=== PATIENT | male | born 1955 | race Caucasian/White ===

== ENCOUNTER 2019-11-18 18:38 | Emergency (ER) | payer MEDICARE, MEDICAID, SELFPAY ==
[2019-11-18 18:39] VITALS: BP 186/100; PULSE 74; RESP 18; TEMP 36.9; O2SAT 98; BMI 26.6
--- NOTE | 2019-11-18 18:42 | ED_ITS ---
Entered by Nancy Rushing, acting as scribe for Paul Martinez MD HPI - General Adult General: Chief complaint: General Medical Stated complaint: BLOOD SUGAR ISSUES Time Seen by Provider: 11/18/19 18:42 Source: patient and EMS Mode of arrival: EMS Limitations: no limitations History of Present Illness: HPI narrative: 64 yo male presents with high blood sugar per shelter. pt is on a sliding scale of insulin. per shelter this started this morning. complaint: high blood sugar Onset (ago): day(s) (today) Radiation: non-radiation Severity: mild Pain Consistency: constant Relieving factors: none Exacerbating factors: none Associated symptoms: Reports chest pain (few mins resloved after); Deny dyspnea, headache(s), nausea, rash or vomiting Treatments prior to arrival: other (insulin at shelter) Review of Systems Const: Denies: fever, chills, body aches or change in appetite Eyes: Denies: blurry vision or eye discomfort ENMT: Denies: throat pain or dental pain Card: Reports: chest pain (few mins resloved after) Resp: Denies: shortness of breath GI: Denies: abdominal pain, nausea, vomiting or diarrhea : Denies: painful urination Musc: Denies: neck pain or back pain Skin/Breast: Denies: rash Neuro: Denies: headache Psych: Denies: depression [place]/Lymph: Denies: easy bruising All/Imm: Denies: hives PFSH ED PFSH: Statuses (acute, chronic, etc) shown below reflect problem list status as previously entered and may not be historically accurate Social History Smoking and tobacco status: never smoked Current gender identity: Male Physical Exam Const: COMMON NORMALS: no apparent distress, oriented x3 and healthy appearing HENMT: COMMON NORMALS: normocephalic and head/scalp atraumatic HEAD & SCALP: normocephalic and atraumatic Eye: COMMON NORMALS: PERRL and EOMs intact bilaterally PUPIL: Yes PERRL Neck/C-Spine: COMMON NORMALS: full ROM and supple Chest: COMMONS NORMALS: inspection of chest normal and palpation of chest normal Resp: COMMON NORMALS: normal respiratory effort, no retractions, no use of accessory muscles and clear to auscultation bilaterally AUSCULTATION: clear to auscultation bilaterally Cardio: COMMON NORMALS: regular rate, regular rhythm and no murmurs RATE: regular rate RHYTHM: regular rhythm GI: COMMON NORMALS: normal to inspection, nondistended, normoactive bowel sounds, soft to palpation, non-tender and no masses PALPATION: Yes soft Extremity: COMMON NORMALS: normal to inspection and full ROM Neuro: COMMON NORMALS: oriented x3, moves all extremities and no focal motor deficits Psych: COMMON NORMALS: mental status grossly normal, thought process normal and cooperative THOUGHT PROCESS: normal thought process Skin: COMMON NORMALS: no rashes or lesions noted and no wounds GENERAL SKIN EXAM: no rashes or lesions noted Course Vital Signs: Vital signs: Vital Signs Temperature 98.4 F 11/18/19 18:39 Pulse Rate 86 11/18/19 19:27 Respiratory Rate 63 H 11/18/19 20:30 Blood Pressure 190/100 11/18/19 19:27 Pulse Oximetry 99 11/18/19 20:30 MDM - General Adult MDM Narrative: Medical decision making narrative: Patient presents here with hyperglycemia with no signs of DKA. Patient's blood glucose here is improving. Patient is well-appearing here and stable. Patient stable for discharge back to the shelter. Lab Data: Labs: Lab Results 11/18/19 11/18/19 11/18/19 Range/Units 18:57 18:58 18:58 WBC 8.6 (4.0-10.0) 10^3/ uL RBC 5.03 (4.1-5.3) 10^6/u L Hgb 13.8 (11.7-16.6) g/dL Hct 42.8 (42.0-52.0) % MCV 85.1 (80-94) fL MCH 27.4 L (28.0-34.0) pg MCHC 32.2 (30.0-36.0) g/dL RDW 13.1 (12.1-15.1) % Plt Count 196 (130-400) 10^3/c mm MPV 11.5 H (7.4-10.4) fL Neut % (Auto) 79.8 % Lymph % (Auto) 11.6 % [place] % (Auto) 7.8 % Eos % (Auto) 0.3 % Baso % (Auto) 0.2 % Neut # (Auto) 6.9 (1.8-7.7) 10^3/u L Lymph # (Auto) 1.0 (0.8-4.8) 10^3/u L [place] # (Auto) 0.7 (0.2-0.9) 10^3/u L Eos # (Auto) 0.0 (0.0-0.8) 10^3/u L Baso # (Auto) 0.0 (0.0-0.1) 10^3/u L Nucleated RBC % (a uto) 0 % Nucleated RBCs # 0.0 /100WBC Sodium 134 L (136-145) mmol/L Potassium 3.8 (3.5-5.1) mmol/L Chloride 94 L (98-107) mmol/L Carbon Dioxide 32 H (22-29) mmol/L Anion Gap 11.8 (5-19) BUN 21 (8-23) mg/dL Creatinine 1.1 (0.7-1.2) mg/dL GFR Calculation 67.2 L (90-130) mL/min Glucose 382 H (65-115) mg/dL POC Glucose 398 (70-110) mg/dL Calcium 9.7 (8.5-10.5) mg/dL Total Bilirubin 0.2 (0.15-1.2) mg/dL AST 23 (0-40) U/L ALT 17 (0-41) U/L Alkaline Phosphata se 110 (40-130) IU/L Total Protein 7.2 (6.6-8.7) g/dL Albumin 4.0 (3.5-5.2) g/dL Globulin 3.2 (1.3-4.6) g/dL 11/18/19 11/18/19 Range/Units 19:59 20:18 WBC (4.0-10.0) 10^3/ uL RBC (4.1-5.3) 10^6/u L Hgb (11.7-16.6) g/dL Hct (42.0-52.0) % MCV (80-94) fL MCH (28.0-34.0) pg MCHC (30.0-36.0) g/dL RDW (12.1-15.1) % Plt Count (130-400) 10^3/c mm MPV (7.4-10.4) fL Neut % (Auto) % Lymph % (Auto) % [place] % (Auto) % Eos % (Auto) % Baso % (Auto) % Neut # (Auto) (1.8-7.7) 10^3/u L Lymph # (Auto) (0.8-4.8) 10^3/u L [place] # (Auto) (0.2-0.9) 10^3/u L Eos # (Auto) (0.0-0.8) 10^3/u L Baso # (Auto) (0.0-0.1) 10^3/u L Nucleated RBC % (a uto) % Nucleated RBCs # /100WBC Sodium (136-145) mmol/L Potassium (3.5-5.1) mmol/L Chloride (98-107) mmol/L Carbon Dioxide (22-29) mmol/L Anion Gap (5-19) BUN (8-23) mg/dL Creatinine (0.7-1.2) mg/dL GFR Calculation (90-130) mL/min Glucose (65-115) mg/dL POC Glucose 429 333 (70-110) mg/dL Calcium (8.5-10.5) mg/dL Total Bilirubin (0.15-1.2) mg/dL AST (0-40) U/L ALT (0-41) U/L Alkaline Phosphata se (40-130) IU/L Total Protein (6.6-8.7) g/dL Albumin (3.5-5.2) g/dL Globulin (1.3-4.6) g/dL Imaging Data^: CXR: Attestation: I personally reviewed and interpreted this imaging study as follows: My impression: no acute abnormality Discharge Plan Discharge Patient Disposition: Home, Self-Care Clinical Impression: Hyperglycemia Condition: Stable Discharge Orders: Discharge Order (Routine); Ordered 11/18/19 Ordered By: Paul Martinez Referrals: Lizette Moon FNP [Family Provider] - URGENT CARE CLINIC, [Primary Care Provider] - Discharge Diet: Advance as tolerated Discharge Activity: Resume usual activity Patient Instructions: Diabetic Hyperglycemia (ED) Discharge Date/Time: 11/18/19 20:43 Coding Level of Care Code ED Custom Framing Specialist for Chg Fwd Exam Problem Focused The documentation recorded by the Сергей neff Bridget Annette, accurately reflects the service I personally performed and the decisions made by me, Paul Martinez MD Nov 18, 2019 18:38
--- NOTE | 2019-11-18 18:47 | XR_ITS ---
WS: [id number] CHEST XRAY TECHNIQUE: Portable chest. CLINICAL INFORMATION: cp COMPARISON: None. FINDINGS: Shallow inspiration. Heart: Normal cardiac silhouette. Tortuous thoracic aorta. Lungs: Chronic emphysematous changes. Subsegmental atelectasis right lung base. Bones: Marked thoracolumbar scoliosis. XR/XR chest 1V portable [id number] IMPRESSION: 1. Shallow inspiration with subsegmental atelectasis right lung base. 2. Marked thoracolumbar scoliosis.
[2019-11-18 18:58] VITALS: O2SAT 98
[2019-11-18] MEDS: sodium chloride 0.9% 1,000 ML 999 ML IV (19:01)
[2019-11-18 19:02] LABS: Glucose Point of Care 398 mg/dL (70-110)
[2019-11-18 19:27] VITALS: BP 190/100; PULSE 86; RESP 16; O2SAT 96
--- NOTE | 2019-11-18 19:28 | PC.NURSE ---
Introduced self to patient and initiated vital signs. Pt is A&O x 4 and agreeable. Pt states that the reason for the ER visit today is due to elevated blood sugar levels. Pt also not complaining of any pain at present. Reassured patient of needs and will continue to monitor.
[2019-11-18 19:29] LABS: Basophils % 0.2 %; Eosinophils % 0.3 %; Hematocrit 42.8 % (42.0-52.0); Hemoglobin 13.8 g/dL (11.7-16.6); Lymphocytes % 11.6 %; Mean Corpuscular HGB Conc 32.2 g/dL (30.0-36.0); Mean Corpuscular Hemoglobin 27.4 pg (28.0-34.0); Mean Corpuscular Volume 85.1 fL (80-94); Mean Platelet Volume 11.5 fL (7.4-10.4); Monocytes # 0.7 10^3/uL (0.2-0.9); Monocytes % 7.8 %; Neutrophils # 6.9 10^3/uL (1.8-7.7); Neutrophils % 79.8 %; Nucleated Red Blood Cells % 0 %; Platelet Count 196 10^3/cmm (130-400); Red Blood Count 5.03 10^6/uL (4.1-5.3); Red Cell Distribution Width 13.1 % (12.1-15.1); White Blood Count 8.6 10^3/uL (4.0-10.0)
[2019-11-18 19:34] LABS: Alanine Aminotransferase 17 U/L (0-41); Alkaline Phosphatase 110 IU/L (40-130); Anion Gap 11.8 (5-19); Aspartate Amino Transferase 23 U/L (0-40); Blood Urea Nitrogen 21 mg/dL (8-23); Calcium 9.7 mg/dL (8.5-10.5); Carbon Dioxide 32 mmol/L (22-29); Chloride 94 mmol/L (98-107); Globulin 3.2 g/dL (1.3-4.6); Glomerular Filtration Rate 67.2 mL/min (90-130); Potassium 3.8 mmol/L (3.5-5.1); Sodium 134 mmol/L (136-145); Total Bilirubin 0.2 mg/dL (0.15-1.2); Total Protein 7.2 g/dL (6.6-8.7)
[2019-11-18] MEDS: hyDRALAzine 20 mg/mL INJ 1 mL 5 MG IVP (19:49)
[2019-11-18] MEDS: insulin regular-human 100 units/1 mL 5 UNIT IVP (19:53)
--- NOTE | 2019-11-18 20:01 | PC.NURSE ---
POCT at insulin admin was 429
[2019-11-18 20:03] LABS: Glucose Point of Care 429 mg/dL (70-110)
[2019-11-18 20:20] LABS: Glucose Point of Care 333 mg/dL (70-110)
[2019-11-18 20:30] VITALS: RESP 63; O2SAT 99
[2019-11-19 09:06] LABS: Glucose 382 mg/dL (65-115)
== END 2019-11-18 20:43 | disposition home or self-care (01) ==
PROVIDERS: Emergency Provider Emergency Medicine; Family Provider Nurse Practitioner Family
DX: R73.9 Hyperglycemia, unspecified (principal)
CPT/HCPCS: 36415; 36416; 71045; 80053; 82962; 85025; 96360; 96361; 96374; 96375; 99282; 99283; J0360; J1815; J7030

== ENCOUNTER → 2019-12-02 08:57 | Outpatient (BNVA) | payer MEDICARE, MEDICAID, SELFPAY | PROVIDERS: Family Provider Nurse Practitioner Family; Visit Provider Counselor Mental Health | DX: F33.1 Major depressive disorder, recurrent, moderate (principal) | CPT/HCPCS: 90832 ==

== ENCOUNTER 2020-02-14 06:52 | Emergency (ER) | payer MEDICARE, MEDICAID, SELFPAY ==
[2020-02-14 07:07] VITALS: BP 178/89; PULSE 61; RESP 18; TEMP 36.5; O2SAT 98; BMI 25.8
[2020-02-14 07:15] VITALS: O2SAT 98
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
[2020-02-14 08:07] LABS: Add Urine Culture? No; Add Urine Microscopic? YES; Bacteria Urine TRACE; Bilirubin Urine Neg (NEGATIVE); Blood Urine Neg (Negative); Glucose Urine UA Norm (Normal); Ketones Urine Negative (Negative); Leukocyte Esterase Urine Negative (Negative); Nitrate Urine Negative (Negative); Protein Urine Neg (Negative); Sulfosalicylic Acid Urine Negative (Negative); Urine Appearance Clear (CLEAR); Urine Color Yellow (Yellow); Urobilinogen Urine 1 mg/dL (Negative); pH Urine 8 (5-7)
[2020-02-14 08:11] LABS: Basophils % 0.7 %; Eosinophils # 0.3 10^3/uL (0.0-0.8); Eosinophils % 5.2 %; Hematocrit 43.7 % (42.0-52.0); Lymphocytes # 0.8 10^3/uL (0.8-4.8); Lymphocytes % 12.8 %; Mean Corpuscular Hemoglobin 27.9 pg (28.0-34.0); Mean Corpuscular Volume 87.2 fL (80-94); Mean Platelet Volume 11.7 fL (7.4-10.4); Monocytes # 0.4 10^3/uL (0.2-0.9); Monocytes % 6.8 %; Neutrophils # 4.6 10^3/uL (1.8-7.7); Neutrophils % 74.3 %; Nucleated Red Blood Cells % 0 %; Platelet Count 184 10^3/cmm (130-400); Red Blood Count 5.01 10^6/uL (4.1-5.3); White Blood Count 6.2 10^3/uL (4.0-10.0)
[2020-02-14 08:13] LABS: Alanine Aminotransferase 11 U/L (0-41); Alkaline Phosphatase 98 IU/L (40-130); Anion Gap 11.6 (5-19); Aspartate Amino Transferase 18 U/L (0-40); Blood Urea Nitrogen 13 mg/dL (8-23); Calcium 9.5 mg/dL (8.5-10.5); Carbon Dioxide 32 mmol/L (22-29); Chloride 100 mmol/L (98-107); Glucose 169 mg/dL (65-115); Osmolality Calculated 290 mOsm/kg (285-295); Potassium 3.6 mmol/L (3.5-5.1); Sodium 140 mmol/L (136-145); Total Bilirubin 0.7 mg/dL (0.15-1.2)
[2020-02-14 08:31] VITALS: BP 199/94; PULSE 70; O2SAT 96
== END 2020-02-14 11:09 ==
PROVIDERS: Emergency Provider Nurse Practitioner Family; Family Provider Nurse Practitioner Family
DX: E11.649 Type 2 diabetes mellitus with hypoglycemia without coma (principal); Z79.4 Long term (current) use of insulin
CPT/HCPCS: 12345; 36415; 80053; 81001; 85025; 99282; A9270

== ENCOUNTER → 2020-02-27 07:46 | Outpatient (BNVA) | payer MEDICARE, MEDICAID, SELFPAY | PROVIDERS: Family Provider Nurse Practitioner Family; Visit Provider Psychiatry & Neurology Psychiatry | DX: F33.2 Major depressive disorder, recurrent severe without psychotic features (principal); Z63.4 Disappearance and death of family member; F90.2 Attention-deficit hyperactivity disorder, combined type | CPT/HCPCS: 99204 ==

== ENCOUNTER 2020-03-04 15:48 | Emergency (ER) | payer MEDICARE, MEDICAID, SELFPAY ==
[2020-03-04 15:51] VITALS: BP 230/97; PULSE 58; RESP 16; TEMP 37.1; O2SAT 94
[2020-03-04 15:59] VITALS: BP 191/95; PULSE 66; RESP 18; O2SAT 95
--- NOTE | 2020-03-04 16:15 | W.ED.GENADLT ---
HPI - General Adult General: Chief complaint: General Medical Stated complaint: HYPERTENSIVE Time Seen by Provider: 03/04/20 15:53 History of Present Illness: HPI narrative: 64-year-old male brought in by EMS from [facility]. 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 He cannot really voice a specific chief complaint. He denies dyspnea or shortness of breath denies recent illness denies fever denies GI or symptoms. He is mildly hypertensive. He was here last week in the ER for an elevated blood sugar at time he arrived here was 150. EMS reports they were [facility] to the [facility] for a patient with altered mental status. Onset (ago): unknown Associated symptoms: Reports no associated symptoms; Deny chest pain, dyspnea, malaise, nausea, rash or vomiting Treatments prior to arrival: none Review of Systems Const: Denies: fever(s), chills, body aches, change in appetite, fatigue or malaise ENMT: Denies: throat pain, ear or mastoid pain, nasal discharge or nasal congestion Card: Denies: chest pain, edema, dyspnea on exertion or orthopnea Resp: Denies: dyspnea, productive cough or non-productive cough GI: Denies: abdominal pain, nausea, vomiting, hematemesis, coffee ground emesis, diarrhea, constipation, bloating, hematochezia or melena : Denies: flank pain, dysuria, urinary frequency or urinary urgency Skin/Breast: Denies: rash or pruritus PFS ED PFSH: Medical History (Updated 03/04/20 @ 16:59 by Charlie Christian DO) Anxiety Diabetes Lower urinary tract symptoms (LUTS) Scoliosis Social History Smoking and tobacco status: never smoked Alcohol intake: never Adopted: No Caregiver/support person: No Lives independently: No Marital status: Current occupational status: retired History of recent travel: No Current gender identity: Male Physical Exam Const: COMMON NORMALS: no acute distress GENERAL APPEARANCE: cooperative and comfortable ORIENTATION/CONSCIOUSNESS: Yes awake HENMT: COMMON NORMALS: normocephalic, atraumatic, external ears normal, EAC's normal, TM's normal bilaterally and Normal nasal mucous membranes and turbinates present HEAD & SCALP: normocephalic and atraumatic NOSE: Normal nasal mucous membranes and turbinates present EXTERNAL EAR: Yes external ears normal EXTERNAL AUDITORY CANAL: EAC's normal TYMPANIC MEMBRANE: TM's normal bilaterally Eye: COMMON NORMALS: Equal, round and reactive pupils present, EOMs intact bilaterally, conjunctivae normal and no scleral icterus CONJUNCTIVA: Yes conjunctivae normal PUPIL: Yes Equal, round and reactive pupils present Neck/C-Spine: COMMON NORMALS: full ROM, no lymphadenopathy, supple and no JVD Lymph: LYMPHATIC: no lymphadenopathy noted and no lymphedema noted Resp: COMMON NORMALS: normal respiratory effort, No retractions, No use of accessory muscles and clear to auscultation bilaterally AUSCULTATION: clear to auscultation bilaterally Cardio: COMMON NORMALS: no JVD, regular rate, regular rhythm and No murmurs present (Cardio) RATE: regular rate RHYTHM: regular rhythm GI: COMMON NORMALS: Soft to palpation and No hepatosplenomegaly present AUSCULTATION: Yes normoactive bowel sounds PALPATION: Yes Soft to palpation, No Tenderness to palpation present (GI), No Guarding due to palpation present (GI) and Yes No hepatosplenomegaly present Extremity: COMMON NORMALS: normal to inspection, capillary refill normal, no clubbing, cyanosis or edema, no calf tenderness and no pedal edema Skin: COMMON NORMALS: no rashes or lesions noted GENERAL SKIN EXAM: no rashes or lesions noted Course Vital Signs: Vital signs: Vital Signs Temperature 98.8 F 03/04/20 15:51 Pulse Rate 79 03/04/20 17:16 Respiratory Rate 18 03/04/20 17:16 Blood Pressure 168/86 03/04/20 17:16 Pulse Oximetry 94 03/04/20 17:16 MDM - General Adult MDM Narrative: Medical decision making narrative: Labs are essentially normal. Pt does not wish to be here. THere is little I can offer by admission. I feel his dementia will be worsened by keeping him in the hospital setting. Her is not likely to benerfit from [facility] and we have noted the redirecting pt here in the ER has been adequate for managing his care when he is confused. Will return the to the [facility]. Lab Data: Labs: Lab Results 03/04/20 03/04/20 03/04/20 Range/Units 16:00 16:00 16:42 WBC 6.4 (4.0-10.0) 10^3/ uL RBC 4.82 (4.1-5.3) 10^6/u L Hgb 13.4 (11.7-16.6) g/dL Hct 41.4 L (42.0-52.0) % MCV 85.9 (80-94) fL MCH 27.8 L (28.0-34.0) pg MCHC 32.4 (30.0-36.0) g/dL RDW 12.8 (12.1-15.1) % Plt Count 197 (130-400) 10^3/c mm MPV 12.2 H (7.4-10.4) fL Neut % (Auto) 72.8 % Lymph % (Auto) 14.7 % [place] % (Auto) 8.9 % Eos % (Auto) 2.8 % Baso % (Auto) 0.5 % Neut # (Auto) 4.6 (1.8-7.7) 10^3/u L Lymph # (Auto) 0.9 (0.8-4.8) 10^3/u L [place] # (Auto) 0.6 (0.2-0.9) 10^3/u L Eos # (Auto) 0.2 (0.0-0.8) 10^3/u L Baso # (Auto) 0.0 (0.0-0.1) 10^3/u L Nucleated RBC % (a uto) 0 % Nucleated RBCs # 0.0 /100WBC Sodium 141 (136-145) mmol/L Potassium 3.3 L (3.5-5.1) mmol/L Chloride 102 (98-107) mmol/L Carbon Dioxide 29 (22-29) mmol/L Anion Gap 13.3 (5-19) BUN 14 (8-23) mg/dL Creatinine 0.8 (0.7-1.2) mg/dL GFR Calculation 97.0 (90-130) mL/min Glucose 143 H (65-115) mg/dL Calculated Osmolal ity 291 (285-295) mOsm/k g Calcium 8.4 L (8.5-10.5) mg/dL Total Bilirubin 0.3 (0.15-1.2) mg/dL AST 16 (0-40) U/L ALT 11 (0-41) U/L Alkaline Phosphata se 99 (40-130) IU/L Total Protein 6.3 L (6.6-8.7) g/dL Albumin 4.2 (3.5-5.2) g/dL Globulin 2.1 (1.3-4.6) g/dL Urine Color Yellow (Yellow) Urine Appearance Clear (CLEAR) Urine pH 8 H (5-7) Ur Specific Gravit y 1.015 (1.005-1.030) Urine Protein Neg (Negative) Urine Glucose (UA) Norm (Normal) Urine Ketones Negative (Negative) Urine Blood Neg (Negative) Urine Nitrate Negative (Negative) Urine Bilirubin Neg (NEGATIVE) Urine Urobilinogen Neg (Negative) mg/dL Ur Leukocyte Estrella ase Negative (Negative) Discharge Plan Discharge Patient Disposition: er [facility] Clinical Impression: Dementia Condition: Stable Referrals: Lizette Moon FNP [Family Provider] - URGENT CARE CLINIC, [Primary Care Provider] - Discharge Diet: Usual diet Discharge Activity: Resume usual activity Activity Restrictions/Additional Instructions: No change in medications Discharge Date/Time: 03/04/20 19:40 Coding Level of Care Code ED Commission Sales Associate for Boris Fwd Exam Comprehensive
--- NOTE | 2020-03-04 16:18 | XR_ITS ---
WS: [id number] CHEST XRAY TECHNIQUE: Portable chest. CLINICAL INFORMATION: dyspnea/cough COMPARISON: November 18, 2019 FINDINGS: Heart: Normal cardiac silhouette. Lungs: Moderate chronic emphysematous changes. Elevation hemidiaphragm with subsegmental atelectasis right lower lobe. Left lung is well aerated. Bones: Thoracic scoliosis. XR/XR chest 1V portable [id number] IMPRESSION: 1. Elevation right hemidiaphragm with subsegmental atelectasis right lower lob e. This is unchanged from previous. 2. Advanced thoracolumbar scoliosis
--- NOTE | 2020-03-04 16:18 | ECG_ITS ---
Measurements Intervals [place] Rate: 54 P: 37 OK: 162 QRS: 10 QRSD: 92 T: 65 QT: 466 QTc: 444 SINUS BRADYCARDIA WITH SINUS ARRHYTHMIA INCOMPLETE RIGHT BUNDLE BRANCH BLOCK Compared to ECG 10/04/2019 15:31:44 Sinus rhythm no longer present ST (T wave) deviation no longer present Early repolarization no longer present Electronically Signed On 03-05-2020 18:10:03 CDT by Casie Scott M.D. [email or web address]
[2020-03-04 16:30] LABS: Basophils % 0.5 %; Eosinophils # 0.2 10^3/uL (0.0-0.8); Eosinophils % 2.8 %; Hematocrit 41.4 % (42.0-52.0); Hemoglobin 13.4 g/dL (11.7-16.6); Lymphocytes # 0.9 10^3/uL (0.8-4.8); Lymphocytes % 14.7 %; Mean Corpuscular HGB Conc 32.4 g/dL (30.0-36.0); Mean Corpuscular Hemoglobin 27.8 pg (28.0-34.0); Mean Corpuscular Volume 85.9 fL (80-94); Mean Platelet Volume 12.2 fL (7.4-10.4); Monocytes # 0.6 10^3/uL (0.2-0.9); Monocytes % 8.9 %; Neutrophils # 4.6 10^3/uL (1.8-7.7); Neutrophils % 72.8 %; Nucleated Red Blood Cells % 0 %; Platelet Count 197 10^3/cmm (130-400); Red Blood Count 4.82 10^6/uL (4.1-5.3); Red Cell Distribution Width 12.8 % (12.1-15.1); White Blood Count 6.4 10^3/uL (4.0-10.0)
[2020-03-04 16:50] LABS: Add Urine Microscopic? NO
[2020-03-04 16:55] LABS: Alanine Aminotransferase 11 U/L (0-41); Albumin Level 4.2 g/dL (3.5-5.2); Alkaline Phosphatase 99 IU/L (40-130); Anion Gap 13.3 (5-19); Aspartate Amino Transferase 16 U/L (0-40); Blood Urea Nitrogen 14 mg/dL (8-23); Calcium 8.4 mg/dL (8.5-10.5); Carbon Dioxide 29 mmol/L (22-29); Chloride 102 mmol/L (98-107); Globulin 2.1 g/dL (1.3-4.6); Glucose 143 mg/dL (65-115); Osmolality Calculated 291 mOsm/kg (285-295); Potassium 3.3 mmol/L (3.5-5.1); Sodium 141 mmol/L (136-145); Total Bilirubin 0.3 mg/dL (0.15-1.2); Total Protein 6.3 g/dL (6.6-8.7)
[2020-03-04 16:56] LABS: Urine Appearance Clear (CLEAR); Urine Color Yellow (Yellow)
[2020-03-04 16:57] LABS: Bilirubin Urine Neg (NEGATIVE); Blood Urine Neg (Negative); Glucose Urine UA Norm (Normal); Ketones Urine Negative (Negative); Leukocyte Esterase Urine Negative (Negative); Nitrate Urine Negative (Negative); Protein Urine Neg (Negative); Specific Gravity, Urine 1.015 (1.005-1.030); Urobilinogen Urine Neg (Negative); pH Urine 8 (5-7)
[2020-03-04 17:10] VITALS: BP 168/86
[2020-03-04 17:16] VITALS: BP 168/86; PULSE 79; RESP 18; O2SAT 94
--- NOTE | 2020-03-04 17:24 | PC.NURSE ---
SON CALLED CONCERNED THAT FATHER NOT ACTING HIMSELF STATES SEEMS TO BE DEPRESSED WORRIED THAT PT MAY TRY TO RUN AWAY FROM [facility] DR SUAZO NOTIFIED OF FAMILIES CONCERN
== END 2020-03-04 19:40 ==
LOC: ER 17:25
PROVIDERS: Emergency Provider Family Medicine; Family Provider Nurse Practitioner Family
DX: F03.90 Unspecified dementia, unspecified severity, without behavioral disturbance, psychotic disturbance, mood disturbance, and anxiety (principal); E11.9 Type 2 diabetes mellitus without complications
CPT/HCPCS: 12345; 71045; 80053; 81003; 85025; 93005; 99283

== ENCOUNTER → 2020-08-03 10:37 | Outpatient (BNVA) | payer MEDICARE, MEDICAID, SELFPAY | PROVIDERS: Family Provider Nurse Practitioner Family; Visit Provider Nurse Practitioner Family | DX: N40.1 Benign prostatic hyperplasia with lower urinary tract symptoms (principal); R39.9 Unspecified symptoms and signs involving the genitourinary system | CPT/HCPCS: 81003 ==

== ENCOUNTER → 2021-05-03 08:57 | Outpatient (BNVA) | payer MEDICARE, MEDICAID, SELFPAY | PROVIDERS: Family Provider Nurse Practitioner Family; Visit Provider Urology | DX: N40.1 Benign prostatic hyperplasia with lower urinary tract symptoms (principal); R35.8 Other polyuria | CPT/HCPCS: 81003 ==

== ENCOUNTER 2022-07-25 13:21 | Inpatient (IN) | payer MEDICARE, MEDICAID, SELFPAY ==
[2022-07-25] VITALS (25 sets, daily range): BP systolic 159–177; BP diastolic 85–110; PULSE 93–111; RESP 16–21; TEMP 36.7–36.8; O2SAT 92–96; BMI 27.4
--- NOTE | 2022-07-25 13:41 | XRR_ITS ---
PROCEDURE INFORMATION: Exam: XR Chest Exam date and time: 07/25/2022 1:48 PM Age: 66 years old Clinical indication: Cough and dyspnea; Additional info: Dyspnea/cough TECHNIQUE: Imaging protocol: Radiologic exam of the chest. Views: 1 view. COMPARISON: CR XR chest 1V portable [id number] 03/04/2020 4:19 PM FINDINGS: Lungs: Low lung volumes seen. The lungs are otherwise clear . Pleural spaces: Unremarkable. No pleural effusion. No pneumothorax. Heart/Mediastinum: Unremarkable. No cardiomegaly. Bones/joints: There is dorsolumbar levoscoliosis. Other findings: There has been no interval change comparing to prior examination XR/XR chest 1V portable [id number] IMPRESSION: 1. No acute findings. 2. Low lung volumes 3. Dorsolumbar levoscoliosis
--- NOTE | 2022-07-25 13:41 | XRR_ITS ---
PROCEDURE INFORMATION: Exam: XR Left Hip Exam date and time: 07/25/2022 1:50 PM Age: 66 years old Clinical indication: Pain and injury or trauma; Blunt trauma (contusions or hematomas); Hip pain; Left hip; Patient HX: Fall lt hip deformity TECHNIQUE: Imaging protocol: Radiologic exam of the Left hip. Views: 2 or 3 views hip with pelvis when performed. COMPARISON: CR XR lumbar spine f/e only [id number] 05/31/2016 3:51 PM FINDINGS: Bones/joints: There is a comminuted displaced angulated intertrochanteric fracture of the left hip. This fracture is contracted. No additional bony abnormalities seen. Soft tissues: Soft tissue effusion is seen in the left hip XR/XR hip LT 2-3V wo/w pel* [id number] IMPRESSION: 1. Comminuted displaced angulated intertrochanteric fracture left hip 2. Soft tissue effusion left hip soft tissues
--- NOTE | 2022-07-25 13:42 | W.ED.FALL ---
HPI - Fall General: Chief Complaint: Fall Stated Complaint: L HIP FRACTURE S/P FALL Source: EMS Mode of arrival: EMS History of Present Illness: 66-year-old male who is a resident at [facility] he had an unwitnessed fall last night and was found down this morning. X-ray of his left hip shows reported intertrochanteric hip fracture we do not have a copy of the x-ray report with him. He has a history of Alzheimer's and diabetes. History is from EMS relayed from the [facility]. Patient is not able to contribute to history. Length of downtime is unknown MD complaint: fall Onset (ago): hour(s) Fall from: out of bed Fall witnessed: no Place fall occurred: [facility] Loss of consciousness: Unsure Prolonged down time: unclear Symptoms prior to fall: none Location of injury: other (L hip) Associated symptoms-after fall: Denies abdominal pain, chest pain, confusion, difficulty walking, headache(s), hematuria, lightheadedness, neck pain, numbness, short of breath, vertigo or weakness Review of Systems Const: Denies: fever(s), chills, body aches, change in appetite, fatigue or malaise Card: Denies: chest pain or lightheadedness Resp: Denies: dyspnea, productive cough or non-productive cough GI: Denies: abdominal pain, nausea or vomiting : Denies: flank pain, difficulty urinating, dysuria, urinary frequency, urinary urgency or hematuria Musc: Denies: neck pain Skin/Breast: Denies: rash or pruritus Neuro: Denies: headache(s), difficulty walking, vertigo or confusion PFSH ED PFSH: Medical History Anxiety BPH loc w urin obs/LUTS Diabetes Lower urinary tract symptoms (LUTS) Mixed hyperlipidemia Proteinuria Scoliosis Surgical History History of appendectomy Family History Father No problems noted. Mother No problems noted. Social History Smoking and tobacco status: never smoked Alcohol intake: never Adopted: No Caregiver/support person: No Lives independently: No Marital status: Current occupational status: retired History of recent travel: No Current gender identity: Male Physical Exam Const: COMMON NORMALS: no acute distress GENERAL APPEARANCE: cooperative and comfortable ORIENTATION/CONSCIOUSNESS: Yes awake HENMT: COMMON NORMALS: normocephalic, atraumatic and hearing grossly normal bilaterally HEAD & SCALP: normocephalic and atraumatic Resp: COMMON NORMALS: normal respiratory effort, No retractions, No use of accessory muscles and clear to auscultation bilaterally AUSCULTATION: clear to auscultation bilaterally Cardio: COMMON NORMALS: regular rate, regular rhythm and No murmurs present (Cardio) RATE: regular rate RHYTHM: regular rhythm GI: COMMON NORMALS: Soft to palpation and No hepatosplenomegaly present AUSCULTATION: Yes normoactive bowel sounds PALPATION: Yes Soft to palpation, No Tenderness to palpation present (GI), No Guarding due to palpation present (GI) and Yes No hepatosplenomegaly present Extremity: COMMON NORMALS: normal to inspection, capillary refill normal, no clubbing, cyanosis or edema, no calf tenderness and no pedal edema Skin: COMMON NORMALS: no rashes or lesions noted GENERAL SKIN EXAM: no rashes or lesions noted Course Vital Signs: Vital signs: Vital Signs Temperature 98.3 F 07/25/22 13:22 Pulse Rate 111 H 07/25/22 13:22 Respiratory Rate 21 H 07/25/22 13:22 Blood Pressure 159/85 07/25/22 13:22 Pulse Oximetry 95 07/25/22 13:22 Oxygen Delivery Me thod 07/25/22 13:22 MDM - Fall Medical Decision Making Left intertrochanteric hip fracture. Patient has not any anticoagulants discussed with hospitalist and consult Ortho orders written Medical Records I reviewed the patient's medical records. Lab Data : 07/25/22 14:40 07/25/22 14:40 Radiology Impressions Chest X-Ray 07/25/22 13:41 IMPRESSION: 1. No acute findings. 2. Low lung volumes 3. Dorsolumbar levoscoliosis Hip/Pelvis X-Ray 07/25/22 13:41 IMPRESSION: 1. Comminuted displaced angulated intertrochanteric fracture left hip 2. Soft tissue effusion left hip soft tissues Head CT 07/25/22 13:45 IMPRESSION: 1. No acute intracranial hemorrhage or edema. 2. Severe atrophy and small vessel ischemic disease. Prior LEFT jannet lacunar infarct. Discharge Plan Discharge Patient Disposition: Admitted As Inpatient Clinical Impression: Closed intertrochanteric fracture of left femur, Alzheimer's dementia Condition: Stable Prescriptions: No Action tamsulosin [Flomax] 0.4 mg capsule 0.4 mg PO BEDTIME@20 ramipril [Altace] 10 mg capsule 20 mg PO DAILY@08 famotidine 20 mg tablet 20 mg PO DAILY@08 GlucaGen Diagnostic Kit 1 mg/mL recon soln 1 mg SUBCUT Q20M PRN (Reason: low blood sugar) magnesium hydroxide [Milk of Magnesia] 400 mg/5 mL suspension 30 ml PO DAILY PRN (Reason: Constipation) simvastatin [Zocor] 20 mg tablet 20 mg PO BEDTIME@20 cetirizine [Zyrtec] 10 mg tablet 10 mg PO DAILY@08 Lantus Solostar U-100 Insulin 100 unit/mL (3 mL) insulin pen 30 unit SUBCUT DAILY@07 Tylenol 325 mg Tablet 650 mg PO Q6H PRN (Reason: Pain) Imodium A-D 2 mg Capsule See Rx Instructions .ROUTE .COMPLEX Rx Instructions: 2 tabs after first loose stool then one tab after each loose stool not to exceed 6 tabs in 24 hours hydrocodone-acetaminophen 5-325 mg tablet 1 tab PO Q6H PRN (Reason: Pain) risperidone 0.25 mg tablet 0.25 mg PO BID@08,20 Calcium 500 500 mg calcium (1,250 mg) Tablet 500 mg PO DAILY@08 Preparation H Hydrocortisone 1 % Cream 1 applic topical Q12H PRN (Reason: pain/itching) Mylanta 200-200-20 mg/5 mL Suspension 30 ml PO Q6H PRN (Reason: Heartburn) Flonase 50 mcg/actuation Capay,Suspension 2 spray INTRANASAL DAILY@08 Rx Instructions: administer into each nostril dextromethorphan HBr 5 mg/5 mL Syrup 10 mg PO Q4H PRN (Reason: Cough) Novolog Flexpen U-100 Insulin 100 unit/mL (3 mL) insulin pen See Rx Instructions .ROUTE .COMPLEX Rx Instructions: 10 units subcutaneously with meals and sliding scale with meals 70-199=0 units 200-249=2 units 250-299=3 units 300-349=4 units 350-399=5 units 400-999-[address] information systems consultant memantine 5 mg tablet 5 mg PO BID@08,20 Cymbalta 30 mg Capsule,Delayed Release(Dr/Ec) 30 mg PO DAILY@08 Multivitamins 28 mg iron- 800 mcg Tablet 1 tab PO DAILY@08 amlodipine 5 mg tablet 5 mg PO DAILY@08 Referrals: Lizette Moon FNP [Nurse Practitioner] - [facility], [Primary Care Provider] - Coding Level of Care Code ED Clinical Project Assistant for Chg Fwd Exam Detailed
--- NOTE | 2022-07-25 13:45 | CT_ITS ---
WS: [id number] CT HEAD NONCONTRAST HISTORY: fall TECHNIQUE: Contiguous axial imaging performed through the brain in 2.5 mm imaging. Bone and soft tiss ue windows. Sagittal and coronal reformats reviewed. All CT scans at [facility] use at least one of these dose optimization techniques: automated exposure control; mA and/or kV adjustment per pa tient size (includes targeted exams where dose is matched to clinical indication); or iterative recon struction. DLP: 1251.13 mGy.cm COMPARISON: None available. No acute intracranial hemorrhage, midline shift or mass effect. Severe atrophy and small vessel ischemic disease. Prior lacunar infarct LEFT jannet. Ventricles: Normal size with no hydrocephalus. No inferior displacement of cerebellar tonsils. Paranasal sinuses: As visualized are clear. Mastoid air cells: Well pneumatized. Calvarium and scalp: Skull is intact with no soft tissue edema or swelling. Heavy calcification in the distal vertebral and intracranial carotid arteries. CT/CT head wo con* [id number] IMPRESSION: 1. No acute intracranial hemorrhage or edema. 2. Severe atrophy and small vessel ischemic disease. Prior LEFT jannet lacunar i nfarct.
--- NOTE | 2022-07-25 14:23 | PC.PHAR ---
pt is from [facility] [phone]-per keya nurse at [place] states the pt had all am meds
[2022-07-25 14:53] LABS: Basophils % 0.1 %; Hematocrit 44.7 % (42.0-52.0); Hemoglobin 15.3 g/dL (11.7-16.6); Lymphocytes # 0.5 10^3/uL (0.8-4.8); Lymphocytes % 3.4 %; Mean Corpuscular HGB Conc 34.2 g/dL (30.0-36.0); Mean Corpuscular Hemoglobin 30.8 pg (28.0-34.0); Mean Corpuscular Volume 89.9 fl (80-94); Mean Platelet Volume 11.7 fL (7.4-10.4); Monocytes # 1.1 10^3/uL (0.2-0.9); Monocytes % 7.9 %; Neutrophils # 11.83 10^3/uL (1.8-7.7); Neutrophils % 87.9 %; Nucleated Red Blood Cells % 0 %; Platelet Count 227 10^3/cmm (130-400); Red Blood Count 4.97 10^6/uL (4.1-5.3); Red Cell Distribution Width 12.5 % (12.1-15.1); White Blood Count 13.5 10^3/uL (4.0-10.0)
--- NOTE | 2022-07-25 15:00 | ECG_ITS ---
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 Measurements Intervals [place] Rate: 109 P: 56 DC: 150 QRS: 40 QRSD: 102 T: 61 QT: 347 QTc: 467 Interpretive Statements SINUS TACHYCARDIA NONSPECIFIC T-WAVE ABNORMALITY ABNORMAL RHYTHM ECG Compared to ECG 03/04/2020 16:42:15 T-wave abnormality now present Sinus bradycardia no longer present Sinus arrhythmia no longer present Incomplete right bundle-branch block no longer present Electronically Signed On 07-26-2022 8:25:32 CDT by Brayden Jones M.D. [email or web address]a]list [email or web address]/store/OM/[id number]/[id number]
[2022-07-25 15:01] LABS: INR 0.92 (0.8-1.2)
[2022-07-25 15:02] LABS: Partial Thromboplastin Time 24.1 SECONDS (23.9-36.7)
[2022-07-25 15:11] LABS: Alanine Aminotransferase 19 U/L (0-41); Albumin Level 4.1 g/dL (3.5-5.2); Alkaline Phosphatase 114 U/L (40-130); Blood Urea Nitrogen 14 mg/dL (8-23); Calcium 9.6 mg/dL (8.5-10.5); Carbon Dioxide 28 mmol/L (22-29); Chloride 101 mmol/L (98-107); Creatine Phosphokinase 315 U/L (39-308); Globulin 3.1 g/dL (1.3-4.6); Glomerular Filtration Rate 112.5 mL/min (90-130); Glucose 135 mg/dL (65-115); Osmolality Calculated 297 mOsm/kg (285-295); Sodium 142 mmol/L (136-145); Total Bilirubin 1.1 mg/dL (0.15-1.2); Total Protein 7.2 g/dL (6.6-8.7)
[2022-07-25 15:13] LABS: Anion Gap 16.7 (5-19); Aspartate Amino Transferase 21 U/L (0-40); Potassium 3.7 mmol/L (3.5-5.1)
[2022-07-25 15:16] LABS: Urine Appearance SL Hazy (CLEAR); Urine Color Dark Yellow (Yellow); pH Urine 5 (5-7)
[2022-07-25] MEDS: fentaNYL 50 mcg/mL INJ 2mL IVP (15:16)
[2022-07-25 15:17] LABS: Add Urine Culture? No; Add Urine Microscopic? YES; Bacteria Urine TRACE /hpf; Bilirubin Urine 1+ (Negative); Blood Urine 2+ (Negative); Glucose Urine UA 4+ (Normal); Ketones Urine 2+ (Negative); Leukocyte Esterase Urine Negative (Negative); Mucus Urine 3+ /hpf; Nitrate Urine Negative (Negative); Protein Urine Neg (Negative); Squamous Epithelial Cell Urine 0-4 /hpf (0-5); Urobilinogen Urine 4 mg/dL (Negative); WBC Urine 0-4 /hpf (0-5)
--- NOTE | 2022-07-25 15:33 | PM.HP ---
Providers/Chief Complaint Admitting Physician: Chandrakant Robles Primary Care Provider: URGENT [facility]ARE CLINIC Chief Complaint: L HIP FRACTURE S/P FALL History of Present Illness 66-year-old gentleman with early onset dementia, [facility] resident, was brought in after a fall last night, with finding of left hip fracture on x-ray. He is awake, alert, responds to questions but unable to provide history with dementia. Provides a limited ROS. Denies any pain currently. Denies any needs. Discussing with [facility] staff, patient may wander sometimes, and yesterday jerked away from aide trying to guide him back to his room and fell down. He has been more irritable recently ever since his was taken to the hospital. He mostly ambulates unassisted. He does get disoriented easily. He eats unassisted in regular diet. He does not otherwise have any specific complaints recently, and apart from above no additional changes were noticed from his baseline state of health. At correction noted to be full code. His also lives in the correction, but per nursing currently he is in a hospital herself. [facility] does have emergency contact listed for patient's brother, Brennan Gray, . Per report both of their sons have sadly . Review of Systems General: Reports: ROS unobtainable due to medical condition Const: Reports: other (Denies pain.) Resp: Denies: dyspnea Medications/Allergies Home Medications Medication Instructions Recorded Confirmed Last Taken Type cetirizine 10 mg tablet (Zyrtec) 10 mg PO DAILY@01/22/20 07/25/22 07/25/22 History famotidine 20 mg tablet 20 mg PO DAILY@01/22/20 07/25/22 07/25/22 History glucagon 1 mg/mL solution for 1 mg SUBCUT Q20M PRN low blood 01/22/20 07/25/22 Unknown History injection (GlucaGen Diagnostic Kit) sugar magnesium hydroxide 400 mg/5 mL 30 ml PO DAILY PRN Constipation 01/22/20 07/25/22 Unknown History oral suspension (Milk of Magnesia) ramipril 10 mg capsule (Altace) 20 mg PO DAILY@01/22/20 07/25/22 07/25/22 History simvastatin 20 mg tablet (Zocor) 20 mg PO BEDTIME@01/22/20 07/25/22 07/24/22 History tamsulosin 0.4 mg capsule (Flomax) 0.4 mg PO BEDTIME@02/27/20 07/25/22 07/24/22 History insulin glargine 100 unit/mL (3 30 unit SUBCUT DAILY@05/03/21 07/25/22 07/25/22 History mL) subcutaneous pen (Lantus Solostar U-100 Insulin) acetaminophen 325 mg tablet 650 mg PO Q6H PRN Pain 07/25/22 07/25/22 Unknown History (Tylenol) aluminum-mag hydroxide-simethicone 30 ml PO Q6H PRN Heartburn 07/25/22 07/25/22 Unknown History 200 mg-200 mg-20 mg/5 mL oral susp amlodipine 5 mg tablet 5 mg PO DAILY@07/25/22 07/25/22 07/25/22 History calcium carbonate 500 mg calcium 500 mg PO DAILY@07/25/22 07/25/22 07/25/22 History (1,250 mg) tablet dextromethorphan HBr 5 mg/5 mL 10 mg PO Q4H PRN Cough 07/25/22 07/25/22 Unknown History oral syrup duloxetine 30 mg capsule,delayed 30 mg PO DAILY@07/25/22 07/25/22 07/25/22 History release (Cymbalta) fluticasone propionate 50 2 spray intranasal DAILY@07/25/22 07/25/22 07/25/22 History mcg/actuation nasal spray,suspension hydrocodone 5 mg-acetaminophen 325 1 tab PO Q6H PRN Pain 07/25/22 07/25/22 07/25/22 07:04 History mg tablet hydrocortisone 1 % topical cream 1 applic topical Q12H PRN 07/25/22 07/25/22 Unknown History (Preparation H Hydrocortisone) pain/itching insulin aspart U-100 100 unit/mL See Rx Instructions .Route .COMPLEX 07/25/22 07/25/22 07/25/22 11:34 History (3 mL) subcutaneous pen (Novolog 12 units Flexpen U-100 Insulin aspart) @11:34 loperamide 2 mg capsule (Imodium See Rx Instructions .Route .COMPLEX 07/25/22 07/25/22 Unknown History A-D) memantine 5 mg tablet 5 mg PO BID@,07/25/22 07/25/22 07/25/22 History vit no.95-ferrous 1 tab PO DAILY@08 07/25/22 07/25/22 07/25/22 History fumarate 28 mg-folic acid 800 mcg tablet ( Multivitamins) risperidone 0.25 mg tablet 0.25 mg PO BID@,07/25/22 07/25/22 07/25/22 History Allergies Allergy/AdvReac Type Severity Reaction Status Date / Time No Known Allergies Allergy Verified 07/25/22 14:02 PFSH Acute PFSH: Medical History Anxiety BPH loc w urin obs/LUTS Dementia Diabetes Lower urinary tract symptoms (LUTS) Mixed hyperlipidemia Proteinuria Scoliosis Surgical History History of appendectomy Family History Father No problems noted. Mother No problems noted. Social History Smoking and tobacco status: never smoked Alcohol intake: never Adopted: No Caregiver/support person: No Lives independently: No Marital status: Current occupational status: retired History of recent travel: No Current gender identity: Male Vitals/I&O/Wt Last Vital Signs Temp 98.3 F 07/25/22 13:22 Pulse 102 H 07/25/22 15:15 Resp 16 07/25/22 15:16 BP 175/107 07/25/22 15:15 Pulse Ox 95 07/25/22 15:16 O2 Del Method 07/25/22 14:27 Weight last 48 hrs Weight 77.111 kg Physical Exam Const: COMMON NORMALS: alert; negative for patient oriented x3 GENERAL APPEARANCE: cooperative ORIENTATION/CONSCIOUSNESS: Yes awake HENMT: COMMON NORMALS: oropharynx normal Neck/C-Spine: COMMON NORMALS: no JVD Resp: COMMON NORMALS: normal respiratory effort and clear to auscultation bilaterally AUSCULTATION: clear to auscultation bilaterally Cardio: COMMON NORMALS: no JVD, regular rhythm, S1 normal heart sound present, S2 normal heart sound present and No murmurs present (Cardio) RHYTHM: regular rhythm HEART SOUNDS: S1 normal heart sound present and S2 normal heart sound present GI: COMMON NORMALS: Normal to inspection, nondistended, normoactive bowel sounds present, Soft to palpation and non-tender PALPATION: Yes Soft to palpation Extremity: COMMON NORMALS: no joint enlargement and no pedal edema Neuro: COMMON NORMALS: patient oriented x3 and moves all extremities SENSORIUM/ORIENTATION: Yes alert Skin: OTHER: small scrapes and abrasions on BL LE Data : 07/25/22 14:40 07/25/22 14:40 A&P Assessment and plan (1) Closed intertrochanteric fracture of left femur: Seems after a mechanical fall, but he does wonder, and may be at risk of falling again. Once he is able to get up may end up requiring one-to-one sitter. Fall precautions. Does not otherwise appear to have any additional trigger. History of BPH, but UA not suggestive of UTI. Chest x-ray without acute findings. Does have diabetes, noted some ketones in urine. However, otherwise does not appear to have metabolic acidosis. Will check VBG. Suspect more with hypovolemia/poor oral intake, noted some hemoconcentration. Will give gentle IV rehydration. Continue insulin. Pending orthopedic assessment. He has slightly elevated risk of surgical site infection, slight elevation risk of renal failure, readmission or return to the OR. Mildly elevated risk of sepsis. Predicted length of stay 4 days. (2) Dementia: Fall precautions, he may wander. Once able to get up may require sitter. (3) Fall: (4) Cerebrovascular accident, old: Incidentally noted prior left jannet lacunar infarct. Would benefit from further risk factors once out of acute illness. Continue statin. Consider addition of aspirin, although he is at elevated fall risk and elevated bleeding risk due to this. May benefit from optimization of hypertension control long-term. Should not affect treatment of his fracture. Plan Dehydration: Noted to have some dehydration, somewhat dry on exam, also some hemoconcentration, bicarb 28. Some urine ketones noted with diabetes, but otherwise does not appear to be in metabolic acidosis, suspect perhaps more with poor oral intake/starvation ketosis. Will check VBG. We will give gentle IV hydration with LR, 500 mL bag. Reassess. Diabetes: Continue Lantus, sliding scale insulin. CC diet. BPH HLD Anxiety Attestations Medical Necessity Statement*: Admission of 2 midnights dissipated for assessment comminuted, displaced left hip fracture and gentleman with underlying dementia, diabetes, hypertension, additional comorbidities as above. Coding Level of Care Code Acute Corporate Learning Consultant for g Fwd Exam Comprehensive Diagnoses Closed intertrochanteric fracture of left femur S72.142A Dementia F03.90 Fall W19.XXXA Cerebrovascular accident, old Z86.73
[2022-07-25] MEDS: lactated ringers 500 ML 30 ML IV (16:26)
[2022-07-25 16:33] LABS: Base Excess VBG 4.8 mmol/L (-3.0-3.0); Blood Gas Operator Identificat CAK; Blood Gas Sample Type Venous; HCO3 VBG 28.4 mmol/L (24-28); PCO2 VBG 38.1 mmHg (41-51); PO2 VBG 59.4 mmHg (25-40); Venous Blood Gas Hematocrit 47.1 % (42-52); pH VBG 7.48 (7.32-7.42)
[2022-07-25] MEDS: ceFAZolin 2,000 MG in sodium chloride 0.9% (plus) 50 ML 100 MG IV (17:24)
[2022-07-25] MEDS: acetaminophen 1,000 MG/100 ML PIGGYBACK 400 MG IV (17:24)
[2022-07-25] MEDS: CELEcoxib 200 mg Capsule 400 MG PO (17:25)
[2022-07-25] MEDS: heparin 5,000 unit/mL INJ 1 mL 5000 UNIT SUBCUT (17:25)
[2022-07-25 17:26] LABS: Glucose Point of Care 174 mg/dL (70-110)
--- NOTE | 2022-07-25 18:21 | P.CONIM_ITS ---
Providers/Reason For Consult Consulting Physician/Specialty*: Erin Cunningham MD Reason for Consult*: Left Intertrochanteric Hip Fracture Requesting Physician: Charlie Christian MD Attending Physician: Chandrakant Robles MD Primary Care Provider: [facility] History of Present Illness History of Present Illness Gerard Gray is a 66 year old male who resides in a nursing facility secondary to early onset dementia. The patient fell last evening and was brought to the emergency department today where he was found to have a significantly displaced left intertrochanteric hip fracture. The patient is alert, but he is only oriented to self. He has limited range of motion and is unable to ambulate. The patient's resident facility is [facility]. They have been contacted regarding possible family and power of contracts attorney. A number was given for his brother, Brennan Gray, however, this number is not valid. Unfortunately, the patient had 2 sons both of whom have . One of the sons is actually listed on paperwork as his contact. Additional contact is his who lives at the alf with him, but per staff at the alf, she is in a coma and hospital in [place]. Patient is admitted for definitive care of the hip fracture. I have discussed the case with Dr. Christian who is the admitting emergency room physician as well as Dr. Acosta. At this point. All efforts have been made to contact next of kin. Briefly this evening, there was a [id number] here. Per nursing staff, the epntua-jl-flz is aware that the patient is to have surgery and had no objections, we do not have contact information available for this person. Review of Systems Narrative: Patient is only oriented review of system information. He denies pain at the present time. Information otherwise is obtained from resident facility. Medications/Allergies Home Medications Medication Instructions Recorded Confirmed Last Taken Type cetirizine 10 mg tablet (Zyrtec) 10 mg PO DAILY@01/22/20 07/25/22 07/25/22 History famotidine 20 mg tablet 20 mg PO DAILY@01/22/20 07/25/22 07/25/22 History glucagon 1 mg/mL solution for 1 mg SUBCUT Q20M PRN low blood 01/22/20 07/25/22 Unknown History injection (GlucaGen Diagnostic Kit) sugar magnesium hydroxide 400 mg/5 mL 30 ml PO DAILY PRN Constipation 01/22/20 07/25/22 Unknown History oral suspension (Milk of Magnesia) ramipril 10 mg capsule (Altace) 20 mg PO DAILY@01/22/20 07/25/22 07/25/22 History simvastatin 20 mg tablet (Zocor) 20 mg PO BEDTIME@01/22/20 07/25/22 07/24/22 History tamsulosin 0.4 mg capsule (Flomax) 0.4 mg PO BEDTIME@02/27/20 07/25/22 07/24/22 History insulin glargine 100 unit/mL (3 30 unit SUBCUT DAILY@05/03/21 07/25/22 07/25/22 History mL) subcutaneous pen (Lantus Solostar U-100 Insulin) acetaminophen 325 mg tablet 650 mg PO Q6H PRN Pain 07/25/22 07/25/22 Unknown History (Tylenol) aluminum-mag hydroxide-simethicone 30 ml PO Q6H PRN Heartburn 07/25/22 07/25/22 Unknown History 200 mg-200 mg-20 mg/5 mL oral susp amlodipine 5 mg tablet 5 mg PO DAILY@07/25/22 07/25/22 07/25/22 History calcium carbonate 500 mg calcium 500 mg PO DAILY@07/25/22 07/25/22 07/25/22 History (1,250 mg) tablet dextromethorphan HBr 5 mg/5 mL 10 mg PO Q4H PRN Cough 07/25/22 07/25/22 Unknown History oral syrup duloxetine 30 mg capsule,delayed 30 mg PO DAILY@07/25/22 07/25/22 07/25/22 History release (Cymbalta) fluticasone propionate 50 2 spray intranasal DAILY@07/25/22 07/25/22 07/25/22 History mcg/actuation nasal spray,suspension hydrocodone 5 mg-acetaminophen 325 1 tab PO Q6H PRN Pain 07/25/22 07/25/22 07/25/22 07:04 History mg tablet hydrocortisone 1 % topical cream 1 applic topical Q12H PRN 07/25/22 07/25/22 Unknown History (Preparation H Hydrocortisone) pain/itching insulin aspart U-100 100 unit/mL See Rx Instructions .Route .COMPLEX 07/25/22 07/25/22 07/25/22 11:34 History (3 mL) subcutaneous pen (Novolog 12 units Flexpen U-100 Insulin aspart) @11:34 loperamide 2 mg capsule (Imodium See Rx Instructions .Route .COMPLEX 07/25/22 07/25/22 Unknown History A-D) memantine 5 mg tablet 5 mg PO BID@07/25/22 07/25/22 07/25/22 History vit no.95-ferrous 1 tab PO DAILY@07/25/22 07/25/22 07/25/22 History fumarate 28 mg-folic acid 800 mcg tablet ( Multivitamins) risperidone 0.25 mg tablet 0.25 mg PO BID@07/25/22 07/25/22 07/25/22 History Allergies Allergy/AdvReac Type Severity Reaction Status Date / Time No Known Allergies Allergy Verified 07/25/22 14:02 Current Medications Generic Name Dose Route Start Last Admin Trade Name Marv PRN Reason Stop Dose Admin Lactated Ringer's 500 mls @ 30 mls/hr 07/25/22 16:00 07/25/22 16:26 Lactated Ringers IV 07/26/22 08:39 30 mls/hr .[id number] MABEL Administration Cefazolin Sodium 2,000 mg/ 50 mls @ 100 mls/hr 07/25/22 18:00 07/25/22 17:24 Sodium Chloride IV 07/25/22 18:29 100 mls/hr RADIOLOGIST DIAGNOSTIC ONE Administration Protocol Insulin Human Lispro 0 unit 07/25/22 18:00 07/25/22 17:21 Insulin Lispro 100 Unit/1 Ml SUBCUT Not Given WM&BEDTIME MABEL Protocol PFSH Acute PFSH: Medical History Anxiety BPH loc w urin obs/LUTS Dementia Diabetes Lower urinary tract symptoms (LUTS) Mixed hyperlipidemia Proteinuria Scoliosis Surgical History History of appendectomy Family History (Updated 07/25/22 @ 18:27 by Erin Cunningham MD) Father No problems noted. Mother No problems noted. Son , Both patient's sons are Family history of premature coronary artery disease Social History Smoking and tobacco status: never smoked Alcohol intake: never Adopted: No Caregiver/support person: No Lives independently: No Marital status: Current occupational status: retired History of recent travel: No Current gender identity: Male Vitals/I&O/Wt Last Vital Signs Temp 98.3 F 07/25/22 13:22 Pulse 108 H 07/25/22 16:25 Resp 16 07/25/22 15:16 BP 175/106 07/25/22 16:25 Pulse Ox 95 07/25/22 16:25 O2 Del Method 07/25/22 16:50 Weight last 48 hrs Weight 170 lb Weight 170 lb Physical Exam Const: COMMON NORMALS: no acute distress, average body habitus and alert GENERAL APPEARANCE: cooperative and comfortable ORIENTATION/CONSCIOUSNESS: Yes awake HENMT: COMMON NORMALS: normocephalic and atraumatic HEAD & SCALP: normocephalic and atraumatic Eye: GENERAL EYE: appearance normal, both eyes and all related structures Chest: COMMONS NORMALS: normal inspection of the chest Resp: COMMON NORMALS: normal respiratory effort EFFORT & INSPECTION: Yes able to speak in complete sentences and Yes symmetric chest movement Extremity: NARRATIVE EXTREMITY EXAM: Patient is resting comfortably. LEFT LOWER EXTREMITY: Yes hip joint (Patient is neurologically intact distally) Left hip: Yes ROM (Not obtained secondary to fracture) and Yes neurovascular exam (Intact sensation and motor function) Neuro: SENSORIUM/ORIENTATION: Yes alert Psych: APPEARANCE: Yes grossly normal ATTITUDE: Yes calm ATTENTION/CONCENTRATION: Yes attention grossly intact Skin: COMMON NORMALS: no rashes or lesions noted GENERAL SKIN EXAM: no rashes or lesions noted Urinary Catheter Management: Tracy: Cath Placed During This Visit: yes Urinary Catheter Date of Insertion: 07/25/22 Data : 07/25/22 14:40 07/25/22 14:40 Xray Ortho: My impression: Patient has a significantly displaced left intertrochanteric hip fracture with varus deformity and shortening. This was in agreement with the radiologist impression. A&P Assessment and plan (1) Closed intertrochanteric fracture of left femur: This 66-year-old gentleman presented through the emergency department after a mechanical fall in the facility where he resides. The patient presented to the emergency department complaining of inability to ambulate. He was not accompanied by family at the time of his arrival. He was seen and evaluated by the medical service. Imaging studies demonstrated an intertrochanteric hip fracture with significant displacement and shortening. Additionally, he is oriented only to himself. I have spoken with Dr. Christian from the emergency department and together, we have provided consent under urgent clause. Attempt was made to contact the patient's svsrub-ir-jxv who reportedly was in the facility earlier and understands he is going to surgery. She is not designated as family contact. The resident facility had a [employer] telephone number, however, this number goes to a critical access hospital according to the machine which answers the phone. His contacts include a son who unfortunately passed approximately a year or year and a half ago. Additionally, his is listed as his emergency contact, but according to the alf, she is currently hospitalized in [place] and is in a coma . I attempted to contact not only the brother as noted above, but also the tdypaz-[id number]-jls whose name is Akua. We will speak with her in the morning should she return to the hospital, but currently, we have no contact information for her. I spoke with Dr. Wyatt we agreed that this is an urgent surgical procedure and the patient is at increased risk of morbidity and even mortality should surgical intervention be delayed. Qualifiers: Encounter type: initial encounter Fracture alignment: displaced Qualified Code(s): S72.142A - Displaced intertrochanteric fracture of left femur, initial encounter for closed fracture Consult Attestations Medical Necessity Statement: Patient admitted for definitive treatment of left intertrochanteric hip fracture. Coding Level of Care Code New Pt Acute Video Machines Mechanic for g Fwd Patient Type New History Comprehensive Exam Comprehensive Medical Decision Making High Complexity Diagnoses Closed intertrochanteric fracture of left femur S72.142A Encounter type: initial encounter Fracture alignment: displaced
--- NOTE | 2022-07-25 18:57 | PC.NURSE ---
This board writer present with Marisa Carreno while attempting to contact patient contact information from assisted. Voicemail was reached, call back message left. Attempted Brennan at [phone] and Celestina (patient wifes sister) [phone]. Numbers verified with [facility] at [phone].
[2022-07-25] MEDS: tamsulosin 0.4 mg Capsule PO (20:12)
[2022-07-25] MEDS: HYDROcodone-acetaminophen 5-325 mg Tablet 1 TAB PO (20:12)
[2022-07-25] MEDS: atorvastatin 40 mg Tablet 20 MG PO (20:12)
[2022-07-25] MEDS: memantine 5 mg tablet PO (20:12)
[2022-07-25] MEDS: risperiDONE 0.25 mg Tablet PO (20:12)
[2022-07-25 21:04] LABS: Glucose Point of Care 155 mg/dL (70-110)
--- NOTE | 2022-07-25 22:51 | PC.NURSE ---
Patient oriented to person only. Bed alarm is set.
--- NOTE | 2022-07-25 23:44 | PC.NURSE ---
Addendum entered by Jeni Garza RN 07/25/22 23:45: Her phone number is [phone]. Original Note: Mariana called via telephone and stated that she gives consent for patient to have hip surgery. She states she will be here to see patient tomorrow.
[2022-07-26] VITALS (13 sets, daily range): BP systolic 146–184; BP diastolic 82–97; PULSE 70–107; RESP 13–23; TEMP 36.2–37.3; O2SAT 93–100
--- NOTE | 2022-07-26 | SCC_ITS ---
Procedure done: Open reduction internal fixation left intertrochanteric hip fracture. 143 seconds of fluoroscopic guidance, for a cumulative dose of 15.9 mGy, was provided to Dr. Cunningham by the radiology department. C-arm images of the LEFT hip were saved for the patient's permanent record. [facility]
[2022-07-26] MEDS: HYDROcodone-acetaminophen 5-325 mg Tablet 1 TAB PO ×2 (01:13→06:10)
[2022-07-26 02:18] LABS: Basophils % 0.3 %; Hematocrit 38.5 % (42.0-52.0); Hemoglobin 13.3 g/dL (11.7-16.6); Lymphocytes # 0.9 10^3/uL (0.8-4.8); Lymphocytes % 7.8 %; Mean Corpuscular HGB Conc 34.5 g/dL (30.0-36.0); Mean Corpuscular Hemoglobin 30.9 pg (28.0-34.0); Mean Corpuscular Volume 89.5 fl (80-94); Mean Platelet Volume 10.8 fL (7.4-10.4); Monocytes # 1.1 10^3/uL (0.2-0.9); Monocytes % 10.1 %; Neutrophils # 9.02 10^3/uL (1.8-7.7); Neutrophils % 81.3 %; Nucleated Red Blood Cells % 0 %; Platelet Count 186 10^3/cmm (130-400); Red Cell Distribution Width 12.8 % (12.1-15.1); White Blood Count 11.1 10^3/uL (4.0-10.0)
[2022-07-26 02:39] LABS: Anion Gap 13.6 (5-19); Blood Urea Nitrogen 17 mg/dL (8-23); Calcium 8.7 mg/dL (8.5-10.5); Carbon Dioxide 28 mmol/L (22-29); Chloride 102 mmol/L (98-107); Glomerular Filtration Rate 134.4 mL/min (90-130); Glucose 176 mg/dL (65-115); Osmolality Calculated 296 mOsm/kg (285-295); Potassium 3.6 mmol/L (3.5-5.1); Sodium 140 mmol/L (136-145)
[2022-07-26 06:17] LABS: Glucose Point of Care 186 mg/dL (70-110)
[2022-07-26] MEDS: duloxetine 30 mg Capsule PO (08:26)
[2022-07-26] MEDS: memantine 5 mg tablet PO ×2 (08:27→20:19)
[2022-07-26] MEDS: risperiDONE 0.25 mg Tablet PO ×2 (08:27→20:19)
--- NOTE | 2022-07-26 09:09 | PC.CHAP ---
Pastoral Care Encounter/Spiritual Assessment Type of Contact [] Declined b2b sales consultant visit [] Patient/Family/Request visit [] Outpatient visit [] Follow-up visit [] Physician referral [] Code/Alert [x] Routine visit [] Staff referral [] Actively dying [x] Patient sleeping [] Family support [] [] Out of room [] Palliative care [] [] Receiving care in room [] Pre-surgical visit [] Trauma [] Long length of stay [] ICU visit [] Other: Relational/Emotional Strength [] Patient feels connected with others/family/visitors/staff [] Distress [] Loneliness/isolation [] Abandonment Spirituality of Patient [] Person of Misti [] Attends Orthodox of their Misti [] Believes in Prayer [] Reads Bible or Zoroastrian materials [] There are Spiritual issues to be addressed 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 Pouncer Machine 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 Interventions [] Prayer [] Active listening [] Non-anxious presence [] Spiritual/emotional support [] Crisis/trauma care [] Spiritual counseling [] Bereavement support [] Provided bereavement packet [] Provided Bible/devotional materials [] Provided toy/stuffed animal, coloring book to patient or family member [] Provided Communion [] Anointing/[place] [] Salvation [] Completed spiritual assessment [] Other: Impact on Illness or Injury [] Angry [] Fearful [] Anxious [] Often cries [] Exhaustion [] Unable to work [] Unable to attend restoration [] Unable to walk/stand [] Unable to read [] Unable to drive [] Unable to eat/drink [] Unable to sleep [] Unable to be with family [] Patient intubated [] Other: Summary Time spent with patient
--- NOTE | 2022-07-26 10:37 | PC.NURSE ---
pt off floor for surgery
[2022-07-26] MEDS: CELEcoxib 200 mg Capsule 400 MG PO (11:00)
[2022-07-26] MEDS: acetaminophen 1,000 MG/100 ML PIGGYBACK 400 MG IV (11:05)
[2022-07-26] MEDS: sodium chloride 0.9% 1,000 ML 30 ML IV (11:05)
--- NOTE | 2022-07-26 11:48 | ANES.PREANE2 ---
Pre-Anesthetic Assessment Height/Weight: Height 1.68 m Weight 70.171 kg Temp Pulse Resp BP Pulse Ox O2 Del Method 98.2 F 76 16 167/89 96 07/26/22 07:58 07/26/22 07:58 07/26/22 07:58 07/26/22 07:58 07/26/22 07:58 07/25/22 16:50 Preop Diagnosis: Left intertrochanteric hip fracture Operation Date: 07/26/22 11:30 Proposed Procedures p Trochanteric Femoral Nail(Left) - Erin Cunningham MD Familial anesthetic complications: Unknown Last intake: > 8 hrs Exam alert, clear to auscultation bilaterally and regular rate & rhythm CV/HEM Hypertension GI Gastroesophageal Reflux Disease Metabolic Diabetes Mellitus and Hyperlipidemia Neuropsych Dementia Anesthetic Plan ASA status: 3 Anesthesia: General Risk of > 500 ml blood loss (7ml/kg in children): No Other Pertinent Information unable to contact , patient's residential states she is at [facility]. Attempted to contact [id number] twice at two different numbers, immediately prior to surgery. Unable to reach anyone for anesthesia consent. Medications/Allergies Home Medications Medication Instructions Recorded Confirmed Last Taken Type cetirizine 10 mg tablet (Zyrtec) 10 mg PO DAILY@01/22/20 07/25/22 07/25/22 History famotidine 20 mg tablet 20 mg PO DAILY@01/22/20 07/25/22 07/25/22 History glucagon 1 mg/mL solution for 1 mg SUBCUT Q20M PRN low blood 01/22/20 07/25/22 Unknown History injection (GlucaGen Diagnostic Kit) sugar magnesium hydroxide 400 mg/5 mL 30 ml PO DAILY PRN Constipation 01/22/20 07/25/22 Unknown History oral suspension (Milk of Magnesia) ramipril 10 mg capsule (Altace) 20 mg PO DAILY@01/22/20 07/25/22 07/25/22 History simvastatin 20 mg tablet (Zocor) 20 mg PO BEDTIME@01/22/20 07/25/22 07/24/22 History tamsulosin 0.4 mg capsule (Flomax) 0.4 mg PO BEDTIME@02/27/20 07/25/22 07/24/22 History insulin glargine 100 unit/mL (3 30 unit SUBCUT DAILY@07 05/03/21 07/25/22 07/25/22 History mL) subcutaneous pen (Lantus Solostar U-100 Insulin) acetaminophen 325 mg tablet 650 mg PO Q6H PRN Pain 07/25/22 07/25/22 Unknown History (Tylenol) aluminum-mag hydroxide-simethicone 30 ml PO Q6H PRN Heartburn 07/25/22 07/25/22 Unknown History 200 mg-200 mg-20 mg/5 mL oral susp amlodipine 5 mg tablet 5 mg PO DAILY@07/25/22 07/25/22 07/25/22 History calcium carbonate 500 mg calcium 500 mg PO DAILY@07/25/22 07/25/22 07/25/22 History (1,250 mg) tablet dextromethorphan HBr 5 mg/5 mL 10 mg PO Q4H PRN Cough 07/25/22 07/25/22 Unknown History oral syrup duloxetine 30 mg capsule,delayed 30 mg PO DAILY@07/25/22 07/25/22 07/25/22 History release (Cymbalta) fluticasone propionate 50 2 spray intranasal DAILY@07/25/22 07/25/22 07/25/22 History mcg/actuation nasal spray,suspension hydrocodone 5 mg-acetaminophen 325 1 tab PO Q6H PRN Pain 07/25/22 07/25/22 07/25/22 07:04 History mg tablet hydrocortisone 1 % topical cream 1 applic topical Q12H PRN 07/25/22 07/25/22 Unknown History (Preparation H Hydrocortisone) pain/itching insulin aspart U-100 100 unit/mL See Rx Instructions .Route .COMPLEX 07/25/22 07/25/22 07/25/22 11:34 History (3 mL) subcutaneous pen (Novolog 12 units Flexpen U-100 Insulin aspart) @11:34 loperamide 2 mg capsule (Imodium See Rx Instructions .Route .COMPLEX 07/25/22 07/25/22 Unknown History A-D) memantine 5 mg tablet 5 mg PO BID@,07/25/22 07/25/22 07/25/22 History vit no.95-ferrous 1 tab PO DAILY@07/25/22 07/25/22 07/25/22 History fumarate 28 mg-folic acid 800 mcg tablet ( Multivitamins) risperidone 0.25 mg tablet 0.25 mg PO BID@08,20 07/25/22 07/25/22 07/25/22 History Allergies Allergy/AdvReac Type Severity Reaction Status Date / Time No Known Allergies Allergy Verified 07/25/22 14:02 Current Medications Generic Name Dose Route Start Last Admin Trade Name Fremarina PRN Reason Stop Dose Admin Hydrocodone Bitart/Acetaminophen 1 tab 07/25/22 16:50 07/26/22 06:10 Hydrocodone-Acetaminophen 5-325 Mg Tablet PO 1 tab Q6H PRN Administration Pain Atorvastatin Calcium 20 mg 07/25/22 20:00 07/25/22 20:12 Atorvastatin 40 Mg Tablet PO 20 mg BEDTIME@20 [facility] Administration Duloxetine HCl 30 mg 07/26/22 08:00 07/26/22 08:26 Duloxetine 30 Mg Capsule PO 30 mg DAILY@08 [facility] Administration Famotidine 20 mg 07/26/22 08:00 07/26/22 08:27 Famotidine 20 Mg Tablet PO Not Given DAILY@08 [facility] Fluticasone Propionate 2 spray 07/26/22 08:00 07/26/22 08:27 Fluticasone Nasal Isabella 16gm Btl INTRANASAL Not Given DAILY@08 [facility] Sodium Chloride 1,000 mls @ 30 mls/hr 07/26/22 11:00 07/26/22 11:05 Sodium Chloride 0.9% IV 07/27/22 10:59 30 mls/hr .Q24H [facility] Administration Insulin Glargine 15 unit 07/26/22 07:00 07/25/22 23:05 Insulin Glargine 100 Units/1 Ml SUBCUT Not Given DAILY@07 [facility] Insulin Human Lispro 0 unit 07/25/22 18:00 07/26/22 07:55 Insulin Lispro 100 Unit/1 Ml SUBCUT Not Given WM&BEDTIME [facility] Protocol Memantine 5 mg 07/25/22 20:00 07/26/22 08:27 Memantine 5 Mg Tablet PO 5 mg BID@08,20 [facility] Administration Risperidone 0.25 mg 07/25/22 20:00 07/26/22 08:27 Risperidone 0.25 Mg Tablet PO 0.25 mg BID@08,20 [facility] Administration Tamsulosin HCl 0.4 mg 07/25/22 20:00 07/25/22 20:12 Tamsulosin 0.4 Mg Capsule PO 0.4 mg BEDTIME@20 MABEL Administration PFSH Anesthesia Medical History Anxiety BPH loc w urin obs/LUTS Dementia Diabetes Lower urinary tract symptoms (LUTS) Mixed hyperlipidemia Proteinuria Scoliosis Surgical History History of appendectomy Family History (Updated 07/25/22 @ 18:27 by Erin Cunningham MD) Father No problems noted. Mother No problems noted. Son , Both patient's sons are Family history of premature coronary artery disease Social History Smoking and tobacco status: never smoked Alcohol intake: never Adopted: No Caregiver/support person: No Lives independently: No Marital status: Current occupational status: retired History of recent travel: No Current gender identity: Male Data Anesthesia : 07/26/22 02:10 07/26/22 02:10 Short CBC 07/25/22 07/26/22 Range/Units 14:40 02:10 WBC 13.5 H 11.1 H (4.0-10.0) 10^3/uL Hgb 15.3 13.3 (11.7-16.6) g/dL Hct 44.7 38.5 L (42.0-52.0) % MCV 89.9 89.5 (80-94) fl Plt Count 227 186 (130-400) 10^3/cmm Neut % (Auto) 87.9 81.3 % Neut # (Auto) 11.83 H 9.02 H (1.8-7.7) 10^3/uL BMP 07/25/22 07/26/22 14:40 02:10 Sodium 142 140 Potassium 3.7 3.6 Chloride 101 102 Carbon Dioxide 28 28 BUN 14 17 Creatinine 0.7 0.6 L Glucose 135 H 176 H Calcium 9.6 8.7 Cardiac Enzymes 07/25/22 Range/Units 14:40 Creatine Kinase 315 H (39-308) U/L Liver Function 07/25/22 Range/Units 14:40 Total Bilirubin 1.1 (0.15-1.2) mg/dL AST 21 (0-40) U/L ALT 19 (0-41) U/L Alkaline Phosphatase 114 (40-130) U/L Albumin 4.1 (3.5-5.2) g/dL Urine 07/25/22 Range/Units 14:40 Urine Color Dark yellow (Yellow) Urine Appearance Sl hazy A (CLEAR) Urine pH 5 (5-7) Ur Specific [place] 1.020 (1.005-1.030) Urine Protein Neg (Negative) Urine Glucose (UA) 4+ H (Normal) Urine Ketones 2+ H (Negative) Urine Nitrate Negative (Negative) Urine Bilirubin 1+ H (Negative) Ur Leukocyte Esterase Negative (Negative) Urine RBC 10-15 H (0-2) /hpf Urine WBC 0-4 H (0-5) /hpf Coags 07/25/22 14:40 PT 12.70 INR 0.92 APTT 24.1 ABG 07/25/22 16:25 Specimen Type Venous Cardiac Studies: No Data to Display
[2022-07-26] MEDS: ceFAZolin 2,000 MG in sodium chloride 0.9% (plus) 50 ML 100 MG IV ×2 (12:00→20:20)
--- NOTE | 2022-07-26 12:15 | PM.MISC ---
Miscellaneous Note Purpose of Documentation: Preoperative Note: The patient's [id number], his 's sister, has given anesthesia consent and is aware of the plan for surgical intervention. She discussed the plan for surgery with the night nurse, and she understands the reason for proceeding.
[2022-07-26] MEDS: ceFAZolin 1,000 mg SDV 1000 MG IRRIGATION (12:44)
--- NOTE | 2022-07-26 13:24 | PM.OP ---
Operative Report Date of procedure: July 26, 2022 Pre-op diagnosis: Left intertrochanteric hip fracture Post-op diagnosis: Left intertrochanteric hip fracture Post-op findings: Comminuted intra-articular left intertrochanteric hip fracture with displacement, angulation, and shortening. Procedure done: Open reduction internal fixation left intertrochanteric hip fracture. Implants: The Angela gamma 3 nail system with a size 11 mm x 180 mm x 125 degree gamma 3 trochanteric nail, a size 10.5 mm x 100 mm lag screw, and a distal locking screw size 5 mm x 32.5 mm Specimens removed/disposition: None Surgeon: Erin Cunningham Manager Sustainability: None Anesthesia: General (Intubated, ASA 3) Estimated blood loss (mL): 50 IV fluids (mL): 600 Urine output (mL): 200 Complications: None Findings: Comminuted shortened angulated left intertrochanteric hip fracture with osteopenic bone Condition: stable Disposition: PACU (Then to floor for postoperative rehabilitation and pain management) Brief History: Gerard Gray is a 66 year old male who resides in a nursing facility secondary to early onset dementia.? The patient fell last evening and was brought to the emergency department today where he was found to have a significantly displaced left intertrochanteric hip fracture.? The patient is alert, but he is only oriented to self.? He has limited range of motion and is unable to ambulate.? The patient's resident facility is [facility].? They have been contacted regarding possible family and power of compliance attorney.? A number was given for his brother, Brennan Gray, however, this number is not valid.? Unfortunately, the patient had 2 sons both of whom have .? One of the sons is actually listed on paperwork as his contact.? Additional contact is his who lives [facility] with him, but per staff at the [facility], she is in a coma and hospital in [place].? Patient is admitted for definitive care of the hip fracture.? I have discussed the case with Dr. Christian who is the admitting emergency room physician as well as Dr. Acosta.? At this point.? All efforts have been made to contact next of kin.? Briefly this evening, there was a [id number] here.? Per nursing staff, the [id number] is aware that the patient is to have surgery and had no objections, we do not have contact information available for this person. Procedure: Patient is brought to the operating theater. After undergoing adequate general intubated anesthesia, ASA 3, the patient was transferred to the fracture table, positioned on the table and fluoroscopic guidance obtained throughout the surgical procedure. Prior to the commencement of the surgical procedure, a surgical pause was performed. At the time of the surgical pause, we confirmed the site and side of surgery as well as preoperative surgical markings and appropriate and timely administration of IV antibiotics, Ancef 2g. Availability of equipment was also confirmed. Fluoroscopy was used to confirm the fracture was in appropriate position in both AP and lateral planes. An incision was then made slightly above the greater trochanter to allow access to the greater trochanter. An awl was used to enter the greater trochanter, and a guidewire was subsequently placed. The guidewire was confirmed to be in appropriate position in AP and lateral planes.? Guidewire was then removed. Initially, I was given a 10 mm x 170 mm trochanteric nail, and this was inserted. It was subsequently removed as the appropriate size which was to be given was an 11 mm nail. An 11 mm x 180 mm x 125 degree trochanteric nail was subsequently placed into appropriate position with positioning being confirmed in AP and lateral planes on the x-ray. It passed without difficulty. Guidewire was then passed through the jigging system into the femoral head. We wanted to be center or slightly inferior and posterior to center. Guidewire was placed into appropriate position. Once the guidewire was in appropriate position, this position was confirmed by x-ray.? This was then measured and we chose a 10.5 mm x 100 mm lag screw.? We reamed to allow for the lag screw to be placed.? The 100 mm lag screw was then passed into the femoral head through the trochanteric nail. This was passed uneventfully and again position was confirmed in AP and lateral planes. Compression was obtained under fluoroscopic guidance.? The set screw was then placed in position, tightened completely, and subsequently backed off one-eighth turn. The construct was left in position and attention was directed distally. Cannulas were again used to determine appropriate placement for the distal screw. This was placed in position without difficulty. It was measured off of the drill. The appropriate length screw was then obtained and placed in position without difficulty. Once the screw was in position, we confirmed appropriate placement of the components, and we removed the jigging system. Attention was then directed to closure. The hip was copiously irrigated with normal saline with antibiotics. Subcutaneous tissues were injected with Marcaine for local anesthesia. Following this it was dried and closed. Tensor fascia ainsley was closed proximally with 0 Vicryl in an interrupted fashion. Subcutaneous tissues were closed with 2-0 Monocryl, and the skin was closed with a continuous 3-0 Monocryl subcuticular stitch. This was then covered with Dermabond, steri-strips, and OpSite. The patient was removed from the fracture table and returned to recovery in satisfactory condition. The patient will be discharged to the floor for postoperative rehabilitation and pain management. There were no specimens obtained. Related Problem List Diagnoses (1) Closed intertrochanteric fracture of left femur:
--- NOTE | 2022-07-26 13:27 | XR_ITS ---
WS: [id number] Left hip, C-arm fluoroscopy views, 07/26/2022 Clinical Data: OR PICS Comparison: Left hip, 07/25/2022 Findings: Dr. Cunningham inserted an oblique screw into the left femoral neck fixed with a proximal intramedullary r od in the left femur. XR/XR hip LT 2-3V wo/w pel* [id number] Impression: Internal fixation of left intertrochanteric hip fracture.
--- NOTE | 2022-07-26 14:14 | SUR.PHASEI ---
1348 PT TO PACU 5 PT SLEEPY WITH GOOD RESP NOTED LT THIGH WITH 3 SITES D/I FIRST ICE TO SITE, DISTAL LT FOOT PINK COOL, WITH PULSE MARKED +1 FOOT PUMP TO FOOT SCD TO RT LEG, LLAMAS PATENT OF CLEAR YELLOW URINE TO TUBING AND BAG , STATLOCK PLACED TO RT INNER THIGH, APPROX 30 ML IN BAG. MONITOR SR WITH NO ECTOPY, ID BRACELET TO LT WRIST PT ID'D WITH 2 IDENTIFIERS, IV TO LT AC #20 PATENT OF 200ML NS AT KVO RATE PER GRAVITY. PT DOES NOT AWAKE TO TOUCH 1410 PT AWAKES TO TOUCH, PT OPENS EYES AND MOVES BILAT FEET TO COMMAND, LT HIP SITES UNCHANGED DISTAL PULSE UNCHANGED, VSS PT SHOWS NO S/S OF PAIN PT ORIENTED TO SELF ONLY, PT ON RA TRIAL.
--- NOTE | 2022-07-26 14:19 | SUR.PHASEI ---
ORDERS RECIEVED EARLIER FROM RENAL DIALYSIS RN FOR LABETOLOL PER PHASE 1 PROTOCOL, BP NOW BETTER AT 170/80/S
--- NOTE | 2022-07-26 14:25 | ANE.PACU2 ---
Inpatient post-anesthesia follow up: Airway intact: Yes Vital signs: Temperature 97.5 F Pulse Rate 77 Respiratory Rate 19 Blood Pressure 168/87 Pulse Oximetry 96 Oxygen Delivery Me thod Room Air Oxygen Flow Rate 8 Fraction of Inspir ed Oxygen Hydration adequate: Yes Nausea and vomiting: No Pain level: 1 Mental status: Baseline
[2022-07-26 14:35] LABS: Glucose Point of Care 228 mg/dL (70-110)
--- NOTE | 2022-07-26 15:27 | P.PN_ITS ---
Subjective Subjective: This morning he was reported lethargic, during my visit he is awake, alert, denies pain. Unable to provide history but does seem to remember falling. Vitals/I&O/Wt Last Vital Signs Temp 98.6 F 07/26/22 14:20 Pulse 80 07/26/22 14:20 Resp 17 07/26/22 14:20 BP 168/82 07/26/22 14:20 Pulse Ox 96 07/26/22 14:20 O2 Del Method 07/26/22 14:20 O2 Flow Rate 8 07/26/22 14:00 07/26/22 07/26/22 07/26/22 06:59 14:59 22:59 Intake Total 150 / 250 2200 / 2200 Output Total 250 / 250 950 / 950 Balance -100 / 0 1250 / 1250 Weight last 48 hrs Weight 70.171 kg Weight 77.111 kg Weight 77.111 kg Physical Exam Const: COMMON NORMALS: alert; negative for patient oriented x3 GENERAL APPEARANCE: cooperative ORIENTATION/CONSCIOUSNESS: Yes awake HENMT: COMMON NORMALS: oropharynx normal Neck/C-Spine: COMMON NORMALS: no JVD Resp: COMMON NORMALS: normal respiratory effort and clear to auscultation bilaterally AUSCULTATION: clear to auscultation bilaterally Cardio: COMMON NORMALS: no JVD, regular rhythm, S1 normal heart sound present, S2 normal heart sound present and No murmurs present (Cardio) RHYTHM: regular rhythm HEART SOUNDS: S1 normal heart sound present and S2 normal heart sound present GI: COMMON NORMALS: Normal to inspection, nondistended, normoactive bowel sounds present, Soft to palpation and non-tender PALPATION: Yes Soft to palpation Extremity: COMMON NORMALS: no joint enlargement and no pedal edema Neuro: COMMON NORMALS: moves all extremities; negative for patient oriented x3 SENSORIUM/ORIENTATION: Yes alert Skin: OTHER: small scrapes and abrasions on BL LE Urinary Catheter Management: Tracy: Cath Placed During This Visit: yes Reason for Continuing Indwelling Catheter: Required Immobilization for Trauma or Surgery or Anesthesia Urinary Catheter Date of Insertion: 07/25/22 Data : 07/26/22 02:10 07/26/22 02:10 A&P Assessment and plan (1) Closed intertrochanteric fracture of left femur: Tachycardia has improved with gentle IV hydration due to dehydration. Not in DKA. ORIF today. VTE prophylaxis once okay per surgery. Reassess blood count. Pain control. Therapy assessment, discharge planning. At senior living reported to wander, and may be at risk of falling again. 1:1 sitter. Fall precautions. Qualifiers: Encounter type: initial encounter Fracture alignment: displaced Qualified Code(s): S72.142A - Displaced intertrochanteric fracture of left femur, initial encounter for closed fracture (2) Dementia: Fall precautions, he may wander. Sitter. (3) Fall: (4) Cerebrovascular accident, old: Incidentally noted prior left jannet lacunar infarct. Would benefit from further risk factors once out of acute illness. Continue statin. Consider addition of aspirin, although he is at elevated fall risk and elevated bleeding risk due to this. May benefit from optimization of hypertension control long-term. Should not affect treatment of his fracture. Plan Dehydration: Improving with gentle IV rehydration. Once able, resume oral intake as tolerating. Diabetes: Continue Lantus, sliding scale insulin. CC diet. Not in DKA. Was dehydrated. BPH HLD Anxiety Attestations Medical Necessity Statement*: Continue assessment and management following fall, left hip fracture and repair. Coding Level of Care Code Acute Director Educational Radio for [facility] Diagnoses Closed intertrochanteric fracture of left femur S72.142A Encounter type: initial encounter Fracture alignment: displaced Dementia F03.90 Fall W19.XXXA Cerebrovascular accident, old Z86.73
--- NOTE | 2022-07-26 17:42 | PM.MISC ---
Miscellaneous Note Purpose of Documentation: Discussion with family, niece Note: Following surgical intervention, the patient's niece was in the room with with the patient. Discussion was undertaken regarding the surgical plan and reasons for the urgent surgery. The niece was comfortable with the plan and was pleased that surgery had been undertaken. She will work with case management to get appropriate family and contact information into the chart. Patient was doing well without complaints.
[2022-07-26 18:00] LABS: Glucose Point of Care 236 mg/dL (70-110)
[2022-07-26] MEDS: insulin lispro 100 unit/1 mL SUBCUT ×2 (18:36→21:30)
[2022-07-26] MEDS: atorvastatin 40 mg Tablet 20 MG PO (20:19)
[2022-07-26] MEDS: tamsulosin 0.4 mg Capsule PO (20:21)
[2022-07-26 21:20] LABS: Glucose Point of Care 167 mg/dL (70-110)
[2022-07-27] VITALS (9 sets, daily range): BP systolic 155–173; BP diastolic 81–93; PULSE 88–109; RESP 16–19; TEMP 36.8–37.3; O2SAT 93–96
[2022-07-27 02:49] LABS: Basophils % 0.2 %; Eosinophils % 0.1 %; Hematocrit 38.4 % (42.0-52.0); Hemoglobin 12.8 g/dL (11.7-16.6); Lymphocytes # 0.6 10^3/uL (0.8-4.8); Lymphocytes % 6.4 %; Mean Corpuscular HGB Conc 33.3 g/dL (30.0-36.0); Mean Corpuscular Hemoglobin 30.8 pg (28.0-34.0); Mean Corpuscular Volume 92.3 fl (80-94); Neutrophils # 7.98 10^3/uL (1.8-7.7); Neutrophils % 82.7 %; Nucleated Red Blood Cells % 0 %; Platelet Count 174 10^3/cmm (130-400); Red Blood Count 4.16 10^6/uL (4.1-5.3); Red Cell Distribution Width 12.6 % (12.1-15.1); White Blood Count 9.7 10^3/uL (4.0-10.0)
[2022-07-27] MEDS: ceFAZolin 2,000 MG in sodium chloride 0.9% (plus) 50 ML 100 MG IV ×2 (03:09→12:09)
[2022-07-27 03:11] LABS: Anion Gap 11.8 (5-19); Blood Urea Nitrogen 14 mg/dL (8-23); Calcium 8.6 mg/dL (8.5-10.5); Carbon Dioxide 29 mmol/L (22-29); Chloride 102 mmol/L (98-107); Glomerular Filtration Rate 134.4 mL/min (90-130); Glucose 129 mg/dL (65-115); Osmolality Calculated 290 mOsm/kg (285-295); Potassium 3.8 mmol/L (3.5-5.1); Sodium 139 mmol/L (136-145)
[2022-07-27 06:14] LABS: Glucose Point of Care 196 mg/dL (70-110)
[2022-07-27] MEDS: insulin lispro 100 unit/1 mL SUBCUT ×4 (08:31→21:21)
[2022-07-27] MEDS: insulin glargine 100 units/1 mL 15 UNIT SUBCUT (08:31)
[2022-07-27] MEDS: duloxetine 30 mg Capsule PO (08:32)
[2022-07-27] MEDS: aspirin 325 mg EC Tablet PO (08:32)
[2022-07-27] MEDS: famotidine 20 mg Tablet PO (08:32)
[2022-07-27] MEDS: risperiDONE 0.25 mg Tablet PO ×2 (08:38→21:21)
[2022-07-27] MEDS: memantine 5 mg tablet PO ×2 (08:38→21:21)
[2022-07-27 11:28] LABS: Glucose Point of Care 257 mg/dL (70-110)
--- NOTE | 2022-07-27 12:45 | P.PN_ITS ---
Subjective Subjective: The patient is doing well, and he is working with physical therapy. He is seen today once again with his niece in the room. Medications: Reviewed: Yes Vitals/I&O/Wt Last Vital Signs Temp 98.3 F 07/27/22 16:00 Pulse 108 H 07/27/22 16:00 Resp 16 07/27/22 16:00 BP 173/93 07/27/22 16:00 Pulse Ox 94 07/27/22 16:00 O2 Del Method 07/27/22 16:00 O2 Flow Rate 8 07/26/22 14:00 07/27/22 07/27/22 07/27/22 06:59 14:59 22:59 Intake Total 470 / 2720 170 / 170 Output Total 450 / 1400 Balance 20 / 1320 170 / 170 Weight last 48 hrs Weight 152 lb 6.4 oz Weight 154 lb 11.2 oz Weight 170 lb Physical Exam Const: COMMON NORMALS: no acute distress, average body habitus and alert GENERAL APPEARANCE: cooperative and comfortable ORIENTATION/CONSCIOUSNESS: Yes awake HENMT: COMMON NORMALS: normocephalic and atraumatic HEAD & SCALP: normocephalic and atraumatic Eye: GENERAL EYE: appearance normal, both eyes and all related structures Chest: COMMONS NORMALS: normal inspection of the chest Resp: COMMON NORMALS: normal respiratory effort EFFORT & INSPECTION: Yes able to speak in complete sentences and Yes symmetric chest movement Extremity: NARRATIVE EXTREMITY EXAM: Patient is resting comfortably. Dressings are dry and intact. There is no significant swelling. There is no drainage. He remains neurologically intact. LEFT LOWER EXTREMITY: Yes hip joint (Range of motion not evaluated.) Neuro: SENSORIUM/ORIENTATION: Yes alert Psych: APPEARANCE: Yes grossly normal ATTITUDE: Yes calm ATTENTION/CONCENTRATION: Yes attention grossly intact Skin: COMMON NORMALS: no rashes or lesions noted GENERAL SKIN EXAM: no rashes or lesions noted Urinary Catheter Management: Tracy: Cath Placed During This Visit: yes, but has since been removed by the nurse Reason for Continuing Indwelling Catheter: Decision to DC Catheter Urinary Catheter Date of Insertion: 07/25/22 Date Urinary Catheter Removed: 07/27/22 Time Urinary Catheter Discontinued: 06:50 Data : 07/27/22 02:17 07/27/22 02:17 A&P Assessment and plan (1) Closed intertrochanteric fracture of left femur: This 66-year-old gentleman presented through the emergency department after a mechanical fall in the facility where he resides. The patient presented to the emergency department complaining of inability to ambulate. He was not accompanied by family at the time of his arrival. He was seen and evaluated by the medical service. Imaging studies demonstrated an intertrochanteric hip fracture with significant displacement and shortening. Additionally, he is oriented only to himself. He underwent open reduction internal fixation in the operating room uneventfully. I was able to speak with his niece yesterday who understands that he will need to return to long term. She was in agreement with the surgery at the time we spoke. Today, plans will be made for his discharge likely to his initial facility under a skilled status. Qualifiers: Encounter type: initial encounter Fracture alignment: displaced Qualified Code(s): S72.142A - Displaced intertrochanteric fracture of left femur, initial encounter for closed fracture Attestations Medical Necessity Statement*: Patient continues in-house hospitalization for nursing care following open reduction internal fixation of intertrochanteric hip fracture. Coding Level of Care Code Acute Foreign Legal Consultant for [facility] Diagnoses Closed intertrochanteric fracture of left femur S72.142A Encounter type: initial encounter Fracture alignment: displaced
--- NOTE | 2022-07-27 14:33 | PM.PN ---
Subjective Subjective: He is doing well, not in any significant pain. No trouble breathing. Being visited by family. Vitals/I&O/Wt Last Vital Signs Temp 98.4 F 07/27/22 12:00 Pulse 95 07/27/22 12:00 Resp 17 07/27/22 12:00 BP 165/88 07/27/22 12:00 Pulse Ox 95 07/27/22 12:00 O2 Del Method 07/27/22 12:00 O2 Flow Rate 8 07/26/22 14:00 07/26/22 07/27/22 07/27/22 22:59 06:59 14:59 Intake Total 50 / 2250 470 / 2720 170 / 170 Output Total 0 / 950 450 / 1400 Balance 50 / 1300 20 / 1320 170 / 170 Weight last 48 hrs Weight 69.127 kg Weight 70.171 kg Weight 77.111 kg Physical Exam Const: COMMON NORMALS: alert GENERAL APPEARANCE: cooperative ORIENTATION/CONSCIOUSNESS: Yes awake HENMT: COMMON NORMALS: oropharynx normal Neck/C-Spine: COMMON NORMALS: no JVD Resp: COMMON NORMALS: normal respiratory effort and clear to auscultation bilaterally AUSCULTATION: clear to auscultation bilaterally Cardio: COMMON NORMALS: no JVD, regular rhythm, S1 normal heart sound present, S2 normal heart sound present and No murmurs present (Cardio) RHYTHM: regular rhythm HEART SOUNDS: S1 normal heart sound present and S2 normal heart sound present GI: COMMON NORMALS: Normal to inspection, nondistended, normoactive bowel sounds present, Soft to palpation and non-tender PALPATION: Yes Soft to palpation Extremity: COMMON NORMALS: no joint enlargement and no pedal edema OTHER: Left thigh intact dressing, cold pack. Neuro: COMMON NORMALS: moves all extremities SENSORIUM/ORIENTATION: Yes alert Urinary Catheter Management: Tracy: Cath Placed During This Visit: yes, but has since been removed by the nurse Reason for Continuing Indwelling Catheter: Decision to DC Catheter Urinary Catheter Date of Insertion: 07/25/22 Date Urinary Catheter Removed: 07/27/22 Time Urinary Catheter Discontinued: 06:50 Data : 07/27/22 02:17 07/27/22 02:17 A&P Assessment and plan (1) Closed intertrochanteric fracture of left femur: He is doing well postoperatively. Maintaining blood count. Recheck hemoglobin. On aspirin. Tracy removed. Mobilize with therapy. Case management working on disposition planning, family are asking about changing facilities. At [facility] reported to wander, and may be at risk of falling again. 1:1 sitter. Fall precautions. Qualifiers: Encounter type: initial encounter Fracture alignment: displaced Qualified Code(s): S72.142A - Displaced intertrochanteric fracture of left femur, initial encounter for closed fracture (2) Dementia: Fall precautions, he may wander. Sitter was requested. (3) Fall: (4) Cerebrovascular accident, old: Incidentally noted prior left jannet lacunar infarct. Would benefit from further risk factors once out of acute illness. Continue statin. Consider addition of aspirin, although he is at elevated fall risk and elevated bleeding risk due to this. May benefit from optimization of hypertension control long-term. Should not affect treatment of his fracture. Aspirin was added. Continue statin. Would benefit from hypertension optimization long-term. Plan Dehydration: Off IVF. P.o. intake as tolerating. Diabetes: Continue Lantus, sliding scale insulin. CC diet. Not in DKA. Was dehydrated. BPH HLD Anxiety Attestations Medical Necessity Statement*: Continue treatment for assessment management after left hip fracture and repair. Coding Level of Care Code Acute Special Education Coordinator for [facility] Diagnoses Closed intertrochanteric fracture of left femur S72.142A Encounter type: initial encounter Fracture alignment: displaced Dementia F03.90 Fall W19.XXXA Cerebrovascular accident, old Z86.73
[2022-07-27] MEDS: HYDROcodone-acetaminophen 5-325 mg Tablet 1 TAB PO (15:26)
[2022-07-27] MEDS: amlodipine 5 mg Tablet PO (15:48)
[2022-07-27 16:54] LABS: Glucose Point of Care 286 mg/dL (70-110)
[2022-07-27 20:54] LABS: Glucose Point of Care 281 mg/dL (70-110)
[2022-07-27] MEDS: tamsulosin 0.4 mg Capsule PO (21:21)
[2022-07-27] MEDS: atorvastatin 40 mg Tablet 20 MG PO (21:21)
[2022-07-28] VITALS: BP 161/77; PULSE 93; RESP 17; TEMP 37.1; O2SAT 95
[2022-07-28 04:00] VITALS: BP 165/77; PULSE 91; RESP 18; TEMP 36.8; O2SAT 93
[2022-07-28 04:53] LABS: Basophils % 0.2 %; Eosinophils % 0.4 %; Hematocrit 36.4 % (42.0-52.0); Hemoglobin 12.2 g/dL (11.7-16.6); Lymphocytes # 0.7 10^3/uL (0.8-4.8); Lymphocytes % 7.4 %; Mean Corpuscular HGB Conc 33.5 g/dL (30.0-36.0); Mean Corpuscular Hemoglobin 31.1 pg (28.0-34.0); Mean Corpuscular Volume 92.9 fl (80-94); Monocytes # 0.8 10^3/uL (0.2-0.9); Monocytes % 8.6 %; Neutrophils # 8.04 10^3/uL (1.8-7.7); Neutrophils % 82.8 %; Nucleated Red Blood Cells % 0 %; Platelet Count 170 10^3/cmm (130-400); Red Blood Count 3.92 10^6/uL (4.1-5.3); Red Cell Distribution Width 12.7 % (12.1-15.1); White Blood Count 9.7 10^3/uL (4.0-10.0)
[2022-07-28 05:13] LABS: Anion Gap 16.8 (5-19); Blood Urea Nitrogen 20 mg/dL (8-23); Calcium 8.4 mg/dL (8.5-10.5); Carbon Dioxide 26 mmol/L (22-29); Chloride 99 mmol/L (98-107); Glomerular Filtration Rate 165.9 mL/min (90-130); Glucose 257 mg/dL (65-115); Osmolality Calculated 297 mOsm/kg (285-295); Potassium 3.8 mmol/L (3.5-5.1); Sodium 138 mmol/L (136-145)
[2022-07-28 05:14] LABS: Creatinine Clr Calc Pharmacy 84.7079
[2022-07-28 06:28] LABS: Glucose Point of Care 313 mg/dL (70-110)
[2022-07-28 07:54] VITALS: BP 169/85; PULSE 104; RESP 17; TEMP 37.3; O2SAT 95
[2022-07-28 08:12] VITALS: PULSE 95; RESP 16; O2SAT 97
[2022-07-28] MEDS: fluticasone nasal spray 16gm Btl 2 SPRAY INTRANASAL (08:36)
[2022-07-28] MEDS: insulin glargine 100 units/1 mL 15 UNIT SUBCUT (08:36)
[2022-07-28] MEDS: famotidine 20 mg Tablet PO (08:37)
[2022-07-28] MEDS: insulin lispro 100 unit/1 mL SUBCUT ×2 (08:37→11:40)
[2022-07-28] MEDS: aspirin 325 mg EC Tablet PO (08:37)
[2022-07-28] MEDS: memantine 5 mg tablet PO (08:37)
[2022-07-28] MEDS: amlodipine 5 mg Tablet PO (08:37)
[2022-07-28] MEDS: risperiDONE 0.25 mg Tablet PO (08:38)
[2022-07-28] MEDS: duloxetine 30 mg Capsule PO (08:48)
[2022-07-28 10:58] LABS: Glucose Point of Care 362 mg/dL (70-110)
[2022-07-28] MEDS: HYDROcodone-acetaminophen 5-325 mg Tablet 1 TAB PO (11:41)
--- NOTE | 2022-07-28 11:42 | PC.SOCIAL ---
IMM Update pg 2 of IMM updated and reviewed w/ patient. Copy provided and copy dated, initialed and placed in chart.
[2022-07-28 12:00] VITALS: BP 169/91; PULSE 109; RESP 17; TEMP 37.1; O2SAT 95
[2022-07-28 12:07] LABS: SARS Covid-2 Antigen negative (Negative)
[2022-07-28 14:00] VITALS: BP 169/91; PULSE 109; RESP 17; TEMP 37.1; O2SAT 95
--- NOTE | 2022-07-28 14:01 | PC.NURSE ---
Report called to [facility], no further questions.
--- NOTE | 2022-07-28 15:19 | P.DS_ITS ---
Discharge Providers Date of Admission: 07/25/22 16:50 Date of Discharge: July 28, 2022 Attending Provider at Admission: Chandrakant Robles Attending Provider at Discharge: Chandrakant Robles Diagnoses at Discharge Discharge Diagnosis (1) Closed intertrochanteric fracture of left femur: Status: Acute Qualifiers: Encounter type: initial encounter Fracture alignment: displaced Qualified Code(s): S72.142A - Displaced intertrochanteric fracture of left femur, initial encounter for closed fracture Reason for Visit Reason for Visit: L HIP FRACTURE S/P FALL Hospital Course Hospital Course Pleasant 66-year-old gentleman [facility] resident with dementia was admitted for assessment of management of comminuted, displaced angulated intertrochanteric left hip fracture after sustaining a fall reported wandering away from caregiver, presentation with mild dehydration with hemoconcentration, otherwise without suggestion of acute infection. Noted old lacunar stroke in left jannet incidentally seen on CT of the head. Underwent uneventful ORIF left hip on 07/26. Doing well postoperatively. Minimal pain. Hemoglobin staying steady. Continues on aspirin 325 mg for VTE prophylaxis. Once completes course of prophylaxis, please switch to 81 mg aspirin, continue statin, continue to optimize cardiovascular risk factors including hypertension to prevent further CVA. Consider follow-up with neurology. Continue fall prevention precautions. Physical Exam Const: COMMON NORMALS: alert; negative for patient oriented x3 GENERAL APPEARANCE: cooperative ORIENTATION/CONSCIOUSNESS: Yes awake HENMT: COMMON NORMALS: oropharynx normal Neck/C-Spine: COMMON NORMALS: no JVD Resp: COMMON NORMALS: normal respiratory effort and clear to auscultation bilaterally AUSCULTATION: clear to auscultation bilaterally Cardio: COMMON NORMALS: no JVD, regular rhythm, S1 normal heart sound present, S2 normal heart sound present and No murmurs present (Cardio) RHYTHM: regular rhythm HEART SOUNDS: S1 normal heart sound present and S2 normal heart sound present GI: COMMON NORMALS: Normal to inspection, nondistended, normoactive bowel sounds present, Soft to palpation and non-tender PALPATION: Yes Soft to palpation Extremity: COMMON NORMALS: no joint enlargement and no pedal edema OTHER: Left thigh clean intact dressing, cold pack. Neuro: COMMON NORMALS: moves all extremities; negative for patient oriented x3 SENSORIUM/ORIENTATION: Yes alert Skin: OTHER: small scrapes and abrasions on BL LE healing Urinary Catheter Management: Tracy: Cath Placed During This Visit: yes, but has since been removed by the nurse Reason for Continuing Indwelling Catheter: Decision to DC Catheter Urinary Catheter Date of Insertion: 07/25/22 Date Urinary Catheter Removed: 07/27/22 Time Urinary Catheter Discontinued: 06:50 Discharge Data Studies Completed and Pending Completed Studies During Hospitalization Category Date Time Status CT head wo con* [id number] Stat Cat Scan 07/25/22 13:45 Completed XR chest 1V portable [id number] Stat Exams 07/25/22 13:41 Completed XR hip LT 2-3V wo/w pel* [id number] Routine Exams 07/26/22 13:27 Completed XR hip LT 2-3V wo/w pel* [id number] Stat Exams 07/25/22 13:41 Completed Pending at discharge Category Date Time Status VBG [Venous Blood Gas] Routine Lab 07/25/22 16:25 Results Radiology Impressions Chest X-Ray 07/25/22 13:41 IMPRESSION: 1. No acute findings. 2. Low lung volumes 3. Dorsolumbar levoscoliosis Head CT 07/25/22 13:45 IMPRESSION: 1. No acute intracranial hemorrhage or edema. 2. Severe atrophy and small vessel ischemic disease. Prior LEFT jannet lacunar infarct. Hip/Pelvis X-Ray 07/26/22 13:27 Impression: Internal fixation of left intertrochanteric hip fracture. Laboratory Results WBC 9.7 10^3/uL (4.0-10.0) 07/28/22 04:24 RBC 3.92 10^6/uL (4.1-5.3) L 07/28/22 04:24 Hgb 12.2 g/dL (11.7-16.6) 07/28/22 04:24 Hct 36.4 % (42.0-52.0) L 07/28/22 04:24 MCV 92.9 fl (80-94) 07/28/22 04:24 MCH 31.1 pg (28.0-34.0) 07/28/22 04:24 MCHC 33.5 g/dL (30.0-36.0) 07/28/22 04:24 RDW 12.7 % (12.1-15.1) 07/28/22 04:24 Plt Count 170 10^3/cmm (130-400) 07/28/22 04:24 MPV 12.0 fL (7.4-10.4) H 07/28/22 04:24 Neut % (Auto) 82.8 % 07/28/22 04:24 Lymph % (Auto) 7.4 % 07/28/22 04:24 Ware % (Auto) 8.6 % 07/28/22 04:24 Eos % (Auto) 0.4 % 07/28/22 04:24 Baso % (Auto) 0.2 % 07/28/22 04:24 Neut # (Auto) 8.04 10^3/uL (1.8-7.7) H 07/28/22 04:24 Lymph # (Auto) 0.7 10^3/uL (0.8-4.8) L 07/28/22 04:24 Ware # (Auto) 0.8 10^3/uL (0.2-0.9) 07/28/22 04:24 Eos # (Auto) 0.0 10^3/uL (0.0-0.8) 07/28/22 04:24 Baso # (Auto) 0.0 10^3/uL (0.0-0.1) 07/28/22 04:24 Nucleated RBC % (auto) 0 % 07/28/22 04:24 Nucleated RBCs # 0.0 /100WBC 07/28/22 04:24 PT 12.70 SECONDS (12.1-14.9) 07/25/22 14:40 INR 0.92 (0.8-1.2) 07/25/22 14:40 APTT 24.1 SECONDS (23.9-36.7) 07/25/22 14:40 Specimen Type Venous 07/25/22 16:25 Myke Test N/a 07/25/22 16:25 VBG pH 7.48 (7.32-7.42) H 07/25/22 16:25 VBG pCO2 38.1 mmHg (41-51) L 07/25/22 16:25 VBG pO2 59.4 mmHg (25-40) H 07/25/22 16:25 VBG HCO3 28.4 mmol/L (24-28) H 07/25/22 16:25 VBG Base Excess 4.8 mmol/L (-3.0-3.0) H 07/25/22 16:25 VBG Hematocrit 47.1 % (42-52) 07/25/22 16:25 Director New Product ID Cak 07/25/22 16:25 Sodium 138 mmol/L (136-145) 07/28/22 04:24 Potassium 3.8 mmol/L (3.5-5.1) 07/28/22 04:24 Chloride 99 mmol/L (98-107) 07/28/22 04:24 Carbon Dioxide 26 mmol/L (22-29) 07/28/22 04:24 Anion Gap 16.8 (5-19) 07/28/22 04:24 BUN 20 mg/dL (8-23) 07/28/22 04:24 Creatinine 0.5 mg/dL (0.7-1.2) L 07/28/22 04:24 GFR Calculation 165.9 mL/min (90-130) H 07/28/22 04:24 Glucose 257 mg/dL (65-115) H 07/28/22 04:24 POC Glucose 362 mg/dL (70-110) H 07/28/22 10:55 Calculated Osmolality 297 mOsm/kg (285-295) H 07/28/22 04:24 Calcium 8.4 mg/dL (8.5-10.5) L 07/28/22 04:24 Total Bilirubin 1.1 mg/dL (0.15-1.2) 07/25/22 14:40 AST 21 U/L (0-40) 07/25/22 14:40 ALT 19 U/L (0-41) 07/25/22 14:40 Alkaline Phosphatase 114 U/L (40-130) 07/25/22 14:40 Creatine Kinase 315 U/L (39-308) H 07/25/22 14:40 Total Protein 7.2 g/dL (6.6-8.7) 07/25/22 14:40 Albumin 4.1 g/dL (3.5-5.2) 07/25/22 14:40 Globulin 3.1 g/dL (1.3-4.6) 07/25/22 14:40 Urine Color Dark yellow (Yellow) 07/25/22 14:40 Urine Appearance Sl hazy (CLEAR) A 07/25/22 14:40 Urine pH 5 (5-7) 07/25/22 14:40 Ur Specific [place] 1.020 (1.005-1.030) 07/25/22 14:40 Urine Protein Neg (Negative) 07/25/22 14:40 Urine Glucose (UA) 4+ (Normal) H 07/25/22 14:40 Urine Ketones 2+ (Negative) H 07/25/22 14:40 Urine Blood 2+ (Negative) H 07/25/22 14:40 Urine Nitrate Negative (Negative) 07/25/22 14:40 Urine Bilirubin 1+ (Negative) H 07/25/22 14:40 Urine Urobilinogen 4 mg/dL (Negative) H 07/25/22 14:40 Ur Leukocyte Esterase Negative (Negative) 07/25/22 14:40 Urine RBC 10-15 /hpf (0-2) H 07/25/22 14:40 Urine WBC 0-4 /hpf (0-5) H 07/25/22 14:40 Ur Squamous Epith Cells 0-4 /hpf (0-5) H 07/25/22 14:40 Amorphous Sediment Not Reportable 07/25/22 14:40 Urine Bacteria Trace /hpf (NONE) 07/25/22 14:40 Urine Mucus 3+ /hpf 07/25/22 14:40 SARS-CoV-2 Ag (Rapid) negative (Negative) 07/28/22 11:35 Vitals Last Vital Signs Temp 98.8 F 07/28/22 14:00 Pulse 109 H 07/28/22 14:00 Resp 17 07/28/22 14:00 BP 169/91 07/28/22 14:00 Pulse Ox 95 07/28/22 14:00 O2 Del Method 07/28/22 12:00 O2 Flow Rate 8 07/26/22 14:00 Discharge Plan Discharge Patient Disposition: Xfer SNF Condition: Stable Prescriptions: New aspirin 325 mg Tablet,Delayed Release (Dr/Ec) 325 mg PO DAILY Qty: 21 0RF Continued tamsulosin [Flomax] 0.4 mg capsule 0.4 mg PO BEDTIME@20 ramipril [Altace] 10 mg capsule 20 mg PO DAILY@08 famotidine 20 mg tablet 20 mg PO DAILY@08 GlucaGen Diagnostic Kit 1 mg/mL recon soln 1 mg SUBCUT Q20M PRN (Reason: low blood sugar) magnesium hydroxide [Milk of Magnesia] 400 mg/5 mL suspension 30 ml PO DAILY PRN (Reason: Constipation) simvastatin [Zocor] 20 mg tablet 20 mg PO BEDTIME@20 cetirizine [Zyrtec] 10 mg tablet 10 mg PO DAILY@08 Lantus Solostar U-100 Insulin 100 unit/mL (3 mL) insulin pen 30 unit SUBCUT DAILY@07 Tylenol 325 mg Tablet 650 mg PO Q6H PRN (Reason: Pain) Imodium A-D 2 mg Capsule See Rx Instructions .ROUTE .COMPLEX Rx Instructions: 2 tabs after first loose stool then one tab after each loose stool not to exceed 6 tabs in 24 hours hydrocodone-acetaminophen 5-325 mg tablet 1 tab PO Q6H PRN (Reason: Pain) risperidone 0.25 mg tablet 0.25 mg PO BID@08,20 calcium carbonate 500 mg calcium (1,250 mg) Tablet 500 mg PO DAILY@08 Preparation H Hydrocortisone 1 % Cream 1 applic topical Q12H PRN (Reason: pain/itching) alum-mag hydroxide-simeth 200-200-20 mg/5 mL Suspension 30 ml PO Q6H PRN (Reason: Heartburn) fluticasone propionate 50 mcg/actuation [place],Suspension 2 spray INTRANASAL DAILY@08 Rx Instructions: administer into each nostril dextromethorphan HBr 5 mg/5 mL Syrup 10 mg PO Q4H PRN (Reason: Cough) Novolog Flexpen U-100 Insulin 100 unit/mL (3 mL) insulin pen See Rx Instructions .ROUTE .COMPLEX Rx Instructions: 10 units subcutaneously with meals and sliding scale with meals 70-199=0 units 200-249=2 units 250-299=3 units 300-349=4 units 350-399=5 units 400-999-[address] production posting clerk memantine 5 mg tablet 5 mg PO BID@08,20 Cymbalta 30 mg Capsule,Delayed Release(Dr/Ec) 30 mg PO DAILY@08 Multivitamins 28 mg iron- 800 mcg Tablet 1 tab PO DAILY@08 amlodipine 5 mg tablet 5 mg PO DAILY@08 Discharge Orders: Discharge Order (Routine); Ordered 07/28/22 Ordered By: Chandrakant Robles Referrals: [facility] [Outside] Red,Lizette, APPRENTICE PLUMBER [Nurse Practitioner] - 4-7 days Erin Cunningham MD [Physician] - 2 weeks (With Jono Hall NP) [facility], [Staff Physician] - Discharge Diet: Usual diet Discharge Activity: Increase activity as tolerated and As per PT/OT instructions Patient Instructions: Fall Prevention (GEN) Activity Restrictions/Additional Instructions: Maintain dressing for approximately 2 weeks. Sutures are under the skin. February w eight-bear as tolerated with physical therapy. Gait training, strengthening, and range of motion. Continue aspirin 325 mg for 21 days, subsequently switch to 81 mg daily. Follow-up with primary provider regarding continued optimization of cardiovascular risk factors with small lacunar stroke seen incidentally on CT on presentation. Continue to optimize hypertension and other contributing condi tions. Target blood pressure 120/80. Encourage oral hydration. Avoid dehydration. Discharge Attestations Time Spent in Discharge Care*: greater than 30 min Quality Metrics Clinical Quality Measures [ No reported AMI, CVA or VTE this stay] Coding Level of Care Code Acute [facility] FW NE note Diagnoses Closed intertrochanteric fracture of left femur S72.142A Encounter type: initial encounter Fracture alignment: displaced
== END 2022-07-28 14:30 | disposition skilled nursing facility (03) | DRG 482 ==
LOC: ER 14:47 → MEDSURG 16:05
PROVIDERS: Specialist; Admitting Provider Internal Medicine; Emergency Provider Family Medicine; Visit Provider Internal Medicine
PROC: 0QS706Z Reposition Left Upper Femur with Intramedullary Internal Fixation Device, Open Approach (ICD-10-PCS; CPT 27245; principal; 2022-07-26 11:30)
DX: S72.142A Displaced intertrochanteric fracture of left femur, initial encounter for closed fracture (principal); W19.XXXA Unspecified fall, initial encounter; G30.0 Alzheimer's disease with early onset; F02.80 Dementia in other diseases classified elsewhere, unspecified severity, without behavioral disturbance, psychotic disturbance, mood disturbance, and anxiety; E11.9 Type 2 diabetes mellitus without complications; E86.0 Dehydration; Z86.73 Personal history of transient ischemic attack (TIA), and cerebral infarction without residual deficits; Z79.4 Long term (current) use of insulin; I10 Essential (primary) hypertension; E78.2 Mixed hyperlipidemia; N40.0 Benign prostatic hyperplasia without lower urinary tract symptoms; F41.9 Anxiety disorder, unspecified
CPT/HCPCS: 36415; 36416; 51702; 70450; 71045; 73502; 76000; 80048; 80053; 81001; 82550; 82803; 82962; 85025; 85610; 85730; 87426; 93005; 96365; 96372; 96375; 97110; 97161; 97167; 97530; 97535; 99285; C1713; C1776; J0690; J1644; J1815; J2370; J2405; J2704; J2710; J3010; J3490; J7030

== ENCOUNTER → 2022-08-16 14:00 | Outpatient (BNVA) | payer MEDICARE, MEDICAID, SELFPAY | PROVIDERS: Visit Provider Nurse Practitioner Family | DX: Z98.890 Other specified postprocedural states (principal); X58.XXXA Exposure to other specified factors, initial encounter; S72.142A Displaced intertrochanteric fracture of left femur, initial encounter for closed fracture | CPT/HCPCS: 73502; 99024 ==

== ENCOUNTER → 2022-10-04 08:45 | Outpatient (BNVA) | payer MEDICARE, MEDICAID, SELFPAY | PROVIDERS: PCP Internal Medicine; Visit Provider Nurse Practitioner Family | DX: Z98.890 Other specified postprocedural states (principal) | CPT/HCPCS: 99024; 99213 ==

== ENCOUNTER → 2023-01-03 08:04 | Outpatient (BNVA) | payer MEDICARE, MEDICAID, SELFPAY | PROVIDERS: PCP Internal Medicine; Visit Provider Nurse Practitioner Family | DX: Z98.890 Other specified postprocedural states (principal) | CPT/HCPCS: 73502; 99213 ==

== ENCOUNTER 2023-01-06 15:23 | Inpatient (IN) | payer MEDICARE, BC, MEDICAID, SELFPAY ==
[2023-01-06] VITALS (41 sets, daily range): BP systolic 132–167; BP diastolic 75–126; PULSE 82–136; RESP 14–32; TEMP 37.6–38.7; O2SAT 94–100
--- NOTE | 2023-01-06 15:26 | XRR_ITS ---
PROCEDURE INFORMATION: Exam: XR Chest Exam date and time: 01/06/2023 3:29 PM Age: 67 years old Clinical indication: Cough and dyspnea; Additional info: Dyspnea/cough TECHNIQUE: Imaging protocol: Radiologic exam of the chest. Views: 1 view. COMPARISON: CR XR chest 1V portable [id number] 07/25/2022 1:48 PM FINDINGS: Lungs: No focal infiltrate or consolidation. Pleural spaces: Unremarkable. No pleural effusion. No pneumothorax. Heart/Mediastinum: Unremarkable. No cardiomegaly. Bones/joints: Thoracolumbar scoliosis is seen, as noted with prior exam. Other findings: No significant change with prior exam. XR/XR chest 1V portable [id number] IMPRESSION: Stable appearance of the chest with prior exam, without acute findings. Prominent thoracolumbar scoliosis again noted.
--- NOTE | 2023-01-06 15:26 | CTR_ITS ---
PROCEDURE INFORMATION: Exam: CT Head Without Contrast Exam date and time: 01/06/2023 3:50 PM Age: 67 years old Clinical indication: Altered mental status/memory loss; Additional info: AMS TECHNIQUE: Imaging protocol: Computed tomography of the head without contrast. Radiation optimization: All CT scans at this facility use at least one of these dose optimization techniques: automated exposure control; mA and/or kV adjustment per patient size (includes targeted exams where dose is matched to clinical indication); or iterative reconstruction. REPORTING DATA: Count of CT and Cardiac NM exams in prior 12 months: This patient has received [address] and 0 known cardiac nuclear medicine studies in the 12 months prior to the current study. COMPARISON: CT head wo con* [id number] 07/25/2022 1:58 PM RADIATION DOSE METRICS: Total DLP (mGy-cm): 1199.78 FINDINGS: Brain: Prominent atrophy or volume loss, as noted with prior exam, along with diffuse periventricular leukomalacia or chronic small-vessel disease change including tiny old lacunar infarct right basal ganglia and left jannet. Findings are unchanged with previous exam. No findings to indicate large vessel ischemic change or infarct. No intracranial hemorrhage or hematoma is seen. No mass effect or shift of midline structures. Vascular calcification at the base of the brain, as noted with prior exam. Cerebral ventricles: [id number] ventricular prominence with atrophy. Paranasal sinuses: Mild polypoid mucosal thickening left maxillary sinus. Mastoid air cells: Visualized mastoid air cells are well aerated. Bones/joints: Bone windows show no acute skull abnormality. Soft tissues: Unremarkable. CT/CT head wo con* [id number] IMPRESSION: 1. Atrophy or volume loss and chronic small-vessel disease change in the periventricular region, along with tiny old lacunar infarct left jannet and right basal ganglia that is also indicative of chronic small-vessel disease change. 2. No acute findings or significant change with prior exam.
--- NOTE | 2023-01-06 15:48 | W.ED.AMS ---
HPI - Altered Mental Status General: Chief Complaint: Altered Mental Status Stated Complaint: AMS Time Seen by Provider: 01/06/23 15:25 [facility] ED PFSH: Medical History Anxiety BPH loc w urin obs/LUTS Dementia Diabetes Lower urinary tract symptoms (LUTS) Mixed hyperlipidemia Proteinuria Scoliosis Surgical History History of appendectomy Family History Father No problems noted. Mother No problems noted. Son , Both patient's sons are Family history of premature coronary artery disease Social History Smoking and tobacco status: never smoked Alcohol intake: never Adopted: No Caregiver/support person: No Lives independently: No Marital status: Current occupational status: retired Current gender identity: Male Course Vital Signs: Vital signs: Vital Signs Temperature 101.6 F H 01/06/23 15:43 Pulse Rate 104 H 01/06/23 15:43 Respiratory Rate 18 01/06/23 15:43 Blood Pressure 161/79 01/06/23 15:43 Pulse Oximetry 98 01/06/23 15:43 Oxygen Delivery Me thod 01/06/23 15:43 MDM - Altered Mental Status Lab Data 01/06/23 15:31 01/06/23 15:31 Discharge Plan Discharge Condition: Stable Prescriptions: No Action tamsulosin [Flomax] 0.4 mg capsule 0.4 mg PO BEDTIME@20 ramipril [Altace] 10 mg capsule 20 mg PO DAILY@08 famotidine 20 mg tablet 20 mg PO DAILY@08 GlucaGen Diagnostic Kit 1 mg/mL recon soln 1 mg SUBCUT Q20M PRN (Reason: low blood sugar) magnesium hydroxide [Milk of Magnesia] 400 mg/5 mL suspension 30 ml PO DAILY PRN (Reason: Constipation) simvastatin [Zocor] 20 mg tablet 20 mg PO BEDTIME@20 cetirizine [Zyrtec] 10 mg tablet 10 mg PO DAILY@08 Lantus Solostar U-100 Insulin 100 unit/mL (3 mL) insulin pen 30 unit SUBCUT DAILY@07 Tylenol 325 mg Tablet 650 mg PO Q6H PRN (Reason: Pain) Imodium A-D 2 mg Capsule See Rx Instructions .ROUTE .COMPLEX Rx Instructions: 2 tabs after first loose stool then one tab after each loose stool not to exceed 6 tabs in 24 hours hydrocodone-acetaminophen 5-325 mg tablet 1 tab PO Q6H PRN (Reason: Pain) risperidone 0.25 mg tablet 0.25 mg PO BID@08,20 calcium carbonate 500 mg calcium (1,250 mg) Tablet 500 mg PO DAILY@08 Preparation H Hydrocortisone 1 % Cream 1 applic topical Q12H PRN (Reason: pain/itching) alum-mag hydroxide-simeth 200-200-20 mg/5 mL Suspension 30 ml PO Q6H PRN (Reason: Heartburn) fluticasone propionate 50 mcg/actuation [place],Suspension 2 spray INTRANASAL DAILY@08 Rx Instructions: administer into each nostril dextromethorphan HBr 5 mg/5 mL Syrup 10 mg PO Q4H PRN (Reason: Cough) Novolog FlexPen U-100 Insulin 100 unit/mL (3 mL) insulin pen See Rx Instructions .ROUTE .COMPLEX Rx Instructions: 10 units subcutaneously with meals and sliding scale with meals 70-199=0 units 200-249=2 units 250-299=3 units 300-349=4 units 350-399=5 units 400-999-[address] television technician memantine 5 mg tablet 5 mg PO BID@08,20 Cymbalta 30 mg Capsule,Delayed Release(Dr/Ec) 30 mg PO DAILY@08 Multivitamins 28 mg iron- 800 mcg Tablet 1 tab PO DAILY@08 amlodipine 5 mg tablet 5 mg PO DAILY@08 aspirin 325 mg Tablet,Delayed Release (Dr/Ec) 325 mg PO DAILY Qty: 21 0RF Referrals: Lukas Low MD [Primary Care Provider] - Coding Level of Care Code ED Director Of Education for Boris Glynn
[2023-01-06 15:50] LABS: Basophils % 0.3 %; Hematocrit 46.6 % (42.0-52.0); Hemoglobin 15.3 g/dL (11.7-16.6); Lymphocytes # 0.3 10^3/uL (0.8-4.8); Lymphocytes % 2.2 %; Mean Corpuscular HGB Conc 32.8 g/dL (30.0-36.0); Mean Corpuscular Hemoglobin 30.1 pg (28.0-34.0); Mean Corpuscular Volume 91.6 fl (80-94); Monocytes # 0.9 10^3/uL (0.2-0.9); Monocytes % 5.8 %; Neutrophils # 13.47 10^3/uL (1.8-7.7); Neutrophils % 91.4 %; Nucleated Red Blood Cells % 0 %; Platelet Count 243 10^3/cmm (130-400); Red Blood Count 5.09 10^6/uL (4.1-5.3); Red Cell Distribution Width 13.4 % (12.1-15.1); White Blood Count 14.8 10^3/uL (4.0-10.0)
--- NOTE | 2023-01-06 15:54 | ED_ITS ---
HPI - Fever General: Chief Complaint: Altered Mental Status Stated Complaint: AMS Time Seen by Provider: 01/06/23 15:25 Source: patient Mode of arrival: ambulatory History of Present Illness: 67-year-old male presents from the shelter. He has significant altered mental status. Staff reported he had an episode of vomiting during lunch and then was altered after that on arrival here he is febrile. The only thing I could get out of him at the bedside was he would tell me he does not hurting any well he denies chest or abdominal pain not sure of the veracity of his responses. He is in the left lateral recumbent position and makes no effort to change his positions. MD elicited complaint: fever Pertinent past history: diabetes Onset (ago): hour(s) Exacerbating factors: nothing Relieving factors: nothing Associated symptoms: Reports nasal congestion and short of breath; Deny chest pain, cough, myalgias, rash, rhinorrhea, stiffness, sore throat, vaginal discharge, vomiting or weight loss Treatments prior to arrival fever: none Review of Systems General: Reports: ROS unobtainable due to mental status (Minimal review of symptoms) ENMT: Reports: nasal congestion Card: Denies: chest pain GI: Denies: vomiting PFSH ED PFSH: Medical History Anxiety BPH loc w urin obs/LUTS Dementia Diabetes Lower urinary tract symptoms (LUTS) Mixed hyperlipidemia Proteinuria Scoliosis Surgical History History of appendectomy Family History Father No problems noted. Mother No problems noted. Son , Both patient's sons are Family history of premature coronary artery disease Social History Smoking and tobacco status: never smoked Alcohol intake: never Adopted: No Caregiver/support person: No Lives independently: No Marital status: Current occupational status: retired Current gender identity: Male Physical Exam HENMT: COMMON NORMALS: normocephalic, atraumatic and hearing grossly normal bilaterally HEAD & SCALP: normocephalic and atraumatic Resp: COMMON NORMALS: normal respiratory effort, No retractions and No use of accessory muscles AUSCULTATION: rales and wheezes Cardio: COMMON NORMALS: regular rhythm and No murmurs present (Cardio) RATE: tachycardic RHYTHM: regular rhythm GI: COMMON NORMALS: Soft to palpation and No hepatosplenomegaly present AUSCULTATION: Yes normoactive bowel sounds PALPATION: Yes Soft to palpation, No Tenderness to palpation present (GI), No Guarding due to palpation present (GI) and Yes No hepatosplenomegaly present Extremity: COMMON NORMALS: normal to inspection, capillary refill normal, no clubbing, cyanosis or edema, no calf tenderness and no pedal edema Skin: COMMON NORMALS: no rashes or lesions noted GENERAL SKIN EXAM: no rashes or lesions noted OTHER: No decubitus ulcers noted Course Vital Signs: Vital signs: Vital Signs Temperature 101.6 F H 01/06/23 15:43 Pulse Rate 129 H 01/06/23 17:30 Respiratory Rate 25 H 01/06/23 17:30 Blood Pressure 135/81 01/06/23 17:30 Pulse Oximetry 98 01/06/23 17:30 Oxygen Delivery Me thod 01/06/23 15:43 MDM - Fever Medical Decision Making Labs and imaging reviewed. Discussed with his patient is septic he has received 2 L of fluid rate exceeds his 30 mill per kilo bolus we gave him another 30 mill per kilo bolus he still has not had much for urine output and remains tachycardic. Do not found a source of infection at this point there is a question of a left distal ureteral calculi Dr. Galvan's been consulted has been cultured started on antibiotics and placed on CSU his confirms she did want to keep him as a full code for now. Medical Records I reviewed the patient's medical records. Lab Data I reviewed the patient's lab results. 01/06/23 15:31 01/06/23 15:31 Radiology Impressions Chest X-Ray 01/06/23 15:26 IMPRESSION: Stable appearance of the chest with prior exam, without acute findings. Prominent thoracolumbar scoliosis again noted. Head CT 01/06/23 15:26 IMPRESSION: 1. Atrophy or volume loss and chronic small-vessel disease change in the periventricular region, along with tiny old lacunar infarct left jannet and right basal ganglia that is also indicative of chronic small-vessel disease change. 2. No acute findings or significant change with prior exam. Abdomen/Pelvis CT 01/06/23 16:53 IMPRESSION: 1. Prior cholecystectomy. 2. Prominent or severe thoracolumbar scoliosis. 3. Moderate hydronephrosis and visualized proximal ureterectasis of the left kidney, with limited ability to follow the left ureter with severe scoliotic curvature and distortion of structures, though with suspected small distal left ureteral calculus. Correlate with urinalysis, as well. 4. Tracy catheter within the urinary bladder. 5. Diffuse increased stool throughout the colon suggestive of constipation with possible impaction within the rectum and correlate clinically. 6. Colonic diverticulosis, particularly sigmoid colon, with equivocal findings of mild diverticulitis of the sigmoid colon. Laboratory Results WBC 14.8 10^3/uL (4.0-10.0) H 01/06/23 15:31 RBC 5.09 10^6/uL (4.1-5.3) 01/06/23 15:31 Hgb 15.3 g/dL (11.7-16.6) 01/06/23 15:31 Hct 46.6 % (42.0-52.0) 01/06/23 15:31 MCV 91.6 fl (80-94) 01/06/23 15: MCH 30.1 pg (28.0-34.0) 01/06/23 15: MCHC 32.8 g/dL (30.0-36.0) 01/06/23 15:31 RDW 13.4 % (12.1-15.1) 01/06/23 15:31 Plt Count 243 10^3/cmm (130-400) 01/06/23 15:31 MPV 12.0 fL (7.4-10.4) H 01/06/23 15:31 Neut % (Auto) 91.4 % 01/06/23 15: Lymph % (Auto) 2.2 % 01/06/23 15:31 [place] % (Auto) 5.8 % 01/06/23 15:31 Eos % (Auto) 0.0 % 01/06/23 15:31 Baso % (Auto) 0.3 % 01/06/23 15: Neut # (Auto) 13.47 10^3/uL (1.8-7.7) H 01/06/23 15:31 Lymph # (Auto) 0.3 10^3/uL (0.8-4.8) L 01/06/23 15:31 [place] # (Auto) 0.9 10^3/uL (0.2-0.9) 01/06/23 15:31 Eos # (Auto) 0.0 10^3/uL (0.0-0.8) 01/06/23 15:31 Baso # (Auto) 0.0 10^3/uL (0.0-0.1) 01/06/23 15:31 Nucleated RBC % (auto) 0 % 01/06/23 15: Nucleated RBCs # 0.0 /100WBC 01/06/23 15:31 Sodium 136 mmol/L (136-145) 01/06/23 16:12 Potassium 3.5 mmol/L (3.5-5.1) 01/06/23 16:12 Chloride 99 mmol/L (98-107) 01/06/23 16:12 Carbon Dioxide 24 mmol/L (22-29) 01/06/23 16:12 Anion Gap 16.5 (5-19) 01/06/23 16:12 BUN 17 mg/dL (8-23) 01/06/23 16:12 Creatinine 0.6 mg/dL (0.7-1.2) L 01/06/23 16:12 GFR Calculation 134.0 mL/min (90-130) H 01/06/23 16:12 Glucose 135 mg/dL (65-115) H 01/06/23 16:12 Calculated Osmolality 286 mOsm/kg (285-295) 01/06/23 16:12 Calcium 8.6 mg/dL (8.5-10.5) 01/06/23 16:12 Magnesium 1.7 mg/dL (1.7-2.3) 01/06/23 16:12 Total Bilirubin 0.4 mg/dL (0.15-1.2) 01/06/23 16:12 AST 20 U/L (0-40) 01/06/23 16:12 ALT 24 U/L (0-41) 01/06/23 16:12 Alkaline Phosphatase 143 U/L (40-130) H 01/06/23 16:12 Creatine Kinase 46 U/L (39-308) 01/06/23 16:12 Total Protein 7.0 g/dL (6.6-8.7) 01/06/23 16:12 Albumin 3.6 g/dL (3.5-5.2) 01/06/23 16:12 Globulin 3.4 g/dL (1.3-4.6) 01/06/23 16:12 Lipase 16 U/L (13-60) 01/06/23 16:12 Urine Color Yellow (Yellow) 01/06/23 16:33 Urine Appearance Clear (CLEAR) 01/06/23 16:33 Urine pH 5 (5-7) 01/06/23 16:33 Ur Specific [place] 1.015 (1.005-1.030) 01/06/23 16:33 Urine Protein Neg (Negative) 01/06/23 16:33 Urine Glucose (UA) Norm (Normal) 01/06/23 16:33 Urine Ketones 2+ (Negative) H 01/06/23 16:33 Urine Blood 3+ (Negative) H 01/06/23 16:33 Urine Nitrate Negative (Negative) 01/06/23 16:33 Urine Bilirubin Neg (Negative) 01/06/23 16:33 Urine Urobilinogen 1 mg/dL (Negative) H 01/06/23 16:33 Ur Leukocyte Esterase Negative (Negative) 01/06/23 16:33 Urine RBC 80-100 /hpf (0-2) H 01/06/23 16:33 Urine WBC 10-15 /hpf (0-5) H 01/06/23 16:33 Ur Squamous Epith Cells None /hpf (0-5) 01/06/23 16:33 Amorphous Sediment Not Reportable 01/06/23 16:33 Urine Bacteria Trace /hpf (NONE) 01/06/23 16:33 Urine Mucus Trace /hpf 01/06/23 16:33 Discharge Plan Discharge Patient Disposition: Admitted As Inpatient Admit Provider: Surendra Spencer Clinical Impression: Sepsis, Dementia, Nephrolithiasis Condition: Stable Coding Level of Care Code ED [employer] Operator for Boris Glynn
--- NOTE | 2023-01-06 15:54 | PC.PHAR ---
called [facility] FOR [facility] AT 3:40 PM.
[2023-01-06] MEDS: sodium chloride 0.9% 1,000 ML 999 ML IV ×2 (15:59→17:46)
[2023-01-06] MEDS: levofloxacin-dextrose 5 % 750 MG/150 ML PREMIX 100 MG IV (16:00)
[2023-01-06 16:39] LABS: Alanine Aminotransferase 24 U/L (0-41); Albumin Level 3.6 g/dL (3.5-5.2); Alkaline Phosphatase 143 U/L (40-130); Anion Gap 16.5 (5-19); Aspartate Amino Transferase 20 U/L (0-40); Blood Urea Nitrogen 17 mg/dL (8-23); Calcium 8.6 mg/dL (8.5-10.5); Carbon Dioxide 24 mmol/L (22-29); Chloride 99 mmol/L (98-107); Globulin 3.4 g/dL (1.3-4.6); Glucose 135 mg/dL (65-115); Osmolality Calculated 286 mOsm/kg (285-295); Potassium 3.5 mmol/L (3.5-5.1); Sodium 136 mmol/L (136-145); Total Bilirubin 0.4 mg/dL (0.15-1.2)
[2023-01-06 16:43] LABS: Creatine Phosphokinase 46 U/L (39-308); Lipase 16 U/L (13-60); Magnesium 1.7 mg/dL (1.7-2.3)
--- NOTE | 2023-01-06 16:53 | CTR_ITS ---
PROCEDURE INFORMATION: Exam: CT Abdomen And Pelvis Without Contrast Exam date and time: 01/06/2023 5:07 PM Age: 67 years old Clinical indication: Abdominal pain; Generalized TECHNIQUE: Imaging protocol: Computed tomography of the abdomen and pelvis without contrast. Radiation optimization: All CT scans at this facility use at least one of these dose optimization techniques: automated exposure control; mA and/or kV adjustment per patient size (includes targeted exams where dose is matched to clinical indication); or iterative reconstruction. REPORTING DATA: Count of CT and Cardiac NM exams in prior 12 months: This patient has received 2 known CTs and 0 known cardiac nuclear medicine studies in the 12 months prior to the current study. COMPARISON: CR XR hip LT 2-3V wo/w pel* [id number] 01/03/2023 8:18 AM RADIATION DOSE METRICS: Total DLP (mGy-cm): 589.31 FINDINGS: Lungs: No significant infiltrate or effusion is seen within the lung bases. Coronary artery calcification noted. Liver: Normal. No mass. Gallbladder and bile ducts: Surgical clips within the gallbladder fossa prior cholecystectomy. No significant biliary ductal dilatation. Pancreas: Normal. No ductal dilation. Spleen: Normal. No splenomegaly. Adrenal glands: Normal. No mass. Kidneys and ureters: Moderate hydronephrosis of the collecting structures of the left kidney noted in relation to the right, with difficulty following the left ureter due to severe scoliotic curvature of the spine. A calcification is seen in close proximity to the expected level of the distal left ureter and suspect distal left ureteral calculus. Correlate with urinalysis, as well. Stomach and bowel: Diffuse increased stool throughout the colon suggestive of constipation, with possible impaction within the rectum, correlate clinically. Colonic diverticulosis also suggested, particularly sigmoid colon. Equivocal mild diverticulitis with limited evaluation due to severe underlying scoliosis and lack of contrast. No small bowel obstruction. Appendix: The appendix is not definitely seen, without secondary signs of appendicitis. Intraperitoneal space: Unremarkable. No free air. No significant fluid collection. Vasculature: Vascular calcification without significant aneurysmal dilatation of the abdominal aorta. Lymph nodes: Unremarkable. No enlarged lymph nodes. Urinary bladder: A Tracy catheter noted within the urinary bladder which is suboptimally distended. Reproductive: Unremarkable as visualized. Bones/joints: Prominent thoracolumbar scoliosis is seen, with degenerative changes as well as prior internal fixation of the left hip. Soft tissues: Unremarkable. CT/CT abdomen pelvis wo con [id number] IMPRESSION: 1. Prior cholecystectomy. 2. Prominent or severe thoracolumbar scoliosis. 3. Moderate hydronephrosis and visualized proximal ureterectasis of the left kidney, with limited ability to follow the left ureter with severe scoliotic curvature and distortion of structures, though with suspected small distal left ureteral calculus. Correlate with urinalysis, as well. 4. Tracy catheter within the urinary bladder. 5. Diffuse increased stool throughout the colon suggestive of constipation with possible impaction within the rectum and correlate clinically. 6. Colonic diverticulosis, particularly sigmoid colon, with equivocal findings of mild diverticulitis of the sigmoid colon.
[2023-01-06 17:30] LABS: Blood Urine 3+ (Negative); Glucose Urine UA Norm (Normal); Protein Urine Neg (Negative); Specific Gravity, Urine 1.015 (1.005-1.030); Urine Appearance Clear (CLEAR); Urine Color Yellow (Yellow); pH Urine 5 (5-7)
[2023-01-06 17:31] LABS: Add Urine Culture? Yes; Add Urine Microscopic? YES; Bacteria Urine TRACE /hpf; Bilirubin Urine Neg (Negative); Ketones Urine 2+ (Negative); Leukocyte Esterase Urine Negative (Negative); Mucus Urine TRACE /hpf; Nitrate Urine Negative (Negative); RBC Urine 80-100 /hpf (0-2); Urobilinogen Urine 1 mg/dL (Negative)
--- NOTE | 2023-01-06 17:45 | P.HP_ITS ---
Providers/Chief Complaint Admitting Physician: Surendra Spencer MD Primary Care Provider: Emely Low MD Chief Complaint: AMS History of Present Illness History through chart review and conversation with ER physician. Gerard Gray is a 67 year old male who is a [facility] resident with past medical history of advanced dementia, hypertension as well as follow-up July to start dose which started today morning and got worse after patient had vomiting while sitting during the afternoon [facility] nurse is not aware of any concerns for complaints. Has been occasionally acting as aphasia with abdominal pain. In the ER patient was found to have a white count of 10.8, hemoglobin 15.3, BUN of 1.8, sodium of 136, potassium of 3.5, creatinine 0.6, lactate of 1.1 with UA concerning for mild UTI with 10-15 WBC, chest x-ray and CT abdomen as below. Have requested for a CT abdomen pelvis which is pending. Review of Systems General: Reports: ROS unobtainable due to mental status Medications/Allergies Home Medications Medication Instructions Recorded Confirmed Last Taken Type cetirizine 10 mg tablet (Zyrtec) 10 mg PO DAILY@01/22/20 01/07/23 01/06/23 History famotidine 20 mg tablet 20 mg PO DAILY@01/22/20 01/07/23 01/06/23 History glucagon 1 mg/mL solution for 1 mg SUBCUT Q20M PRN low blood 01/22/20 01/07/23 Unknown History injection (GlucaGen Diagnostic Kit) sugar magnesium hydroxide 400 mg/5 mL 30 ml PO DAILY PRN Constipation 01/22/20 01/07/23 Unknown History oral suspension (Milk of Magnesia) ramipril 10 mg capsule (Altace) 20 mg PO DAILY@01/22/20 01/07/23 01/06/23 History tamsulosin 0.4 mg capsule (Flomax) 0.4 mg PO BEDTIME@02/27/20 01/07/23 01/06/23 History insulin glargine 100 unit/mL (3 35 unit SUBCUT BEDTIME 05/03/21 01/07/23 01/06/23 History mL) subcutaneous pen (Lantus Solostar U-100 Insulin) acetaminophen 325 mg tablet 650 mg PO Q8H PRN Pain 07/25/22 01/07/23 Unknown History (Tylenol) aluminum-mag hydroxide-simethicone 30 ml PO Q6H PRN Heartburn 07/25/22 01/07/23 Unknown History 200 mg-200 mg-20 mg/5 mL oral susp amlodipine 5 mg tablet 5 mg PO DAILY@08 07/25/22 01/07/23 01/07/23 History calcium carbonate 500 mg calcium 500 mg PO DAILY@08 07/25/22 01/07/23 01/06/23 History (1,250 mg) tablet duloxetine 30 mg capsule,delayed 30 mg PO DAILY@08 07/25/22 01/07/23 01/06/23 History release (Cymbalta) fluticasone propionate 50 2 spray intranasal DAILY@07/25/22 01/07/23 07/25/22 History mcg/actuation nasal spray,suspension hydrocodone 5 mg-acetaminophen 325 1 tab PO Q8H PRN Pain 07/25/22 01/07/23 07/25/22 07:04 History mg tablet hydrocortisone 1 % topical cream 1 applic topical Q12H PRN 07/25/22 01/07/23 Unknown History (Preparation H Hydrocortisone) pain/itching insulin aspart U-100 100 unit/mL See Rx Instructions .Route .COMPLEX 07/25/22 01/07/23 07/25/22 11:34 History (3 mL) subcutaneous pen (Novolog 12 units FlexPen U-100 Insulin aspart) @11:34 loperamide 2 mg capsule (Imodium See Rx Instructions .Route .COMPLEX 07/25/22 01/07/23 Unknown History A-D) memantine 5 mg tablet 5 mg PO BID@08,20 07/25/22 01/07/23 01/06/23 History vit no.95-ferrous 1 tab PO DAILY@08 07/25/22 01/07/23 01/06/23 History fumarate 28 mg-folic acid 800 mcg tablet ( Multivitamins) aspirin 325 mg tablet,delayed 325 mg PO DAILY #21 tabs 07/28/22 01/07/23 01/07/23 Rx release atorvastatin 40 mg tablet 40 mg PO DAILY 01/07/23 01/07/23 01/06/23 History duloxetine 30 mg capsule,delayed 60 mg PO BEDTIME 01/07/23 01/07/23 01/06/23 History release (Cymbalta) guaifenesin 100 mg/5 mL oral 200 mg PO Q4H PRN Cough 01/07/23 01/07/23 Unknown History liquid (Tussin) naloxone 2 mg/2 mL syringe kit 2 mg IM Q2M PRN overdose 01/07/23 01/07/23 Unknown History nut.tx.gluc.intol,lac-free,soy 237 ea PO TID 01/07/23 01/07/23 Unknown History (Glucerna oral liquid) Allergies Allergy/AdvReac Type Severity Reaction Status Date / Time No Known Allergies Allergy Verified 01/03/23 08:33 PFSH Acute PFSH: Medical History (Updated 01/07/23 @ 15:04 by Surendra Spencer MD) Anxiety BPH loc w urin obs/LUTS Dementia Diabetes Lower urinary tract symptoms (LUTS) Mixed hyperlipidemia [facility] resident Proteinuria Scoliosis 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 Mother No problems noted. Son , Both patient's sons are Family history of premature coronary artery disease Social History Smoking and tobacco status: never smoked Alcohol intake: never Adopted: No Caregiver/support person: No Lives independently: No Marital status: Current occupational status: retired Current gender identity: Male Vitals/I&O/Wt Last Vital Signs Temp 101.6 F H 01/06/23 15:43 Pulse 129 H 01/06/23 17:30 Resp 25 H 01/06/23 17:30 BP 135/81 01/06/23 17:30 Pulse Ox 98 01/06/23 17:30 O2 Del Method 01/06/23 15:43 Weight last 48 hrs Weight 56.245 kg Physical Exam Narrative: General: No acute distress, confused, somnolent, lying comfortably in bed HEENT: PERRLA, pupils bilaterally equal and reactive Chest: Normal vesicular breath sounds, no added sounds, equal good air entry bilaterally CVS: S1-S2 regular, no murmurs, no tachycardia, no gallops, no rubs Abdomen: Soft, nontender, no organomegaly, bowel sounds present Neuro: No focal deficits, no facial deformity, AO x3, power 5/5 in all limbs Urinary Catheter Management: Tracy: Cath Placed During This Visit: yes Urinary Catheter Date of Insertion: 01/06/23 Urinary Catheter Time of Insertion: 16:43 Data 01/06/23 15:31 01/06/23 16:12 Micro: Microbiology 01/06/23 17:26 Blood Culture - Preliminary Blood SPECIMEN COLLECTED 01/06/23 16:37 Blood Culture - Preliminary Blood SPECIMEN COLLECTED A&P Assessment and plan (1) Sepsis: Ruled out on admission with presence of tachycardia, leukocytosis possible source of infection of UTI with endorgan damage with altered mental status. Keep mean artery pressure 65, saturation of 92. Blood culture sent, follow-up urine culture. Check MRSA swab, procalcitonin, urine Legionella, bacterial antigen, respiratory viral panel. Empirically for now start patient on IV ceftriaxone. If MRSA positive will add vancomycin. (2) Altered mental status: Most likely in setting of UTI, sepsis. Not sure of baseline given history of dementia. Frequent reorientation, aspiration and fall precaution. Check vitamin B12, folate, TSH levels. CMP within normal limits. No electrode abnormalities. (3) UTI (urinary tract infection): Appreciate CT abdomen pelvis results. Concerns for left hydronephrosis with possible small distal left ureteral calculus. Appreciate urology recommendations. Antibiotics as above. Follow-up urine culture. (4) Nephrolithiasis: (5) Obstruction of left ureteropelvic junction (UPJ): (6) Hydronephrosis, left: (7) Major depressive disorder, recurrent severe without psychotic features: Continue multiple medications including risperidone, memantine, duloxetine at home dose. (8) [facility] resident: (9) Tachycardia: Most likely in setting of sepsis along with dehydration. Cannot rule out abdominal pain in setting of renal calculi. IV hydration with D5 half NS at 100 cc/h. Patient already received sepsis fluid bolus in the ER. Hemodynamic stable. Started on oral metoprolol 25 mg twice daily. Plan CODE STATUS: Discussed by ER physician with patient's over the phone. Full code. N.p.o. for now. Heparin 5000 every 8 hourly for DVT prophylaxis. Protonix for PUD prophylaxis. Attestations Medical Necessity Statement*: Admission for more than 2 midnights for management of sepsis and altered mental status in a patient with baseline dementia secondary to UTI with possibility of left hydronephrosis and UPJ stone Diagnoses Sepsis A41.9 Altered mental status R41.82 UTI (urinary tract infection) N39.0 Nephrolithiasis N20.0 Obstruction of left ureteropelvic junction (UPJ) N13.5 Hydronephrosis, left N13.30 Major depressive disorder, recurrent severe without psychotic features F33.2 [facility] resident Z59.3 Tachycardia R00.0
[2023-01-06 18:00] LABS: Lactic Sepsis W/Reflex 1.1 mmol/L (0.5-2.2)
[2023-01-06 18:04] LABS: Adenovirus Not Detected (NOT DETECT); Chlamydia Pneumoniae Not Detected (NOT DETECT); Coronavirus 229E,HKU1,NL63,OC4 Not Detected (NOT DETECT); Human Metapneumovirus Detected (NOT DETECT); Human Rhinovirus/Enterovirus Not Detected (NOT DETECT); Influenza A Not Detected (NOT DETECT); Influenza A H1 Not Detected (NOT DETECT); Influenza A H1-2009 Not Detected (NOT DETECT); Influenza A H3 Not Detected (NOT DETECT); Influenza B Not Detected (NOT DETECT); Mycoplasma Pneumoniae Not Detected (NOT DETECT); Parainfluenza Virus Type 1 Not Detected (NOT DETECT); Parainfluenza Virus Type 2 Not Detected (NOT DETECT); Parainfluenza Virus Type 3 Not Detected (NOT DETECT); Parainfluenza Virus Type 4 Not Detected (NOT DETECT); Respiratory Syncytial Virus A Not Detected (NOT DETECT); Respiratory Syncytial Virus B Not Detected (NOT DETECT); SARS-COV-2 Not Detected (NOT DETECT)
[2023-01-06 18:14] LABS: Human Metapneumovirus Detected (NOT DETECT); Human Rhinovirus/Enterovirus Not Detected (NOT DETECT); Results from Genmark
[2023-01-06 18:15] LABS: Influenza A Not Detected (NOT DETECT); Influenza A H1 Not Detected (NOT DETECT); Influenza A H1-2009 Not Detected (NOT DETECT); Influenza A H3 Not Detected (NOT DETECT); Influenza B Not Detected (NOT DETECT); Results from Genmark
[2023-01-06 19:13] LABS: C Reactive Protein 3.4 mg/L (0.0-4.9)
[2023-01-06 19:19] LABS: Procalcitonin 0.06 ng/mL (0-0.5); Thyroid Stimulating Hormone 0.69 uIU/mL (0.27-4.20)
[2023-01-06 19:30] LABS: Procalcitonin 0.05 ng/mL (0-0.5); Vitamin B12 162 pg/mL (232-1245)
[2023-01-06] MEDS: cefTRIAXone 1,000 MG in sodium chloride 0.9% (plus) 50 ML 100 MG IV (19:30)
[2023-01-06] MEDS: heparin 5,000 unit/mL INJ 1 mL 5000 UNIT SUBCUT (19:30)
[2023-01-06] MEDS: pantoprazole 40 mg SDV IVP (19:30)
[2023-01-06] MEDS: D5-NS 0.45% + KCL 20 mEq 20 MEQ/1,000 ML BAG 100 MEQ IV (19:31)
[2023-01-06 20:07] LABS: Iron 27 ug/dL (59-158)
[2023-01-06 20:11] LABS: Percent Saturation 10.2 % (20-50); Total Iron Binding Capacity 263 mcg/dl; Unsaturated Iron Binding 236 ug/dL (112-347)
[2023-01-06] MEDS: metoprolol tartrate 25 mg Tablet PO (20:21)
[2023-01-06] MEDS: tamsulosin 0.4 mg Capsule PO (20:22)
[2023-01-06] MEDS: memantine 5 mg tablet PO (20:22)
[2023-01-06] MEDS: risperiDONE 0.25 mg Tablet PO (20:22)
[2023-01-06] MEDS: atorvastatin 40 mg Tablet 20 MG PO (20:23)
[2023-01-06 20:33] LABS: D Dimer 1.82 ug/mIFEU (0-0.59)
[2023-01-06 20:47] LABS: Folate Level > 20.0 ng/mL (4.5-32.2)
[2023-01-06 21:33] LABS: ABG PCO2 35.9 mmHg (35-45); ABG PH Result 7.45 (7.35-7.45); Alveolar-Arterial Oxygen Gradi 4.4 mmHg (5-10); Arterial Blood Gas Hematocrit 41.1 % (42-52); Base Excess ABG 1.3 mmol/L (-2.0-2.0); Blood Gas Allen Test Pos; Blood Gas Sample Site Radial, left; Blood Gas Sample Type Arterial; Carboxyhemoglobin 1.2 %THgb (0.4-20.1); HCO3 ABG 25.1 mmol/L (22-26); HGB O2 Sat 94.3 % (95-100); Ionized Calcium Level - ABG 1.2 mmol/L (1.1-1.4); Methemoglobin 0.4 % (0.4-1.5); Oxygen Saturation ABG 95.8; Potassium Level - ABG 3.4 mmol/L (3.5-5.0); Total Hemoglobin 13.4 g/dL (14-18)
[2023-01-06 22:17] LABS: Glucose Point of Care 238 mg/dL (70-110)
[2023-01-06] MEDS: insulin lispro 100 unit/1 mL SUBCUT (22:18)
[2023-01-06] MEDS: cyanocobalamin 1,000 mcg/mL SDV 1000 MCG IM (22:59)
[2023-01-07] VITALS (10 sets, daily range): BP systolic 121–169; BP diastolic 63–104; PULSE 68–95; RESP 18–23; TEMP 36.3–37.5; O2SAT 92–97
[2023-01-07 03:27] LABS: Basophils % 0.2 %; Hematocrit 37.7 % (42.0-52.0); Hemoglobin 12.6 g/dL (11.7-16.6); Lymphocytes # 0.8 10^3/uL (0.8-4.8); Lymphocytes % 6.1 %; Mean Corpuscular HGB Conc 33.4 g/dL (30.0-36.0); Mean Corpuscular Hemoglobin 30.8 pg (28.0-34.0); Mean Corpuscular Volume 92.2 fl (80-94); Mean Platelet Volume 11.5 fL (7.4-10.4); Monocytes # 1.5 10^3/uL (0.2-0.9); Monocytes % 11.9 %; Neutrophils % 81.2 %; Nucleated Red Blood Cells % 0 %; Platelet Count 189 10^3/cmm (130-400); Red Blood Count 4.09 10^6/uL (4.1-5.3); Red Cell Distribution Width 13.6 % (12.1-15.1); White Blood Count 12.7 10^3/uL (4.0-10.0)
[2023-01-07] MEDS: heparin 5,000 unit/mL INJ 1 mL 5000 UNIT SUBCUT ×3 (03:34→18:06)
[2023-01-07 03:37] LABS: Estmated Average Glucose 177; Hemoglobin A1C 7.8 % (4.0-6.0)
[2023-01-07 03:39] LABS: Cholesterol 85 mg/dL (0-200); HDL Cholesterol 34 mg/dL (60-100); LDL Cholesterol Calculated 39 mg/dL (50-129); LDL HDL Ratio 1.15 RATIO (0.00-3.22); Triglycerides 60 mg/dL (0-150)
[2023-01-07 03:43] LABS: Glucose Point of Care 242 mg/dL (70-110)
[2023-01-07] MEDS: D5-NS 0.45% + KCL 20 mEq 20 MEQ/1,000 ML BAG 100 MEQ IV ×2 (03:49→15:57)
[2023-01-07] MEDS: insulin lispro 100 unit/1 mL SUBCUT ×4 (03:50→21:15)
[2023-01-07 03:52] LABS: Alanine Aminotransferase 19 U/L (0-41); Alkaline Phosphatase 113 U/L (40-130); Anion Gap 13.7 (5-19); Aspartate Amino Transferase 15 U/L (0-40); Blood Urea Nitrogen 14 mg/dL (8-23); Calcium 8.1 mg/dL (8.5-10.5); Carbon Dioxide 22 mmol/L (22-29); Chloride 105 mmol/L (98-107); Globulin 2.3 g/dL (1.3-4.6); Glomerular Filtration Rate 112.1 mL/min (90-130); Glucose 229 mg/dL (65-115); Magnesium 1.6 mg/dL (1.7-2.3); Osmolality Calculated 292 mOsm/kg (285-295); Phosphorus 2.6 mg/dL (2.5-4.5); Potassium 3.7 mmol/L (3.5-5.1); Sodium 137 mmol/L (136-145); Total Bilirubin 0.6 mg/dL (0.15-1.2); Total Protein 5.3 g/dL (6.6-8.7)
[2023-01-07] MEDS: magnesium sulfate premix 2 GM/50 ML PIGGYBACK IV (05:02)
[2023-01-07] MEDS: memantine 5 mg tablet PO ×2 (08:28→20:45)
[2023-01-07] MEDS: magnesium oxide 400 mg tablet PO ×2 (08:28→18:07)
[2023-01-07] MEDS: cyanocobalamin 1,000 mcg/mL SDV 1000 MCG IM (08:28)
[2023-01-07] MEDS: metoprolol tartrate 25 mg Tablet PO ×2 (08:28→20:45)
[2023-01-07] MEDS: aspirin 325 mg EC Tablet PO (08:28)
[2023-01-07] MEDS: risperiDONE 0.25 mg Tablet PO ×2 (08:28→20:45)
[2023-01-07] MEDS: duloxetine 30 mg Capsule PO (08:28)
[2023-01-07] MEDS: lactulose oral liq 20 gm/30 mL UDC 10 GM PO (08:28)
[2023-01-07 09:39] LABS: Glucose Point of Care 268 mg/dL (70-110)
--- NOTE | 2023-01-07 13:13 | P.CONIM_ITS ---
Providers/Reason For Consult Consulting Physician/Specialty*: Urology/[place] Reason for Consult*: Urology/follow-up Requesting Physician: Dr. Spencer Attending Physician: Surendra Spencer MD Primary Care Provider: Emely Low MD History of Present Illness History of Present Illness Rah is a very unfortunate 67-year-old white male with a history of severe dementia, severe scoliosis who was admitted through the emergency department on 01/06/2023 for altered mental status, vomiting both a significant change from his baseline. ED work-up: * White count was 14.8, hemoglobin 15.3. * Electrolytes are normal with a creatinine of 0.6 * Urinalysis showed 80-100 RBCs, 10-15 white cells, nitrite negative, trace bacteria. * CT scan: Left hydronephrosis that appeared to be more limited to the renal pelvis although the CT scan report stated the left proximal ureter was as well dilated. I could not track the dilation of the ureter below the UPJ. He did have a calcification in his left pelvis which appeared to be more consistent with a phlebolith. There is no dilation down to the point of that calcification. Was some chronic atrophy of the left kidney. No old films to compare with. I did review his films personally. Was admitted and placed on IV antibiotics. I had seen him in the office previously in April 2021 in follow-up of BPH/obstruction. No evidence of prostate cancer. Did have significant frequency but it seemed to be more volume related and that he drank a very large amount of fluid at that time. Was to continue the previously instituted TAMSULOSIN. Placed on return to clinic as needed basis. Voiding studies were acceptable. Emptied his bladder well. Review of Systems General: Reports: ROS unobtainable due to mental status Medications/Allergies Home Medications Medication Instructions Recorded Confirmed Last Taken Type cetirizine 10 mg tablet (Zyrtec) 10 mg PO DAILY@01/22/20 01/07/23 01/06/23 History famotidine 20 mg tablet 20 mg PO DAILY@01/22/20 01/07/23 01/06/23 History glucagon 1 mg/mL solution for 1 mg SUBCUT Q20M PRN low blood 01/22/20 01/07/23 Unknown History injection (GlucaGen Diagnostic Kit) sugar magnesium hydroxide 400 mg/5 mL 30 ml PO DAILY PRN Constipation 01/22/20 01/07/23 Unknown History oral suspension (Milk of Magnesia) ramipril 10 mg capsule (Altace) 20 mg PO DAILY@08 01/22/20 01/07/23 01/06/23 History tamsulosin 0.4 mg capsule (Flomax) 0.4 mg PO BEDTIME@02/27/20 01/07/23 01/06/23 History insulin glargine 100 unit/mL (3 35 unit SUBCUT BEDTIME 05/03/21 01/07/23 01/06/23 History mL) subcutaneous pen (Lantus Solostar U-100 Insulin) acetaminophen 325 mg tablet 650 mg PO Q8H PRN Pain 07/25/22 01/07/23 Unknown History (Tylenol) aluminum-mag hydroxide-simethicone 30 ml PO Q6H PRN Heartburn 07/25/22 01/07/23 Unknown History 200 mg-200 mg-20 mg/5 mL oral susp amlodipine 5 mg tablet 5 mg PO DAILY@07/25/22 01/07/23 01/07/23 History calcium carbonate 500 mg calcium 500 mg PO DAILY@07/25/22 01/07/23 01/06/23 History (1,250 mg) tablet duloxetine 30 mg capsule,delayed 30 mg PO DAILY@07/25/22 01/07/23 01/06/23 History release (Cymbalta) fluticasone propionate 50 2 spray intranasal DAILY@07/25/22 01/07/23 07/25/22 History mcg/actuation nasal spray,suspension hydrocodone 5 mg-acetaminophen 325 1 tab PO Q8H PRN Pain 07/25/22 01/07/23 07/25/22 07:04 History mg tablet hydrocortisone 1 % topical cream 1 applic topical Q12H PRN 07/25/22 01/07/23 Unknown History (Preparation H Hydrocortisone) pain/itching insulin aspart U-100 100 unit/mL See Rx Instructions .Route .COMPLEX 07/25/22 01/07/23 07/25/22 11:34 History (3 mL) subcutaneous pen (Novolog 12 units FlexPen U-100 Insulin aspart) @11:34 loperamide 2 mg capsule (Imodium See Rx Instructions .Route .COMPLEX 07/25/22 01/07/23 Unknown History A-D) memantine 5 mg tablet 5 mg PO BID@08,20 07/25/22 01/07/23 01/06/23 History vit no.95-ferrous 1 tab PO DAILY@08 07/25/22 01/07/23 01/06/23 History fumarate 28 mg-folic acid 800 mcg tablet ( Multivitamins) aspirin 325 mg tablet,delayed 325 mg PO DAILY #21 tabs 07/28/22 01/07/23 01/07/23 Rx release atorvastatin 40 mg tablet 40 mg PO DAILY 01/07/23 01/07/23 01/06/23 History duloxetine 30 mg capsule,delayed 60 mg PO BEDTIME 01/07/23 01/07/23 01/06/23 History release (Cymbalta) guaifenesin 100 mg/5 mL oral 200 mg PO Q4H PRN Cough 01/07/23 01/07/23 Unknown History liquid (Tussin) naloxone 2 mg/2 mL syringe kit 2 mg IM Q2M PRN overdose 01/07/23 01/07/23 Unknown History nut.tx.gluc.intol,lac-free,soy 237 ea PO TID 01/07/23 01/07/23 Unknown History (Glucerna oral liquid) Allergies Allergy/AdvReac Type Severity Reaction Status Date / Time No Known Allergies Allergy Verified 01/03/23 08:33 Current Medications Generic Name Dose Route Start Last Admin Trade Name Freq PRN Reason Stop Dose Admin Aspirin 325 mg 01/07/23 09:00 01/07/23 08:28 Aspirin 325 Mg Ec Tablet PO 325 mg DAILY MABEL Administration Atorvastatin Calcium 20 mg 01/06/23 20:00 01/06/23 20:23 Atorvastatin 40 Mg Tablet PO 20 mg BEDTIME@20 MABEL Administration Cyanocobalamin 1,000 mcg 01/06/23 22:35 01/07/23 08:28 Cyanocobalamin 1,000 Mcg/Ml Sdv IM 1,000 mcg DAILY MABEL Administration Duloxetine HCl 30 mg 01/07/23 08:00 01/07/23 08:28 Duloxetine 30 Mg Capsule PO 30 mg DAILY@08 MABEL Administration Heparin Sodium (Porcine) 5,000 unit 01/06/23 19:00 01/07/23 10:45 Heparin 5,000 Unit/Ml Inj 1 Ml SUBCUT 5,000 unit Q8H MABEL Administration Potassium Chloride/Dextrose/Sod Cl 20 meq in 1,000 mls @ 100 mls/hr 01/06/23 18:47 01/07/23 03:49 D5-Ns 0.45% + Kcl 20 Meq IV 100 mls/hr .Q10H MABEL Administration Ceftriaxone Sodium 1,000 mg/ 50 mls @ 100 mls/hr 01/06/23 19:00 01/06/23 20:24 Sodium Chloride IV Infused Q24H MABEL Infusion Protocol Insulin Human Lispro 0 unit 01/06/23 22:00 01/07/23 09:46 Insulin Lispro 100 Unit/1 Ml SUBCUT 10 unit Q6H MABEL Administration Protocol Lactulose 10 gm 01/06/23 18:47 01/07/23 08:28 Lactulose Oral Liq 20 Gm/30 Ml Udc PO 10 gm DAILY PRN Administration Constipation (see protocol) Protocol Magnesium Oxide 400 mg 01/07/23 09:00 01/07/23 08:28 Magnesium Oxide 400 Mg Tablet PO 400 mg BID MABEL Administration Memantine 5 mg 01/06/23 20:00 01/07/23 08:28 Memantine 5 Mg Tablet PO 5 mg BID@08,20 MABEL Administration Metoprolol Tartrate 25 mg 01/06/23 21:00 01/07/23 08:28 Metoprolol Tartrate 25 Mg Tablet PO 25 mg BID@0900,2100 MABEL Administration Pantoprazole Sodium 40 mg 01/06/23 18:47 01/06/23 19:30 Pantoprazole 40 Mg Sdv IVP 40 mg Q24H MABEL Administration Risperidone 0.25 mg 01/06/23 20:00 01/07/23 08:28 Risperidone 0.25 Mg Tablet PO 0.25 mg BID@08,20 MABEL Administration Tamsulosin HCl 0.4 mg 01/06/23 20:00 01/06/23 20:22 Tamsulosin 0.4 Mg Capsule PO 0.4 mg BEDTIME@20 MABEL Administration PFSH Acute PFSH: Medical History (Updated 01/07/23 @ 13:44 by Liam Galvan MD) Anxiety BPH loc w urin obs/LUTS Dementia Diabetes Lower urinary tract symptoms (LUTS) Mixed hyperlipidemia Proteinuria Scoliosis Severe with secondary severe altered visceral anatomy Surgical History History of appendectomy Family History Father No problems noted. Mother No problems noted. Son , Both patient's sons are Family history of premature coronary artery disease Social History Smoking and tobacco status: never smoked Alcohol intake: never Adopted: No Caregiver/support person: No Lives independently: No Marital status: Current occupational status: retired Current gender identity: Male Vitals/I&O/Wt Last Vital Signs Temp 97.8 F 01/07/23 12:07 Pulse 78 01/07/23 12:07 Resp 23 H 01/07/23 12:07 BP 140/91 01/07/23 12:07 Pulse Ox 96 01/07/23 12:07 O2 Del Method 01/07/23 03:45 01/06/23 01/07/23 01/07/23 22:59 06:59 14:59 Intake Total 2680 / 2680 880 / 3560 Output Total 300 / 300 500 / 800 1300 / 1300 Balance 2380 / 2380 380 / 2760 -1300 / -1300 Weight last 48 hrs Weight 135 lb Weight 124 lb Physical Exam Narrative: Awake and alert. No acute distress HEENT atraumatic normocephalic Abdomen is soft. Cannot palpate any tenderness. No CVA tenderness Significantly impaired cognition. Urinary Catheter Management: Tracy: Cath Placed During This Visit: yes Reason for Continuing Indwelling Catheter: Accurate Measurement of Urinary Output in Critically Ill Patients Urinary Catheter Date of Insertion: 01/06/23 Urinary Catheter Time of Insertion: 16:00 Data 01/07/23 03:05 01/07/23 03:05 Micro: Microbiology 01/06/23 17:26 Blood Culture - Preliminary Blood SPECIMEN COLLECTED 01/06/23 16:37 Blood Culture - Preliminary Blood SPECIMEN COLLECTED A&P Assessment and plan (1) Hydronephrosis, left: (2) Obstruction of left ureteropelvic junction (UPJ): (3) Alzheimer's dementia: (4) BPH loc w urin obs/LUTS: On chronic TAMSULOSIN 0.4 mg daily Plan 1. Does not appear to be an acute process related to the left kidney. 2. Would recommend antibiotics alone initially with consideration for stenting if evidence of continued infectious deterioration. Consult Attestations Medical Necessity Statement: See attending Coding Level of Care Code Acute Code for Chg Fwd Diagnoses Hydronephrosis, left N13.30 Obstruction of left ureteropelvic junction (UPJ) N13.5 Alzheimer's dementia G30.9; F02.80 BPH loc w urin obs/LUTS N40.1
--- NOTE | 2023-01-07 15:11 | PM.PN ---
Subjective Subjective: Overnight. On examination patient is slightly more awake and alert today. Laying comfortably in bed. Seems extremely weak. But wakes up to tell his name and that he is in the hospital. Thinks in the hospital because he broke his hip. Has remained hemodynamically stable. On room air. Tmax since admission 101.6 Fahrenheit. Vitals/I&O/Wt Last Vital Signs Temp 97.8 F 01/07/23 12:07 Pulse 78 01/07/23 12:07 Resp 23 H 01/07/23 12:07 BP 140/91 01/07/23 12:07 Pulse Ox 96 01/07/23 12:07 O2 Del Method 01/07/23 03:45 01/07/23 01/07/23 01/07/23 06:59 14:59 22:59 Intake Total 880 / 3560 1000 / 1000 Output Total 500 / 800 1300 / 1300 Balance 380 / 2760 -1300 / -1300 1000 / -300 Weight last 48 hrs Weight 61.235 kg Weight 56.245 kg Physical Exam Narrative: General: No acute distress, confused, somnolent, lying comfortably in bed HEENT: PERRLA, pupils bilaterally equal and reactive Chest: Normal vesicular breath sounds, no added sounds, equal good air entry bilaterally CVS: S1-S2 regular, no murmurs, no tachycardia, no gallops, no rubs Abdomen: Soft, nontender, no organomegaly, bowel sounds present Neuro: No focal deficits, no facial deformity, AO x3, power 5/5 in all limbs Urinary Catheter Management: Tracy: Cath Placed During This Visit: yes Reason for Continuing Indwelling Catheter: Accurate Measurement of Urinary Output in Critically Ill Patients Urinary Catheter Date of Insertion: 01/06/23 Urinary Catheter Time of Insertion: 16:00 Data 01/07/23 03:05 01/07/23 03:05 Micro: Microbiology 01/06/23 19:50 MRSA Culture - Final Nose 01/06/23 17:26 Blood Culture - Preliminary Blood SPECIMEN COLLECTED 01/06/23 16:37 Blood Culture - Preliminary Blood SPECIMEN COLLECTED A&P Assessment and plan (1) Sepsis: Ruled in on admission with presence of tachycardia, leukocytosis possible source of infection of UTI with endorgan damage with altered mental status. Keep mean artery pressure 65, saturation of 92. Follow-up blood culture, urine culture. MRSA swab negative, procalcitonin negative. Continue with IV ceftriaxone. (2) Altered mental status: Most likely in setting of UTI, sepsis along with metapneumovirus infection. Not sure of baseline given history of dementia. Frequent reorientation, aspiration and fall precaution. Vitamin B12 deficiency. Will replace. Appropriate folate, TSH levels. (3) UTI (urinary tract infection): Appreciate CT abdomen pelvis results. Concerns for left hydronephrosis with possible small distal left ureteral calculus. Appreciate urology recommendations. Antibiotics as above. Follow-up urine culture. (4) Nephrolithiasis: (5) Obstruction of left ureteropelvic junction (UPJ): (6) Hydronephrosis, left: (7) Tachycardia: Resolved. Most likely in setting of sepsis along with dehydration. Continue with IV fluids as above. Metoprolol 25 mg twice daily. (8) correction resident: (9) Infection due to human metapneumovirus (hMPV): Supportive treatment. Oxygen supplementation keeping saturation over 90%. DuoNebs as needed. 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 Plan Type 2 DM: Check A1c, Insulin sliding scale at low-dose protocol every 6 hourly. Hypertension: Goal blood pressure less than 140/90 mmHg. It seems he supposed to be on ramipril 20 mg daily, amlodipine 5 mg daily at home. Continue to hold the medications for now. Continue with metoprolol 25 mg twice daily as above. Will uptitrate or restart home medications when possible. CODE STATUS: Discussed in detail with patient's brother over the phone. He states CODE STATUS should be during the paperwork which is full code. He states for further details reassured try to get in touch with his niece who is a nurse at [facility]. Will request the number. Full code. N.p.o. for now. Speech evaluation. Heparin 5000 every 8 hourly for DVT prophylaxis. Protonix for PUD prophylaxis. Attestations Medical Necessity Statement*: Requires further hospitalization for management of sepsis and altered mental status in setting of UTI, metapneumovirus infection in a patient with history of advanced dementia fpc resident Diagnoses Sepsis A41.9 Altered mental status R41.82 UTI (urinary tract infection) N39.0 Nephrolithiasis N20.0 Obstruction of left ureteropelvic junction (UPJ) N13.5 Hydronephrosis, left N13.30 Tachycardia R00.0 correction resident Z59.3 Infection due to human metapneumovirus (hMPV) B34.8 Vitamin B12 deficiency E53.8 Major depressive disorder, recurrent severe without psychotic features F33.2
[2023-01-07 16:04] LABS: Glucose Point of Care 331 mg/dL (70-110)
[2023-01-07] MEDS: sodium chloride 0.9% 1,000 ML 75 ML IV (16:06)
--- NOTE | 2023-01-07 16:14 | PC.NURSE ---
performed bedside swallow eval. Patient was given sugar free pudding, water through a straw et glucerna. Patient tolerated all consistencies given. No choking observed at any point. Will continue to monitor.
[2023-01-07] MEDS: cefTRIAXone 1,000 MG in sodium chloride 0.9% (plus) 50 ML 100 MG IV (18:06)
[2023-01-07] MEDS: pantoprazole 40 mg SDV IVP (18:07)
[2023-01-07] MEDS: tamsulosin 0.4 mg Capsule PO (20:46)
[2023-01-07] MEDS: atorvastatin 40 mg Tablet 20 MG PO (20:46)
[2023-01-07 21:06] LABS: Glucose Point of Care 261 mg/dL (70-110)
[2023-01-08 03:33] LABS: Glucose Point of Care 217 mg/dL (70-110)
[2023-01-08] MEDS: heparin 5,000 unit/mL INJ 1 mL 5000 UNIT SUBCUT ×3 (03:44→18:14)
[2023-01-08] MEDS: insulin lispro 100 unit/1 mL SUBCUT ×4 (03:46→22:30)
[2023-01-08 04:00] VITALS: BP 141/67; PULSE 73; RESP 20; TEMP 37.6; O2SAT 98
[2023-01-08 04:05] LABS: Basophils % 0.4 %; Eosinophils % 0.4 %; Hematocrit 38.1 % (42.0-52.0); Hemoglobin 12.3 g/dL (11.7-16.6); Lymphocytes # 0.9 10^3/uL (0.8-4.8); Lymphocytes % 11.5 %; Mean Corpuscular HGB Conc 32.3 g/dL (30.0-36.0); Mean Corpuscular Hemoglobin 29.6 pg (28.0-34.0); Mean Corpuscular Volume 91.6 fl (80-94); Mean Platelet Volume 11.8 fL (7.4-10.4); Monocytes # 0.7 10^3/uL (0.2-0.9); Monocytes % 9.2 %; Neutrophils # 6.21 10^3/uL (1.8-7.7); Neutrophils % 78.1 %; Nucleated Red Blood Cells % 0 %; Platelet Count 179 10^3/cmm (130-400); Red Blood Count 4.16 10^6/uL (4.1-5.3); Red Cell Distribution Width 13.5 % (12.1-15.1); White Blood Count 7.9 10^3/uL (4.0-10.0)
[2023-01-08] MEDS: sodium chloride 0.9% 1,000 ML 75 ML IV ×2 (04:26→22:22)
[2023-01-08 04:38] LABS: Alanine Aminotransferase 18 U/L (0-41); Albumin Level 2.8 g/dL (3.5-5.2); Alkaline Phosphatase 108 U/L (40-130); Anion Gap 14.9 (5-19); Aspartate Amino Transferase 17 U/L (0-40); Blood Urea Nitrogen 9 mg/dL (8-23); Calcium 8.3 mg/dL (8.5-10.5); Carbon Dioxide 23 mmol/L (22-29); Chloride 106 mmol/L (98-107); Globulin 2.8 g/dL (1.3-4.6); Glomerular Filtration Rate 165.4 mL/min (90-130); Glucose 227 mg/dL (65-115); Osmolality Calculated 296 mOsm/kg (285-295); Potassium 3.9 mmol/L (3.5-5.1); Sodium 140 mmol/L (136-145); Total Bilirubin 0.5 mg/dL (0.15-1.2); Total Protein 5.6 g/dL (6.6-8.7)
[2023-01-08 05:56] VITALS: PULSE 83
[2023-01-08 08:00] VITALS: BP 153/71; PULSE 90; RESP 22; TEMP 37.2; O2SAT 92
[2023-01-08] MEDS: cyanocobalamin 1,000 mcg/mL SDV 1000 MCG IM (09:41)
[2023-01-08] MEDS: metoprolol tartrate 25 mg Tablet PO (09:41)
[2023-01-08] MEDS: magnesium oxide 400 mg tablet PO ×2 (09:41→18:12)
[2023-01-08] MEDS: duloxetine 30 mg Capsule PO (09:41)
[2023-01-08] MEDS: risperiDONE 0.25 mg Tablet PO (09:41)
[2023-01-08] MEDS: aspirin 325 mg EC Tablet PO (09:41)
[2023-01-08] MEDS: memantine 5 mg tablet PO (09:42)
[2023-01-08 10:22] LABS: Glucose Point of Care 294 mg/dL (70-110)
--- NOTE | 2023-01-08 10:26 | PC.CHAP ---
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 visit [] Patient/Family/Request visit [] Outpatient visit [] Follow-up visit [] Physician referral [] Code/Alert [x] Routine visit [] Staff referral [] Actively dying [] Patient sleeping [] Family support [] [] Out of room [] Palliative care [] [] Receiving care in room [] Pre-surgical visit [] Trauma [] Long length of stay [] ICU visit [] Other: Relational/Emotional Strength [] Patient feels connected with others/family/visitors/staff [] Distress [] Loneliness/isolation [] Abandonment Spirituality of Patient [] Person of Misti [] Attends Jew of their Misti [] Believes in Prayer [] Reads Bible or Buddhism materials [] There are Spiritual issues to be addressed Direct Sales Professional Interventions [] Prayer [] Active listening [] Non-anxious presence [] Spiritual/emotional support [] Crisis/trauma care [] Spiritual counseling [] Bereavement support [] Provided bereavement packet [] Provided Bible/devotional materials [] Provided toy/stuffed animal, coloring book to patient or family member [] Provided Communion [] Anointing/Sarah [] Salvation [] Completed spiritual assessment [] Other: Impact on Illness or Injury [] Angry [] Fearful [] Anxious [] Often cries [] Exhaustion [] Unable to work [] Unable to attend quaker [] Unable to walk/stand [] Unable to read [] Unable to drive [] Unable to eat/drink [] Unable to sleep [] Unable to be with family [] Patient intubated [] Other: Summary Time spent with patient
[2023-01-08 11:35] VITALS: BP 160/84; PULSE 99; RESP 26; O2SAT 95
--- NOTE | 2023-01-08 14:43 | PM.PN ---
Subjective Subjective: Patient apparently had episodes of agitation overnight. Needed sitter. Today morning patient is calm and his baseline mentation with [id number] at bedside. [id number] confirms that patient is at baseline mentation. Patient is occasionally sobbing and crying in bed but is awake and alert to self and being in the hospital. Patient has remained hemodynamically stable and afebrile. Patient is being fed food by family members. Vitals/I&O/Wt Last Vital Signs Temp 99.0 F 01/08/23 08:00 Pulse 99 01/08/23 11:35 Resp 26 H 01/08/23 11:35 BP 160/84 01/08/23 11:35 Pulse Ox 95 01/08/23 11:35 O2 Del Method 01/08/23 11:35 01/07/23 01/08/23 01/08/23 22:59 06:59 14:59 Intake Total 1900 / 1900 925 / 2825 Output Total 1150 / 2450 650 / 3100 Balance 750 / -550 275 / -275 Weight last 48 hrs Weight 61.235 kg Weight 56.245 kg Physical Exam Narrative: General: No acute distress, confused, awake, alert to self and place, occasionally sobbing. As per family at baseline mentation HEENT: PERRLA, pupils bilaterally equal and reactive Chest: Normal vesicular breath sounds, no added sounds, equal good air entry bilaterally CVS: S1-S2 regular, no murmurs, no tachycardia, no gallops, no rubs Abdomen: Soft, nontender, no organomegaly, bowel sounds present Neuro: No focal deficits, no facial deformity, AO x3, power 5/5 in all limbs Urinary Catheter Management: Tracy: Cath Placed During This Visit: yes Reason for Continuing Indwelling Catheter: Accurate Measurement of Urinary Output in Critically Ill Patients Urinary Catheter Date of Insertion: 01/06/23 Urinary Catheter Time of Insertion: 16:00 Data 01/08/23 03:29 01/08/23 03:29 Micro: Microbiology 01/08/23 11:05 Legionella Urinary Antigen - Final Unknown Source 01/06/23 16:33 Urine Culture - Final Urine,Clean Catch 01/06/23 17:26 Blood Culture - Preliminary Blood NEGATIVE TO DATE 01/06/23 16:37 Blood Culture - Preliminary Blood NEGATIVE TO DATE 01/06/23 19:50 MRSA Culture - Final Nose A&P Assessment and plan (1) Sepsis: Ruled in on admission with presence of tachycardia, leukocytosis possible source of infection of UTI with endorgan damage with altered mental status. Keep mean artery pressure 65, saturation of 92. Follow-up blood culture, urine culture. MRSA swab negative, procalcitonin negative. Continue with IV ceftriaxone. (2) Altered mental status: Most likely in setting of UTI, sepsis along with metapneumovirus infection. Patient back to baseline mentation as per family members. Frequent reorientation, aspiration and fall precaution. Continue with vitamin B12 replacement. Appropriate folate, TSH levels. Restart home medications for dementia including Cymbalta 30 mg a.m., 60 mg every afternoon, memantine 5 mg twice daily and risperidone. (3) UTI (urinary tract infection): Appreciate CT abdomen pelvis results. Concerns for left hydronephrosis with possible small distal left ureteral calculus. Appreciate urology recommendations. Antibiotics as above. Urine culture final negative. Given the above we will try to finish antibiotics for over 5 days. (4) Nephrolithiasis: (5) Obstruction of left ureteropelvic junction (UPJ): (6) Hydronephrosis, left: We will also repeat renal ultrasound to further monitor hydronephrosis within next 2 weeks. (7) Tachycardia: Resolved. Most likely in setting of sepsis along with dehydration. Continue with IV fluids as above. Continue with metoprolol 25 mg twice daily. (8) custodial resident: (9) Infection due to human metapneumovirus (hMPV): Supportive treatment. Oxygen supplementation keeping saturation over 90%. DuoNebs as needed. 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 Plan Type 2 DM: Check A1c, Insulin sliding scale at low-dose protocol every 6 hourly. Hypertension: Goal blood pressure less than 140/90 mmHg. It seems he supposed to be on ramipril 20 mg daily, amlodipine 5 mg daily at home. Blood pressure is improving. Restart home dose of ramipril. Continue with metoprolol 25 mg twice daily as above. Will uptitrate or restart home medications when possible. CODE STATUS: Discussed in detail with patient's brother over the phone. He states CODE STATUS should be during the paperwork which is full code. He states for further details reassured try to get in touch with his niece who is a nurse at [employer]. Will request the number. Full code. Discussed the CODE STATUS in detail again with family member at bedside. We discussed that unfortunately patient is at poor functional and mental capabilities at baseline and in the event of an adverse event requiring cardiac compressions and possible intubation it would be further detrimental to his quality of life. Sister verbalized understanding and will be talking to the family members further regarding the same. Continue with dysphagia level 5 diet as per speech evaluation. Heparin 5000 every 8 hourly for DVT prophylaxis. Protonix for PUD prophylaxis. Discharge planning: If patient remains hemodynamically stable and at baseline mentation within next 24 hours can plan [facility]. Attestations Medical Necessity Statement*: Requires further hospitalization for management of altered mental status in setting of severe dementia secondary to UTI and metapneumovirus infection Diagnoses Sepsis A41.9 Altered mental status R41.82 UTI (urinary tract infection) N39.0 Nephrolithiasis N20.0 Obstruction of left ureteropelvic junction (UPJ) N13.5 Hydronephrosis, left N13.30 Tachycardia R00.0 custodial resident Z59.3 Infection due to human metapneumovirus (hMPV) B34.8 Vitamin B12 deficiency E53.8 Major depressive disorder, recurrent severe without psychotic features F33.2
[2023-01-08 15:21] LABS: SARS Covid-2 Antigen negative (Negative)
[2023-01-08 16:35] VITALS: BP 160/98; PULSE 98; RESP 27
[2023-01-08] MEDS: lisinopril 20 mg Tablet 80 MG PO (16:36)
[2023-01-08 16:46] LABS: Glucose Point of Care 349 mg/dL (70-110)
[2023-01-08] MEDS: pantoprazole 40 mg SDV IVP (18:12)
[2023-01-08] MEDS: cefTRIAXone 1,000 MG in sodium chloride 0.9% (plus) 50 ML 100 MG IV (18:12)
--- NOTE | 2023-01-08 21:05 | PC.NURSE ---
Telephone call to Dr. Guzman. Reported patient is lethargic and is not rousable enough to give PO meds. Also reported temp of 101.8 and BP 178/101 Orders received.
[2023-01-08] MEDS: ketorolac 30 mg/mL INJ 15 MG IVP (21:26)
[2023-01-08] MEDS: acetaminophen 650 mg Supp PR (21:27)
[2023-01-08 21:37] LABS: Glucose Point of Care 262 mg/dL (70-110)
[2023-01-08 22:00] VITALS: PULSE 101
--- NOTE | 2023-01-08 22:10 | PC.NURSE ---
Patient still difficult to arouse. Patient does move arms and legs, but does not follow commands. Temp. 100.6 after receiving rectal acetaminophen. BP 172/95.
[2023-01-08] MEDS: insulin glargine 100 units/1 mL 30 UNIT SUBCUT (22:21)
[2023-01-09] VITALS (10 sets, daily range): BP systolic 132–170; BP diastolic 74–110; PULSE 68–96; RESP 17–22; TEMP 36.6–37.2; O2SAT 95–98
[2023-01-09] MEDS: heparin 5,000 unit/mL INJ 1 mL 5000 UNIT SUBCUT ×3 (04:47→18:53)
[2023-01-09 05:11] LABS: Basophils % 0.2 %; Eosinophils % 0.2 %; Hematocrit 41.3 % (42.0-52.0); Hemoglobin 13.7 g/dL (11.7-16.6); Lymphocytes # 0.9 10^3/uL (0.8-4.8); Lymphocytes % 11.4 %; Mean Corpuscular HGB Conc 33.2 g/dL (30.0-36.0); Mean Corpuscular Hemoglobin 30.4 pg (28.0-34.0); Mean Corpuscular Volume 91.6 fl (80-94); Mean Platelet Volume 11.9 fL (7.4-10.4); Monocytes # 0.8 10^3/uL (0.2-0.9); Monocytes % 10.3 %; Neutrophils % 77.3 %; Nucleated Red Blood Cells % 0 %; Platelet Count 195 10^3/cmm (130-400); Red Blood Count 4.51 10^6/uL (4.1-5.3); Red Cell Distribution Width 13.6 % (12.1-15.1); White Blood Count 8.2 10^3/uL (4.0-10.0)
[2023-01-09 05:31] LABS: Alanine Aminotransferase 19 U/L (0-41); Albumin Level 3.1 g/dL (3.5-5.2); Alkaline Phosphatase 128 U/L (40-130); Anion Gap 12.4 (5-19); Aspartate Amino Transferase 16 U/L (0-40); Blood Urea Nitrogen 11 mg/dL (8-23); Calcium 8.2 mg/dL (8.5-10.5); Carbon Dioxide 27 mmol/L (22-29); Chloride 108 mmol/L (98-107); Glomerular Filtration Rate 112.1 mL/min (90-130); Glucose 115 mg/dL (65-115); Osmolality Calculated 298 mOsm/kg (285-295); Potassium 3.4 mmol/L (3.5-5.1); Sodium 144 mmol/L (136-145); Total Bilirubin 0.4 mg/dL (0.15-1.2); Total Protein 6.1 g/dL (6.6-8.7)
[2023-01-09 06:47] LABS: Glucose Point of Care 105 mg/dL (70-110)
--- NOTE | 2023-01-09 08:43 | PM.DCS ---
Discharge Providers Date of Admission: 01/06/23 17:04 Date of Discharge: January 09, 2023 Attending Provider at Admission: Surendra Spencer MD Attending Provider at Discharge: Surendra Spencer MD Primary Care Provider: Emely Low MD Diagnoses at Discharge Discharge Diagnosis (1) Sepsis: Status: Acute (2) Altered mental status: Status: Acute (3) UTI (urinary tract infection): Status: Acute (4) Nephrolithiasis: Status: Acute (5) Obstruction of left ureteropelvic junction (UPJ): Status: Suspected (6) Hydronephrosis, left: Status: Acute (7) Tachycardia: Status: Acute (8) [facility] resident: Status: Acute (9) Infection due to human metapneumovirus (hMPV): Status: Acute (10) Vitamin B12 deficiency: Status: Acute (11) Major depressive disorder, recurrent severe without psychotic features: Status: Acute Reason for Visit Reason for Visit: AMS Physical Exam Narrative: General: No acute distress, confused, awake, alert to self and place, occasionally sobbing. As per family at baseline mentation HEENT: PERRLA, pupils bilaterally equal and reactive Chest: Normal vesicular breath sounds, no added sounds, equal good air entry bilaterally CVS: S1-S2 regular, no murmurs, no tachycardia, no gallops, no rubs Abdomen: Soft, nontender, no organomegaly, bowel sounds present Neuro: No focal deficits, no facial deformity, AO x3, power 5/5 in all limbs Urinary Catheter Management: Tracy: Cath Placed During This Visit: yes Reason for Continuing Indwelling Catheter: Accurate Measurement of Urinary Output in Critically Ill Patients Urinary Catheter Date of Insertion: 01/06/23 Urinary Catheter Time of Insertion: 16:00 Discharge Data Studies Completed and Pending Completed Studies During Hospitalization Category Date Time Status CT abdomen pelvis wo con [id number] Stat Cat Scan 01/06/23 16:[address] head wo con* [id number] Stat Cat Scan 01/06/23 15:26 Completed XR chest 1V portable [id number] Stat Exams 01/06/23 15:26 Completed Pending at discharge Category Date Time Status Blood Culture Stat Lab 01/06/23 17:26 Results Radiology Impressions Chest X-Ray 01/06/23 15:26 IMPRESSION: Stable appearance of the chest with prior exam, without acute findings. Prominent thoracolumbar scoliosis again noted. Head CT 01/06/23 15:26 IMPRESSION: 1. Atrophy or volume loss and chronic small-vessel disease change in the periventricular region, along with tiny old lacunar infarct left jannet and right basal ganglia that is also indicative of chronic small-vessel disease change. 2. No acute findings or significant change with prior exam. Abdomen/Pelvis CT 01/06/23 16:53 IMPRESSION: 1. Prior cholecystectomy. 2. Prominent or severe thoracolumbar scoliosis. 3. Moderate hydronephrosis and visualized proximal ureterectasis of the left kidney, with limited ability to follow the left ureter with severe scoliotic curvature and distortion of structures, though with suspected small distal left ureteral calculus. Correlate with urinalysis, as well. 4. Tracy catheter within the urinary bladder. 5. Diffuse increased stool throughout the colon suggestive of constipation with possible impaction within the rectum and correlate clinically. 6. Colonic diverticulosis, particularly sigmoid colon, with equivocal findings of mild diverticulitis of the sigmoid colon. Laboratory Results WBC 8.2 10^3/uL (4.0-10.0) 01/09/23 04:32 RBC 4.51 10^6/uL (4.1-5.3) 01/09/23 04:32 Hgb 13.7 g/dL (11.7-16.6) 01/09/23 04:32 Hct 41.3 % (42.0-52.0) L 01/09/23 04:32 MCV 91.6 fl (80-94) 01/09/23 04:32 MCH 30.4 pg (28.0-34.0) 01/09/23 04:32 MCHC 33.2 g/dL (30.0-36.0) 01/09/23 04:32 RDW 13.6 % (12.1-15.1) 01/09/23 04:32 Plt Count 195 10^3/cmm (130-400) 01/09/23 04:32 MPV 11.9 fL (7.4-10.4) H 01/09/23 04:32 Neut % (Auto) 77.3 % 01/09/23 04:32 Lymph % (Auto) 11.4 % 01/09/23 04:32 Hawkins % (Auto) 10.3 % 01/09/23 04:32 Eos % (Auto) 0.2 % 01/09/23 04:32 Baso % (Auto) 0.2 % 01/09/23 04:32 Neut # (Auto) 6.30 10^3/uL (1.8-7.7) 01/09/23 04:32 Lymph # (Auto) 0.9 10^3/uL (0.8-4.8) 01/09/23 04:32 Hawkins # (Auto) 0.8 10^3/uL (0.2-0.9) 01/09/23 04:32 Eos # (Auto) 0.0 10^3/uL (0.0-0.8) 01/09/23 04:32 Baso # (Auto) 0.0 10^3/uL (0.0-0.1) 01/09/23 04:32 Nucleated RBC % (auto) 0 % 01/09/23 04:32 Nucleated RBCs # 0.0 /100WBC 01/09/23 04:32 D-Dimer 1.82 ug/mIFEU (0-0.59) H 01/06/23 19:41 Specimen Type Arterial 01/06/23 21:22 Sample Site Radial, left 01/06/23 21:22 ABG pH 7.45 (7.35-7.45) 01/06/23 21:22 ABG pCO2 35.9 mmHg (35-45) 01/06/23 21:22 ABG pO2 70.0 mmHg (80.0-100.0) L 01/06/23 21:22 ABG HCO3 25.1 mmol/L (22-26) 01/06/23 21:22 ABG O2 Saturation 95.8 01/06/23 21:22 ABG Base Excess 1.3 mmol/L (-2.0-2.0) 01/06/23 21:22 Myek Test Pos 01/06/23 21:22 A-a O2 Gradient 4.4 mmHg (5-10) L 01/06/23 21:22 Hematocrit 41.1 % (42-52) L 01/06/23 21:22 Hgb O2 Saturation 94.3 % (95-100) L 01/06/23 21:22 Carboxyhemoglobin 1.2 %THgb (0.4-20.1) 01/06/23 21:22 Methemoglobin 0.4 % (0.4-1.5) 01/06/23 21:22 Total Hemoglobin 13.4 g/dL (14-18) L 01/06/23 21:22 Sodium 137.0 mmol/L (131-143) 01/06/23 21:22 Potassium 3.4 mmol/L (3.5-5.0) L 01/06/23 21:22 Glucose 243.0 mg/dL (70-115) H 01/06/23 21:22 Ionized Calcium 1.2 mmol/L (1.1-1.4) 01/06/23 21:22 O2 Delivery Device None 01/06/23 21:22 FiO2 21.0 % 01/06/23 21:22 Envelope Sealer Operator ID [email or web address] 01/06/23 21:22 Sodium 144 mmol/L (136-145) 01/09/23 04:32 Potassium 3.4 mmol/L (3.5-5.1) L 01/09/23 04:32 Chloride 108 mmol/L (98-107) H 01/09/23 04:32 Carbon Dioxide 27 mmol/L (22-29) 01/09/23 04:32 Anion Gap 12.4 (5-19) 01/09/23 04:32 BUN 11 mg/dL (8-23) 01/09/23 04:32 Creatinine 0.7 mg/dL (0.7-1.2) 01/09/23 04:32 GFR Calculation 112.1 mL/min (90-130) 01/09/23 04:32 Glucose 115 mg/dL (65-115) 01/09/23 04:32 POC Glucose 105 mg/dL (70-110) 01/09/23 04:33 Estimat Average Glucose 177 01/07/23 03:05 Hemoglobin A1c 7.8 % (4.0-6.0) H 01/07/23 03:05 Calculated Osmolality 298 mOsm/kg (285-295) H 01/09/23 04:32 Lactic Acid 1.1 mmol/L (0.5-2.2) 01/06/23 17:26 Calcium 8.2 mg/dL (8.5-10.5) L 01/09/23 04:32 Phosphorus 2.6 mg/dL (2.5-4.5) 01/07/23 03:05 Magnesium 1.6 mg/dL (1.7-2.3) L 01/07/23 03:05 Iron 27 ug/dL (59-158) L 01/06/23 16:12 TIBC 263 mcg/dl 01/06/23 16:12 % Saturation 10.2 % (20-50) L 01/06/23 16:12 Unsat Iron Binding 236 ug/dL (112-347) 01/06/23 16:12 Total Bilirubin 0.4 mg/dL (0.15-1.2) 01/09/23 04:32 AST 16 U/L (0-40) 01/09/23 04:32 ALT 19 U/L (0-41) 01/09/23 04:32 Alkaline Phosphatase 128 U/L (40-130) 01/09/23 04:32 Creatine Kinase 46 U/L (39-308) 01/06/23 16:12 C-Reactive Protein 3.4 mg/L (0.0-4.9) 01/06/23 16:12 Total Protein 6.1 g/dL (6.6-8.7) L 01/09/23 04:32 Albumin 3.1 g/dL (3.5-5.2) L 01/09/23 04:32 Globulin 3.0 g/dL (1.3-4.6) 01/09/23 04:32 Triglycerides 60 mg/dL (0-150) 01/07/23 03:05 Cholesterol 85 mg/dL (0-200) 01/07/23 03:05 LDL Cholesterol, Calc 39 mg/dL (50-129) L 01/07/23 03:05 HDL Cholesterol 34 mg/dL (60-100) L 01/07/23 03:05 LDL/HDL Ratio 1.15 RATIO (0.00-3.22) 01/07/23 03:05 Cholesterol/HDL Ratio 2.50 mg/dL (1.0-5.00) 01/07/23 03:05 Lipase 16 U/L (13-60) 01/06/23 16:12 Vitamin B12 162 pg/mL (232-1245) L 01/06/23 16:12 Folate > 20.0 ng/mL (4.5-32.2) 01/06/23 16:12 Procalcitonin 0.05 ng/mL (0-0.5) 01/06/23 16:12 Procalcitonin 0.06 ng/mL (0-0.5) 01/06/23 16:12 TSH 0.69 uIU/mL (0.27-4.20) 01/06/23 16:12 Urine Color Yellow (Yellow) 01/06/23 16:33 Urine Appearance Clear (CLEAR) 01/06/23 16:33 Urine pH 5 (5-7) 01/06/23 16:33 Ur Specific [place] 1.015 (1.005-1.030) 01/06/23 16:33 Urine Protein Neg (Negative) 01/06/23 16:33 Urine Glucose (UA) Norm (Normal) 01/06/23 16:33 Urine Ketones 2+ (Negative) H 01/06/23 16:33 Urine Blood 3+ (Negative) H 01/06/23 16:33 Urine Nitrate Negative (Negative) 01/06/23 16:33 Urine Bilirubin Neg (Negative) 01/06/23 16:33 Urine Urobilinogen 1 mg/dL (Negative) H 01/06/23 16:33 Ur Leukocyte Esterase Negative (Negative) 01/06/23 16:33 Urine RBC 80-100 /hpf (0-2) H 01/06/23 16:33 Urine WBC 10-15 /hpf (0-5) H 01/06/23 16:33 Ur Squamous Epith Cells None /hpf (0-5) 01/06/23 16:33 Amorphous Sediment Not Reportable 01/06/23 16:33 Urine Bacteria Trace /hpf (NONE) 01/06/23 16:33 Urine Mucus Trace /hpf 01/06/23 16:33 Nasal Influ A H1 2009 PCR Not detected (NOT DETECT) 01/06/23 16:09 Coronavirus 229E (PCR) Not detected (NOT DETECT) 01/06/23 15:52 Human Metapneumovir PCR Detected (NOT DETECT) A 01/06/23 18:14 Influenza A (H1) PCR Not detected (NOT DETECT) 01/06/23 16:09 Influenza A (H3) PCR Not detected (NOT DETECT) 01/06/23 16:09 Influenza Type A (PCR) Not detected (NOT DETECT) 01/06/23 16:09 Influenza Type B (PCR) Not detected (NOT DETECT) 01/06/23 16:09 Entero/Rhino (PCR) Not detected (NOT DETECT) 01/06/23 18:14 SARS-CoV-2 (PCR) Not detected (NOT DETECT) 01/06/23 15:52 SARS-CoV-2 Ag (Rapid) negative (Negative) 01/08/23 14:45 Vitals Last Vital Signs Temp 97.8 F 01/09/23 08:00 Pulse 96 01/09/23 08:00 Resp 21 H 01/09/23 08:00 BP 168/110 01/09/23 08:34 Pulse Ox 98 01/09/23 07:31 O2 Del Method 01/08/23 11:35 Discharge Plan Discharge Patient Disposition: Xfer SNF Condition: Stable Prescriptions: No Action tamsulosin [Flomax] 0.4 mg capsule 0.4 mg PO BEDTIME@20 ramipril [Altace] 10 mg capsule 20 mg PO DAILY@08 famotidine 20 mg tablet 20 mg PO DAILY@08 GlucaGen Diagnostic Kit 1 mg/mL recon soln 1 mg SUBCUT Q20M PRN (Reason: low blood sugar) magnesium hydroxide [Milk of Magnesia] 400 mg/5 mL suspension 30 ml PO DAILY PRN (Reason: Constipation) cetirizine [Zyrtec] 10 mg tablet 10 mg PO DAILY@08 Lantus Solostar U-100 Insulin 100 unit/mL (3 mL) insulin pen 35 unit SUBCUT BEDTIME acetaminophen [Tylenol] 325 mg Tablet 650 mg PO Q8H PRN (Reason: Pain) loperamide [Imodium A-D] 2 mg Capsule See Rx Instructions .ROUTE .COMPLEX Rx Instructions: 2 caps after first loose stool then one cap after each loose stool not to exceed 6 tabs in 24 hours hydrocodone-acetaminophen 5-325 mg tablet 1 tab PO Q8H PRN (Reason: Pain) calcium carbonate 500 mg calcium (1,250 mg) Tablet 500 mg PO DAILY@08 hydrocortisone [Preparation H Hydrocortisone] 1 % Cream 1 applic topical Q12H PRN (Reason: pain/itching) alum-mag hydroxide-simeth 200-200-20 mg/5 mL Suspension 30 ml PO Q6H PRN (Reason: Heartburn) fluticasone propionate 50 mcg/actuation [place],Suspension 2 spray INTRANASAL DAILY@08 Rx Instructions: administer into each nostril insulin aspart U-100 [Novolog FlexPen U-100 Insulin] 100 unit/mL (3 mL) insulin pen See Rx Instructions .ROUTE .COMPLEX Rx Instructions: 10 units subcutaneously with meals and sliding scale with meals 70-199=0 units 200-249=2 units 250-299=3 units 300-349=4 units 350-399=5 units 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 5 mg tablet 5 mg PO BID@08,20 duloxetine [Cymbalta] 30 mg Capsule,Delayed Release(Dr/Ec) 30 mg PO DAILY@08 PNV cmb#95-ferrous fumarate-FA [ Multivitamins] 28 mg iron- 800 mcg Tablet 1 tab PO DAILY@08 amlodipine 5 mg tablet 5 mg PO DAILY@08 aspirin 325 mg Tablet,Delayed Release (Dr/Ec) 325 mg PO DAILY Qty: 21 0RF atorvastatin 40 mg Tablet 40 mg PO DAILY Tussin 100 mg/5 mL Liquid 200 mg PO Q4H PRN (Reason: Cough) Glucerna Liquid 237 ea PO TID Rx Instructions: for supplement Cymbalta 30 mg Capsule,Delayed Release(Dr/Ec) 60 mg PO BEDTIME naloxone 2 mg/2 mL Syringe Kit 2 mg IM Q2M PRN (Reason: overdose) Rx Instructions: NTExceed 10 mg total dose/episode Referrals: [facility] [Outside] Lukas Low MD [Primary Care Provider] - Patient Instructions: Opioid Safety Coding Level of Care Code Acute Code for g Fwd Diagnoses Sepsis A41.9 Altered mental status R41.82 UTI (urinary tract infection) N39.0 Nephrolithiasis N20.0 Obstruction of left ureteropelvic junction (UPJ) N13.5 Hydronephrosis, left N13.30 Tachycardia R00.0 [facility] resident Z59.3 Infection due to human metapneumovirus (hMPV) B34.8 Vitamin B12 deficiency E53.8 Major depressive disorder, recurrent severe without psychotic features F33.2
--- NOTE | 2023-01-09 08:48 | P.PN_ITS ---
Subjective Subjective: Overnight I am told patient had a fever of more than 101 Fahrenheit rectally for which she required rectal Tylenol. Patient was more somnolent than baseline. On further review of his home medications it seems he does not take Risperdal anymore which was put on his MAR when he came in. Today morning examination patient comfortably in bed. Awake and alert to self and place. Denies any nausea, vomiting, headache. Afebrile. On room air. Blood pressure slightly elevated. Vitals/I&O/Wt Last Vital Signs Temp 97.8 F 01/09/23 08:00 Pulse 96 01/09/23 08:00 Resp 21 H 01/09/23 08:00 BP 168/110 01/09/23 08:34 Pulse Ox 98 01/09/23 07:31 O2 Del Method 01/08/23 11:35 01/08/23 01/09/23 01/09/23 22:59 06:59 14:59 Intake Total 1050 / 1050 0 / 1050 Output Total 600 / 1365 800 / 800 Balance 450 / -315 0 / -315 -800 / -800 Weight last 48 hrs Weight 60.963 kg Weight 61.235 kg Physical Exam Narrative: General: No acute distress, confused, awake, alert to self and place, occasionally sobbing.? As per family at baseline mentation HEENT: PERRLA, pupils bilaterally equal and reactive Chest: Normal vesicular breath sounds, no added sounds, equal good air entry bilaterally CVS: S1-S2 regular, no murmurs, no tachycardia, no gallops, no rubs Abdomen: Soft, nontender, no organomegaly, bowel sounds present Neuro: No focal deficits, no facial deformity, AO x3, power 5/5 in all limbs Urinary Catheter Management: Tracy: Cath Placed During This Visit: yes Reason for Continuing Indwelling Catheter: Accurate Measurement of Urinary Output in Critically Ill Patients Urinary Catheter Date of Insertion: 01/06/23 Urinary Catheter Time of Insertion: 16:00 Data 01/09/23 04:32 01/09/23 04:32 Micro: Microbiology 01/08/23 11:05 Bacterial Antigens - Final Urine Kidney 01/08/23 11:05 Legionella Urinary Antigen - Final Unknown Source 01/06/23 16:33 Urine Culture - Final Urine,Clean Catch A&P Assessment and plan (1) Sepsis: Ruled in on admission with presence of tachycardia, leukocytosis possible source of infection of UTI with endorgan damage with altered mental status. Keep mean artery pressure 65, saturation of 92. Follow-up blood culture, urine culture. MRSA swab negative, procalcitonin negative. Continue with IV ceftriaxone. We will plan to continue antibiotics to finish overall 5-day course for possible UTI. On discharge can transition to oral antibiotics to finish course. Patient did have fever overnight. Leukocytosis resolved. DC Tracy catheter. Repeat procalcitonin. For now continue the same antibiotics. Will not escalate antibiotics. Continue to monitor. Fever could be in setting of metapneumovirus infection as well. (2) Altered mental status: Most likely in setting of UTI, sepsis along with metapneumovirus infection. Patient back to baseline mentation as per family members. Frequent reorientation, aspiration and fall precaution. Continue with vitamin B12 replacement. We will switch to oral cyanocobalamin on discharge. Appropriate folate, TSH levels. Restart home medications for dementia including Cymbalta 30 mg a.m., 60 mg every afternoon, memantine 5 mg twice daily. On further reconciliation of medication it seems he is not on risperidone anymore. Discontinued. (3) UTI (urinary tract infection): Appreciate CT abdomen pelvis results. Concerns for left hydronephrosis with possible small distal left ureteral calculus. Appreciate urology recommendations. Antibiotics as above. Urine culture final negative. Given the above we will try to finish antibiotics for over 5 days. (4) Nephrolithiasis: (5) Obstruction of left ureteropelvic junction (UPJ): (6) Hydronephrosis, left: We will also repeat renal ultrasound to further monitor hydronephrosis within next 2 weeks. (7) Tachycardia: Resolved. Most likely in setting of sepsis along with dehydration. Continue with IV fluids as above. Continue with metoprolol 25 mg twice daily. (8) correction resident: (9) Infection due to human metapneumovirus (hMPV): Supportive treatment. Oxygen supplementation keeping saturation over 90%. DuoNebs as needed. 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 Plan Type 2 DM: Check A1c, Insulin sliding scale at low-dose protocol every 6 hourly. Hypertension: Goal blood pressure less than 140/90 mmHg. It seems he supposed to be on ramipril 20 mg daily, amlodipine 5 mg daily at home. Blood pressure is improving. Restart home dose of ramipril. Continue with metoprolol 25 mg twice daily as above. Will uptitrate or restart home medications when possible. CODE STATUS: Discussed in detail with patient's brother over the phone. He states CODE STATUS should be during the paperwork which is full code. He states for further details reassured try to get in touch with his niece who is a nurse at [employer]. Will request the number. Full code. Discussed the CODE STATUS in detail again with family member at bedside. We discussed that unfortunately patient is at poor functional and mental capabilities at baseline and in the event of an adverse event requiring cardiac compressions and possible intubation it would be further detrimental to his quality of life. Sister verbalized understanding and will be talking to the family members further regarding the same. Continue with dysphagia level 5 diet as per speech evaluation. Heparin 5000 every 8 hourly for DVT prophylaxis. Protonix for PUD prophylaxis. Discharge planning: If patient remains hemodynamically stable and at baseline mentation within next 24 hours can plan to discharge back to snf. Attestations Medical Necessity Statement*: Patient requires further hospitalization for management of fever, altered mental status in setting of metapneumovirus infection, UTI in a patient with baseline advanced dementia Diagnoses Sepsis A41.9 Altered mental status R41.82 UTI (urinary tract infection) N39.0 Nephrolithiasis N20.0 Obstruction of left ureteropelvic junction (UPJ) N13.5 Hydronephrosis, left N13.30 Tachycardia R00.0 correction resident Z59.3 Infection due to human metapneumovirus (hMPV) B34.8 Vitamin B12 deficiency E53.8 Major depressive disorder, recurrent severe without psychotic features F33.2
[2023-01-09 09:29] LABS: Procalcitonin 0.09 ng/mL (0-0.5)
[2023-01-09] MEDS: cyanocobalamin 1,000 mcg/mL SDV 1000 MCG IM (10:26)
[2023-01-09] MEDS: metoprolol tartrate 25 mg Tablet PO ×2 (10:27→21:43)
[2023-01-09] MEDS: magnesium oxide 400 mg tablet PO ×2 (10:27→18:45)
[2023-01-09] MEDS: memantine 5 mg tablet PO ×2 (10:27→21:44)
[2023-01-09] MEDS: amlodipine 10 mg Tablet PO (10:27)
[2023-01-09] MEDS: duloxetine 30 mg Capsule PO (10:27)
[2023-01-09] MEDS: aspirin 325 mg EC Tablet PO (10:27)
[2023-01-09] MEDS: lisinopril 20 mg Tablet 80 MG PO (10:28)
[2023-01-09] MEDS: sodium chloride 0.9% 1,000 ML 75 ML IV (11:26)
[2023-01-09 11:44] LABS: Glucose Point of Care 85 mg/dL (70-110)
[2023-01-09 13:14] LABS: Glucose Point of Care 126 mg/dL (70-110)
--- NOTE | 2023-01-09 14:46 | PC.SOCIAL ---
Imm update Imm updated with patient's brother Tawanda. Copy of page 2 explained. Tawanda verbalized understanding. Copy in chart initialed, dated and timed.
[2023-01-09 17:00] LABS: Glucose Point of Care 238 mg/dL (70-110)
[2023-01-09] MEDS: insulin lispro 100 unit/1 mL SUBCUT ×2 (18:40→21:45)
[2023-01-09] MEDS: cefTRIAXone 1,000 MG in sodium chloride 0.9% (plus) 50 ML 100 MG IV (18:45)
[2023-01-09] MEDS: pantoprazole 40 mg SDV IVP (18:45)
[2023-01-09 20:28] LABS: Glucose Point of Care 272 mg/dL (70-110)
[2023-01-09] MEDS: HYDROcodone-acetaminophen 5-325 mg Tablet 1 TAB PO (21:43)
[2023-01-09] MEDS: tamsulosin 0.4 mg Capsule PO (21:43)
[2023-01-09] MEDS: atorvastatin 40 mg Tablet 20 MG PO (21:44)
[2023-01-09] MEDS: duloxetine 60 mg Capsule PO (21:44)
[2023-01-09] MEDS: insulin glargine 100 units/1 mL 25 UNIT SUBCUT (21:45)
[2023-01-10] VITALS (9 sets, daily range): BP systolic 111–157; BP diastolic 60–80; PULSE 47–111; RESP 16–18; TEMP 36.4–36.9; O2SAT 91–95
[2023-01-10 01:17] LABS: Glucose Point of Care 68 mg/dL (70-110)
[2023-01-10 01:21] LABS: Basophils % 0.4 %; Eosinophils # 0.1 10^3/uL (0.0-0.8); Eosinophils % 1.2 %; Hematocrit 43.5 % (42.0-52.0); Hemoglobin 14.6 g/dL (11.7-16.6); Lymphocytes % 19.2 %; Mean Corpuscular HGB Conc 33.6 g/dL (30.0-36.0); Mean Corpuscular Hemoglobin 30.2 pg (28.0-34.0); Mean Corpuscular Volume 90.1 fl (80-94); Mean Platelet Volume 10.9 fL (7.4-10.4); Monocytes # 0.8 10^3/uL (0.2-0.9); Monocytes % 14.9 %; Neutrophils # 3.22 10^3/uL (1.8-7.7); Neutrophils % 63.9 %; Nucleated Red Blood Cells % 0 %; Platelet Count 208 10^3/cmm (130-400); Red Blood Count 4.83 10^6/uL (4.1-5.3); Red Cell Distribution Width 13.5 % (12.1-15.1)
[2023-01-10 01:44] LABS: Alanine Aminotransferase 21 U/L (0-41); Albumin Level 3.1 g/dL (3.5-5.2); Alkaline Phosphatase 131 U/L (40-130); Anion Gap 11.3 (5-19); Aspartate Amino Transferase 19 U/L (0-40); Blood Urea Nitrogen 8 mg/dL (8-23); Calcium 8.9 mg/dL (8.5-10.5); Carbon Dioxide 28 mmol/L (22-29); Chloride 106 mmol/L (98-107); Globulin 3.2 g/dL (1.3-4.6); Glomerular Filtration Rate 165.4 mL/min (90-130); Glucose 70 mg/dL (65-115); Osmolality Calculated 291 mOsm/kg (285-295); Potassium 3.3 mmol/L (3.5-5.1); Sodium 142 mmol/L (136-145); Total Bilirubin 0.3 mg/dL (0.15-1.2); Total Protein 6.3 g/dL (6.6-8.7)
--- NOTE | 2023-01-10 01:56 | PC.NURSE ---
Transfer from CSU: Pt transferred from CSU via bed. Is awake, report received from Radha pt latest POC was 68, fed thickened orange juice, tolerated well. Can respond yeah or no when asked questions. Oriented to room and bed alarm is set.
[2023-01-10 02:24] LABS: Glucose Point of Care 69 mg/dL (70-110)
[2023-01-10 03:29] LABS: Glucose Point of Care 84 mg/dL (70-110)
[2023-01-10] MEDS: heparin 5,000 unit/mL INJ 1 mL 5000 UNIT SUBCUT ×3 (05:01→18:07)
[2023-01-10 07:43] LABS: Glucose Point of Care 71 mg/dL (70-110)
[2023-01-10] MEDS: lisinopril 20 mg Tablet 80 MG PO (08:21)
[2023-01-10] MEDS: aspirin 325 mg EC Tablet PO (08:22)
[2023-01-10] MEDS: cyanocobalamin 1,000 mcg/mL SDV 1000 MCG IM (08:22)
[2023-01-10] MEDS: amlodipine 10 mg Tablet PO (08:22)
[2023-01-10] MEDS: magnesium oxide 400 mg tablet PO ×2 (08:22→17:28)
[2023-01-10] MEDS: duloxetine 30 mg Capsule PO (08:22)
[2023-01-10] MEDS: potassium chloride ER 20 mEq Tablet 40 MEQ PO (08:38)
[2023-01-10] MEDS: memantine 5 mg tablet PO ×2 (08:38→21:20)
--- NOTE | 2023-01-10 09:41 | ECG_ITS ---
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 Measurements Intervals [place] Rate: 73 P: 49 W[place]: 146 QRS: 29 QRSD: 99 T: 48 QT: 429 QTc: 475 Interpretive Statements SINUS RHYTHM WITH MARKED SINUS ARRHYTHMIA POSSIBLE LEFT ATRIAL ENLARGEMENT [-0.1mV P-WAVE IN V1/V2] INCOMPLETE RIGHT BUNDLE BRANCH BLOCK [90+ ms QRS DURATION, TERMINAL R IN V1/V2, 40+ ms S IN I/aVL/V4/V5/V6] Compared to ECG 07/25/2022 15:00:33 Incomplete right bundle-branch block now present Sinus tachycardia no longer present T-wave abnormality no longer present Electronically Signed On 01-10-2023 23:52:52 CDT by Brian Kerns M.D. [email or web address]
[2023-01-10 12:29] LABS: Glucose Point of Care 339 mg/dL (70-110)
[2023-01-10] MEDS: insulin lispro 100 unit/1 mL SUBCUT ×2 (12:32→17:28)
--- NOTE | 2023-01-10 16:34 | PM.PN ---
Subjective Subjective: Patient was seen this morning, he is curled up in the position, he does follow me around the room, he is able to respond to his name, but beyond that he does not really follow any commands, and does not provide much of a history Vitals/I&O/Wt Last Vital Signs Temp 97.6 F 01/10/23 03:38 Pulse 66 01/10/23 16:00 Resp 17 01/10/23 16:00 BP 140/67 01/10/23 16:00 Pulse Ox 93 01/10/23 16:00 O2 Del Method 01/10/23 03:38 01/10/23 01/10/23 01/10/23 06:59 14:59 22:59 Intake Total 290 / 2005 600 / 600 Balance 290 / 105 600 / 600 Weight last 48 hrs Weight 60.192 kg Weight 60.963 kg Physical Exam Const: COMMON NORMALS: no acute distress Resp: COMMON NORMALS: normal respiratory effort, No retractions, No use of accessory muscles and clear to auscultation bilaterally AUSCULTATION: clear to auscultation bilaterally Cardio: COMMON NORMALS: regular rate, regular rhythm, S1 normal heart sound present and S2 normal heart sound present RATE: regular rate RHYTHM: regular rhythm HEART SOUNDS: S1 normal heart sound present and S2 normal heart sound present GI: COMMON NORMALS: Normal to inspection, nondistended, normoactive bowel sounds present and non-tender Extremity: COMMON NORMALS: no pedal edema Psych: COMMON NORMALS: mental status grossly normal Urinary Catheter Management: Tracy: Cath Placed During This Visit: yes Reason for Continuing Indwelling Catheter: Accurate Measurement of Urinary Output in Critically Ill Patients Urinary Catheter Date of Insertion: 01/06/23 Urinary Catheter Time of Insertion: 16:00 Data 01/10/23 01:13 01/10/23 01:13 A&P Assessment and plan (1) Sepsis: On admission presence of tachycardia, leukocytosis possible source of infection of UTI with endorgan damage with altered mental status Currently resolving Keep mean artery pressure 65, saturation of 92. Follow-up blood culture, urine culture. MRSA swab negative, procalcitonin negative. Continue with IV ceftriaxone. Follow blood cultures, urine cultures negative (2) Altered mental status: Most likely in setting of UTI, sepsis along with metapneumovirus infection. Frequent reorientation, aspiration and fall precaution. Continue with vitamin B12 replacement (3) UTI (urinary tract infection): Appreciate CT abdomen pelvis results. Concerns for left hydronephrosis with possible small distal left ureteral calculus. Appreciate urology recommendations. Antibiotics as above. Urine culture final negative. Given the above we will try to finish antibiotics for over 5 days. (4) Nephrolithiasis: (5) Obstruction of left ureteropelvic junction (UPJ): (6) Hydronephrosis, left: We will also repeat renal ultrasound to further monitor hydronephrosis within next 2 weeks. (7) Tachycardia: Resolved. Most likely in setting of sepsis along with dehydration. Continue with IV fluids as above. Continue with metoprolol 25 mg twice daily. (8) senior living resident: (9) Infection due to human metapneumovirus (hMPV): Supportive treatment. Oxygen supplementation keeping saturation over 90%. DuoNebs as needed. 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 Plan Type 2 DM, Insulin sliding scale at low-dose protocol every 6 hourly. Hypertension: Goal blood pressure less than 140/90 mmHg. It seems he supposed to be on ramipril 20 mg daily, amlodipine 5 mg daily at home. Blood pressure is improving. Restart home dose of ramipril. Continue with metoprolol 25 mg twice daily as above. Will uptitrate or restart home medications when possible. Continue with dysphagia level 5 diet as per speech evaluation. Heparin 5000 every 8 hourly for DVT prophylaxis. Protonix for PUD prophylaxis. Discharge planning: Likely discharge to alf facility tomorrow if he remains afebrile blood cultures remain negative Attestations Medical Necessity Statement*: Patient requires hospitalization for altered status Coding Level of Care Code Acute Code for Chg Fwd Diagnoses Sepsis A41.9 Altered mental status R41.82 UTI (urinary tract infection) N39.0 Nephrolithiasis N20.0 Obstruction of left ureteropelvic junction (UPJ) N13.5 Hydronephrosis, left N13.30 Tachycardia R00.0 senior living resident Z59.3 Infection due to human metapneumovirus (hMPV) B34.8 Vitamin B12 deficiency E53.8 Major depressive disorder, recurrent severe without psychotic features F33.2
[2023-01-10 17:11] LABS: Glucose Point of Care 252 mg/dL (70-110)
--- NOTE | 2023-01-10 17:51 | PC.NURSE ---
Patient resting in bed with sister in law at bedside and updated over the phone. Patient has had a good appetite, no c/o pain, turned frequently, good UOP and incontinent. Room clean and clutter free with call light in reach.
[2023-01-10] MEDS: pantoprazole 40 mg SDV IVP (17:57)
[2023-01-10] MEDS: cefTRIAXone 1,000 MG in sodium chloride 0.9% (plus) 50 ML 100 MG IV (18:07)
[2023-01-10 21:07] LABS: Glucose Point of Care 232 mg/dL (70-110)
[2023-01-10] MEDS: atorvastatin 40 mg Tablet 20 MG PO (21:20)
[2023-01-10] MEDS: tamsulosin 0.4 mg Capsule PO (21:20)
[2023-01-10] MEDS: metoprolol tartrate 25 mg Tablet PO (21:20)
[2023-01-10] MEDS: duloxetine 60 mg Capsule PO (21:20)
[2023-01-10] MEDS: insulin glargine 100 units/1 mL 10 UNIT SUBCUT (21:21)
[2023-01-11] VITALS: BP 157/53; PULSE 67; RESP 17; TEMP 36.4; O2SAT 95
[2023-01-11] MEDS: heparin 5,000 unit/mL INJ 1 mL 5000 UNIT SUBCUT ×2 (03:09→11:07)
[2023-01-11] MEDS: lanolin oint 7 gm 1 APPLIC TOPICAL (03:09)
[2023-01-11 03:20] VITALS: BP 122/67; PULSE 68; RESP 18; TEMP 36.5; O2SAT 95
[2023-01-11 03:41] LABS: Glucose Point of Care 104 mg/dL (70-110)
[2023-01-11 05:09] LABS: Basophils % 0.3 %; Eosinophils # 0.1 10^3/uL (0.0-0.8); Hematocrit 42.5 % (42.0-52.0); Hemoglobin 13.8 g/dL (11.7-16.6); Lymphocytes % 17.7 %; Mean Corpuscular HGB Conc 32.5 g/dL (30.0-36.0); Mean Corpuscular Hemoglobin 29.7 pg (28.0-34.0); Mean Corpuscular Volume 91.6 fl (80-94); Mean Platelet Volume 10.9 fL (7.4-10.4); Monocytes # 0.6 10^3/uL (0.2-0.9); Monocytes % 9.5 %; Neutrophils # 4.13 10^3/uL (1.8-7.7); Nucleated Red Blood Cells % 0 %; Platelet Count 199 10^3/cmm (130-400); Red Blood Count 4.64 10^6/uL (4.1-5.3); Red Cell Distribution Width 13.7 % (12.1-15.1); White Blood Count 5.8 10^3/uL (4.0-10.0)
[2023-01-11 05:27] LABS: Anion Gap 8.7 (5-19); Blood Urea Nitrogen 17 mg/dL (8-23); Calcium 8.5 mg/dL (8.5-10.5); Carbon Dioxide 31 mmol/L (22-29); Chloride 104 mmol/L (98-107); Glucose 102 mg/dL (65-115); Osmolality Calculated 292 mOsm/kg (285-295); Potassium 3.7 mmol/L (3.5-5.1); Sodium 140 mmol/L (136-145)
[2023-01-11 06:48] VITALS: PULSE 70
[2023-01-11 06:57] LABS: Glucose Point of Care 73 mg/dL (70-110)
[2023-01-11 07:45] VITALS: BP 120/60; PULSE 67; RESP 15; TEMP 36.9; O2SAT 97
[2023-01-11] MEDS: memantine 5 mg tablet PO (08:49)
[2023-01-11] MEDS: cyanocobalamin 1,000 mcg/mL SDV 1000 MCG IM (08:49)
[2023-01-11] MEDS: aspirin 325 mg EC Tablet PO (08:49)
[2023-01-11] MEDS: magnesium oxide 400 mg tablet PO (08:49)
[2023-01-11] MEDS: metoprolol tartrate 25 mg Tablet PO (08:49)
[2023-01-11] MEDS: amlodipine 10 mg Tablet PO (08:50)
[2023-01-11] MEDS: lisinopril 20 mg Tablet 40 MG PO (08:50)
[2023-01-11] MEDS: duloxetine 30 mg Capsule PO (08:50)
--- NOTE | 2023-01-11 10:47 | PM.DCS ---
Discharge Providers Date of Admission: 01/06/23 17:04 Date of Discharge: January 11, 2023 Attending Provider at Admission: Surendra Spencer MD Attending Provider at Discharge: José Miguel Helton MD Primary Care Provider: Emely Low MD Diagnoses at Discharge Discharge Diagnosis (1) Sepsis: Status: Acute (2) Altered mental status: Status: Acute (3) UTI (urinary tract infection): Status: Acute (4) Nephrolithiasis: Status: Acute (5) Obstruction of left ureteropelvic junction (UPJ): Status: Suspected (6) Hydronephrosis, left: Status: Acute (7) Tachycardia: Status: Acute (8) [facility] resident: Status: Acute (9) Infection due to human metapneumovirus (hMPV): Status: Acute (10) Vitamin B12 deficiency: Status: Acute (11) Major depressive disorder, recurrent severe without psychotic features: Status: Acute Reason for Visit Reason for Visit: AMS Hospital Course Hospital Course History through chart review and conversation with ER physician. Gerard Gray is a 67 year old male who is a group home resident with past medical history of advanced dementia, hypertension as well as follow-up July to start dose which started today morning and got worse after patient had vomiting while sitting during the afternoon group home nurse is not aware of any concerns for complaints.? Has been occasionally acting as aphasia with abdominal pain. In the ER patient was found to have a white count of 10.8, hemoglobin 15.3, BUN of 1.8, sodium of 136, potassium of 3.5, creatinine 0.6, lactate of 1.1 with UA concerning for mild UTI with 10-15 WBC, chest x-ray and CT abdomen as below.? Have requested for a CT abdomen pelvis which is pending. Patient was admitted to [facility] for sepsis and altered mental status secondary to UTI, human metapneumovirus. 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, urology consulted, recommended medical management, patient overall clinically improved, follow-up with urology as outpatient Physical Exam Const: COMMON NORMALS: no acute distress GENERAL APPEARANCE: cooperative ORIENTATION/CONSCIOUSNESS: Yes awake and Yes oriented to person; not oriented to place and not oriented to time Resp: COMMON NORMALS: normal respiratory effort, No retractions, No use of accessory muscles and clear to auscultation bilaterally AUSCULTATION: clear to auscultation bilaterally Cardio: COMMON NORMALS: regular rate, regular rhythm, S1 normal heart sound present and S2 normal heart sound present RATE: regular rate RHYTHM: regular rhythm HEART SOUNDS: S1 normal heart sound present and S2 normal heart sound present GI: COMMON NORMALS: Normal to inspection, nondistended, normoactive bowel sounds present and non-tender Extremity: COMMON NORMALS: no pedal edema Neuro: SENSORIUM/ORIENTATION: Yes oriented to person, No oriented to place and No oriented to time Urinary Catheter Management: Tracy: Cath Placed During This Visit: yes Reason for Continuing Indwelling Catheter: Accurate Measurement of Urinary Output in Critically Ill Patients Urinary Catheter Date of Insertion: 01/06/23 Urinary Catheter Time of Insertion: 16:00 Discharge Data Studies Completed and Pending Completed Studies During Hospitalization Category Date Time Status CT abdomen pelvis wo con [id number] Stat Cat Scan 01/06/23 16:[address] head wo con* [id number] Stat Cat Scan 01/06/23 15:26 Completed XR chest 1V portable [id number] Stat Exams 01/06/23 15:26 Completed Pending at discharge Category Date Time Status Basic Metabolic Panel AM LABS Lab 01/12/23 04:00 Ordered Basic Metabolic Panel AM LABS Lab 01/13/23 04:00 Ordered Blood Culture Stat Lab 01/06/23 17:26 Results Complete Blood Count w/Auto AM LABS Lab 01/12/23 04:00 Ordered Complete Blood Count w/Auto AM LABS Lab 01/13/23 04:00 Ordered Radiology Impressions Chest X-Ray 01/06/23 15:26 IMPRESSION: Stable appearance of the chest with prior exam, without acute findings. Prominent thoracolumbar scoliosis again noted. Head CT 01/06/23 15:26 IMPRESSION: 1. Atrophy or volume loss and chronic small-vessel disease change in the periventricular region, along with tiny old lacunar infarct left jannet and right basal ganglia that is also indicative of chronic small-vessel disease change. 2. No acute findings or significant change with prior exam. Abdomen/Pelvis CT 01/06/23 16:53 IMPRESSION: 1. Prior cholecystectomy. 2. Prominent or severe thoracolumbar scoliosis. 3. Moderate hydronephrosis and visualized proximal ureterectasis of the left kidney, with limited ability to follow the left ureter with severe scoliotic curvature and distortion of structures, though with suspected small distal left ureteral calculus. Correlate with urinalysis, as well. 4. Tracy catheter within the urinary bladder. 5. Diffuse increased stool throughout the colon suggestive of constipation with possible impaction within the rectum and correlate clinically. 6. Colonic diverticulosis, particularly sigmoid colon, with equivocal findings of mild diverticulitis of the sigmoid colon. Laboratory Results WBC 5.8 10^3/uL (4.0-10.0) 01/11/23 04:59 RBC 4.64 10^6/uL (4.1-5.3) 01/11/23 04:59 Hgb 13.8 g/dL (11.7-16.6) 01/11/23 04:59 Hct 42.5 % (42.0-52.0) 01/11/23 04:59 MCV 91.6 fl (80-94) 01/11/23 04:59 MCH 29.7 pg (28.0-34.0) 01/11/23 04:59 MCHC 32.5 g/dL (30.0-36.0) 01/11/23 04:59 RDW 13.7 % (12.1-15.1) 01/11/23 04:59 Plt Count 199 10^3/cmm (130-400) 01/11/23 04:59 MPV 10.9 fL (7.4-10.4) H 01/11/23 04:59 Neut % (Auto) 71.0 % 01/11/23 04:59 Lymph % (Auto) 17.7 % 01/11/23 04:59 Lipscomb % (Auto) 9.5 % 01/11/23 04:59 Eos % (Auto) 1.0 % 01/11/23 04:59 Baso % (Auto) 0.3 % 01/11/23 04:59 Neut # (Auto) 4.13 10^3/uL (1.8-7.7) 01/11/23 04:59 Lymph # (Auto) 1.0 10^3/uL (0.8-4.8) 01/11/23 04:59 Lipscomb # (Auto) 0.6 10^3/uL (0.2-0.9) 01/11/23 04:59 Eos # (Auto) 0.1 10^3/uL (0.0-0.8) 01/11/23 04:59 Baso # (Auto) 0.0 10^3/uL (0.0-0.1) 01/11/23 04:59 Nucleated RBC % (auto) 0 % 01/11/23 04:59 Nucleated RBCs # 0.0 /100WBC 01/11/23 04:59 D-Dimer 1.82 ug/mIFEU (0-0.59) H 01/06/23 19:41 Specimen Type Arterial 01/06/23 21:22 Sample Site Radial, left 01/06/23 21:22 ABG pH 7.45 (7.35-7.45) 01/06/23 21:22 ABG pCO2 35.9 mmHg (35-45) 01/06/23 21:22 ABG pO2 70.0 mmHg (80.0-100.0) L 01/06/23 21:22 ABG HCO3 25.1 mmol/L (22-26) 01/06/23 21:22 ABG O2 Saturation 95.8 01/06/23 21:22 ABG Base Excess 1.3 mmol/L (-2.0-2.0) 01/06/23 21:22 Myke Test Pos 01/06/23 21:22 A-a O2 Gradient 4.4 mmHg (5-10) L 01/06/23 21:22 Hematocrit 41.1 % (42-52) L 01/06/23 21:22 Hgb O2 Saturation 94.3 % (95-100) L 01/06/23 21:22 Carboxyhemoglobin 1.2 %THgb (0.4-20.1) 01/06/23 21:22 Methemoglobin 0.4 % (0.4-1.5) 01/06/23 21:22 Total Hemoglobin 13.4 g/dL (14-18) L 01/06/23 21:22 Sodium 137.0 mmol/L (131-143) 01/06/23 21:22 Potassium 3.4 mmol/L (3.5-5.0) L 01/06/23 21:22 Glucose 243.0 mg/dL (70-115) H 01/06/23 21:22 Ionized Calcium 1.2 mmol/L (1.1-1.4) 01/06/23 21:22 O2 Delivery Device None 01/06/23 21:22 FiO2 21.0 % 01/06/23 21:22 Surveillance Sensor Operator ID [email or web address] 01/06/23 21:22 Sodium 140 mmol/L (136-145) 01/11/23 04:59 Potassium 3.7 mmol/L (3.5-5.1) 01/11/23 04:59 Chloride 104 mmol/L (98-107) 01/11/23 04:59 Carbon Dioxide 31 mmol/L (22-29) H 01/11/23 04:59 Anion Gap 8.7 (5-19) 01/11/23 04:59 BUN 17 mg/dL (8-23) 01/11/23 04:59 Creatinine 0.6 mg/dL (0.7-1.2) L 01/11/23 04:59 GFR Calculation 134.0 mL/min (90-130) H 01/11/23 04:59 Glucose 102 mg/dL (65-115) 01/11/23 04:59 POC Glucose 73 mg/dL (70-110) 01/11/23 06:53 Estimat Average Glucose 177 01/07/23 03:05 Hemoglobin A1c 7.8 % (4.0-6.0) H 01/07/23 03:05 Calculated Osmolality 292 mOsm/kg (285-295) 01/11/23 04:59 Lactic Acid 1.1 mmol/L (0.5-2.2) 01/06/23 17:26 Calcium 8.5 mg/dL (8.5-10.5) 01/11/23 04:59 Phosphorus 2.6 mg/dL (2.5-4.5) 01/07/23 03:05 Magnesium 1.6 mg/dL (1.7-2.3) L 01/07/23 03:05 Iron 27 ug/dL (59-158) L 01/06/23 16:12 TIBC 263 mcg/dl 01/06/23 16:12 % Saturation 10.2 % (20-50) L 01/06/23 16:12 Unsat Iron Binding 236 ug/dL (112-347) 01/06/23 16:12 Total Bilirubin 0.3 mg/dL (0.15-1.2) 01/10/23 01:13 AST 19 U/L (0-40) 01/10/23 01:13 ALT 21 U/L (0-41) 01/10/23 01:13 Alkaline Phosphatase 131 U/L (40-130) H 01/10/23 01:13 Creatine Kinase 46 U/L (39-308) 01/06/23 16:12 C-Reactive Protein 3.4 mg/L (0.0-4.9) 01/06/23 16:12 Total Protein 6.3 g/dL (6.6-8.7) L 01/10/23 01:13 Albumin 3.1 g/dL (3.5-5.2) L 01/10/23 01:13 Globulin 3.2 g/dL (1.3-4.6) 01/10/23 01:13 Triglycerides 60 mg/dL (0-150) 01/07/23 03:05 Cholesterol 85 mg/dL (0-200) 01/07/23 03:05 LDL Cholesterol, Calc 39 mg/dL (50-129) L 01/07/23 03:05 HDL Cholesterol 34 mg/dL (60-100) L 01/07/23 03:05 LDL/HDL Ratio 1.15 RATIO (0.00-3.22) 01/07/23 03:05 Cholesterol/HDL Ratio 2.50 mg/dL (1.0-5.00) 01/07/23 03:05 Lipase 16 U/L (13-60) 01/06/23 16:12 Vitamin B12 162 pg/mL (232-1245) L 01/06/23 16:12 Folate > 20.0 ng/mL (4.5-32.2) 01/06/23 16:12 Procalcitonin 0.09 ng/mL (0-0.5) 01/09/23 04:32 TSH 0.69 uIU/mL (0.27-4.20) 01/06/23 16:12 Urine Color Yellow (Yellow) 01/06/23 16:33 Urine Appearance Clear (CLEAR) 01/06/23 16:33 Urine pH 5 (5-7) 01/06/23 16:33 Ur Specific [place] 1.015 (1.005-1.030) 01/06/23 16:33 Urine Protein Neg (Negative) 01/06/23 16:33 Urine Glucose (UA) Norm (Normal) 01/06/23 16:33 Urine Ketones 2+ (Negative) H 01/06/23 16: Urine Blood 3+ (Negative) H 01/06/23 16:33 Urine Nitrate Negative (Negative) 01/06/23 16: Urine Bilirubin Neg (Negative) 01/06/23 16: Urine Urobilinogen 1 mg/dL (Negative) H 01/06/23 16:33 Ur Leukocyte Esterase Negative (Negative) 01/06/23 16:33 Urine RBC 80-100 /hpf (0-2) H 01/06/23 16:33 Urine WBC 10-15 /hpf (0-5) H 01/06/23 16:33 Ur Squamous Epith Cells None /hpf (0-5) 01/06/23 16:33 Amorphous Sediment Not Reportable 01/06/23 16:33 Urine Bacteria Trace /hpf (NONE) 01/06/23 16:33 Urine Mucus Trace /hpf 01/06/23 16:33 Nasal Influ A H1 2009 PCR Not detected (NOT DETECT) 01/06/23 16:09 Coronavirus 229E (PCR) Not detected (NOT DETECT) 01/06/23 15:52 Human Metapneumovir PCR Detected (NOT DETECT) A 01/06/23 18:14 Influenza A (H1) PCR Not detected (NOT DETECT) 01/06/23 16:09 Influenza A (H3) PCR Not detected (NOT DETECT) 01/06/23 16:09 Influenza Type A (PCR) Not detected (NOT DETECT) 01/06/23 16:09 Influenza Type B (PCR) Not detected (NOT DETECT) 01/06/23 16:09 Entero/Rhino (PCR) Not detected (NOT DETECT) 01/06/23 18:14 SARS-CoV-2 (PCR) Not detected (NOT DETECT) 01/06/23 15:52 SARS-CoV-2 Ag (Rapid) negative (Negative) 01/08/23 14:45 Vitals Last Vital Signs Temp 98.4 F 01/11/23 07:45 Pulse 67 01/11/23 07:45 Resp 15 01/11/23 07:45 BP 120/60 01/11/23 07:45 Pulse Ox 97 01/11/23 07:45 O2 Del Method 01/11/23 03:20 Discharge Plan Discharge Patient Disposition: Xfer SNF Condition: Stable Prescriptions: New cyanocobalamin (vitamin B-12) 1,000 mcg capsule 1,000 mcg PO DAILY 30 Days Qty: 30 0RF atorvastatin 40 mg Tablet 20 mg PO BEDTIME@20 30 Days Qty: 30 0RF metoprolol tartrate 25 mg Tablet 25 mg PO BID@0900,2100 30 Days Qty: 60 0RF cefdinir 300 mg capsule 300 mg PO BID 1 Days Qty: 2 0RF Continued tamsulosin [Flomax] 0.4 mg capsule 0.4 mg PO BEDTIME@20 ramipril [Altace] 10 mg capsule 20 mg PO DAILY@08 famotidine 20 mg tablet 20 mg PO DAILY@08 GlucaGen Diagnostic Kit 1 mg/mL recon soln 1 mg SUBCUT Q20M PRN (Reason: low blood sugar) magnesium hydroxide [Milk of Magnesia] 400 mg/5 mL suspension 30 ml PO DAILY PRN (Reason: Constipation) cetirizine [Zyrtec] 10 mg tablet 10 mg PO DAILY@08 acetaminophen [Tylenol] 325 mg Tablet 650 mg PO Q8H PRN (Reason: Pain) loperamide [Imodium A-D] 2 mg Capsule See Rx Instructions .ROUTE .COMPLEX Rx Instructions: 2 caps after first loose stool then one cap after each loose stool not to exceed 6 tabs in 24 hours hydrocodone-acetaminophen 5-325 mg tablet 1 tab PO Q8H PRN (Reason: Pain) calcium carbonate 500 mg calcium (1,250 mg) Tablet 500 mg PO DAILY@08 hydrocortisone [Preparation H Hydrocortisone] 1 % Cream 1 applic topical Q12H PRN (Reason: pain/itching) alum-mag hydroxide-simeth 200-200-20 mg/5 mL Suspension 30 ml PO Q6H PRN (Reason: Heartburn) fluticasone propionate 50 mcg/actuation [place],Suspension 2 spray INTRANASAL DAILY@08 Rx Instructions: administer into each nostril memantine 5 mg tablet 5 mg PO BID@08,20 duloxetine [Cymbalta] 30 mg Capsule,Delayed Release(Dr/Ec) 30 mg PO DAILY@08 PNV [id number] fumarate-FA [ Multivitamins] 28 mg iron- 800 mcg Tablet 1 tab PO DAILY@08 aspirin 325 mg Tablet,Delayed Release (Dr/Ec) 325 mg PO DAILY Qty: 21 0RF Tussin 100 mg/5 mL Liquid 200 mg PO Q4H PRN (Reason: Cough) Glucerna Liquid 237 ea PO TID Rx Instructions: for supplement Cymbalta 30 mg Capsule,Delayed Release(Dr/Ec) 60 mg PO BEDTIME naloxone 2 mg/2 mL Syringe Kit 2 mg IM Q2M PRN (Reason: overdose) Rx Instructions: NTExceed 10 mg total dose/episode Changed Lantus Solostar U-100 Insulin 100 unit/mL (3 mL) insulin pen 10 unit SUBCUT BEDTIME 30 Days Qty: 15 0RF amlodipine 5 mg tablet 10 mg PO DAILY@08 30 Days Qty: 30 0RF insulin aspart U-100 [Novolog FlexPen U-100 Insulin] 100 unit/mL (3 mL) insulin pen See Rx Instructions .ROUTE .COMPLEX Qty: 15 0RF Rx Instructions: Inject subcut, 3 times daily, after meals, based on sliding scale provided Discontinued atorvastatin 40 mg Tablet 40 mg PO DAILY Discharge Orders: Discharge Order (Routine); Ordered 01/11/23 Ordered By: José Miguel Helton Referrals: [facility] [Outside] Lukas Low MD [Primary Care Provider] - Liam Galvan MD [Physician] - 2 weeks Discharge Diet: Advance as tolerated Discharge Activity: Resume usual activity Patient Instructions: Opioid Safety Discharge Attestations Time Spent in Discharge Care*: greater than 30 min Quality Metrics Clinical Quality Measures [ No reported AMI, CVA or VTE this stay] Coding Level of Care Code 66711 Total time (in minutes) for Discharge: 40 Diagnoses Sepsis A41.9 Altered mental status R41.82 UTI (urinary tract infection) N39.0 Nephrolithiasis N20.0 Obstruction of left ureteropelvic junction (UPJ) N13.5 Hydronephrosis, left N13.30 Tachycardia R00.0 [facility] resident Z59.3 Infection due to human metapneumovirus (hMPV) B34.8 Vitamin B12 deficiency E53.8 Major depressive disorder, recurrent severe without psychotic features F33.2
[2023-01-11 11:26] LABS: Glucose Point of Care 159 mg/dL (70-110)
--- NOTE | 2023-01-11 11:47 | PC.SOCIAL ---
IMM Update pg 2 of IMM updated and reviewed w/ patients brother Tawanda. Copy left @ bedside and copy in chart updated.
[2023-01-11 12:00] VITALS: BP 128/58; PULSE 79; RESP 17; TEMP 36.6; O2SAT 96
[2023-01-11] MEDS: insulin lispro 100 unit/1 mL SUBCUT (12:12)
[2023-01-11 14:00] VITALS: BP 128/58; PULSE 79; RESP 17; TEMP 36.6; O2SAT 96
== END 2023-01-11 14:01 | disposition skilled nursing facility (03) | DRG 872 ==
LOC: ER 16:02 → CSU 17:15 → MEDSURG 01-10 01:18
PROVIDERS: Hospitalist; Admitting Provider Student in an Organized Health Care Education/Training Program; Emergency Provider Family Medicine; PCP Internal Medicine; Visit Provider Family Medicine
DX: A41.9 Sepsis, unspecified organism (principal); N39.0 Urinary tract infection, site not specified; N13.2 Hydronephrosis with renal and ureteral calculous obstruction; F33.2 Major depressive disorder, recurrent severe without psychotic features; G30.9 Alzheimer's disease, unspecified; F02.80 Dementia in other diseases classified elsewhere, unspecified severity, without behavioral disturbance, psychotic disturbance, mood disturbance, and anxiety; I10 Essential (primary) hypertension; B97.81 Human metapneumovirus as the cause of diseases classified elsewhere; Z79.891 Long term (current) use of opiate analgesic; F41.9 Anxiety disorder, unspecified; N40.1 Benign prostatic hyperplasia with lower urinary tract symptoms; E11.65 Type 2 diabetes mellitus with hyperglycemia; E11.649 Type 2 diabetes mellitus with hypoglycemia without coma; E78.2 Mixed hyperlipidemia; E86.0 Dehydration; M41.9 Scoliosis, unspecified; E53.8 Deficiency of other specified B group vitamins
CPT/HCPCS: 36415; 36416; 36600; 51702; 70450; 71045; 73502; 74176; 80048; 80051; 80053; 80061; 81001; 82330; 82550; 82607; 82746; 82805; 82962; 83036; 83540; 83550; 83605; 83690; 83735; 84100; 84145; 84443; 85025; 85378; 86140; 86403; 87040; 87086; 87426; 87449; 87631; 87635; 87641; 87801; 92523; 92526; 92610; 93005; 94664; 96361; 96372; 96374; 96376; 99213; 99285; C9113; J0696; J1644; J1815; J1885; J1956; J3420; J3475; J7030

== ENCOUNTER 2023-01-14 23:11 | Emergency (ER) | payer MEDICARE, BC, MEDICAID, SELFPAY ==
[2023-01-14 23:12] VITALS: BMI 18.8
[2023-01-14 23:18] VITALS: BP 162/81; PULSE 92; RESP 19; TEMP 37.3; O2SAT 98
--- NOTE | 2023-01-14 23:22 | PC.NURSE ---
allergy band placed on pt at this time
--- NOTE | 2023-01-14 23:45 | CTR_ITS ---
PROCEDURE INFORMATION: Exam: CT Head Without Contrast Exam date and time: 01/15/2023 12:19 AM Age: 67 years old Clinical indication: Altered mental status/memory loss; Additional info: AMS TECHNIQUE: Imaging protocol: Computed tomography of the head without contrast. Radiation optimization: All CT scans at this facility use at least one of these dose optimization techniques: automated exposure control; mA and/or kV adjustment per patient size (includes targeted exams where dose is matched to clinical indication); or iterative reconstruction. REPORTING DATA: Count of CT and Cardiac NM exams in prior 12 months: This patient has received 3 known CTs and 0 known cardiac nuclear medicine studies in the 12 months prior to the current study. COMPARISON: CT head wo con* [id number] 01/06/2023 3:50 PM RADIATION DOSE METRICS: Total DLP (mGy-cm): 1331.48 FINDINGS: Brain: No acute intracranial hemorrhage or mass effect. There is decreased attenuation in the periventricular white matter, likely from microvascular disease. Small old lacunar infarcts in the right basal ganglia and thalamus, and left aspect of the jannet. No definite acute infarct by CT. MRI could be more sensitive/specific for detection, as clinically directed. Cerebral ventricles: Ventricle size is normal for age. Paranasal sinuses: Minimal mucosal thickening in the maxillary sinuses. Included paranasal sinuses otherwise appear essentially clear. Mastoid air cells: No significant acute finding. Bones/joints: No definite acute skull fracture. Soft tissues: No significant acute finding. Vasculature: Vascular calcifications in the internal carotid and vertebral basilar systems. CT/CT head wo con* [id number] IMPRESSION: 1. No acute intracranial hemorrhage or mass effect. 2. Changes of microvascular disease, and old infarcts, details above. 3. No definite acute infarct by CT, see above. 4. Other findings discussed above.
--- NOTE | 2023-01-14 23:46 | XRR_ITS ---
PROCEDURE INFORMATION: Exam: XR Chest Exam date and time: 01/14/2023 11:58 PM Age: 67 years old Clinical indication: Pain; Chest pressure; Additional info: Cp TECHNIQUE: Imaging protocol: Radiologic exam of the chest. Views: 1 view. COMPARISON: CR (CHEST, ) 01/06/2023 3:29 PM FINDINGS: Lungs: No CHF/pulmonary edema. Mild left lower lung opacities could represent atelectasis and/or pneumonia. Please correlate clinically. The appearance is similar to the prior exam. The visible right lung appears essentially clear. Pleural spaces: No visible pneumothorax. No definite pleural fluid. Heart/Mediastinum: Heart size is within normal limits. Bones/joints: As before, prominent thoracolumbar scoliosis. XR/XR chest 1V portable [id number] IMPRESSION: 1. Left lower lung opacities, see above discussion. 2. Other findings discussed above.
[2023-01-15 00:05] LABS: Basophils % 0.3 %; Eosinophils % 0.2 %; Hematocrit 45.7 % (42.0-52.0); Lymphocytes # 1.1 10^3/uL (0.8-4.8); Lymphocytes % 10.6 %; Mean Corpuscular HGB Conc 32.8 g/dL (30.0-36.0); Mean Corpuscular Hemoglobin 29.9 pg (28.0-34.0); Mean Corpuscular Volume 91.2 fl (80-94); Mean Platelet Volume 11.9 fL (7.4-10.4); Monocytes # 0.5 10^3/uL (0.2-0.9); Neutrophils # 8.86 10^3/uL (1.8-7.7); Neutrophils % 83.4 %; Nucleated Red Blood Cells % 0 %; Platelet Count 236 10^3/cmm (130-400); Red Blood Count 5.01 10^6/uL (4.1-5.3); Red Cell Distribution Width 13.5 % (12.1-15.1); White Blood Count 10.6 10^3/uL (4.0-10.0)
[2023-01-15 00:10] LABS: ABG PCO2 41.3 mmHg (35-45); ABG PH Result 7.46 (7.35-7.45); Arterial Blood Gas Hematocrit 46.5 % (42-52); Base Excess ABG 5.3 mmol/L (-2.0-2.0); Blood Gas Allen Test Pos; Blood Gas Sample Site Radial, left; Blood Gas Sample Type Arterial; Carboxyhemoglobin 1.3 %THgb (0.4-20.1); HCO3 ABG 29.6 mmol/L (22-26); HGB O2 Sat 92.6 % (95-100); Methemoglobin 0.7 % (0.4-1.5); PO2 ABG 64.7 mmHg (80.0-100.0); Total Hemoglobin 15.2 g/dL (14-18)
[2023-01-15 00:15] LABS: D Dimer 0.85 ug/mIFEU (0-0.59)
--- NOTE | 2023-01-15 00:15 | W.ED.AMS ---
HPI - Altered Mental Status General: Chief Complaint: Altered Mental Status Stated Complaint: AMS, respiratory distress Time Seen by Provider: 01/14/23 23:18 Source: patient History of Present Illness: 67-year-old gentleman presenting from a [facility] due to decreased mental status. Patient was recently discharged 4 days ago from [place] with a diagnosis of sepsis today, [facility] staff noted a somewhat rapid decline in his mental status. EMS was called. He was given oxygen and nebulizer treatments, with improvement in his mental status. He answers some simple questions for them. 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 Mother No problems noted. Son , Both patient's sons are Family history of premature coronary artery disease Social History Smoking and tobacco status: never smoked Alcohol intake: never Adopted: No Caregiver/support person: No Lives independently: No Marital status: Current occupational status: retired Current gender identity: Male Physical Exam Const: GENERAL APPEARANCE: lethargic, frail appearing and appears older than stated age ORIENTATION/CONSCIOUSNESS: Yes lethargic HENMT: COMMON NORMALS: normocephalic and atraumatic HEAD & SCALP: normocephalic and atraumatic Eye: COMMON NORMALS: Equal, round and reactive pupils present and EOMs intact bilaterally PUPIL: Yes Equal, round and reactive pupils present Neck/C-Spine: GENERAL: Yes trachea midline Chest: CHEST: Yes Symmetrical chest wall rise Resp: EFFORT & INSPECTION: Yes labored AUSCULTATION: rales Cardio: COMMON NORMALS: regular rate and regular rhythm RATE: regular rate RHYTHM: regular rhythm GI: COMMON NORMALS: Normal to inspection, nondistended, normoactive bowel sounds present and Soft to palpation PALPATION: Yes Soft to palpation Extremity: GENERAL: Yes edema (mild) Neuro: MIKAL COMA SCALE: document GCS findings [place] coma scale eye opening: To sound Mikal coma scale verbal response: Words [place] coma scale motor response: Obey commands [place] coma scale total score: 12 SENSORIUM/ORIENTATION: Yes lethargic SPEECH: abnormal speech Details: slurred Course Vital Signs: Vital signs: Vital Signs Temperature 99.9 F H 01/15/23 03:00 Pulse Rate 95 01/15/23 03:00 Respiratory Rate 20 H 01/15/23 03:00 Blood Pressure 154/81 01/15/23 03:00 Pulse Oximetry 96 01/15/23 03:00 Oxygen Delivery Me thod 01/15/23 03:00 Oxygen Flow Rate 2 01/15/23 03:00 MDM - Altered Mental Status Medical Decision Making Patient's vitals are stable. Highest temperature recorded here is 99.9. White blood cell count is 10.6. Hemoglobin 15. Lactic acid is 1.1. Chest x-ray reveals left lower lung opacities likely atelectasis. D-dimer was slightly elevated prompting CTA which is negative for pulmonary embolus. Opacities appear to be atelectasis by CTA. CT of the head is negative for any acute change. Potassium is 3.2 and is repleted orally. Patient's saturations are 97% on 2 L. Swabs for flu and COVID are negative. PCR was positive last week for human metanephrine virus. Cath UA is pending. He has received Zosyn empirically. Blood cultures are drawn. Blood gas shows a pH of 7.46 with a PCO2 of 41 and PO2 of 65. Urinalysis is negative for UTI. The patient awakens to voice. He is noted to be oriented to person, which is consistent with his mental status on discharge from the hospital previously. It is likely that he had mild hypoxia causing transient worsening of his mental status. He will go back to [facility] on 2 L oxygen Lab Data 01/14/23 22:15 01/14/23 22:[address] 01/14/23 23:45 IMPRESSION: 1. No acute intracranial hemorrhage or mass effect. 2. Changes of microvascular disease, and old infarcts, details above. 3. No definite acute infarct by CT, see above. 4. Other findings discussed above. Chest X-Ray 01/14/23 23:46 IMPRESSION: 1. Left lower lung opacities, see above discussion. 2. Other findings discussed above. Chest CTA 01/15/23 01:44 IMPRESSION: 1. There is no evidence for pulmonary emboli. 2. Strandy opacities in the left lung base likely represents atelectasis. 3. Hiatal hernia containing a portion of the proximal stomach 4. Chilaiditi configuration of the hepatic flexure of the colon Laboratory Results WBC 10.6 10^3/uL (4.0-10.0) H 01/14/23 22:15 RBC 5.01 10^6/uL (4.1-5.3) 01/14/23 22:15 Hgb 15.0 g/dL (11.7-16.6) 01/14/23 22:15 Hct 45.7 % (42.0-52.0) 01/14/23 22:15 MCV 91.2 fl (80-94) 01/14/23 22:15 MCH 29.9 pg (28.0-34.0) 01/14/23 22:15 MCHC 32.8 g/dL (30.0-36.0) 01/14/23 22:15 RDW 13.5 % (12.1-15.1) 01/14/23 22:15 Plt Count 236 10^3/cmm (130-400) 01/14/23 22:15 MPV 11.9 fL (7.4-10.4) H 01/14/23 22:15 Neut % (Auto) 83.4 % 01/14/23 22:15 Lymph % (Auto) 10.6 % 01/14/23 22:15 [place] % (Auto) 5.0 % 01/14/23 22:15 Eos % (Auto) 0.2 % 01/14/23 22:15 Baso % (Auto) 0.3 % 01/14/23 22:15 Neut # (Auto) 8.86 10^3/uL (1.8-7.7) H 01/14/23 22:15 Lymph # (Auto) 1.1 10^3/uL (0.8-4.8) 01/14/23 22:15 [place] # (Auto) 0.5 10^3/uL (0.2-0.9) 01/14/23 22:15 Eos # (Auto) 0.0 10^3/uL (0.0-0.8) 01/14/23 22:15 Baso # (Auto) 0.0 10^3/uL (0.0-0.1) 01/14/23 22:15 Nucleated RBC % (auto) 0 % 01/14/23 22:15 Nucleated RBCs # 0.0 /100WBC 01/14/23 22:15 D-Dimer 0.85 ug/mIFEU (0-0.59) H 01/14/23 22:15 Specimen Type Arterial 01/14/23 00:05 Sample Site Radial, left 01/14/23 00:05 ABG pH 7.46 (7.35-7.45) H 01/14/23 00:05 ABG pCO2 41.3 mmHg (35-45) 01/14/23 00:05 ABG pO2 64.7 mmHg (80.0-100.0) L 01/14/23 00:05 ABG HCO3 29.6 mmol/L (22-26) H 01/14/23 00:05 ABG Base Excess 5.3 mmol/L (-2.0-2.0) H 01/14/23 00:05 Myke Test Pos 01/14/23 00:05 Hematocrit 46.5 % (42-52) 01/14/23 00:05 Hgb O2 Saturation 92.6 % (95-100) L 01/14/23 00:05 Carboxyhemoglobin 1.3 %THgb (0.4-20.1) 01/14/23 00:05 Methemoglobin 0.7 % (0.4-1.5) 01/14/23 00:05 Total Hemoglobin 15.2 g/dL (14-18) 01/14/23 00:05 O2 Liters/Min 2.0 % 01/14/23 00:05 Business Quality Assurance Analyst ID Fred[place] 01/14/23 00:05 Sodium 145 mmol/L (136-145) 01/14/23 22:15 Potassium 3.2 mmol/L (3.5-5.1) L 01/14/23 22:15 Chloride 106 mmol/L (98-107) 01/14/23 22:15 Carbon Dioxide 28 mmol/L (22-29) 01/14/23 22:15 Anion Gap 14.2 (5-19) 01/14/23 22:15 BUN 30 mg/dL (8-23) H 01/14/23 22:15 Creatinine 0.6 mg/dL (0.7-1.2) L 01/14/23 22:15 GFR Calculation 134.0 mL/min (90-130) H 01/14/23 22:15 Glucose 295 mg/dL (65-115) H 01/14/23 22:15 Calculated Osmolality 317 mOsm/kg (285-295) H 01/14/23 22:15 Lactic Acid 1.1 mmol/L (0.5-2.2) 01/14/23 22:15 Calcium 9.3 mg/dL (8.5-10.5) 01/14/23 22:15 Total Bilirubin 0.5 mg/dL (0.15-1.2) 01/14/23 22:15 AST 21 U/L (0-40) 01/14/23 22:15 ALT 25 U/L (0-41) 01/14/23 22:15 Alkaline Phosphatase 162 U/L (40-130) H 01/14/23 22:15 NT-Pro-B Natriuret Pep 898 pg/mL (0-125) H 01/14/23 22:15 Total Protein 6.8 g/dL (6.6-8.7) 01/14/23 22:15 Albumin 3.6 g/dL (3.5-5.2) 01/14/23 22:15 Globulin 3.2 g/dL (1.3-4.6) 01/14/23 22:15 Urine Color Yellow (Yellow) 01/15/23 03:15 Urine Appearance Clear (CLEAR) 01/15/23 03:15 Urine pH 5 (5-7) 01/15/23 03:15 Ur Specific [place] 1.005 (1.005-1.030) 01/15/23 03:15 Urine Protein Trace (Negative) 01/15/23 03:15 Urine Glucose (UA) 4+ (Normal) H 01/15/23 03:15 Urine Ketones 2+ (Negative) H 01/15/23 03:15 Urine Blood 2+ (Negative) H 01/15/23 03:15 Urine Nitrate Negative (Negative) 01/15/23 03:15 Urine Bilirubin Neg (Negative) 01/15/23 03:15 Urine Urobilinogen Norm mg/dL (Negative) 01/15/23 03:15 Ur Leukocyte Esterase Negative (Negative) 01/15/23 03:15 Urine RBC 0-4 /hpf (0-2) H 01/15/23 03:15 Urine WBC None /hpf (0-5) 01/15/23 03:15 Ur Squamous Epith Cells 0-4 /hpf (0-5) H 01/15/23 03:15 Amorphous Sediment Not Reportable 01/15/23 03:15 Urine Bacteria Trace /hpf (NONE) 01/15/23 03:15 Urine Yeast 1+ /hpf H 01/15/23 03:15 Influenza Type A Ag negative (Negative) 01/15/23 00:28 Influenza Type B Ag negative (Negative) 01/15/23 00:28 SARS-CoV-2 Ag (Rapid) negative (Negative) 01/15/23 00:28 Discharge Plan Discharge Patient Disposition: Home Clinical Impression: Altered mental status Condition: Stable Prescriptions: No Action tamsulosin [Flomax] 0.4 mg capsule 0.4 mg PO BEDTIME@20 ramipril [Altace] 10 mg capsule 20 mg PO DAILY@08 famotidine 20 mg tablet 20 mg PO DAILY@08 GlucaGen Diagnostic Kit 1 mg/mL recon soln 1 mg SUBCUT Q20M PRN (Reason: low blood sugar) magnesium hydroxide [Milk of Magnesia] 400 mg/5 mL suspension 30 ml PO DAILY PRN (Reason: Constipation) cetirizine [Zyrtec] 10 mg tablet 10 mg PO DAILY@08 acetaminophen [Tylenol] 325 mg Tablet 650 mg PO Q8H PRN (Reason: Pain) loperamide [Imodium A-D] 2 mg Capsule See Rx Instructions .ROUTE .COMPLEX Rx Instructions: 2 caps after first loose stool then one cap after each loose stool not to exceed 6 tabs in 24 hours hydrocodone-acetaminophen 5-325 mg tablet 1 tab PO Q8H PRN (Reason: Pain) calcium carbonate 500 mg calcium (1,250 mg) Tablet 500 mg PO DAILY@08 hydrocortisone [Preparation H Hydrocortisone] 1 % Cream 1 applic topical Q12H PRN (Reason: pain/itching) alum-mag hydroxide-simeth 200-200-20 mg/5 mL Suspension 30 ml PO Q6H PRN (Reason: Heartburn) fluticasone propionate 50 mcg/actuation [place],Suspension 2 spray INTRANASAL DAILY@08 Rx Instructions: administer into each nostril memantine 5 mg tablet 5 mg PO BID@08,20 duloxetine [Cymbalta] 30 mg Capsule,Delayed Release(Dr/Ec) 30 mg PO DAILY@08 PNV cmb#[id number]-[id number] fumarate-FA [ Multivitamins] 28 mg iron- 800 mcg Tablet 1 tab PO DAILY@08 aspirin 325 mg Tablet,Delayed Release (Dr/Ec) 325 mg PO DAILY Qty: 21 0RF Tussin 100 mg/5 mL Liquid 200 mg PO Q4H PRN (Reason: Cough) Glucerna Liquid 237 ea PO TID Rx Instructions: for supplement Cymbalta 30 mg Capsule,Delayed Release(Dr/Ec) 60 mg PO BEDTIME naloxone 2 mg/2 mL Syringe Kit 2 mg IM Q2M PRN (Reason: overdose) Rx Instructions: NTExceed 10 mg total dose/episode atorvastatin 40 mg Tablet 20 mg PO BEDTIME@20 30 Days Qty: 30 0RF metoprolol tartrate 25 mg Tablet 25 mg PO BID@0900,2100 30 Days Qty: 60 0RF cyanocobalamin (vitamin B-12) 1,000 mcg capsule 1,000 mcg PO DAILY 30 Days Qty: 30 0RF amlodipine 5 mg tablet 10 mg PO DAILY@08 30 Days Qty: 30 0RF Novolog FlexPen U-100 Insulin 100 unit/mL (3 mL) insulin pen See Rx Instructions .ROUTE .COMPLEX Qty: 15 0RF Rx Instructions: Inject subcut, 3 times daily, after meals, based on sliding scale provided Lantus Solostar U-100 Insulin 100 unit/mL (3 mL) insulin pen 10 unit SUBCUT BEDTIME 30 Days Qty: 15 0RF Discharge Orders: Discharge ED (Routine); Ordered 01/15/23 Ordered By: Ricky Sandoval Referrals: Lukas Low MD [Primary Care Provider] - Patient Instructions: Altered Mental Status (ED) Activity Restrictions/Additional Instructions: Return for any concerns. He will require 2 L of oxygen by nasal cannula until further notice Coding Level of Care Code ED Counter Maker for Chg Fwd
[2023-01-15 00:20] LABS: Lactic Sepsis W/Reflex 1.1 mmol/L (0.5-2.2)
[2023-01-15 00:26] LABS: Alanine Aminotransferase 25 U/L (0-41); Albumin Level 3.6 g/dL (3.5-5.2); Alkaline Phosphatase 162 U/L (40-130); Anion Gap 14.2 (5-19); Aspartate Amino Transferase 21 U/L (0-40); Blood Urea Nitrogen 30 mg/dL (8-23); Calcium 9.3 mg/dL (8.5-10.5); Carbon Dioxide 28 mmol/L (22-29); Chloride 106 mmol/L (98-107); Globulin 3.2 g/dL (1.3-4.6); Glucose 295 mg/dL (65-115); NT Pro B Type Natriuretic Pept 898 pg/mL (0-125); Osmolality Calculated 317 mOsm/kg (285-295); Potassium 3.2 mmol/L (3.5-5.1); Sodium 145 mmol/L (136-145); Total Bilirubin 0.5 mg/dL (0.15-1.2); Total Protein 6.8 g/dL (6.6-8.7)
[2023-01-15 01:08] LABS: Influenza A by IFA negative (Negative); Influenza B by IFA negative (Negative); SARS Covid-2 Antigen negative (Negative)
--- NOTE | 2023-01-15 01:44 | CTR_ITS ---
PROCEDURE INFORMATION: Exam: CTA Chest With Contrast Exam date and time: 01/15/2023 2:01 AM Age: 67 years old Clinical indication: Other: Hypoxia, elevated d-dimer; Patient HX: Bedridden patient with dementia. Best images possible obtained; Additional info: Hypoxia, elevated d dimer TECHNIQUE: Imaging protocol: Computed tomographic angiography of the chest with contrast. 3D rendering (Not supervised by radiologist): MIP and/or 3D reconstructed images were created by the technologist. Radiation optimization: All CT scans at this facility use at least one of these dose optimization techniques: automated exposure control; mA and/or kV adjustment per patient size (includes targeted exams where dose is matched to clinical indication); or iterative reconstruction. Contrast material: OMNI 350; Contrast volume: 80 ml; Contrast route: INTRAVENOUS (IV); REPORTING DATA: Count of CT and Cardiac NM exams in prior 12 months: This patient has received 4 known CTs and 0 known cardiac nuclear medicine studies in the 12 months prior to the current study. COMPARISON: CR (CHEST, ) 01/14/2023 11:58 PM RADIATION DOSE METRICS: Total DLP (mGy-cm): 399.28 FINDINGS: Pulmonary arteries: Normal. No pulmonary emboli. Aorta: Unremarkable. No aortic aneurysm. No aortic dissection. Lungs: Some strandy opacities are seen in the left lung base likely representing atelectasis. Pleural spaces: Unremarkable. No pneumothorax. No pleural effusion. Heart: Unremarkable. No cardiomegaly. No pericardial effusion. Coronary arteries: There are prominent coronary artery calcifications. Lymph nodes: Unremarkable. No enlarged lymph nodes. Stomach and bowel: Chilaiditi configuration of the hepatic flexure of the colon. There is a hernia present measuring 8.2 mm in diameter containing a portion of the proximal stomach. Bones/joints: There is a severe S-shaped curvature of the axial skeleton. Soft tissues: Unremarkable. CT/CT angio chest PE protcl [id number] IMPRESSION: 1. There is no evidence for pulmonary emboli. 2. Strandy opacities in the left lung base likely represents atelectasis. 3. Hiatal hernia containing a portion of the proximal stomach 4. Chilaiditi configuration of the hepatic flexure of the colon
[2023-01-15 01:48] VITALS: BP 153/84; PULSE 102; O2SAT 97
[2023-01-15] MEDS: iohexol 350 mg/mL 500 mL Btl (per mL) IV (02:07)
[2023-01-15] MEDS: piperacillin-tazobactam 4.5 GM in sodium chloride 0.9% (plus) 50 ML IV (02:56)
[2023-01-15] MEDS: potassium chloride oral liq 20 mEq/15 mL UDC PO (02:58)
[2023-01-15 03:00] VITALS: BP 154/81; PULSE 95; RESP 20; TEMP 37.7; O2SAT 96
[2023-01-15 04:05] LABS: Urine Color Yellow (Yellow)
[2023-01-15 04:06] LABS: Add Urine Microscopic? YES; Bilirubin Urine Neg (Negative); Blood Urine 2+ (Negative); Glucose Urine UA 4+ (Normal); Ketones Urine 2+ (Negative); Leukocyte Esterase Urine Negative (Negative); Nitrate Urine Negative (Negative); Protein Urine Trace (Negative); Specific Gravity, Urine 1.005 (1.005-1.030); Urine Appearance Clear (CLEAR); Urobilinogen Urine Norm (Negative); pH Urine 5 (5-7)
[2023-01-15 04:09] LABS: Bacteria Urine TRACE /hpf; RBC Urine 0-4 /hpf (0-2); Squamous Epithelial Cell Urine 0-4 /hpf (0-5)
[2023-01-15 04:10] LABS: Add Urine Culture? Yes
[2023-01-15 06:17] VITALS: BP 179/69; PULSE 67; O2SAT 97
[2023-01-17 10:08] LABS: Oxygen Device NC
== END 2023-01-15 07:22 | disposition home or self-care (01) ==
PROVIDERS: Emergency Provider Emergency Medicine; PCP Internal Medicine
DX: R41.82 Altered mental status, unspecified (principal); Z79.82 Long term (current) use of aspirin; Z79.4 Long term (current) use of insulin; Z20.822 Contact with and (suspected) exposure to COVID-19; F03.90 Unspecified dementia, unspecified severity, without behavioral disturbance, psychotic disturbance, mood disturbance, and anxiety; E11.9 Type 2 diabetes mellitus without complications; E78.2 Mixed hyperlipidemia
CPT/HCPCS: 36415; 36600; 70450; 71045; 71275; 80053; 81001; 82805; 83605; 83880; 85025; 85378; 87040; 87077; 87086; 87186; 87426; 87804; 96365; 99285; J2543; Q9967

== ENCOUNTER 2023-02-13 10:12 | Emergency (ER) | payer MEDICARE, BC, MEDICAID, SELFPAY ==
[2023-02-13 10:15] VITALS: BP 122/61; PULSE 90; RESP 14; TEMP 36.9; O2SAT 98
--- NOTE | 2023-02-13 10:47 | ED_ITS ---
HPI - General Adult General: Chief complaint: General Medical Stated complaint: PEG TUBE CLOGGED Time Seen by Provider: 02/13/23 10:18 Source: patient and EMS Mode of arrival: EMS Limitations: altered mental status History of Present Illness: Patient is a 67-year-old male with a history of advanced dementia here from [facility] for evaluation and treatment of a clogged PEG tube. According to EMS report tube was placed approximately a month ago due to inadequate oral intake. Staff states they have not had any issues with it until this morning when tube would not flush and they could not administer home medications. Staff states they tried coke flushes without relief of the obstruction. Patient upon arrival is oriented to name only which staff states is his normal mental baseline. He is not able to provide any history. 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 Mother No problems noted. Son , Both patient's sons are Family history of premature coronary artery disease Social History Smoking and tobacco status: never smoked Alcohol intake: never Substance/Drug Use: never Adopted: No Caregiver/support person: No Lives independently: No Marital status: Current occupational status: retired Current gender identity: Male Physical Exam Const: COMMON NORMALS: alert EXAM LIMITATIONS: altered mental status (chronic) ORIENTATION/CONSCIOUSNESS: Yes awake and Yes oriented to person HENMT: COMMON NORMALS: normocephalic and atraumatic HEAD & SCALP: normocephalic and atraumatic Resp: COMMON NORMALS: normal respiratory effort and clear to auscultation bilaterally AUSCULTATION: clear to auscultation bilaterally Cardio: COMMON NORMALS: regular rate and regular rhythm RATE: regular rate RHYTHM: regular rhythm GI: COMMON NORMALS: Soft to palpation, non-tender and no masses INSPECTION: Yes other (PEG tube site appears clean/non-infected) AUSCULTATION: Yes normoactive bowel sounds PALPATION: Yes Soft to palpation, No Tenderness to palpation present (GI), No Guarding due to palpation present (GI) and No Rigid due to palpation Neuro: SENSORIUM/ORIENTATION: Yes alert and Yes oriented to person Course Vital Signs: Vital signs: Vital Signs Temperature 98.4 F 02/13/23 10:15 Pulse Rate 77 02/13/23 12:18 Respiratory Rate 18 02/13/23 12:18 Blood Pressure 132/68 02/13/23 12:18 Pulse Oximetry 98 02/13/23 12:18 Oxygen Delivery Me thod Room Air 02/13/23 10:15 MDM - General Adult Medical Decision Making Attempted to unclog PEG tube using warm water, Coke, pancreatic enzyme/bicarb all without success. Cannot replace tube due to immaturity of track. Had MedSurg come down and evaluate tubing-they were able to alleviate obstruction using a catheter dilator. It appeared patient had a large amount of white granule like material in the tube. Tube now flushing/aspirating normally. Will correctional counselor halfway on appropriate medications to administer through tube and importance of flushing afterwards to hopefully avoid this in the future. Patient is cleared for discharge back to halfway. Discharge Plan Discharge Patient Disposition: Home Clinical Impression: Feeding tube obstruction Qualifiers: Encounter type: initial encounter Qualified Code(s): T85.598A - Other mechanical complication of other gastrointestinal prosthetic devices, implants and grafts, initial encounter Condition: Stable Prescriptions: No Action tamsulosin [Flomax] 0.4 mg capsule 0.4 mg PO BEDTIME@20 ramipril [Altace] 10 mg capsule 20 mg PO DAILY@08 famotidine 20 mg tablet 20 mg PO DAILY@08 GlucaGen Diagnostic Kit 1 mg/mL recon soln 1 mg SUBCUT Q20M PRN (Reason: low blood sugar) magnesium hydroxide [Milk of Magnesia] 400 mg/5 mL suspension 30 ml PO DAILY PRN (Reason: Constipation) cetirizine [Zyrtec] 10 mg tablet 10 mg PO DAILY@08 acetaminophen [Tylenol] 325 mg Tablet 650 mg PO Q8H PRN (Reason: Pain) loperamide [Imodium A-D] 2 mg Capsule See Rx Instructions .ROUTE .COMPLEX Rx Instructions: 2 caps after first loose stool then one cap after each loose stool not to exceed 6 tabs in 24 hours hydrocodone-acetaminophen 5-325 mg tablet 1 tab PO Q8H PRN (Reason: Pain) calcium carbonate 500 mg calcium (1,250 mg) Tablet 500 mg PO DAILY@08 hydrocortisone [Preparation H Hydrocortisone] 1 % Cream 1 applic topical Q12H PRN (Reason: pain/itching) alum-mag hydroxide-simeth 200-200-20 mg/5 mL Suspension 30 ml PO Q6H PRN (Reason: Heartburn) fluticasone propionate 50 mcg/actuation [place],Suspension 2 spray INTRANASAL DAILY@08 Rx Instructions: administer into each nostril memantine 5 mg tablet 5 mg PO BID@08,20 duloxetine [Cymbalta] 30 mg Capsule,Delayed Release(Dr/Ec) 30 mg PO DAILY@08 PNV cmb#[id number]-ferrous fumarate-FA [ Multivitamins] 28 mg iron- 800 mcg [place] 1 tab PO DAILY@08 aspirin 325 mg Tablet,Delayed Release (Dr/Ec) 325 mg PO DAILY Qty: 21 0RF Tussin 100 mg/5 mL Liquid 200 mg PO Q4H PRN (Reason: Cough) Glucerna Liquid 237 ea PO TID Rx Instructions: for supplement Cymbalta 30 mg Capsule,Delayed Release(Dr/Ec) 60 mg PO BEDTIME naloxone 2 mg/2 mL Syringe Kit 2 mg IM Q2M PRN (Reason: overdose) Rx Instructions: NTExceed 10 mg total dose/episode amlodipine 5 mg tablet 10 mg PO DAILY@08 30 Days Qty: 30 0RF Novolog FlexPen U-100 Insulin 100 unit/mL (3 mL) insulin pen See Rx Instructions .ROUTE .COMPLEX Qty: 15 0RF Rx Instructions: Inject subcut, 3 times daily, after meals, based on sliding scale provided Lantus Solostar U-100 Insulin 100 unit/mL (3 mL) insulin pen 10 unit SUBCUT BEDTIME 30 Days Qty: 15 0RF Discharge Orders: Discharge ED (Routine); Ordered 02/13/23 Ordered By: Bonny Skinner Referrals: Lukas Low MD [Primary Care Provider] - Activity Restrictions/Additional Instructions: Patient has a large amount of white granule like material clogging his feeding tube. * If a medicine is a tablet, crush to make a fine powder and dissolve in water. * If a medicine is a capsule, open the capsule and dissolve in water. * Do not give medicines that are coated, extended-release, or long-acting through a feeding tube. * Give each medicine separately and flush the tube with water after each dose. Coding Level of Care Code ED Nursing Unit Clerk for Boris Glynn
[2023-02-13] MEDS: lipase-protease-amylase Capsule 1 EACH PEG-TUBE (11:52)
[2023-02-13] MEDS: sodium bicarbonate 650 mg Tablet G-TUBE (11:53)
--- NOTE | 2023-02-13 12:08 | PC.NURSE ---
Pt resting comfortably in bed. Attempted to unclog PEG tube with prescribed meds and flush in cath tip syringe - met great resistance with attempting to push. Repositioned pt and made sure he was at 45 degrees - still not able to flush. Provider made aware.
[2023-02-13 12:18] VITALS: BP 132/68; PULSE 77; RESP 18; O2SAT 98
== END 2023-02-13 16:54 | disposition home or self-care (01) ==
PROVIDERS: Emergency Provider Physician Assistant; PCP Internal Medicine
DX: T85.598A Other mechanical complication of other gastrointestinal prosthetic devices, implants and grafts, initial encounter (principal); Z79.82 Long term (current) use of aspirin; Z79.4 Long term (current) use of insulin; F03.90 Unspecified dementia, unspecified severity, without behavioral disturbance, psychotic disturbance, mood disturbance, and anxiety; E11.9 Type 2 diabetes mellitus without complications; E78.2 Mixed hyperlipidemia; Y73.8 Miscellaneous gastroenterology and urology devices associated with adverse incidents, not elsewhere classified
CPT/HCPCS: 99283

== ENCOUNTER 2023-08-02 08:02 | Outpatient (CLI) | payer MEDICARE, BC, MEDICAID, SELFPAY ==
--- NOTE | 2023-08-02 08:06 | FL_ITS ---
WS: [id number] Modified barium swallow, 08/02/2023 Clinical Data: Other dysphagia Comparison: None. Fluoroscopy time: 2min [id number] # of spot films: Findings: The patient showed good oral propulsion but there was premature spillage. There is a trace of aspirat ion. There was penetration with multiple ingested material. The barium tablet was swallowed and prope lled normally through the hypopharynx, into the esophagus and finally the stomach. Impression: 1. Premature spillage of multiple items. 2. Aspiration and penetration. 3. Normal propulsion of barium tablet into the stomach.
== END 2023-08-02 08:03 | disposition home or self-care (01) ==
PROVIDERS: PCP Internal Medicine; Visit Provider Internal Medicine
DX: R13.12 Dysphagia, oropharyngeal phase (principal)
CPT/HCPCS: 74230; 92611

== ENCOUNTER 2024-11-13 19:13 | Emergency (ER) | payer BC, MEDICARE, MEDICAID, SELFPAY ==
[2024-11-13 19:13] VITALS: BP 131/76; PULSE 88; RESP 18; TEMP 37.4; O2SAT 92
--- NOTE | 2024-11-13 19:18 | XRR_ITS ---
PROCEDURE INFORMATION: Exam: XR Chest Exam date and time: 11/13/2024 7:33 PM Age: 69 years old Clinical indication: Shortness of breath; Additional info: Possible aspiration TECHNIQUE: Imaging protocol: Radiologic exam of the chest. Views: 1 view. COMPARISON: CT angio chest PE protcl [id number] 01/15/2023 2:01 AM FINDINGS: Lungs: Right basilar infiltrates. The left lung is relatively clear. Pleural spaces: Unremarkable. No pleural effusion. No pneumothorax. Heart/Mediastinum: Unremarkable. No cardiomegaly. Bones/joints: Unremarkable. Soft tissues: Limited examination of the chest due to patient positioning. XR/XR chest 1V portable [id number] IMPRESSION: As above.
[2024-11-13 19:30] LABS: Basophils % 0.2 %; Hematocrit 43.1 % (37-53); Lymphocytes # 0.9 10^3/uL (0.8-4.8); Lymphocytes % 7.5 %; Mean Corpuscular HGB Conc 32.3 g/dL (30-55); Mean Corpuscular Hemoglobin 27.9 pg (27-33); Mean Corpuscular Volume 86.4 fl (82-101); Mean Platelet Volume 11.7 fL (7.4-10.4); Monocytes # 0.9 10^3/uL (0.2-0.9); Monocytes % 7.8 %; Neutrophils # 9.55 10^3/uL (1.8-7.7); Neutrophils % 84.1 %; Nucleated Red Blood Cells % 0 %; Platelet Count 150 10^3/cmm (157-399); Red Blood Count 4.99 10^6/uL (3.85-5.65); Red Cell Distribution Width 13.6 % (12.1-15.1); White Blood Count 11.35 10^3/uL (3.29-11.43)
[2024-11-13 19:49] LABS: Alanine Aminotransferase 38 U/L (0-41); Albumin Level 3.3 g/dL (3.5-5.2); Alkaline Phosphatase 123 U/L (40-130); Anion Gap 12.9 (5-19); Aspartate Amino Transferase 24 U/L (0-40); Blood Urea Nitrogen 17 mg/dL (8-23); Calcium 8.9 mg/dL (8.5-10.5); Carbon Dioxide 29 mmol/L (22-29); Chloride 104 mmol/L (98-107); Creatinine Clr Calc Pharmacy 78.1399; Globulin 3.3 g/dL (1.3-4.6); Glomerular Filtration Rate 111.5 mL/min (90-130); Glucose 292 mg/dL (65-115); Osmolality Calculated 306 mOsm/kg (285-295); Potassium 3.9 mmol/L (3.5-5.1); Sodium 142 mmol/L (136-145); Total Bilirubin 0.4 mg/dL (0.15-1.2); Total Protein 6.6 g/dL (6.6-8.7)
--- NOTE | 2024-11-13 19:49 | W.ED.SOB ---
HPI - SOB/Dyspnea General: Chief Complaint: Shortness of Breath/Dyspnea Stated Complaint: Poss ASP, Time Seen by Provider: 11/13/24 19:14 History of Present Illness: HPI Narrative: Patient brought in from halfway by EMS, EMS states he is here for evaluation of possible aspiration after eating. Patient is contracted lying on his right side EMS states this is his baseline. O2 sats 92% on room air. EMS denies hearing anything about fevers chills. Very limited history per EMS patient is not able to give us any history at all. EMS states they have transported him several times he is at his baseline Related Data Home Medications Medication Instructions Recorded Confirmed cetirizine 10 mg tablet (Zyrtec) 10 mg PO DAILY@01/22/20 01/07/23 famotidine 20 mg tablet 20 mg PO DAILY@01/22/20 01/07/23 glucagon 1 mg/mL solution for 1 mg SUBCUT Q20M PRN low blood 01/22/20 01/07/23 injection (GlucaGen Diagnostic Kit) sugar magnesium hydroxide 400 mg/5 mL 30 ml PO DAILY PRN Constipation 01/22/20 01/07/23 oral suspension (Milk of Magnesia) ramipril 10 mg capsule (Altace) 20 mg PO DAILY@01/22/20 01/07/23 tamsulosin 0.4 mg capsule (Flomax) 0.4 mg PO BEDTIME@02/27/20 01/07/23 acetaminophen 325 mg tablet 650 mg PO Q8H PRN Pain 07/25/22 01/07/23 (Tylenol) aluminum-mag hydroxide-simethicone 30 ml PO Q6H PRN Heartburn 07/25/22 01/07/23 200 mg-200 mg-20 mg/5 mL oral susp calcium carbonate 500 mg PO DAILY@07/25/22 01/07/23 duloxetine 30 mg capsule,delayed 30 mg PO DAILY@07/25/22 01/07/23 release (Cymbalta) fluticasone propionate 50 2 spray intranasal DAILY@07/25/22 01/07/23 mcg/actuation nasal spray,suspension hydrocodone 5 mg-acetaminophen 325 1 tab PO Q8H PRN Pain 07/25/22 01/07/23 mg tablet hydrocortisone 1 % topical cream 1 applic topical Q12H PRN 07/25/22 01/07/23 (Preparation H Hydrocortisone) pain/itching loperamide 2 mg capsule (Imodium See Rx Instructions .Route .COMPLEX 07/25/22 01/07/23 A-D) memantine 5 mg tablet 5 mg PO BID@08,20 07/25/22 01/07/23 vit no.95-ferrous 1 tab PO DAILY@08 07/25/22 01/07/23 fumarate 28 mg-folic acid 800 mcg tablet ( Multivitamins) duloxetine 30 mg capsule,delayed 60 mg PO BEDTIME 01/07/23 01/07/23 release (Cymbalta) guaifenesin 100 mg/5 mL oral 200 mg PO Q4H PRN Cough 01/07/23 01/07/23 liquid (Tussin) naloxone 2 mg/2 mL syringe kit 2 mg IM Q2M PRN overdose 01/07/23 01/07/23 nut.tx.gluc.intol,lac-free,soy 237 ea PO TID 01/07/23 01/07/23 (Glucerna oral liquid) Previous Rx's Medication Instructions Recorded aspirin 325 mg tablet,delayed 325 mg PO DAILY #21 tabs 07/28/22 release amlodipine 5 mg tablet 10 mg (2 x 5 mg) PO DAILY@08 30 01/11/23 days #30 tabs insulin aspart U-100 100 unit/mL See Rx Instructions .Route 01/11/23 (3 mL) subcutaneous pen (Novolog .COMPLEX #15 mL FlexPen U-100 Insulin aspart) insulin glargine 100 unit/mL (3 10 unit (0.1 mL) SUBCUT BEDTIME 30 01/11/23 mL) subcutaneous pen (Lantus days #15 mL Solostar U-100 Insulin) cefdinir 300 mg capsule 300 mg PO BID 10 days #20 caps 11/13/24 Allergies Allergy/AdvReac Type Severity Reaction Status Date / Time No Known Allergies Allergy Verified 01/03/23 08:33 Review of Systems General: Reports: ROS unobtainable due to medical condition [facility] ED PFSH: Medical History [facility] resident Dementia Mixed hyperlipidemia Proteinuria BPH loc w urin obs/LUTS Lower urinary tract symptoms (LUTS) Scoliosis 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 Mother No problems noted. Son , Both patient's sons are Family history of premature coronary artery disease Social History Smoking and tobacco/nicotine status: never used tobacco/nicotine Alcohol intake: never Substance/Drug Use: never Adopted: No Caregiver/support person: No Lives independently: No Marital status: Current occupational status: retired Current gender identity: Male Physical Exam Const: COMMON NORMALS: no acute distress, healthy appearing, alert and well nourished HENMT: COMMON NORMALS: normocephalic, atraumatic, hearing grossly normal bilaterally, external ears normal, Normal external nose present and moist oral mucous membranes HEAD & SCALP: normocephalic and atraumatic NOSE: Normal external nose present EXTERNAL EAR: Yes external ears normal Neck/C-Spine: COMMON NORMALS: no JVD Chest: COMMONS NORMALS: normal inspection of the chest and normal palpation of entire chest wall Resp: COMMON NORMALS: normal respiratory effort, No retractions and No use of accessory muscles; negative for clear to auscultation bilaterally (Expiratory rhonchi throughout worse on the right side) AUSCULTATION: not clear to auscultation bilaterally (Expiratory rhonchi throughout worse on the right side) Cardio: COMMON NORMALS: no JVD, regular rate, regular rhythm, S1 normal heart sound present, S2 normal heart sound present, No gallops present (Cardio), No clicks present (Cardio), No murmurs present (Cardio) and No rub (Cardio) RATE: regular rate RHYTHM: regular rhythm HEART SOUNDS: S1 normal heart sound present and S2 normal heart sound present GI: COMMON NORMALS: Normal to inspection, nondistended, normoactive bowel sounds present, Soft to palpation, non-tender, No hepatosplenomegaly present and no masses PALPATION: Yes Soft to palpation and Yes No hepatosplenomegaly present Neuro: SENSORIUM/ORIENTATION: Yes alert Course Vital Signs: Vital signs: Vital Signs Temperature 99.4 F 11/13/24 19:13 Pulse Rate 85 11/13/24 20:32 Respiratory Rate 23 H 11/13/24 19:54 Blood Pressure 153/92 11/13/24 20:32 Pulse Oximetry 94 11/13/24 20:32 Oxygen Delivery Me thod Room Air 11/13/24 19:13 MDM - SOB/Dyspnea Medical Decision Making Lab work revealed normal white count, chest x-ray showed right sided infiltrate, patient is bedbound lying on his right side is unknown if this is mucus, aspiration, pneumonia, we will go and treat with antibiotic. These results was discussed with the patient's . We will give the patient Rocephin here and discharge him on Omnicef. Medical Records I reviewed the patient's medical records. Lab Data I reviewed the patient's lab results. 11/13/24 19:20 11/13/24 19:20 Labs/Radiology: Radiology Impressions Chest X-Ray 11/13/24 19:18 IMPRESSION: As above. Laboratory Results WBC 11.35 10^3/uL (3.29-11.43) 11/13/24 19:20 RBC 4.99 10^6/uL (3.85-5.65) 11/13/24 19:20 Hgb 13.90 g/dL (11.27-16.99) 11/13/24 19:20 Hct 43.1 % (37-53) 11/13/24 19:20 MCV 86.4 fl (82-101) 11/13/24 19:20 MCH 27.9 pg (27-33) 11/13/24 19:20 MCHC 32.3 g/dL (30-55) 11/13/24 19:20 RDW 13.6 % (12.1-15.1) 11/13/24 19:20 Plt Count 150 10^3/cmm (157-399) L 11/13/24 19:20 MPV 11.7 fL (7.4-10.4) H 11/13/24 19:20 Neut % (Auto) 84.1 % 11/13/24 19:20 Lymph % (Auto) 7.5 % 11/13/24 19:20 [place] % (Auto) 7.8 % 11/13/24 19:20 Eos % (Auto) 0.0 % 11/13/24 19:20 Baso % (Auto) 0.2 % 11/13/24 19:20 Neut # (Auto) 9.55 10^3/uL (1.8-7.7) H 11/13/24 19:20 Lymph # (Auto) 0.9 10^3/uL (0.8-4.8) 11/13/24 19:20 [place] # (Auto) 0.9 10^3/uL (0.2-0.9) 11/13/24 19:20 Eos # (Auto) 0.0 10^3/uL (0.0-0.8) 11/13/24 19:20 Baso # (Auto) 0.0 10^3/uL (0.0-0.1) 11/13/24 19:20 Nucleated RBC % (auto) 0 % 11/13/24 19:20 Nucleated RBCs # 0.0 /100WBC 11/13/24 19:20 Sodium 142 mmol/L (136-145) 11/13/24 19:20 Potassium 3.9 mmol/L (3.5-5.1) 11/13/24 19:20 Chloride 104 mmol/L (98-107) 11/13/24 19:20 Carbon Dioxide 29 mmol/L (22-29) 11/13/24 19:20 Anion Gap 12.9 (5-19) 11/13/24 19:20 BUN 17 mg/dL (8-23) 11/13/24 19:20 Creatinine 0.7 mg/dL (0.7-1.2) 11/13/24 19:20 GFR Calculation 111.5 mL/min (90-130) 11/13/24 19:20 Glucose 292 mg/dL (65-115) H 11/13/24 19:20 Calculated Osmolality 306 mOsm/kg (285-295) H 11/13/24 19:20 Calcium 8.9 mg/dL (8.5-10.5) 11/13/24 19:20 Total Bilirubin 0.4 mg/dL (0.15-1.2) 11/13/24 19:20 AST 24 U/L (0-40) 11/13/24 19:20 ALT 38 U/L (0-41) 11/13/24 19:20 Alkaline Phosphatase 123 U/L (40-130) 11/13/24 19:20 Total Protein 6.6 g/dL (6.6-8.7) 11/13/24 19:20 Albumin 3.3 g/dL (3.5-5.2) L 11/13/24 19:20 Globulin 3.3 g/dL (1.3-4.6) 11/13/24 19:20 All radiology interpretation(s) finalized by discharge Discharge Plan Discharge Patient Disposition: Home Clinical Impression: Right lower lobe pneumonia Qualifiers: Pneumonia type: due to unspecified organism Qualified Code(s): J18.9 - Pneumonia, unspecified organism Condition: Stable Prescriptions: New cefdinir 300 mg capsule 300 mg PO BID 10 Days Qty: 20 0RF No Action tamsulosin [Flomax] 0.4 mg capsule 0.4 mg PO BEDTIME@20 ramipril [Altace] 10 mg capsule 20 mg PO DAILY@08 famotidine 20 mg tablet 20 mg PO DAILY@08 GlucaGen Diagnostic Kit 1 mg/mL recon soln 1 mg SUBCUT Q20M PRN (Reason: low blood sugar) magnesium hydroxide [Milk of Magnesia] 400 mg/5 mL suspension 30 ml PO DAILY PRN (Reason: Constipation) cetirizine [Zyrtec] 10 mg tablet 10 mg PO DAILY@08 acetaminophen [Tylenol] 325 mg Tablet 650 mg PO Q8H PRN (Reason: Pain) loperamide [Imodium A-D] 2 mg Capsule See Rx Instructions .ROUTE .COMPLEX Rx Instructions: 2 caps after first loose stool then one cap after each loose stool not to exceed 6 tabs in 24 hours hydrocodone-acetaminophen 5-325 mg tablet 1 tab PO Q8H PRN (Reason: Pain) calcium carbonate 500 mg calcium (1,250 mg) Tablet 500 mg PO DAILY@08 hydrocortisone [Preparation H Hydrocortisone] 1 % Cream 1 applic topical Q12H PRN (Reason: pain/itching) alum-mag hydroxide-simeth 200-200-20 mg/5 mL Suspension 30 ml PO Q6H PRN (Reason: Heartburn) fluticasone propionate 50 mcg/actuation [place],Suspension 2 spray INTRANASAL DAILY@08 Rx Instructions: administer into each nostril memantine 5 mg tablet 5 mg PO BID@08,20 duloxetine [Cymbalta] 30 mg Capsule,Delayed Release(Dr/Ec) 30 mg PO DAILY@08 PNV cmb#95-ferrous fumarate-FA [ Multivitamins] 28 mg iron- 800 mcg Tablet 1 tab PO DAILY@08 aspirin 325 mg Tablet,Delayed Release (Dr/Ec) 325 mg PO DAILY Qty: 21 0RF Tussin 100 mg/5 mL Liquid 200 mg PO Q4H PRN (Reason: Cough) Glucerna Liquid 237 ea PO TID Rx Instructions: for supplement Cymbalta 30 mg Capsule,Delayed Release(Dr/Ec) 60 mg PO BEDTIME naloxone 2 mg/2 mL Syringe Kit 2 mg IM Q2M PRN (Reason: overdose) Rx Instructions: NTExceed 10 mg total dose/episode amlodipine 5 mg tablet 10 mg PO DAILY@08 30 Days Qty: 30 0RF Novolog FlexPen U-100 Insulin 100 unit/mL (3 mL) insulin pen See Rx Instructions .ROUTE .COMPLEX Qty: 15 0RF Rx Instructions: Inject subcut, 3 times daily, after meals, based on sliding scale provided Lantus Solostar U-100 Insulin 100 unit/mL (3 mL) insulin pen 10 unit SUBCUT BEDTIME 30 Days Qty: 15 0RF Discharge Orders: Discharge ED (Routine); Ordered 11/13/24 Ordered By: Rasheed Romero Referrals: Lukas Low MD [Primary Care Provider] - 1 week Patient Instructions: Pneumonia (ED) Activity Restrictions/Additional Instructions: Your evaluation ER showed your white blood cell count was normal, however your chest x-ray showed he did have some infiltrate on your right side, this is a side delay on so this is unknown to be true pneumonia or mucous, however we will go ahead and err on the side of caution treated with an antibiotic. Please follow-up with your family practice doctor in the next 7 to 10 days for further evaluation treatment as needed. Coding Level of Care Code ED Director Of Market Analysis for Boris Glynn
[2024-11-13 19:54] VITALS: BP 141/85; PULSE 89; RESP 23; O2SAT 92
[2024-11-13 20:32] VITALS: BP 153/92; PULSE 85; O2SAT 94
[2024-11-13] MEDS: cefTRIAXone 1,000 mg SDV 1000 MG IVP (20:45)
--- NOTE | 2024-11-13 20:53 | PC.NURSE ---
Report called to [facility] nurse Brigette. All questions and concerns were addressed at time of report.
[2024-11-13 21:57] VITALS: BP 147/75; PULSE 88; O2SAT 92
[2024-11-13 23:46] VITALS: BP 165/84; PULSE 81; O2SAT 92
== END 2024-11-13 23:46 | disposition home or self-care (01) ==
PROVIDERS: Emergency Provider Emergency Medicine; PCP Internal Medicine
DX: J18.9 Pneumonia, unspecified organism (principal); E11.9 Type 2 diabetes mellitus without complications; E78.2 Mixed hyperlipidemia
CPT/HCPCS: 71045; 80053; 85025; 96374; 99284; J0696

== ENCOUNTER 2024-11-18 13:23 | Emergency (ER) | payer BC, MEDICARE, MEDICAID, SELFPAY ==
--- NOTE | 2024-11-18 13:25 | XRR_ITS ---
PROCEDURE INFORMATION: Exam: XR Chest Exam date and time: 11/18/2024 1:30 PM Age: 69 years old Clinical indication: Shortness of breath; Additional info: SOB TECHNIQUE: Imaging protocol: Radiologic exam of the chest. Views: 1 view. COMPARISON: CR (CHEST, ) 11/13/2024 7:33 PM FINDINGS: Lungs: There is pulmonary hypoinflation. There is persistent abnormal airspace disease at the right lung base compatible with pneumonia. A retrocardiac left basilar infiltrate is difficult to exclude. Pleural spaces: No significant pleural effusion is seen. Heart/Mediastinum: The right heart border is partially obscured by the elevated right hemidiaphragm. No definite cardiomegaly appreciated. Bones/joints: There is diffuse osteopenia. There is dextroscoliosis of the thoracic spine. Other findings: These portable AP radiographs are suboptimal due to patient positioning, as the patient is leaning to his right. XR/XR chest 1V portable 05239 IMPRESSION: 1. Suboptimal radiographs due to patient positioning and poor inspiration. 2. Persistent right lower lobe infiltrate suggestive of pneumonia. 3. No significant interval change. Continued radiographic follow-up is recommended.
[2024-11-18 13:28] VITALS: BP 159/93; PULSE 82; RESP 20; TEMP 36.8; O2SAT 92; BMI 23.8
--- NOTE | 2024-11-18 13:28 | ECG_ITS ---
[facility]: [facility]24[facility]18 Pat Name: Gerard Gray Department: Room: Gender: Male [employer] Party: : 1955 Requested By: Paul Martinez Order Number: [id number] MD: Brayden Jones M.D. Measurements Intervals [place] Rate: 98 P: 45 ID: 140 QRS: 16 QRSD: 86 T: 53 QT: 364 QTc: 466 Interpretive Statements SINUS RHYTHM WITH FREQUENT VENTRICULAR PREMATURE COMPLEXES POSSIBLE LEFT ATRIAL ENLARGEMENT [-0.1mV P-WAVE IN V1/V2] Compared to ECG 01/10/2023 09:41:59 Ventricular premature complex(es) now present Sinus arrhythmia no longer present Incomplete right bundle-branch block no longer present Electronically Signed On 11-20-2024 22:22:06 FINAL INSPECTOR MOVEMENT ASSEMBLY by Brayden Jones M.D. [id number]
--- NOTE | 2024-11-18 13:32 | PC.PHAR ---
patient is from [facility]
[2024-11-18 13:38] LABS: Basophils # 0.1 10^3/uL (0.0-0.1); Basophils % 0.4 %; Eosinophils # 0.1 10^3/uL (0.0-0.8); Eosinophils % 0.4 %; Hematocrit 50.8 % (37-53); Lymphocytes % 7.7 %; Mean Corpuscular HGB Conc 31.3 g/dL (30-55); Mean Corpuscular Hemoglobin 27.7 pg (27-33); Mean Corpuscular Volume 88.7 fl (82-101); Mean Platelet Volume 12.6 fL (7.4-10.4); Monocytes # 0.8 10^3/uL (0.2-0.9); Monocytes % 6.3 %; Neutrophils # 10.67 10^3/uL (1.8-7.7); Neutrophils % 84.4 %; Nucleated Red Blood Cells % 0 %; Platelet Count 269 10^3/cmm (157-399); Red Blood Count 5.73 10^6/uL (3.85-5.65); Red Cell Distribution Width 14.1 % (12.1-15.1); White Blood Count 12.65 10^3/uL (3.29-11.43)
--- NOTE | 2024-11-18 14:02 | W.ED.URI ---
HPI - URI/Sore Throat General: Chief Complaint: Upper Respiratory Infection Stated Complaint: SOB, RSV Time Seen by Provider: 11/18/24 13:24 Source: EMS Mode of arrival: EMS Limitations: altered mental status History of Present Illness: 69-year-old male is here from custodial he had recently tested positive for RSV has had some increased cough congestion they are concerned about pneumonia patient has a history of Alzheimer's along with stroke he is bedbound and nonverbal no history is available from him. Related Data Home Medications ?Medication ?Instructions ?Recorded ?Confirmed famotidine 20 mg tablet 20 mg PO DAILY@01/22/20 11/18/24 glucagon 1 mg/mL solution for 1 mg SUBCUT Q20M PRN low blood 01/22/20 11/18/24 injection (GlucaGen Diagnostic Kit) sugar ramipril 10 mg capsule (Altace) 10 mg PO DAILY@01/22/20 11/18/24 acetaminophen 325 mg tablet 650 mg PO Q4H PRN Pain 07/25/22 11/18/24 (Tylenol) naloxone 2 mg/2 mL syringe kit 2 mg IM Q2M PRN overdose 01/07/23 11/18/24 amlodipine 5 mg tablet 5 mg PO DAILY@08 11/18/24 11/18/24 aspirin 325 mg tablet 325 mg PO DAILY 11/18/24 11/18/24 aspirin 325 mg tablet,delayed 325 mg PO QAM 11/18/24 11/18/24 release atorvastatin 20 mg tablet 20 mg PO QPM 11/18/24 11/18/24 bisacodyl 10 mg rectal suppository 10 mg OH DAILY PRN Constipation 11/18/24 11/18/24 finasteride 5 mg tablet 5 mg PO QPM 11/18/24 11/18/24 insulin degludec 100 unit/mL (3 16 unit SUBCUT BID 11/18/24 11/18/24 mL) subcutaneous pen (Tresiba FlexTouch U-100 insulin) memantine 10 mg tablet 10 mg PO BID 11/18/24 11/18/24 nystatin 100,000 unit/gram topical 1 applic topical Q8H 11/18/24 11/18/24 ointment polyethylene glycol 3350 17 17 g PO DAILY 11/18/24 11/18/24 gram/dose oral powder potassium chloride 20 mEq 40 meq PO DAILY 11/18/24 11/18/24 tablet,extended release sennosides 8.6 mg-docusate sodium 1 tab-cap PO BID PRN Constipation 11/18/24 11/18/24 50 mg tablet (Senna Plus) sertraline 50 mg tablet 100 mg PO QPM 11/18/24 11/18/24 Previous Rx's ?Medication ?Instructions ?Recorded insulin aspart U-100 100 unit/mL See Rx Instructions .Route 01/11/23 (3 mL) subcutaneous pen (Novolog .COMPLEX #15 mL FlexPen U-100 Insulin aspart) cefdinir 300 mg capsule 300 mg PO BID 10 days #20 caps 11/13/24 Allergies Allergy/AdvReac Type Severity Reaction Status Date / Time No Known Allergies Allergy Verified 01/03/23 08:33 Review of Systems General: Reports: ROS unobtainable due to mental status PFS ED PFSH: Medical History [facility] resident Dementia Mixed hyperlipidemia Proteinuria BPH loc w urin obs/LUTS Lower urinary tract symptoms (LUTS) Scoliosis 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 Mother No problems noted. Son , Both patient's sons are Family history of premature coronary artery disease Social History Smoking and tobacco/nicotine status: never used tobacco/nicotine Alcohol intake: never Substance/Drug Use: never Adopted: No Caregiver/support person: No Lives independently: No Marital status: Current occupational status: retired Current gender identity: Male Physical Exam Const: COMMON NORMALS: negative for patient oriented x3 HENMT: COMMON NORMALS: normocephalic and atraumatic HEAD & SCALP: normocephalic and atraumatic Eye: COMMON NORMALS: conjunctivae normal CONJUNCTIVA: Yes conjunctivae normal Neck/C-Spine: COMMON NORMALS: full ROM Chest: COMMONS NORMALS: normal inspection of the chest Resp: AUSCULTATION: rales GI: COMMON NORMALS: Normal to inspection, nondistended, normoactive bowel sounds present Extremity: COMMON NORMALS: normal to inspection Neuro: COMMON NORMALS: negative for patient oriented x3 Course Vital Signs: Vital signs: Vital Signs Temperature 98.2 F 11/18/24 13:28 Pulse Rate 82 11/18/24 13:28 Respiratory Rate 20 H 11/18/24 13:28 Blood Pressure 159/93 11/18/24 13:28 Pulse Oximetry 92 11/18/24 13:28 Oxygen Delivery Me thod Room Air 11/18/24 13:28 MDM - URI/Sore Throat Medical Decision Making Patient presents here with likely pneumonia he does have RSV he is not requiring any oxygen here and talk to family he is at his baseline he is afebrile he is to continue his antibiotic cefdinir is follow-up with PCP return if worsening. Medical Records I reviewed the patient's medical records. Lab Data I reviewed the patient's lab results. 11/18/24 12:34 11/18/24 12:34 Radiology Impressions Chest X-Ray 11/18/24 13:25 IMPRESSION: 1. Suboptimal radiographs due to patient positioning and poor inspiration. 2. Persistent right lower lobe infiltrate suggestive of pneumonia. 3. No significant interval change. Continued radiographic follow-up is recommended. Laboratory Results WBC 12.65 10^3/uL (3.29-11.43) H 11/18/24 12:34 RBC 5.73 10^6/uL (3.85-5.65) H 11/18/24 12:34 Hgb 15.90 g/dL (11.27-16.99) 11/18/24 12:34 Hct 50.8 % (37-53) 11/18/24 12:34 MCV 88.7 fl (82-101) 11/18/24 12:34 MCH 27.7 pg (27-33) 11/18/24 12:34 MCHC 31.3 g/dL (30-55) 11/18/24 12:34 RDW 14.1 % (12.1-15.1) 11/18/24 12:34 Plt Count 269 10^3/cmm (157-399) 11/18/24 12:34 MPV 12.6 fL (7.4-10.4) H 11/18/24 12:34 Neut % (Auto) 84.4 % 11/18/24 12:34 Lymph % (Auto) 7.7 % 11/18/24 12:34 [place] % (Auto) 6.3 % 11/18/24 12:34 Eos % (Auto) 0.4 % 11/18/24 12:34 Baso % (Auto) 0.4 % 11/18/24 12:34 Neut # (Auto) 10.67 10^3/uL (1.8-7.7) H 11/18/24 12:34 Lymph # (Auto) 1.0 10^3/uL (0.8-4.8) 11/18/24 12:34 [place] # (Auto) 0.8 10^3/uL (0.2-0.9) 11/18/24 12:34 Eos # (Auto) 0.1 10^3/uL (0.0-0.8) 11/18/24 12:34 Baso # (Auto) 0.1 10^3/uL (0.0-0.1) 11/18/24 12:34 Nucleated RBC % (auto) 0 % 11/18/24 12:34 Nucleated RBCs # 0.0 /100WBC 11/18/24 12:34 Sodium 146 mmol/L (136-145) H 11/18/24 12:34 Potassium 4.3 mmol/L (3.5-5.1) 11/18/24 12:34 Chloride 109 mmol/L (98-107) H 11/18/24 12:34 Carbon Dioxide 25 mmol/L (22-29) 11/18/24 12:34 Anion Gap 16.3 (5-19) 11/18/24 12:34 BUN 29 mg/dL (8-23) H 11/18/24 12:34 Creatinine 0.7 mg/dL (0.7-1.2) 11/18/24 12:34 GFR Calculation 111.5 mL/min (90-130) 11/18/24 12:34 Glucose 456 mg/dL (65-115) H 11/18/24 12:34 Calculated Osmolality 328 mOsm/kg (285-295) H 11/18/24 12:34 Calcium 8.9 mg/dL (8.5-10.5) 11/18/24 12:34 Total Bilirubin 0.5 mg/dL (0.15-1.2) 11/18/24 12:34 AST 24 U/L (0-40) 11/18/24 12:34 ALT 31 U/L (0-41) 11/18/24 12:34 Alkaline Phosphatase 131 U/L (40-130) H 11/18/24 12:34 NT-Pro-B Natriuret Pep 746 pg/mL (0-125) H 11/18/24 12:34 Total Protein 6.9 g/dL (6.6-8.7) 11/18/24 12:34 Albumin 3.4 g/dL (3.5-5.2) L 11/18/24 12:34 Globulin 3.5 g/dL (1.3-4.6) 11/18/24 12:34 All radiology interpretation(s) finalized by discharge EKG Data EKG 1: I personally reviewed and interpreted this EKG as follows: EKG interpretation date: 11/18/24 EKG interpretation time: 13:28 Interpretation: nsr hr [address] elevation qrs 86 qtc 420 Discharge Plan Discharge Patient Disposition: Home Clinical Impression: Respiratory syncytial virus (RSV), Pneumonia Condition: Stable Prescriptions: No Action ramipril [Altace] 10 mg capsule 10 mg PO DAILY@08 famotidine 20 mg tablet 20 mg PO DAILY@08 GlucaGen Diagnostic Kit 1 mg/mL recon soln 1 mg SUBCUT Q20M PRN (Reason: low blood sugar) cefdinir 300 mg capsule 300 mg PO BID 10 Days Qty: 20 0RF acetaminophen [Tylenol] 325 mg Tablet 650 mg PO Q4H PRN (Reason: Pain) naloxone 2 mg/2 mL Syringe Kit 2 mg IM Q2M PRN (Reason: overdose) Rx Instructions: NTExceed 10 mg total dose/episode insulin aspart U-100 [Novolog FlexPen U-100 Insulin] 100 unit/mL (3 mL) insulin pen See Rx Instructions .ROUTE .COMPLEX Qty: 15 0RF Rx Instructions: Inject subcut, before meals, based on sliding scale provided 150-200=3 201-250=5 251-300=7 301-350=10 351-999=12 atorvastatin 20 mg tablet 20 mg PO QPM aspirin 325 mg Tablet 325 mg PO DAILY nystatin 100,000 unit/gram ointment 1 applic TOPICAL Q8H sennosides-docusate sodium [Senna Plus] 8.6-50 mg Tablet 1 tab-cap PO BID PRN (Reason: Constipation) bisacodyl 10 mg Suppository 10 mg [place] DAILY PRN (Reason: Constipation) polyethylene glycol 3350 17 gram/dose Powder 17 g PO DAILY sertraline 50 mg tablet 100 mg PO QPM finasteride 5 mg tablet 5 mg PO QPM memantine 10 mg tablet 10 mg PO BID insulin degludec [Tresiba FlexTouch U-100] 100 unit/mL (3 mL) insulin pen 16 unit SUBCUT BID potassium chloride 20 mEq Tablet Extended Release 40 meq PO DAILY amlodipine 5 mg tablet 5 mg PO DAILY@08 aspirin 325 mg tablet,delayed release (DR/EC) 325 mg PO QAM Discharge Orders: Discharge ED (Routine); Ordered 11/18/24 Ordered By: Paul Martinez Referrals: Lukas Low MD [Primary Care Provider] - Discharge Diet: Advance as tolerated Discharge Activity: Resume usual activity Patient Instructions: Bacterial Pneumonia (ED), RSV (Respiratory Syncytial Virus) Infection (ED) Print Language: Haitian Coding Level of Care Code ED Physical Education Specialist for Boris Glynn
[2024-11-18 14:11] LABS: Alanine Aminotransferase 31 U/L (0-41); Albumin Level 3.4 g/dL (3.5-5.2); Alkaline Phosphatase 131 U/L (40-130); Anion Gap 16.3 (5-19); Aspartate Amino Transferase 24 U/L (0-40); Blood Urea Nitrogen 29 mg/dL (8-23); Calcium 8.9 mg/dL (8.5-10.5); Carbon Dioxide 25 mmol/L (22-29); Chloride 109 mmol/L (98-107); Creatinine Clr Calc Pharmacy 79.1544; Globulin 3.5 g/dL (1.3-4.6); Glomerular Filtration Rate 111.5 mL/min (90-130); Glucose 456 mg/dL (65-115); NT Pro B Type Natriuretic Pept 746 pg/mL (0-125); Osmolality Calculated 328 mOsm/kg (285-295); Potassium 4.3 mmol/L (3.5-5.1); Sodium 146 mmol/L (136-145); Total Bilirubin 0.5 mg/dL (0.15-1.2); Total Protein 6.9 g/dL (6.6-8.7)
[2024-11-18 15:00] VITALS: BP 155/86; PULSE 82; RESP 20; O2SAT 93
[2024-11-18] MEDS: cefTRIAXone 1,000 mg SDV 1000 MG IVP (15:44)
[2024-11-18 15:45] VITALS: BP 158/94; PULSE 89; RESP 16; O2SAT 93
== END 2024-11-18 15:45 | disposition home or self-care (01) ==
PROVIDERS: Emergency Provider Emergency Medicine; PCP Internal Medicine
DX: B33.8 Other specified viral diseases (principal); J18.9 Pneumonia, unspecified organism; Z79.4 Long term (current) use of insulin; Z79.82 Long term (current) use of aspirin; E11.9 Type 2 diabetes mellitus without complications
CPT/HCPCS: 71045; 80053; 83880; 85025; 93005; 96374; 99285; J0696

== ENCOUNTER 2024-11-30 16:13 | Emergency (ER) | payer BC, MEDICARE, MEDICAID, SELFPAY ==
[2024-11-30] VITALS (11 sets, daily range): BP systolic 135–181; BP diastolic 97–119; PULSE 93–113; RESP 17–30; TEMP 36.4; O2SAT 92–96
--- NOTE | 2024-11-30 16:15 | ECG_ITS ---
[facility] Date: 2024-[facility]-30 Pat Name: Gerard Gray Department: Room: Gender: Male Event Host: : 1955 Requested By: Scott Portillo Order Number: [id number] MD: Brian Kerns M.D. Measurements Intervals [place] Rate: 96 P: 38 AL: 138 QRS: 2 QRSD: 90 T: 33 QT: 367 QTc: 466 Interpretive Statements SINUS RHYTHM WITH OCCASIONAL VENTRICULAR PREMATURE COMPLEXES POSSIBLE LEFT ATRIAL ENLARGEMENT [-0.1mV P-WAVE IN V1/V2] Compared to ECG 11/18/2024 13:28:09 No significant changes Electronically Signed On 12-01-2024 11:28:00 CHIEF UNDERWRITER by Brian Kerns M.D. [id number]
--- NOTE | 2024-11-30 16:36 | CTR_ITS ---
PROCEDURE INFORMATION: Exam: CT Head Without Contrast Exam date and time: 11/30/2024 4:48 PM Age: 69 years old Clinical indication: Altered mental status/memory loss; Confusion or disorientation; Additional info: AMS TECHNIQUE: Imaging protocol: Computed tomography of the head without contrast. Radiation optimization: All CT scans at this facility use at least one of these dose optimization techniques: automated exposure control; mA and/or kV adjustment per patient size (includes targeted exams where dose is matched to clinical indication); or iterative reconstruction. COMPARISON: CT head wo con* [id number] 01/15/2023 12:19 AM RADIATION DOSE METRICS: Total DLP (mGy-cm): 1025.4 FINDINGS: Brain: No hemorrhage. No edema. Advanced diffuse cerebral atrophy and sequela of chronic small vessel ischemic disease. No mass effect. Cerebral ventricles: No ventriculomegaly. Paranasal sinuses: Visualized sinuses are unremarkable. No fluid levels. Mastoid air cells: Visualized mastoid air cells are well aerated. Bones: Unremarkable. No acute fracture. Soft tissues: Unremarkable. CT/CT head wo con* [id number] IMPRESSION: No acute intracranial abnormality.
--- NOTE | 2024-11-30 16:36 | XRR_ITS ---
PROCEDURE INFORMATION: Exam: XR Chest Exam date and time: 11/30/2024 4:55 PM Age: 69 years old Clinical indication: Other: Altered mental status; Additional info: AMS TECHNIQUE: Imaging protocol: Radiologic exam of the chest. Views: 1 view. COMPARISON: CR XR chest 1V portable [id number] 11/18/2024 1:30 PM FINDINGS: Lungs: Medial right basilar opacity. Pleural spaces: Unremarkable. No pleural effusion. No pneumothorax. Heart/Mediastinum: Unremarkable. No cardiomegaly. Bones/joints: Severe scoliosis of the spine. XR/XR chest 1V portable [id number] IMPRESSION: Medial right basilar opacity, likely reflecting superimposed vascular markings or possibly pneumonia.
--- NOTE | 2024-11-30 16:38 | CTR_ITS ---
PROCEDURE INFORMATION: Exam: CT Maxillofacial Without Contrast; Mandible Exam date and time: 11/30/2024 4:48 PM Age: 69 years old Clinical indication: Jaw pain TECHNIQUE: Imaging protocol: Computed tomography maxillofacial without contrast. Exam focused on the mandible. Radiation optimization: All CT scans at this facility use at least one of these dose optimization techniques: automated exposure control; mA and/or kV adjustment per patient size (includes targeted exams where dose is matched to clinical indication); or iterative reconstruction. COMPARISON: CT head wo con* [id number] 11/30/2024 4:48 PM RADIATION DOSE METRICS: Total DLP (mGy-cm): 996.9 FINDINGS: Bones: Anterior dislocation of the mandibular condyles at the TMJ joint space bilaterally. No acute fracture. Soft tissues: Unremarkable. CT/CT facial bones wo con* [id number] IMPRESSION: Anterior dislocation of the mandibular condyles at the TMJ joint space bilaterally.
--- NOTE | 2024-11-30 16:40 | W.ED.AMS ---
HPI - Altered Mental Status General: Chief Complaint: Altered Mental Status Stated Complaint: ams Time Seen by Provider: 11/30/24 16:23 History of Present Illness: Chief complaint is unable to close his jaw. History is obtained from report given to the nurse by EMS and from the [id number]-[id number]. [id number] states that her sister is in the halfway as well but is mentally intact but had a broken back. The patient has been in the halfway for 5 years and has had prior stroke and used to be fed with a feeding tube but he no longer has a feeding tube and they have been advised that he cannot have further feeding tube. He is gradually been getting worse over time. He had pneumonia about 2 weeks ago and was in the hospital and had blistering lesions on his skin. He still has some blisters. No further cough or trouble breathing and no fever or fall or injury that they are aware of. No vomiting or diarrhea. No focal weakness that is new that they are aware of. Patient is at his baseline mental status. For the last 3 days however he has not been able to close his mouth. He normally takes liquids by mouth but he has not been able to close his mouth so has been very limited his ability to take p.o. Related Data Home Medications ?Medication ?Instructions ?Recorded ?Confirmed famotidine 20 mg tablet 20 mg PO DAILY@01/22/20 11/30/24 ramipril 10 mg capsule (Altace) 10 mg PO DAILY@01/22/20 11/30/24 acetaminophen 325 mg tablet 650 mg PO Q4H PRN Pain 07/25/22 11/30/24 (Tylenol) naloxone 2 mg/2 mL syringe kit 2 mg IM Q2M PRN overdose 01/07/23 11/30/24 amlodipine 5 mg tablet 5 mg PO DAILY@08 11/18/24 11/30/24 aspirin 325 mg tablet 325 mg PO QAM 11/18/24 11/30/24 atorvastatin 20 mg tablet 20 mg PO QPM 11/18/24 11/30/24 bisacodyl 10 mg rectal suppository 10 mg TX DAILY PRN Constipation 11/18/24 11/30/24 finasteride 5 mg tablet 5 mg PO QPM 11/18/24 11/30/24 insulin degludec 100 unit/mL (3 16 unit SUBCUT BID 11/18/24 11/30/24 mL) subcutaneous pen (Tresiba FlexTouch U-100 insulin) memantine 10 mg tablet 10 mg PO BID 11/18/24 11/30/24 nystatin 100,000 unit/gram topical 1 applic topical Q8H PRN redness 11/18/24 11/30/24 ointment polyethylene glycol 3350 17 17 g PO DAILY 11/18/24 11/30/24 gram/dose oral powder potassium chloride 20 mEq 40 meq PO DAILY 11/18/24 11/30/24 tablet,extended release sennosides 8.6 mg-docusate sodium 1 tab-cap PO BID PRN Constipation 11/18/24 11/30/24 50 mg tablet (Senna Plus) sertraline 50 mg tablet 100 mg PO QPM 11/18/24 11/30/24 albuterol sulfate 90 mcg/actuation 2 inh inhalation Q6H PRN Wheezing 11/30/24 11/30/24 breath activated powder inhaler,sensor clindamycin HCl 300 mg capsule 300 mg PO TID 11/30/24 11/30/24 dextrose-maltodextrin 10 gram/11.5 10 g PO PRN PRN low bs 11/30/24 11/30/24 gram oral powder packet glucagon HCl 1 mg solution for 1 mg SUBCUT Q24H PRN prophylaxis 11/30/24 11/30/24 injection magnesium hydroxide 400 mg/5 mL 30 ml PO DAILY PRN Constipation 11/30/24 11/30/24 oral suspension (Milk of Magnesia) sennosides 8.6 mg-docusate sodium 1 tab PO BID 11/30/24 11/30/24 50 mg tablet Previous Rx's ?Medication ?Instructions ?Recorded insulin aspart U-100 100 unit/mL See Rx Instructions .Route 01/11/23 (3 mL) subcutaneous pen (Novolog .COMPLEX #15 mL FlexPen U-100 Insulin aspart) Allergies Allergy/AdvReac Type Severity Reaction Status Date / Time No Known Allergies Allergy Verified 01/03/23 08:33 [facility] PFSH: Medical History shelter resident Dementia Mixed hyperlipidemia Proteinuria BPH loc w urin obs/LUTS Lower urinary tract symptoms (LUTS) Scoliosis 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 Mother No problems noted. Son , Both patient's sons are Family history of premature coronary artery disease Social History Smoking and tobacco/nicotine status: never used tobacco/nicotine Alcohol intake: never Substance/Drug Use: never Adopted: No Caregiver/support person: No Lives independently: No Marital status: Current occupational status: retired Current gender identity: Male Physical Exam Narrative: Patient appears asleep in the room snoring. He wakes to voice however. He will make eye contact and will lift his right arm voluntarily and will follow commands and lift his right leg weakly. He has no movement on his left side which is baseline according to his [id number]. His mouth is open and he has dry mucous membranes. No facial tenderness or swelling or erythema. Patient shows discomfort however when I attempted to close his jaw. He has no visible signs of trauma to his head trunk or extremities other than he has scabbed over blistering lesions on both his legs and his left arm and there is still a few residual blisters on his forearm. Negative Nikolsky sign. I logrolled him and there is no pressure sores or lesions on his back. He has significant deformity of his torso however which appears chronic. No vertebral tenderness over his neck or back. No other rash. Pupils are equal and reactive to light and normal conjunctiva. No visible swelling to his neck. He has some limited range of motion of his neck which appears to be chronic and limited movement of his back. Abdomen soft nontender. Lung sounds are clear. Heart regular rhythm. Patient nonverbal. Patient will follow a few simple commands. Procedures Jaw Reduction Time Out Performed: Yes Pre-Treatment Medications Used: opioids and benzodiazepines Technique used: other (downward and posterior traction) Reduction successful: Yes Patient Tolerated Procedure: well Complications: none Additional Comments: Patient jaw clearly reduced without significant difficulty. Patient's mouth now closes appropriately. He is able to drink fluid. Reduction confirmed on exam. No evidence to suggest dislocation. Consent obtained from family after discussing risk and benefit of reduction attempt. Course Vital Signs: Vital signs: Vital Signs Temperature 97.5 F L 11/30/24 16:14 Pulse Rate 112 H 11/30/24 20:39 Respiratory Rate 21 H 11/30/24 20:39 Blood Pressure 135/97 11/30/24 20:39 Pulse Oximetry 94 11/30/24 20:39 Oxygen Delivery Me thod Room Air 11/30/24 19:03 MDM - Altered Mental Status Medical Decision Making Patient presents from the halfway with inability to swallow and inability to close his mouth for the last 3 days. Patient is hypertensive. I suspect he is not had his medications as he has not been able to take p.o. Patient cannot give any history limiting evaluation. Patient has his mouth wide open and when I attempt to close his mouth he will reach up with his right arm and appears uncomfortable. He may have a jaw dislocation. He could have dental infection or other infection with subluxation. Muscular rigidity from serotonin syndrome or NMS among others considered but this would be unlikely. He is moving his right arm and right leg well and these do not appear stiff. He does have significant stiffness of his trunk and left side which I suspect is chronic. He has chronic appearing deformity of his back and torso. Dystonic reaction considered. No reported recent medication changes that unaware of or family is aware of. I will administer 0.5 mg of Ativan IV and Benadryl 25 mg IV to see if this relaxes his jaw. Will send for CT of his head and facial bones to evaluate for jaw dislocation or fracture. Occult trauma considered with fracture or dislocation. Stroke considered but less likely to be the cause of him unable to close his mouth. Patient likely has some dehydration and so we will check CBC CMP and administer 1 L normal saline IV fluid bolus. Will obtain chest x-ray as well. Patient no improvement with Ativan and Benadryl. Patient received 2 L normal saline IV fluid bolus total. His sodium was significant elevated consistent with recent decreased p.o. fluid intake. Patient chest x-ray showed possible infiltrate right lower lung field which does not appear significantly changed compared to prior chest x-ray to my interpretation and no reported cough or fever. Patient white counts 11.7 here. Pneumonia is less likely and he was just discharged from the hospital with pneumonia according to family. Patient CT of the head was negative for acute process however CT maxillofacial confirms dislocation of his jaw. This was easily reduced after administering 50 mcg of fentanyl IV. Patient tolerated well. Patient is now taking p.o. fluid. Patient is back to baseline per [id number]. Will discharge back to halfway for continued monitoring and oral hydration. Lab Data 11/30/24 15:20 11/30/24 15:20 Radiology Impressions Chest X-Ray 11/30/24 16:36 IMPRESSION: Medial right basilar opacity, likely reflecting superimposed vascular markings or possibly pneumonia. Head CT 11/30/24 16:36 IMPRESSION: No acute intracranial abnormality. Face CT 11/30/24 16:38 IMPRESSION: Anterior dislocation of the mandibular condyles at the TMJ joint space bilaterally. Laboratory Results WBC 11.70 10^3/uL (3.29-11.43) H 11/30/24 15:20 RBC 5.71 10^6/uL (3.85-5.65) H 11/30/24 15:20 Hgb 16.20 g/dL (11.27-16.99) 11/30/24 15:20 Hct 52.0 % (37-53) 11/30/24 15:20 MCV 91.1 fl (82-101) 11/30/24 15:20 MCH 28.4 pg (27-33) 11/30/24 15:20 MCHC 31.2 g/dL (30-55) 11/30/24 15:20 RDW 15.2 % (12.1-15.1) H 11/30/24 15:20 Plt Count 170 10^3/cmm (157-399) 11/30/24 15:20 MPV 13.2 fL (7.4-10.4) H 11/30/24 15:20 Neut % (Auto) 86.1 % 11/30/24 15:20 Lymph % (Auto) 7.4 % 11/30/24 15:20 [place] % (Auto) 5.4 % 11/30/24 15:20 Eos % (Auto) 0.2 % 11/30/24 15:20 Baso % (Auto) 0.3 % 11/30/24 15:20 Neut # (Auto) 10.08 10^3/uL (1.8-7.7) H 11/30/24 15:20 Lymph # (Auto) 0.9 10^3/uL (0.8-4.8) 11/30/24 15:20 [place] # (Auto) 0.6 10^3/uL (0.2-0.9) 11/30/24 15:20 Eos # (Auto) 0.0 10^3/uL (0.0-0.8) 11/30/24 15:20 Baso # (Auto) 0.0 10^3/uL (0.0-0.1) 11/30/24 15:20 Nucleated RBC % (auto) 0 % 11/30/24 15:20 Nucleated RBCs # 0.0 /100WBC 11/30/24 15:20 Sodium 155 mmol/L (136-145) H 11/30/24 15:20 Potassium 3.5 mmol/L (3.5-5.1) 11/30/24 15:20 Chloride 118 mmol/L (98-107) H 11/30/24 15:20 Carbon Dioxide 24 mmol/L (22-29) 11/30/24 15:20 Anion Gap 16.5 (5-19) 11/30/24 15:20 BUN 21 mg/dL (8-23) 11/30/24 15:20 Creatinine 0.7 mg/dL (0.7-1.2) 11/30/24 15:20 GFR Calculation 111.5 mL/min (90-130) 11/30/24 15:20 Glucose 145 mg/dL (65-115) H 11/30/24 15:20 Calculated Osmolality 326 mOsm/kg (285-295) H 11/30/24 15:20 Calcium 9.2 mg/dL (8.5-10.5) 11/30/24 15:20 Magnesium 2.2 mg/dL (1.7-2.3) 11/30/24 15:20 Total Bilirubin 0.7 mg/dL (0.15-1.2) 11/30/24 15:20 AST 20 U/L (0-40) 11/30/24 15:20 ALT 25 U/L (0-41) 11/30/24 15:20 Alkaline Phosphatase 146 U/L (40-130) H 11/30/24 15:20 Total Protein 6.7 g/dL (6.6-8.7) 11/30/24 15:20 Albumin 3.2 g/dL (3.5-5.2) L 11/30/24 15:20 Globulin 3.5 g/dL (1.3-4.6) 11/30/24 15:20 Urine Color Yellow (Yellow) 11/30/24 17:36 Urine Appearance Clear (CLEAR) 11/30/24 17:36 Urine pH 6.0 (5-7) 11/30/24 17:36 Ur Specific [place] 1.023 (1.005-1.030) 11/30/24 17:36 Urine Protein Trace (Negative) A 11/30/24 17:36 Urine Glucose (UA) Negative (Normal) 11/30/24 17:36 Urine Ketones 1+ (Negative) H 11/30/24 17:36 Urine Blood Negative (Negative) 11/30/24 17:36 Urine Nitrate Negative (Negative) 11/30/24 17:36 Urine Bilirubin Negative (Negative) 11/30/24 17:36 Urine Urobilinogen 1.0 mg/dL (Negative) 11/30/24 17:36 Ur Leukocyte Esterase Negative (Negative) 11/30/24 17:36 Urine RBC 0-2 /hpf (0-2) 11/30/24 17:36 Urine WBC 0-5 /hpf (0-5) 11/30/24 17:36 Ur Squamous Epith Cells 0-5 /hpf (0-5) 11/30/24 17:36 Amorphous Sediment Not Reportable 11/30/24 17:36 Urine Bacteria None seen /hpf (NONE) 11/30/24 17:36 Hyaline Casts 0.81 /lpf 11/30/24 17:36 All radiology interpretation(s) finalized by discharge Discharge Plan Discharge Patient Disposition: Home Clinical Impression: Acute hypernatremia, Acute dehydration Dislocation closed, jaw Qualifiers: Encounter type: initial encounter Qualified Code(s): S03.00XA - Dislocation of jaw, unspecified side, initial encounter Condition: Stable Prescriptions: No Action ramipril [Altace] 10 mg capsule 10 mg PO DAILY@08 famotidine 20 mg tablet 20 mg PO DAILY@08 acetaminophen [Tylenol] 325 mg Tablet 650 mg PO Q4H PRN (Reason: Pain) naloxone 2 mg/2 mL Syringe Kit 2 mg IM Q2M PRN (Reason: overdose) Rx Instructions: NTExceed 10 mg total dose/episode insulin aspart U-100 [Novolog FlexPen U-100 Insulin] 100 unit/mL (3 mL) insulin pen See Rx Instructions .ROUTE .COMPLEX Qty: 15 0RF Rx Instructions: Inject subcut, before meals, based on sliding scale provided 150-200=3 201-250=5 251-300=7 301-350=10 351-999=12 atorvastatin 20 mg tablet 20 mg PO QPM aspirin 325 mg Tablet 325 mg PO QAM nystatin 100,000 unit/gram ointment 1 applic TOPICAL Q8H PRN (Reason: redness) sennosides-docusate sodium [Senna Plus] 8.6-50 mg Tablet 1 tab-cap PO BID PRN (Reason: Constipation) bisacodyl 10 mg Suppository 10 mg TX DAILY PRN (Reason: Constipation) polyethylene glycol 3350 17 gram/dose Powder 17 g PO DAILY sertraline 50 mg tablet 100 mg PO QPM finasteride 5 mg tablet 5 mg PO QPM memantine 10 mg tablet 10 mg PO BID insulin degludec [Tresiba FlexTouch U-100] 100 unit/mL (3 mL) insulin pen 16 unit SUBCUT BID potassium chloride 20 mEq Tablet Extended Release 40 meq PO DAILY amlodipine 5 mg tablet 5 mg PO DAILY@08 clindamycin HCl 300 mg capsule 300 mg PO TID sennosides-docusate sodium 8.6-50 mg Tablet 1 tab PO BID magnesium hydroxide [Milk of Magnesia] 400 mg/5 mL Suspension 30 ml PO DAILY PRN (Reason: Constipation) Glucose Powder 10 gram/11.5 gram Powder In Packet 10 g PO PRN PRN (Reason: low bs) albuterol sulfate 90 mcg/actuation Aero Powdr Breath Act W/Sensor 2 inh INHALATION Q6H PRN (Reason: Wheezing) glucagon HCl 1 mg Recon Soln 1 mg SUBCUT Q24H PRN (Reason: prophylaxis) Rx Instructions: until target blood sugar attained Discharge Orders: Discharge ED (Routine); Ordered 11/30/24 Ordered By: Scott Portillo Referrals: Lukas Low MD [Primary Care Provider] - Patient Instructions: Altered Mental Status (ED), Opioid Safety, Pain Management Activity Restrictions/Additional Instructions: Make sure to continue to encourage fluid. Recheck his sodium level with his doctor. Come back if his mouth gets open and he cannot close it. Have patient keep his mouth closed is much as possible and avoid opening wide. Come back if increased weakness or change in mental status or any worsening of his condition. Discussed with family long-term plans Print Language: Serbian Coding Level of Care Code ED Furn[employer] Operator for Boris Glynn
[2024-11-30 16:46] LABS: Basophils % 0.3 %; Eosinophils % 0.2 %; Lymphocytes # 0.9 10^3/uL (0.8-4.8); Lymphocytes % 7.4 %; Mean Corpuscular HGB Conc 31.2 g/dL (30-55); Mean Corpuscular Hemoglobin 28.4 pg (27-33); Mean Corpuscular Volume 91.1 fl (82-101); Mean Platelet Volume 13.2 fL (7.4-10.4); Monocytes # 0.6 10^3/uL (0.2-0.9); Monocytes % 5.4 %; Neutrophils # 10.08 10^3/uL (1.8-7.7); Neutrophils % 86.1 %; Nucleated Red Blood Cells % 0 %; Platelet Count 170 10^3/cmm (157-399); Red Blood Count 5.71 10^6/uL (3.85-5.65); Red Cell Distribution Width 15.2 % (12.1-15.1)
[2024-11-30 16:56] LABS: Alanine Aminotransferase 25 U/L (0-41); Albumin Level 3.2 g/dL (3.5-5.2); Alkaline Phosphatase 146 U/L (40-130); Anion Gap 16.5 (5-19); Aspartate Amino Transferase 20 U/L (0-40); Blood Urea Nitrogen 21 mg/dL (8-23); Calcium 9.2 mg/dL (8.5-10.5); Carbon Dioxide 24 mmol/L (22-29); Chloride 118 mmol/L (98-107); Globulin 3.5 g/dL (1.3-4.6); Glomerular Filtration Rate 111.5 mL/min (90-130); Glucose 145 mg/dL (65-115); Magnesium 2.2 mg/dL (1.7-2.3); Osmolality Calculated 326 mOsm/kg (285-295); Potassium 3.5 mmol/L (3.5-5.1); Sodium 155 mmol/L (136-145); Total Bilirubin 0.7 mg/dL (0.15-1.2); Total Protein 6.7 g/dL (6.6-8.7)
[2024-11-30] MEDS: LORazepam 2 mg/mL INJ 1 mL 0.5 MG IVP (17:07)
[2024-11-30] MEDS: diphenhydrAMINE 50 mg/mL SDV 1mL 25 MG IVP (17:07)
[2024-11-30] MEDS: sodium chloride 0.9% 1,000 ML 999 ML IV ×2 (17:15→17:55)
[2024-11-30 17:43] LABS: Bilirubin Urine Negative (Negative); Blood Urine Negative (Negative); Glucose Urine UA Negative (Normal); Ketones Urine 1+ (Negative); Leukocyte Esterase Urine Negative (Negative); Nitrate Urine Negative (Negative); Protein Urine Trace (Negative); Specific Gravity, Urine 1.023 (1.005-1.030); Urine Appearance Clear (CLEAR); Urine Color Yellow (Yellow)
[2024-11-30 17:45] LABS: Bacteria Urine None Seen /hpf; Hyaline Casts Urine 0.81 /lpf; RBC Urine 0-2 /hpf (0-2); Squamous Epithelial Cell Urine 0-5 /hpf (0-5); WBC Urine 0-5 /hpf (0-5)
[2024-11-30] MEDS: fentaNYL 50 mcg/mL INJ 2mL IVP (18:31)
== END 2024-11-30 20:41 | disposition home or self-care (01) ==
PROVIDERS: Emergency Provider Emergency Medicine; PCP Internal Medicine
DX: S03.00XA Dislocation of jaw, unspecified side, initial encounter (principal); E87.0 Hyperosmolality and hypernatremia; E86.0 Dehydration; Z79.4 Long term (current) use of insulin; E11.9 Type 2 diabetes mellitus without complications; E78.2 Mixed hyperlipidemia; X58.XXXA Exposure to other specified factors, initial encounter
CPT/HCPCS: 21480; 70450; 70486; 71045; 80053; 81001; 83735; 85025; 93005; 96361; 96374; 96375; 99285; J1200; J2060; J3010; J7030

== ENCOUNTER 2024-12-03 08:08 | Emergency (ER) | payer BC, MEDICARE, MEDICAID, SELFPAY ==
[2024-12-03 08:10] VITALS: BP 187/89; PULSE 72; RESP 18; TEMP 36.8; O2SAT 96
--- NOTE | 2024-12-03 08:19 | ED_ITS ---
HPI - General Adult General: Chief complaint: Dental/Oral Stated complaint: Dislocated Jaw Time Seen by Provider: 12/03/24 08:14 History of Present Illness: 69-year-old male who [place] [facility] [place] with complaints of jaw dislocation he is unable to talk or move his jaw. He has some cognitive disability. He was here recently for the same. No reported trauma. Related Data Home Medications ?Medication ?Instructions ?Recorded ?Confirmed famotidine 20 mg tablet 20 mg PO DAILY@01/22/20 0 12/03/24 ramipril 10 mg capsule (Altace) 10 mg PO DAILY@07/0412/03/24 acetaminophen 325 mg tablet 650 mg PO Q4H PRN Pain 09/0512/03/24 (Tylenol) naloxone 2 mg/2 mL syringe kit 2 mg IM Q2M PRN overdos e 01/07/23 12/03/24 amlodipine 5 mg tablet 5 mg PO DAILY@08 11/18/24 aspirin 325 mg tablet 325 mg PO QAM 11/18/2412/03 atorvastatin 20 mg tablet 20 mg PO QPM 11/18/24 bisacodyl 10 mg rectal suppository 10 mg DE DAILY PRN Constipation 11/18/24 12/03/24 finasteride 5 mg tablet 5 mg PO QPM 11/18/24 5 insulin degludec 100 unit/mL (3 16 unit SUBCUT BID 02/0612/03/24 mL) subcutaneous pen (Tresiba FlexTouch U-100 insulin) memantine 10 mg tablet 10 mg PO BID 11/18/24 nystatin 100,000 unit/gram topical 1 applic topical Q8 H PRN redness 11/18/24 12/03/24 ointment polyethylene glycol 3350 17 17 g PO DAILY 11/18/24 gram/dose oral powder potassium chloride 20 mEq 40 meq PO DAILY 11/18/24 tablet,extended release sennosides 8.6 mg-docusate sodium 1 tab-cap PO BID PRN Constipation 11/18/24 12/03/24 50 mg tablet (Senna Plus) sertraline 50 mg tablet 100 mg PO BEDTIME 11/18/24 0 12/03/24 albuterol sulfate 90 mcg/actuation 2 inh inhalation Q6 H PRN Wheezing 11/30/24 12/03/24 breath activated powder inhaler,sensor clindamycin HCl 300 mg capsule 300 mg PO TID 11/30/24 12/03/24 dextrose-maltodextrin 10 gram/11.5 10 g PO PRN PRN low bs 11/30/24 12/03/24 gram oral powder packet glucagon HCl 1 mg solution for 1 mg SUBCUT Q24H PRN pr ophylaxis 11/30/24 12/03/24 injection magnesium hydroxide 400 mg/5 mL 30 ml PO DAILY PRN Con stipation 11/30/24 12/03/24 oral suspension (Milk of Magnesia) sennosides 8.6 mg-docusate sodium 1 tab PO BID 5 12/03/24 50 mg tablet Previous Rx's ?Medication ?Instructions ?Recorded insulin aspart U-100 100 unit/mL See Rx Instructions . 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 Mother No problems noted. Son , Both patient's sons are Family history of premature coronary artery disease Social History Smoking and tobacco/nicotine status: never used tobacco/nicotine Alcohol intake: never Substance/Drug Use: never Adopted: No Caregiver/support person: No Lives independently: No Marital status: Current occupational status: retired Current gender identity: Male Physical Exam Const: COMMON NORMALS: no acute distress GENERAL APPEARANCE: cooperative and comfortable HENMT: COMMON NORMALS: normocephalic and atraumatic HEAD & SCALP: normocephalic and atraumatic OTHER: General appears dislocated Resp: COMMON NORMALS: normal respiratory effort, No retractions, No use of accessory muscles and clear to auscultation bilaterally AUSCULTATION: clear to auscultation bilaterally Cardio: COMMON NORMALS: regular rate, regular rhythm and No murmurs present (Cardio) RATE: regular rate RHYTHM: regular rhythm GI: COMMON NORMALS: Soft to palpation and No hepatosplenomegaly present AUSCULTATION: Yes normoactive bowel sounds PALPATION: Yes Soft to palpation, No Tenderness to palpation present (GI), No Guarding due to palpation present (GI) and Yes No hepatosplenomegaly present Extremity: COMMON NORMALS: normal to inspection, capillary refill normal, no clubbing, cyanosis or edema, no calf tenderness and no pedal edema Skin: COMMON NORMALS: no rashes or lesions noted GENERAL SKIN EXAM: no rashes or lesions noted Procedures Jaw Reduction Time Out Performed: Yes Pre-Treatment Medications Used: other (Etomidate) Reduction successful: Yes Patient Tolerated Procedure: well Complications: none Additional Comments: Anterior jaw dislocation. Reduced with downward posterior pressure. Reduced easily Procedural Sedation Indication: fracture/dislocation reduction ASA Class: II Preparation: grape crusher applied, pulse oximeter, supplemental O2 applied, suction/airway equipment at bedside and IV secured IV Etomidate dose (mg): 10 Patient Tolerated Procedure: well Complications: none Interventions: oxygen applied Course Vital Signs: Vital signs: Vital Signs Temperature 98.2 F 12/03/24 08:10 Pulse Rate 81 12/03/24 12:21 Respiratory Rate 18 12/03/24 11:29 Blood Pressure 175/84 12/03/24 12:21 Pulse Oximetry 96 12/03/24 12:21 Oxygen Delivery Me thod Room Air 12/03/24 11:29 [facility] - General Adult Medical Decision Making CT confirms anterior dislocation of the jaw. Patient sedated with etomidate easily reduced jaw dislocation. He tolerated the procedural sedation well discharged back to the half-way he should follow-up with oral maxillofacial surgery for these recurrent jaw dislocations Medical Records I reviewed the patient's medical records. Lab Data Radiology Impressions Face CT 12/03/24 08:32 IMPRESSION: 1. Bilateral anterior dislocated mandibular condyles with respect to the glenoid fossa. 2. No acute facial bone fractures. All radiology interpretation(s) finalized by discharge Discharge Plan Discharge Patient Disposition: Home Clinical Impression: Dislocation closed, jaw Qualifiers: Encounter type: initial encounter Qualified Code(s): S03.00XA - Dislocation of jaw, unspecified side, initial encounter Condition: Stable Prescriptions: No Action ramipril [Altace] 10 mg capsule 10 mg PO DAILY@08 famotidine 20 mg tablet 20 mg PO DAILY@08 acetaminophen [Tylenol] 325 mg Tablet 650 mg PO Q4H PRN (Reason: Pain) naloxone 2 mg/2 mL Syringe Kit 2 mg IM Q2M PRN (Reason: overdose) Rx Instructions: NTExceed 10 mg total dose/episode insulin aspart U-100 [Novolog FlexPen U-100 Insulin] 100 unit/mL (3 mL) insulin pen See Rx Instructions .ROUTE .COMPLEX Qty: 15 0RF Rx Instructions: Inject subcut, before meals, based on sliding scale provided 150-200=3 201-250=5 251-300=7 301-350=10 351-999=12 atorvastatin 20 mg tablet 20 mg PO QPM aspirin 325 mg Tablet 325 mg PO QAM nystatin 100,000 unit/gram ointment 1 applic TOPICAL Q8H PRN (Reason: redness) sennosides-docusate sodium [Senna Plus] 8.6-50 mg Tablet 1 tab-cap PO BID PRN (Reason: Constipation) bisacodyl 10 mg Suppository 10 mg DE DAILY PRN (Reason: Constipation) polyethylene glycol 3350 17 gram/dose Powder 17 g PO DAILY sertraline 50 mg tablet 100 mg PO BEDTIME finasteride 5 mg tablet 5 mg PO QPM memantine 10 mg tablet 10 mg PO BID insulin degludec [Tresiba FlexTouch U-100] 100 unit/mL (3 mL) insulin pen 16 unit SUBCUT BID potassium chloride 20 mEq Tablet Extended Release 40 meq PO DAILY amlodipine 5 mg tablet 5 mg PO DAILY@08 clindamycin HCl 300 mg capsule 300 mg PO TID sennosides-docusate sodium 8.6-50 mg Tablet 1 tab PO BID magnesium hydroxide [Milk of Magnesia] 400 mg/5 mL Suspension 30 ml PO DAILY PRN (Reason: Constipation) Glucose Powder 10 gram/11.5 gram Powder In Packet 10 g PO PRN PRN (Reason: low bs) albuterol sulfate 90 mcg/actuation Aero Powdr Breath Act W/Sensor 2 inh INHALATION Q6H PRN (Reason: Wheezing) glucagon HCl 1 mg Recon Soln 1 mg SUBCUT Q24H PRN (Reason: prophylaxis) Rx Instructions: until target blood sugar attained Discharge Orders: Discharge ED (Routine); Ordered 12/03/24 Ordered By: Charlie Christian Referrals: Lukas Low MD [Primary Care Provider] - Discharge Diet: Soft Mechanical Discharge Activity: Resume usual activity Patient Instructions: Opioid Safety, Pain Management Activity Restrictions/Additional Instructions: Thank you for choosing [facility] for your healthcare needs today. It is very important that you follow up as instructed or that you return to the Emergency Department should you have concerns or if your condition changes or worsens in any way. You are seen for dislocated jaw which was reduced under sedation. Recommend you follow-up with oral maxillary facial surgery due to the recurrent jaw dislocations. Print Language: Slovak Coding Level of Care Code ED Peanut Separator for Boris Glynn
[2024-12-03 08:28] VITALS: O2SAT 97
--- NOTE | 2024-12-03 08:32 | CT_ITS ---
WS: [id number] CT FACIAL BONES HISTORY: Dislocation jaw TECHNIQUE: Images obtained from the supraorbital location through the mandible. Soft tissue and bone windows are reviewed. Coronal and sagittal reformats have also been submitted. DLP: 583.[address] scans at [facility] use at least one of these dose optimization techniques: automated exposure control; mA and/or kV adjustment per patient size (includes targeted exams where dose is matched to clinical indication); or iterative reconstruction. COMPARISON: 11/30/2024 Reidentified are bilateral anterior dislocation of the mandibular condyles with respect to the glenoid fossa. The mandibular condyles are anteriorly positioned and contact the anteriormost articular eminence. Similar findings were seen on 11/30/2024. Patient's mouth is held in open position. C5-6 degenerative disc disease. No acute facial bone fractures. No air-fluid levels within the paranasal sinuses. Orbits and globes as visualized are negative. Moderate bilateral cerebral and cerebellar atrophy. Cerumen in the LEFT external auditory canal. CT/CT facial bones wo con* [id number] IMPRESSION: 1. Bilateral anterior dislocated mandibular condyles with respect to the gleno id fossa. 2. No acute facial bone fractures.
[2024-12-03] MEDS: etomidate 2 mg/mL INJ SDV 10 mL 10 MG IVP (10:00)
--- NOTE | 2024-12-03 10:04 | PC.NURSE ---
10 mg Etomidate was given at 1000am 1001 dr. hoover reduce pt jaw. 1005 HR 77, 99% Room air, 198/92 BP
[2024-12-03 10:19] VITALS: BP 173/95; PULSE 72; O2SAT 98
[2024-12-03 10:46] VITALS: BP 173/95; O2SAT 97
[2024-12-03 11:29] VITALS: PULSE 69; RESP 18; O2SAT 96
[2024-12-03 12:21] VITALS: BP 175/84; PULSE 81; O2SAT 96
== END 2024-12-03 12:21 | disposition home or self-care (01) ==
PROVIDERS: Emergency Provider Family Medicine; PCP Internal Medicine
DX: S03.00XA Dislocation of jaw, unspecified side, initial encounter (principal); Z79.4 Long term (current) use of insulin; Z79.82 Long term (current) use of aspirin; E11.8 Type 2 diabetes mellitus with unspecified complications; E78.2 Mixed hyperlipidemia; X58.XXXA Exposure to other specified factors, initial encounter
CPT/HCPCS: 21480; 70486; 94799; 99152; 99285; J3490

== ENCOUNTER → 2025-01-12 12:47 | Outpatient (BNVA) | payer MEDICARE, BC, MEDICAID, SELFPAY | PROVIDERS: PCP Internal Medicine; Visit Provider Nurse Practitioner Family | DX: L21.8 Other seborrheic dermatitis (principal); L85.3 Xerosis cutis; L30.9 Dermatitis, unspecified | CPT/HCPCS: 99204 ==

== ENCOUNTER → 2025-02-06 08:03 | Outpatient (BNVA) | payer MEDICARE, BC, MEDICAID, SELFPAY | PROVIDERS: PCP Internal Medicine; Visit Provider Nurse Practitioner Family | DX: L30.9 Dermatitis, unspecified (principal); L21.8 Other seborrheic dermatitis; L85.3 Xerosis cutis | CPT/HCPCS: 99214 ==

== ENCOUNTER 2025-05-27 08:36 | Inpatient (IN) | payer MEDICARE, BC, MEDICAID, SELFPAY ==
[2025-05-27] VITALS (49 sets, daily range): BP systolic 91–148; BP diastolic 52–79; PULSE 92–118; RESP 14–29; TEMP 36.7–37.7; O2SAT 93–100; BMI 16.1
--- NOTE | 2025-05-27 08:41 | W.ED.GENADLT ---
HPI - General Adult General: Chief complaint: General Medical Stated complaint: BS issues Time Seen by Provider: 05/27/25 08:37 Source: EMS Mode of arrival: EMS Limitations: altered mental status History of Present Illness: 69-year-old male who has a history of CVA with a lives in a snf is bedbound and nonverbal. Patient does have a history of diabetes patient's blood sugar was running high and sent here for that. He has had no recent temperatures. Related Data Home Medications ?Medication ?Instructions ?Recorded ?Confirmed famotidine 20 mg tablet 20 mg PO DAILY@01/22/20 12/03/24 ramipril 10 mg capsule (Altace) 10 mg PO DAILY@01/22/20 12/03/24 acetaminophen 325 mg tablet 650 mg PO Q4H PRN Pain 07/25/22 12/03/24 (Tylenol) naloxone 2 mg/2 mL syringe kit 2 mg IM Q2M PRN overdose 01/07/23 12/03/24 amlodipine 5 mg tablet 5 mg PO DAILY@11/18/24 12/03/24 aspirin 325 mg tablet 325 mg PO QAM 11/18/24 12/03/24 atorvastatin 20 mg tablet 20 mg PO QPM 11/18/24 12/03/24 bisacodyl 10 mg rectal suppository 10 mg FL DAILY PRN Constipation 11/18/24 12/03/24 finasteride 5 mg tablet 5 mg PO QPM 11/18/24 12/03/24 insulin degludec 100 unit/mL (3 16 unit SUBCUT BID 11/18/24 12/03/24 mL) subcutaneous pen (Tresiba FlexTouch U-100 insulin) memantine 10 mg tablet 10 mg PO BID 11/18/24 12/03/24 nystatin 100,000 unit/gram topical 1 applic topical Q8H PRN redness 11/18/24 12/03/24 ointment polyethylene glycol 3350 17 17 g PO DAILY 11/18/24 12/03/24 gram/dose oral powder potassium chloride 20 mEq 40 meq PO DAILY 11/18/24 12/03/24 tablet,extended release sennosides 8.6 mg-docusate sodium 1 tab-cap PO BID PRN Constipation 11/18/24 12/03/24 50 mg tablet (Senna Plus) sertraline 50 mg tablet 100 mg PO BEDTIME 11/18/24 12/03/24 albuterol sulfate 90 mcg/actuation 2 inh inhalation Q6H PRN Wheezing 11/30/24 12/03/24 breath activated powder inhaler,sensor clindamycin HCl 300 mg capsule 300 mg PO TID 11/30/24 12/03/24 dextrose-maltodextrin 10 gram/11.5 10 g PO PRN PRN low bs 11/30/24 12/03/24 gram oral powder packet glucagon HCl 1 mg solution for 1 mg SUBCUT Q24H PRN prophylaxis 11/30/24 12/03/24 injection magnesium hydroxide 400 mg/5 mL 30 ml PO DAILY PRN Constipation 11/30/24 12/03/24 oral suspension (Milk of Magnesia) sennosides 8.6 mg-docusate sodium 1 tab PO BID 11/30/24 12/03/24 50 mg tablet Previous Rx's ?Medication ?Instructions ?Recorded insulin aspart U-100 100 unit/mL See Rx Instructions .Route 01/11/23 (3 mL) subcutaneous pen (Novolog .COMPLEX #15 mL FlexPen U-100 Insulin aspart) Allergies Allergy/AdvReac Type Severity Reaction Status Date / Time No Known Allergies Allergy Verified 01/03/23 08:33 Review of Systems General: Reports: ROS unobtainable due to mental status [facility] ED PFSH: Medical History group home resident Dementia Mixed hyperlipidemia Proteinuria BPH loc w urin obs/LUTS Lower urinary tract symptoms (LUTS) Scoliosis 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 Mother No problems noted. Son , Both patient's sons are Family history of premature coronary artery disease Social History Smoking and tobacco/nicotine status: never used tobacco/nicotine Alcohol intake: never Substance/Drug Use: never Adopted: No Caregiver/support person: No Lives independently: No Marital status: Current occupational status: retired Current gender identity: Male Physical Exam Const: COMMON NORMALS: negative for patient oriented x3 HENMT: COMMON NORMALS: normocephalic and atraumatic HEAD & SCALP: normocephalic and atraumatic Eye: COMMON NORMALS: Equal, round and reactive pupils present and EOMs intact bilaterally PUPIL: Yes Equal, round and reactive pupils present Neck/C-Spine: COMMON NORMALS: full ROM and supple Chest: COMMONS NORMALS: normal inspection of the chest Resp: COMMON NORMALS: normal respiratory effort, No retractions, No use of accessory muscles and clear to auscultation bilaterally AUSCULTATION: clear to auscultation bilaterally Cardio: COMMON NORMALS: regular rate, regular rhythm and No murmurs present (Cardio) RATE: regular rate RHYTHM: regular rhythm GI: COMMON NORMALS: Normal to inspection, nondistended, normoactive bowel sounds present, Soft to palpation, non-tender and no masses PALPATION: Yes Soft to palpation Extremity: COMMON NORMALS: normal to inspection Neuro: COMMON NORMALS: negative for patient oriented x3 Psych: COMMON NORMALS: negative for mental status grossly normal Skin: COMMON NORMALS: no rashes or lesions noted and no wounds GENERAL SKIN EXAM: no rashes or lesions noted Course Vital Signs: Vital signs: Vital Signs Temperature 98.1 F 05/27/25 08:42 Pulse Rate 118 H 05/27/25 08:42 Respiratory Rate 18 05/27/25 08:42 Blood Pressure 113/66 05/27/25 08:42 Pulse Oximetry 97 05/27/25 08:42 Oxygen Delivery Me thod Room Air 05/27/25 08:42 MDM - General Adult Medical Decision Making Patient presents with hyperglycemia is found to be in DKA with increased anion gap. Patient also has possible pneumonia did start antibiotics give him IV fluids along with insulin drip I have spoke to the hospitalist and will admit to the ICU at this time. I also spoke to family about possible hospice and they are considering it Medical Records I reviewed the patient's medical records. Lab Data I reviewed the patient's lab results. 05/27/25 07:50 05/27/25 07:50 Radiology Impressions Chest X-Ray 05/27/25 08:56 Impression: 1. Patchy opacities over surface of both diaphragms which could represent atelectasis and/or minimal pneumonia. 2. Atherosclerosis. Laboratory Results WBC 22.60 10^3/uL (3.29-11.43) H 05/27/25 07:50 RBC 5.08 10^6/uL (3.85-5.65) 05/27/25 07:50 Hgb 15.10 g/dL (11.27-16.99) 05/27/25 07:50 Hct 47.4 % (37-53) 05/27/25 07:50 MCV 93.3 fl (82-101) 05/27/25 07:50 MCH 29.7 pg (27-33) 05/27/25 07:50 MCHC 31.9 g/dL (30-55) 05/27/25 07:50 RDW 15.3 % (12.1-15.1) H 05/27/25 07:50 Plt Count 256 10^3/cmm (157-399) 05/27/25 07:50 MPV 12.8 fL (7.4-10.4) H 05/27/25 07:50 Neut % (Auto) 91.5 % 05/27/25 07:50 Lymph % (Auto) 1.8 % 05/27/25 07:50 [place] % (Auto) 5.3 % 05/27/25 07:50 Eos % (Auto) 0.0 % 05/27/25 07:50 Baso % (Auto) 0.3 % 05/27/25 07:50 Neut # (Auto) 20.67 10^3/uL (1.8-7.7) H 05/27/25 07:50 Lymph # (Auto) 0.4 10^3/uL (0.8-4.8) L 05/27/25 07:50 [place] # (Auto) 1.2 10^3/uL (0.2-0.9) H 05/27/25 07:50 Eos # (Auto) 0.0 10^3/uL (0.0-0.8) 05/27/25 07:50 Baso # (Auto) 0.1 10^3/uL (0.0-0.1) 05/27/25 07:50 Nucleated RBC % (auto) 0 % 05/27/25 07:50 Nucleated RBCs # 0.0 /100WBC 05/27/25 07:50 Specimen Type Arterial 05/27/25 09:47 Sample Site Brachial, left 05/27/25 09:47 ABG pH 7.11 (7.35-7.45) L* 05/27/25 09:47 ABG pCO2 17.5 mmHg (35-45) L* 05/27/25 09:47 ABG pO2 99.7 mmHg (80.0-100.0) 05/27/25 09:47 ABG PO2/FiO2 Ratio 474 05/27/25 09:47 ABG HCO3 5.6 mmol/L (22-26) L 05/27/25 09:47 ABG Base Excess -21.8 mmol/L (-2.0-2.0) L 05/27/25 09:47 Myke Test Pos 05/27/25 09:47 Hematocrit 44.2 % (42-52) 05/27/25 09:47 O2 Delivery Device Room air 05/27/25 09:47 FiO2 21.0 % 05/27/25 09:47 Sociology Adjunct Instructor ID [place] 05/27/25 09:47 Sodium 138 mmol/L (136-145) 05/27/25 07:50 Potassium 5.3 mmol/L (3.5-5.1) H 05/27/25 07:50 Chloride 93 mmol/L (98-107) L 05/27/25 07:50 Carbon Dioxide 8 mmol/L (22-29) L* 05/27/25 07:50 Anion Gap 42.3 (5-19) H 05/27/25 07:50 BUN 39 mg/dL (8-23) H 05/27/25 07:50 Creatinine 1.9 mg/dL (0.7-1.2) H 05/27/25 07:50 GFR Calculation 35.2 mL/min (90-130) L 05/27/25 07:50 Glucose 796 mg/dL (65-115) H* 05/27/25 07:50 POC Glucose > 600 mg/dL (70-110) H* 05/27/25 09:41 Calculated Osmolality 334 mOsm/kg (285-295) H 05/27/25 07:50 Calcium 9.5 mg/dL (8.5-10.5) 05/27/25 07:50 Total Bilirubin 0.6 mg/dL (0.15-1.2) 05/27/25 07:50 AST 11 U/L (0-40) 05/27/25 07:50 ALT 12 U/L (0-41) 05/27/25 07:50 Alkaline Phosphatase 156 U/L (40-130) H 05/27/25 07:50 Total Protein 6.9 g/dL (6.6-8.7) 05/27/25 07:50 Albumin 4.0 g/dL (3.5-5.2) 05/27/25 07:50 Globulin 2.9 g/dL (1.3-4.6) 05/27/25 07:50 Amorphous Sediment Not Reportable 05/27/25 09:32 All radiology interpretation(s) finalized by discharge Critical Care Time Critical Care Time: Critical Care Time: Yes Total Critical Care Time: 45 Attestation: The high probability of a clinically significant, sudden or life threatening deterioration of the patient's metabolic system(s) required my full and direct attention, intervention and personal management. The critical care time is as shown. This time is in addition to time spent performing any reported procedures but includes the following: [x] Data and vital sign review and interpretation [x] Patient assessment, examination and intervention [x] Documentation [x] Medication orders and management Discharge Plan Discharge Patient Disposition: Admitted As Inpatient Clinical Impression: DKA (diabetic ketoacidosis), Pneumonia Condition: Stable Coding Level of Care Code ED Lamination Builder for Boris Glynn
[2025-05-27 08:50] LABS: Hematocrit 47.4 % (37-53); Hemoglobin 15.10 g/dL (11.27-16.99); Mean Corpuscular HGB Conc 31.9 g/dL (30-55); Mean Corpuscular Hemoglobin 29.7 pg (27-33); Mean Corpuscular Volume 93.3 fl (82-101); Nucleated Red Blood Cells % 0 %; Platelet Count 256 10^3/cmm (157-399); Red Blood Count 5.08 10^6/uL (3.85-5.65); White Blood Count 22.60 10^3/uL (3.29-11.43)
--- NOTE | 2025-05-27 08:56 | XR_ITS ---
WS: [id number] Portable AP supine chest, 05/27/2025 Clinical Data: weakness Comparison: Portable chest, 11/30/2024 Findings: The right diaphragm is elevated. There is minimal patchy opacity over both diaphragms. No nodules, masses or effusions are seen. The heart is normal. The pulmonary vascularity is not increased. No r pneumothorax is seen. The aortic arch and descending thoracic aorta show tortuosity. There is dextroscoliosis of the thoracic spine with the patient tilting to the right. XR/XR chest 1V portable [id number] Impression: 1. Patchy opacities over surface of both diaphragms which could represent atele ctasis and/or minimal pneumonia. 2. Atherosclerosis.
[2025-05-27 09:08] LABS: Alanine Aminotransferase 12 U/L (0-41); Albumin Level 4.0 g/dL (3.5-5.2); Alkaline Phosphatase 156 U/L (40-130); Anion Gap 42.3 (5-19); Aspartate Amino Transferase 11 U/L (0-40); Blood Urea Nitrogen 39 mg/dL (8-23); Calcium 9.5 mg/dL (8.5-10.5); Chloride 93 mmol/L (98-107); Creatinine Clr Calc Pharmacy 23.2100; Globulin 2.9 g/dL (1.3-4.6); Potassium 5.3 mmol/L (3.5-5.1); Sodium 138 mmol/L (136-145); Total Protein 6.9 g/dL (6.6-8.7)
[2025-05-27] MEDS: insulin regular-human 100 units/1 mL 15 UNIT IVP (09:08)
[2025-05-27 09:16] LABS: Osmolality Calculated 334 mOsm/kg (285-295)
[2025-05-27 09:24] LABS: Carbon Dioxide 8 mmol/L (22-29); Glucose 796 mg/dL (65-115)
--- NOTE | 2025-05-27 09:24 | PC.SOCIAL ---
[employer] CM called to come and discuss hospice w/ patient and family. CM called [facility] and spoke to Deysi who reports that they prefer [facility]. She also inquires if CM has discussed w/ patients as she does not want patient on hospice. CM will f/up w/ patients family. CM to room and spoke to patients [id number] Akua OSKAR discussed hospice. She reports that the ER doctor has recommended hospice but she would want to see what her sister (patients ) says before agreeing to hospice. OSKAR updated that [facility] is the company that [facility] prefers. She is agreeable for CM to send information to [facility] and then for them to consult w/ patient and his once he is back to the facility. Faxed demographics and notes to [facility] @ this time. CM called and spoke to Grayson @ [facility] to request consult once patient returns to [facility].
[2025-05-27 09:58] LABS: ABG PCO2 17.5 mmHg (35-45); ABG PH Result 7.11 (7.35-7.45); Arterial Blood Gas Hematocrit 44.2 % (42-52); Blood Gas Allen Test Pos; Blood Gas Operator Identificat WALCI; Blood Gas Sample Site Brachial, left; Blood Gas Sample Type Arterial; HCO3 ABG 5.6 mmol/L (22-26); PO2 ABG 99.7 mmHg (80.0-100.0); PO2 FiO2 Ratio Arterial Blood 474
[2025-05-27 10:04] LABS: Glucose Urine UA 3+ (Normal); Nitrate Urine Negative (Negative); Specific Gravity, Urine 1.023 (1.005-1.030)
[2025-05-27] MEDS: INSULIN REGULAR IN 0.9 % NACL 100 UNIT/100 ML BAG IV (10:06)
[2025-05-27 10:07] LABS: Ketone (Acetest) Serum Positive (Negative)
[2025-05-27 10:09] LABS: Add Urine Microscopic? YES
[2025-05-27 10:17] LABS: Lactic Sepsis W/Reflex 4.1 mmol/L (0.5-2.2)
[2025-05-27 10:38] LABS: UA Slide Review UA Slide Review Perf
--- NOTE | 2025-05-27 10:38 | PC.NURSE ---
ABX DELAYED DUE NEED FOR BLOOD CULTURES.
--- NOTE | 2025-05-27 10:40 | PC.PHAR ---
Pt is from [facility]
--- NOTE | 2025-05-27 10:40 | PM.HP ---
Providers/Chief Complaint Primary Care Provider: Emely Low MD Chief Complaint: BS issues History of Present Illness Gerard Gray is a 69 year old male gentleman with a history of advanced dementia, prior major stroke, type 2 diabetes mellitus, hypertensive heart disease (HOD), and benign prostatic hyperplasia (BPH) who was brought from his nursing-home bedbound and non-verbal. Emergency department evaluation revealed diabetic ketoacidosis (DKA) with glucose 796 mg/dL, metabolic acidosis (pH 7.11, bicarbonate 8 mEq/L, anion gap 42.3), positive serum and urine ketones, and sinus tachycardia. Laboratory studies showed leukocytosis (WBC 22.6 K/?L), acute kidney injury (blood urea nitrogen 39 mg/dL, creatinine 1.9 mg/dL), hyperkalemia (K 5.3 mEq/L), and mild alkaline phosphatase elevation (156 U/L). Chest radiograph demonstrated patchy opacities at the lung bases concerning for atelectasis versus early pneumonia. He is dehydrated and receiving intravenous fluids and an insulin drip. A Tracy catheter was placed earlier today. Caregivers report progressive decline: he no longer feeds himself, frequently spits out food, and previously required a PEG tube (removed ~2 years ago). 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 Pressure sores are noted on the legs but are healing. Code status is ?allow natural .? Family (, brother, niece who is a nurse) are considering hospice; [id number] discussion is ongoing. Review of Systems General: Reports: ROS unobtainable due to medical condition Medications/Allergies Home Medications ?Medication ?Instructions ?Recorded ?Confirmed ?Last Taken ?Type famotidine 20 mg tablet 20 mg PO DAILY@01/22/20 12/03/24 12/02/24 History ramipril 10 mg capsule (Altace) 10 mg PO DAILY@01/22/20 12/03/24 12/02/24 History acetaminophen 325 mg tablet 650 mg PO Q4H PRN Pain 07/25/22 12/03/24 Unknown History (Tylenol) naloxone 2 mg/2 mL syringe kit 2 mg IM Q2M PRN overdose 01/07/23 12/03/24 Unknown History insulin aspart U-100 100 unit/mL See Rx Instructions .Route 01/11/23 12/03/24 12/02/24 Rx (3 mL) subcutaneous pen (Novolog .COMPLEX #15 mL FlexPen U-100 Insulin aspart) amlodipine 5 mg tablet 5 mg PO DAILY@08 11/18/24 12/03/24 12/02/24 History aspirin 325 mg tablet 325 mg PO QAM 11/18/24 12/03/24 12/02/24 History atorvastatin 20 mg tablet 20 mg PO QPM 11/18/24 12/03/24 12/02/24 History bisacodyl 10 mg rectal suppository 10 mg AR DAILY PRN Constipation 11/18/24 12/03/24 11/18/24 History finasteride 5 mg tablet 5 mg PO QPM 11/18/24 12/03/24 12/02/24 History memantine 10 mg tablet 10 mg PO BID 11/18/24 12/03/24 12/02/24 History nystatin 100,000 unit/gram topical 1 applic topical Q8H PRN redness 11/18/24 12/03/24 11/18/24 History ointment polyethylene glycol 3350 17 17 g PO DAILY 11/18/24 12/03/24 12/02/24 History gram/dose oral powder potassium chloride 20 mEq 40 meq PO DAILY 11/18/24 12/03/24 12/02/24 History tablet,extended release sennosides 8.6 mg-docusate sodium 1 tab-cap PO BID PRN Constipation 11/18/24 12/03/24 Unknown History 50 mg tablet (Senna Plus) sertraline 50 mg tablet 100 mg PO BEDTIME 11/18/24 12/03/24 12/02/24 History albuterol sulfate 90 mcg/actuation 2 inh inhalation Q6H PRN Wheezing 11/30/24 12/03/24 Unknown History breath activated powder inhaler,sensor dextrose-maltodextrin 10 gram/11.5 10 g PO PRN PRN low bs 11/30/24 12/03/24 Unknown History gram oral powder packet glucagon HCl 1 mg solution for 1 mg SUBCUT Q24H PRN prophylaxis 11/30/24 12/03/24 Unknown History injection magnesium hydroxide 400 mg/5 mL 30 ml PO DAILY PRN Constipation 11/30/24 12/03/24 Unknown History oral suspension (Milk of Magnesia) sennosides 8.6 mg-docusate sodium 1 tab PO BID 11/30/24 12/03/24 12/02/24 History 50 mg tablet insulin glargine 100 unit/mL (3 16 unit SUBCUT BID 05/27/25 05/27/25 05/26/25 History mL) subcutaneous pen (Lantus Solostar U-100 Insulin) ketoconazole 2 % shampoo See Rx Instructions .Route .COMPLEX 05/27/25 05/27/25 Unknown History ketoconazole 2 % topical cream 1 applic topical Q12H face 05/27/25 05/27/25 Unknown History Allergies Allergy/AdvReac Type Severity Reaction Status Date / Time No Known Allergies Allergy Verified 01/03/23 08:33 PFSH Acute PFSH: Medical History skilled nursing resident Dementia Mixed hyperlipidemia Proteinuria BPH loc w urin obs/LUTS Lower urinary tract symptoms (LUTS) Scoliosis 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 Mother No problems noted. Son , Both patient's sons are Family history of premature coronary artery disease Social History Smoking and tobacco/nicotine status: never used tobacco/nicotine Alcohol intake: never Substance/Drug Use: never Adopted: No Caregiver/support person: No Lives independently: No Marital status: Current occupational status: retired Current gender identity: Male Vitals/I&O/Wt Last Vital Signs Temp 98.1 F 05/27/25 08:42 Pulse 118 H 05/27/25 08:42 Resp 18 05/27/25 08:42 BP 113/66 05/27/25 08:42 Pulse Ox 97 05/27/25 08:42 O2 Del Method Room Air 05/27/25 08:42 Weight last 48 hrs Weight 45.359 kg Physical Exam Narrative: Accompanied by [id number] Const: GENERAL APPEARANCE: cooperative ORIENTATION/CONSCIOUSNESS: Yes awake HENMT: COMMON NORMALS: oropharynx normal Neck/C-Spine: COMMON NORMALS: no JVD Resp: COMMON NORMALS: normal respiratory effort and clear to auscultation bilaterally AUSCULTATION: clear to auscultation bilaterally Cardio: COMMON NORMALS: no JVD, regular rhythm, S1 normal heart sound present, S2 normal heart sound present and No murmurs present (Cardio) RHYTHM: regular rhythm HEART SOUNDS: S1 normal heart sound present and S2 normal heart sound present GI: COMMON NORMALS: Normal to inspection, nondistended, normoactive bowel sounds present, Soft to palpation and non-tender PALPATION: Yes Soft to palpation Extremity: COMMON NORMALS: no joint enlargement and no pedal edema OTHER: Contractures after past CVA Neuro: SENSORIUM/ORIENTATION: Yes alert Skin: OTHER: Few past abrasions on anterior shins Data 05/27/25 07:50 05/27/25 07:50 Micro: Microbiology 05/27/25 09:48 Blood Culture - Preliminary Blood SPECIMEN COLLECTED A&P Assessment and plan 1. DKA (diabetic ketoacidosis): Severe hyperglycemia (glucose 796 mg/dL), high anion-gap metabolic acidosis (pH 7.11, bicarbonate 8 mEq/L), positive ketones; likely precipitated by dehydration and poor oral intake. DDX includes hyperosmolar hyperglycemic state (less likely given significant acidosis). Reviewed vitals, CBC, ABG, CMP, lactic acid, UA, serum ketone chest x-ray, ED provider note, discussed with ED provider. - Continue intravenous insulin drip (regular insulin) - Administer normal saline (NS) at 150 mL/hr for fluid resuscitation - Check basic metabolic panel (BMP) every 4 hours; monitor anion gap - Check magnesium and phosphate; replace as needed - When glucose < 250 mg/dL, switch fluids to D5 0.45 % NS 2. VENITA (acute kidney injury): Creatinine 1.9 mg/dL and BUN 39 mg/dL, probably prerenal from dehydration and DKA. - Continue IV hydration as above - Trend renal function with serial BMP - Monitor intake and output 3. Pneumonia: Patchy bibasilar opacities on chest x-ray plus leukocytosis; aspiration possible due to impaired swallowing. Differential includes atelectasis vs community-acquired pneumonia. - Start ceftriaxone plus azithromycin. Not likely to be able to provide a sputum sample. - Implement aspiration precautions (NPO except sips per speech therapy) - Follow-up MBS results 4. 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 - Continue multidisciplinary discussion with family regarding prognosis - Evaluate for hospice enrollment when family ready. Family considering and to discuss among themselves. He is also going to be visited by his niece coming from [place] who is an RN. Plan: Possible temporomandibular joint dislocation : History of recurrent TMJ dislocation; jaw currently appears aligned but family concerned. - Provider to assess jaw alignment; consider reduction if dislocated Leg skin sores : Healing pressure sores noted on lower extremities. [id number] / hospice discussion : Family considering hospice given poor prognosis; code status already allow natural . - Provide hospice information to family - Re-address goals once niece arrives - Dementia - Prior major stroke (date unspecified) - Type 2 diabetes mellitus: Continue Lantus, insulin sliding scale. Monitor POC glucose. Giurgius carb diet once resumed. - Hypertensive: Monitor blood pressures, currently hypotensive hold antihypertensives. Fluid resuscitation as above. Admission to ICU. - Benign prostatic hyperplasia (BPH) - Temporomandibular joint disorder with recurrent dislocation Hospitalization bundle : Standard inpatient measures for critically ill patient. - Admit to intensive care unit - Continuous cardiac monitoring - Maintain Tracy catheter placed earlier - Reassess electrolytes and vitals routinely PDMP PDMP Reviewed: Not Reviewed Attestations Medical Necessity Statement*: Admission over 2 midnights anticipated for assessment management of DKA with VENITA, pneumonia Faith with with declining functional status, poor oral intake, dysphagia, prior CVA, advanced dementia, additional comorbidities. Coding Level of Care Code Critical Care >/= 30 minutes Critical care time (in minutes): 35 The high probability of a clinically significant, sudden or life threatening deterioration, as referenced in this documentation, required my full and direct attention, intervention and personal management. The critical care time shown is in addition to time spent performing any reported separately billable procedures and includes the following: [x] Data and vital sign review and interpretation [x] Patient assessment, examination and intervention [x] Medication orders and management [x] Patient/Family updates as able [x] Care Coordination and Documentation. Diagnoses DKA (diabetic ketoacidosis) E11.10 VENITA (acute kidney injury) N17.9 Pneumonia J18.9 Declining functional status R53.81
--- NOTE | 2025-05-27 10:47 | FL_ITS ---
WS: [id number] Modified barium swallow, 05/27/2025 Clinical Data: Oral dysphagia Comparison: None. Fluoroscopy time: 0min [id number] # of spot films: 0 Findings: The patient was unable to swallow and function normally. FL/FL barium swallow modifd [id number] Impression: The patient could not start or complete the examination.
[2025-05-27] MEDS: cefTRIAXone 1,000 mg SDV 1000 MG IVP (11:04)
[2025-05-27 11:39] LABS: Reflex Lactate Order REFLEX LACTIC ORDERD
[2025-05-27 12:47] LABS: Lactic Acid level (Lactate) 3.0 mmol/L (0.5-2.2)
--- NOTE | 2025-05-27 14:37 | PC.SLP ---
MBS attempted this morning, however, the pt did not attempt oral manipulation of food presented. No swallows elicited.
--- NOTE | 2025-05-27 15:43 | PC.NURSE ---
[facility] [place], informed [facility] that pt was being admitted to ICU 12 for DKA and pneumonia.
--- NOTE | 2025-05-27 16:49 | PC.NURSE ---
Patient arrived to ICU at 1625. Patient is non verbal, spoke with family bedside to complete admission
[2025-05-27] MEDS: dextrose 5%-sod chloride 0.45% 1,000 ML 150 ML IV (17:34)
[2025-05-27] MEDS: potassium phosphate (mEq K) 40 MEQ in sodium chloride 0.9% (100 ml) 100 ML 27.25 MEQ IV (18:12)
--- NOTE | 2025-05-27 18:30 | PC.NURSE ---
Due to lab results, held inuslin gtt per Dr. Neville and administered PRN potassium phos per DEC and verbal orders.
[2025-05-27 19:07] LABS: Hematocrit 43.3 % (37-53); Hemoglobin 13.90 g/dL (11.27-16.99); Mean Corpuscular HGB Conc 32.1 g/dL (30-55); Mean Corpuscular Hemoglobin 29.3 pg (27-33); Mean Corpuscular Volume 91.4 fl (82-101); Nucleated Red Blood Cells % 0 %; Platelet Count 212 10^3/cmm (157-399); Red Blood Count 4.74 10^6/uL (3.85-5.65); White Blood Count 13.52 10^3/uL (3.29-11.43)
--- OUTSIDE RECORDS SUMMARY | 2025-05-27 19:07 | XMS_ITS | Encounter Summary ---
Author Organization [facility] Address [address] [place] [address] Care Team Providers Care Synthetic Cloth Binding Cutter Name Role Phone Non-Staff, Physician Primary Care Provider Unava ilable Encounter Details Date Type Department Care Team (Latest Contact Info) Description 01/01/2006 Outpatient Historical [facility] Medicine- [address] [phone] Gerard Gamez MD [address] [place] [address] DM w/o Complication Type II (CMS/HCC) (Primary Dx); Unspecified Essential Hypertension Social History Tobacco Use Types Packs/Day Years Used Date Smoking Tobacco: Never Assessed Sex and Gender Information Value Date Recorded Sex Assigned at Not on file Legal Sex 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
--- OUTSIDE RECORDS SUMMARY | 2025-05-27 19:07 | XMS_ITS | Encounter Summary ---
Author Organization [employer] Address [address] [place] [address] Care Team Providers Care Sports Therapist Name Role Phone Non-Staff, Physician Primary Care Provider Unava ilable Encounter Details Date Type Department Care Team ([facility] st Contact Info) Description 05/26/2025 External Device Data STL ABSTRACTION Provider, Abstract NO ADDRESS ON FILE Social History Tobacco Use Types Packs/Day Years Used Date Smoking Tobacco: Never Smokeless Tobacco: Never Alcohol Use Standard Drinks/Week Comments No 0 (1 standard drink = 0.6 oz pur e alcohol) Sex and Gender Information Value Date Recorded Sex Assigned at Not on file Legal Sex Male 6:53 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
--- OUTSIDE RECORDS SUMMARY | 2025-05-27 19:07 | XMS_ITS | Encounter Summary ---
Author Organization [facility] Address [address] [place] [address] Care Team Providers Care Descriptive Catalog Librarian Name Role Phone Non-Staff, Physician Primary Care Provider Unava ilable Encounter Details Date Type Department Care Team (Latest Contact Info) Description 01/07/2007 Outpatient Historical [facility] Medicine- [address] [phone] Gerard Gamez MD [address] [place] [address] DM w/o Complication Type II (CMS/HCC) (Primary Dx); Unspecified Essential Hypertension; Cough Social History Tobacco Use Types Packs/Day Years Used Date Smoking Tobacco: Never Assessed Sex and Gender Information Value Date Recorded Sex Assigned at Not on file 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
--- OUTSIDE RECORDS SUMMARY | 2025-05-27 19:07 | XMS_ITS | Encounter Summary ---
Author Organization [employer] Address [address] [place] [address] Care Team Providers Care Concrete Mixing Plant Superintendent Name Role Phone Non-Staff, Physician Primary Care Provider Unava ilable Encounter Details Date Type Department Care Team ([facility] st Contact Info) Description 05/26/2025 [...] on file Legal Sex Male 6:53 AM TAPE KELLER OPERATOR Gender Identity Not on file Sexual Orientation Not on file documented as of this encounter Plan of Treatment Not on file documented as of this encounter Visit Diagnoses Not on filedocumented in this encounter Care Teams Concrete Mixing Plant Superintendent Relationship Specialty Start Date End Date Non-Staff, Physician NO ADDRESS ON FILE PCP - General 07/14/20 documented as of this encounter
--- OUTSIDE RECORDS SUMMARY | 2025-05-27 19:07 | XMS_ITS | Encounter Summary ---
Author Organization [facility] Address [address] [place] [address] Care Team Providers Care Staff Counselor Name Role Phone Non-Staff, Physician Primary Care Provider Unava ilable Reason for Referral * Outpatient Services (Routine) - Closed Specialty Diagnoses / Procedures Referred By Contsaw t Referred To Contact Diagnoses Symptomatic bradycardia Procedures CL EVENT RECORDER INSERTION Jazmin Lujan MD Phone: tel: fax: Referral ID Status Reason Start Date Expiration Date Visits Re quested Visits Authorized [id number] Closed 08/30/2016 09/30/2017 1 1 BASE SPECIALIST Encounter Details Date Type Department Care Team (Late st Contact Info) Description 08/30/2016 Ancillary Orders [facility] Cardiology- [place] [address] [place] [address] Jazmin Lujan MD [address] [place] [phone] Symptomatic bradycardia Social History Tobacco Use Types Packs/Day Years Used Date Smoking Tobacco: Never Smokeless Tobacco: Never Alcohol Use Standard Drinks/Week Comments Yes 0 (1 standard drink = 0.6 oz pur e alcohol) occasionally Sex and Gender Information Value Date Recorded Sex Assigned at Not on file Legal Sex Male 4:22 AM DATABASE SPECIALIST Gender Identity Not on file Sexual Orientation Not on file Occupation Industry Job Start Date Job End Date Not on file Not on file Not on file Not on file Not on file Not on file Not on file Not on file documented as of this encounter Plan of Treatment Not on file documented as of this encounter Results * CL EVENT RECORDER INSERTION (09/11/2016 9:39 AM DATABASE SPECIALIST) Narrative [facility] - 09/11/2016 9:03 AM [facility] Clinical Cardiac Electrophysiology Device Report Procedure: 1. Medtronic Implantable Loop Recorder Implant 2. Device Interrogation 3. Conscious Sedation Hair Specialist: 1. Jazmin Lujan MD, [facility] - Clinical Cardiac Electrophysiology Indication: 60 y/o WM with h/o recurrent syncope presents for ILR. Procedure Description: After the patient was informed consented in regards to the risks, benefits, and alternatives to the procedure, the patient was brought to the EP lab in a fasted and non-sedated state. The patient was prepped in the usual sterile fashion and conscious sedation was administered. Topical lidocaine was applied in the left parasternal area for local anesthesia. A horizontal incision was made in the left parasternal area. A small pocket was formed. The device (KELLI LINQ [id number]) was then placed in the pocket and interrogation showed adequate sensing. The wound was closed with steri-strips and a sterile dressing was applied. EBL = < 30 cc. Complications: NONE Summary: 1. Successful ILR implant Jazmin Lujan MD, [facility] Clinical Cardiac Electrophysiology [facility] Jazmin Lujan MD FLUOROSCOPY ORDERABLES Final Result [facility] documented in this encounter Visit Diagnoses Diagnosis Symptomatic bradycardia Other specified cardiac dysrhythmias Symptomatic bradycardia- Primary Other specified cardiac dysrhythmias documented in this encounter Care Teams Staff Counselor Relationship Specialty Start Date End Date Non-Staff, Physician NO ADDRESS ON FILE PCP - General 07/14/20 documented as of this encounter
--- OUTSIDE RECORDS SUMMARY | 2025-05-27 19:07 | XMS_ITS | Encounter Summary ---
Author Organization [facility] Address [address] [place] [address] Care Team Providers Care Service Station Manager Name Role Phone Non-Staff, Physician Primary Care Provider Unava ilable Encounter Details Date Type Department Care Team (Late st Contact Info) Description 09/22/2019 Ancillary Orders [facility] [place] [address] [place] [address] David Oreilly, NO ADDRESS ON FILE Right hip pain Social History Tobacco Use Types Packs/Day Years Used Date Smoking Tobacco: Never Smokeless Tobacco: Never Alcohol Use Standard Drinks/Week Comments No 0 (1 standard drink = 0.6 oz pur e alcohol) Sex and Gender Information Value Date Recorded Sex Assigned at Not on file Legal Sex Male 4:22 AM PROSTHETICS LAB TECHNICIAN Gender Identity Not on file Sexual Orientation Not on file Occupation Industry Job Start Date Job End Date Not on file Not on file Not on file Not on file Not on file Not on file Not on file Not on file documented as of this encounter Plan of Treatment Not on file documented as of this encounter Results * XR HIP 2 OR 3 VIEWS RT (09/22/2019 3:20 PM PROSTHETICS LAB TECHNICIAN) Anatomical Region Laterality Modality Lower Extremity Right Computed Radiogr aphy 09/22/2019 3:20 PM PROSTHETICS LAB TECHNICIAN Impressions 09/22/2019 3:36 PM PROSTHETICS LAB TECHNICIAN IMPRESSION: Please see below. Exam: XR HIP 2 OR 3 VIEWS RT Date/Time of Exam: 09/22/2019 3:20 PM Reason For Exam: See Diagnosis. Diagnosis: Right hip pain. Findings: The right hip shows no arthritic or traumatic lesions. The adjacent pelvis is unremarkable. IMPRESSION: Normal exam. Narrative Procedure Note Romulo Loyd MD - 09/22/2019 IMPRESSION: Please see below. Exam: XR HIP 2 OR 3 VIEWS RT Date/Time of Exam: 09/22/2019 3:20 PM Reason For Exam: See Diagnosis. Diagnosis: Right hip pain. Findings: The right hip shows no arthritic or traumatic lesions. The adjacent pelvis is unremarkable. IMPRESSION: Normal exam. David Oreilly DO DIAGNOSTIC IMAGING ORDERABLES F inal Result documented in this encounter Visit Diagnoses Diagnosis Right hip pain Pain in joint, pelvic region and thigh Right hip pain Pain in joint, pelvic region and thigh documented in this encounter Care Teams Service Station Manager Relationship Specialty Start Date End Date Non-Staff, Physician NO ADDRESS ON FILE PCP - General 07/14/20 documented as of this encounter
--- OUTSIDE RECORDS SUMMARY | 2025-05-27 19:07 | XMS_ITS | Encounter Summary ---
Author Organization [facility] Address [address] [place] [address] Care Team Providers Care Inspector Structural Bonding Name Role Phone Non-Staff, Physician Primary Care Provider Unava ilable Encounter Details Date Type Department Care Team (Latest Contact Info) Description 07/09/2007 Outpatient Historical [address] [address] Chet Murphy PA [address] [place] [phone] Abdominal Pain, Right Upper Quadrant (Primary Dx); DM w/o Complication Type II (CMS/HCC) Social History Tobacco Use Types Packs/Day Years Used Date Smoking Tobacco: Never Assessed Sex and Gender Information Value Date Recorded Sex Assigned at Not on file Legal Sex Male 4:22 AM ATTORNEY RECRUITER Gender Identity Not on file Sexual Orientation Not on file documented as of this encounter Plan of Treatment Not on file documented as of this encounter Visit Diagnoses Diagnosis Abdominal pain, right upper quadrant- Primary Type II or unspecified type diabetes mellitus without mention of complication, not stated as uncontrolled documented in this encounter Care Teams Inspector Structural Bonding Relationship Specialty Start Date End Date Non-Staff, Physician NO ADDRESS ON FILE PCP - General 07/14/20 documented as of this encounter
--- OUTSIDE RECORDS SUMMARY | 2025-05-27 19:07 | XMS_ITS | Encounter Summary ---
Author Organization [facility] Address [address] [place] [address] Care Team Providers Care Wheat Buyer Name Role Phone Non-Staff, Physician Primary Care Provider Unava ilable Reason for Referral * CT Scan (Routine) - Closed Specialty Diagnoses / Procedures Referred By Contac t Referred To Contact Radiology Diagnoses Altered mental status Procedures CT HEAD WO CONTRAST David Oreilly DO [facility] CT Scan [place] [address] [facility] [address] [place] [address] Phone: tel: fax: Referral ID Status Reason Start Date Expiration Date V isits Requested Visits Authorized [id number] Closed [facility] CTS to Schedule (SGF) 03/09/2020 06/07/2020 1 1 Encounter Details Date Type Department Care Team (Latest Contact Info) Description 03/05/2020 Ancillary Orders [facility] Centralized Scheduling [address] [facility] [address] [place] [address] David Oreilly DO NO ADDRESS ON FILE Altered mental status Social History Tobacco Use Types Packs/Day Years Used Date Smoking Tobacco: Never Smokeless Tobacco: Never Alcohol Use Standard Drinks/Week Comments No 0 (1 standard drink = 0.6 oz pur e alcohol) Sex and Gender Information Value Date Recorded Sex Assigned at Not on file 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 Mild sequela of small vessel ischemic disease. Narrative 03/12/2020 1:48 PM CDT Exam: CT HEAD WO CONTRAST Date/Time of Exam: 03/12/2020 1:37 PM Reason For Exam: See Diagnosis. Diagnosis: Altered mental status. Technique: CT of the head was performed without the administration of intravenous contrast. Findings: Prior comparison 06/04/2018. No acute infarction, hemorrhage or extra-axial collection. Mild sequela of small vessel ischemic disease and diffuse parenchymal volume loss. The ventricles are midline and the basal cisterns are patent. No acute osseous abnormality. Mild mucosal thickening within the left maxillary antrum. No mastoid effusion. Prior cataract surgery. Procedure Note Nayan Amado DO - 03/12/2020 Exam: CT HEAD WO CONTRAST Date/Time of Exam: 03/12/2020 1:37 PM Reason For Exam: See Diagnosis. Diagnosis: Altered mental status. Technique: CT of the head was performed without the administration of intravenous contrast. Findings: Prior comparison 06/04/2018. No acute infarction, hemorrhage or extra-axial collection. Mild sequela of small vessel ischemic disease and diffuse parenchymal volume loss. The ventricles are midline and the basal cisterns are patent. No acute osseous abnormality. Mild mucosal thickening within the left maxillary antrum. No mastoid effusion. Prior cataract surgery. IMPRESSION: No acute intracranial abnormality. Mild sequela of small vessel ischemic disease. David Oreilly DO CT ORDERABLES Final Result documented in this encounter Visit Diagnoses Diagnosis Altered mental status Altered mental status documented in this encounter Care Teams Wheat Buyer Relationship Specialty Start Date End Date Non-Staff, Physician NO ADDRESS ON FILE PCP - General 07/14/20 documented as of this encounter
--- OUTSIDE RECORDS SUMMARY | 2025-05-27 19:07 | XMS_ITS | Encounter Summary ---
Author Organization [facility] Address [address] [place] [address] Care Team Providers Care Industrial Electrical Engineer Name Role Phone Non-Staff, Physician Primary Care Provider Unava ilable Reason for Referral * Outpatient Services (Routine) - Closed Specialty Diagnoses / Procedures Referred By Contac t Referred To Contact Diagnoses Lumbar radiculopathy Procedures MRI LUMBAR WO CONTRAST Jacinto Briceno MD [address] [place] [address] Phone: tel: fax: [facility] Pre-Registration [place] CALL TO MAKE APPOINTMENT ONLY [address] [place] [address] Phone: tel: fax: Referral ID Status Reason Start Date Expiration Date V isits Requested Visits Authorized [id number] Closed [facility] TO SCHEDULE ([facility]) 09/05/2016 10/06/2017 1 1 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 Encounter Details Date Type Department Care Team (Latest Contact Info) Description 09/05/2016 Ancillary Orders [facility] Pre-Registration [place] CALL TO MAKE APPOINTMENT ONLY [address] [place] [address] Jacinto Briceno MD [address] [place] [address] Lumbar radiculopathy Social History Tobacco Use Types Packs/Day Years Used Date Smoking Tobacco: Never Smokeless Tobacco: Never Alcohol Use Standard Drinks/Week Comments Yes 0 (1 standard drink = 0.6 oz pur e alcohol) occasionally Sex and Gender Information Value Date Recorded Sex Assigned at Not on file 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 Gender Identity Not on file Sexual Orientation Not on file Occupation Industry Job Start Date Job End Date Not on file Not on file Not on file Not on file Not on file Not on file Not on file Not on file documented as of this encounter Plan of Treatment Scheduled Orders Name Type Priority Associated Diagnoses Orde r Schedule MRI LUMBAR WO CONTRAST Imaging Routine Lumbar radiculopathy 1 Occurrences starting 09/05/2016 until 09/05/2017 documented as of this encounter Visit Diagnoses Diagnosis Lumbar radiculopathy Thoracic or lumbosacral neuritis or radiculitis, unspecified documented in this encounter Care Teams Industrial Electrical Engineer Relationship Specialty Start Date End Date Non-Staff, Physician NO ADDRESS ON FILE PCP - General 07/14/20 documented as of this encounter
--- OUTSIDE RECORDS SUMMARY | 2025-05-27 19:07 | XMS_ITS | Clinical Summary ---
Author Organization [facility] Address [address] [place] [address] Care Team Providers Care Sap Portal Architect Name Role Phone Non-Staff, Physician Primary Care Provider Unava ilable Allergies No known active allergies Medications Cetirizine 10 mg Oral Cap Take 1 Tab by mouth daily. Active blood sugar diagnostic (ONE TOUCH ULTRA TEST) [facility] Strp 1 Strip by See Admin Instructions route 4 times daily before meals and at bedtime. Dx: 250.02 Test up to 4 times a day. 112 Strip 11 2 Active Insulin Syringe-Needle U-100 (ULTRA COMFORT INSULIN SYRINGE) 1/2 mL 30 x 5/16 Syringe INJECT INSULIN SUBCUTANEOUSLY 3 TIMES DAILY 100 Syringe 0 4 Active fluticasone (FLONASE) 50 mcg/spray Holland, Suspension Administer 2 Sprays in each nostril daily. 48 Gram 3 6 Active Additional Information Patient taking differently:2 [place] Both NostrilsDAILY PRN, Reported on 07/04/2017 raNITIdine (ZANTAC) 150 mg tablet Take 1 Tablet (150 mg) by mouth 2 times daily. 180 Tablet 1 7 Active metoprolol tartrate (LOPRESSOR) 25 mg tablet Take 12.5 mg by mouth 2 times daily. Active gabapentin (NEURONTIN) 300 mg capsule Take 1 Capsule (300 mg) by mouth 3 times daily One tab morning and at noon and two tabs at night. 120 Capsule 1 8 Active aspirin (ECOTRIN EC) 325 mg Tablet, Delayed Release (E.C.) Take 1 Tablet (325 mg) by mouth daily. 30 Tablet 8 Active ramipril (ALTACE) 10 mg capsule Take 1 Capsule (10 mg) by mouth daily. 90 Capsule 1 8 Active insulin glargine (LANTUS U-100 INSULIN) 100 unit/mL vialIndication s:Controlled type 2 diabetes mellitus without complication, with long-term current use of insulin ([facility]) Inject 40 Units by subcutaneous injection daily at bedtime. 10 mL 2 8 Active HYDROcodone-ac etaminophen (NORCO) 10-325 mg Tablet Take 2 Tablets by mouth every 4 hours as needed for Pain, Moderate. Active citalopram (CeleXA) 40 mg tabletIndicati ons:Anxiety state Take 1 Tablet (40 mg) by mouth daily. 90 Tablet 9 Active triamterene-hy droCHLOROthiaz tracie (DYAZIDE) 37.5-25 mg capsule Take 2 Capsule by mouth daily 180 Capsule 9 Active simvastatin (ZOCOR) 20 mg tablet take one tablet TABLET BY MOUTH late IN THE DAY 90 Tablet 9 Active oxyCODONE (ROXICODONE) 10 mg tablet Take 10 mg by mouth every 6 hours as needed for Pain, Moderate. Active Active Problems Problem Noted Date Diagnosed Date Moderate episode of recurrent major depressive d isorder 07/25/2020 Acute confusion 05/01/2018 Acute metabolic encephalopathy 05/01/2018 Dehydration 05/01/2018 Diabetes mellitus with hyperglycemia 06/07/2017 Referral of patient 08/16/2016 Pseudophakia, both eyes 12/05/2012 Intertrigo 02/12/2011 Pruritus ani 02/12/2011 Scoliosis 10/24/2010 Microalbuminuria 10/20/2010 Allergic rhinitis 07/08/2010 Controlled type 2 diabetes m ellitus without complication, with long-term current use of insulin 07/08/2010 Overview (07/05/2016): Lab Results Component Value Date/Time HGBA1C 7.4* 04/10/2016 09:59 AM Lab Results Component Value Date/Time MICROALBUMIN <0.3 06/23/2011 09:48 AM MICRCREATR <5.9 06/23/2011 09:48 AM MICRALBURINE <1.2 04/10/2016 09:59 AM Lab Results Component Value Date/Time CHOLTOT 130 04/10/2016 09:59 AM HDL 44 04/10/2016 09:59 AM LDLCALC 71 04/10/2016 09:59 AM TRIGLYCERIDE 73 04/10/2016 09:59 AM Assessment & Plan (06/04/2017 3:57 PM CDT): Diabetes: Inadequate control. Medications reviewed and refilled/adjusted as indicated. See medication orders. Labs ordered/reviewed. Assessment & Plan (01/09/2017 2:22 PM CDT): Diabetes: Stable. Continue current plan of care. 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 Continue current plan of care. Labs ordered/reviewed. Reminded to get yearly retinal exam. Addressed ADA/low CHO diet. Encouraged aerobic exercise. Discussed symptoms and management of hypoglycemia. Assessment & Plan (07/05/2016 1:11 PM CDT): Diabetes: Stable. Continue current plan of care. Medications reviewed and refilled/adjusted as indicated. See medication orders. Labs ordered/reviewed. Reminded to get yearly retinal exam. Addressed ADA/low CHO diet. Encouraged aerobic exercise. Hypertension 07/08/2010 Hyperlipidemia 07/08/2010 Overview (01/12/2017): Lab Results Component Value Date/Time CHOLTOT 130 04/10/2016 09:59 AM HDL 44 04/10/2016 09:59 AM LDLCALC 71 04/10/2016 09:59 AM TRIGLYCERIDE 73 04/10/2016 09:59 AM Assessment & Plan (01/12/2017 1:14 PM CDT): Controlled. GERD (gastroesophageal reflux disease) 0 Arthritis 07/08/2010 Elevated troponin Resolved Problems Problem Noted Date Diagnosed Date Resolved Date Diabetic ketoacidosis withou t coma associated with type 2 diabetes mellitus 05/01/2018 12/06/2018 Acute appendicitis 03/07/2014 6 Combined form of senile cataract, left eye 11/18/2012 12/05/2012 Anisometropia 11/18/2012 12/05/2012 Combined form of senile cataract 11/08/2012 11/14/2012 Depression 07/08/2010 01/12/2017 Overview (01/12/2017): Pt. Taking antidepressant with good results Assessment & Plan (01/12/2017 1:13 PM CDT): Status: Major Depression Single episode Mild - Stable Plan: Responding well to current treatment plan, continue. Medications reviewed and refilled as indicated. See orders. Gout, unspecified 07/08/2010 Immunizations Immunization Administration Dates Next Due INFLUENZA VACCINE QUADRIVALE NT 3 YR UP PF IM 07/24/2018,08/15/2017 Influenza Seasonal Unspecifi ed Formulation IM 07/15/2012,07/29/2008,08/19/1999 Pneumococcal conjugate, unsp ecified formulation 10/22/2013 Family History Medical History Relation Name Comments Heart Disease Father CHF, CAD, PM Hypertension Father Heart Disease Mother PM Hypertension Mother Stroke Mother Cancer Sister 1 Heart Disease Sister 1 Thyroid Disease Sister 1 Unknown Sister 2 Unknown Sister 3 Amblyopia Neg Hx Blindness Neg Hx Detachment/Tears Neg Hx Glaucoma Neg Hx Macular Degen Neg Hx Strabismus Neg Hx Relation Name Status Comments Father Mother Sister 1 Alive Sister 2 Sister 3 Social History Tobacco Use Types Packs/Day Years Used Date Smoking Tobacco: Never Smokeless Tobacco: Never Tobacco Cessation:Counseling Given: Yes Alcohol Use Standard Drinks/Week Comments No 0 (1 standard drink = 0.6 oz pur e alcohol) Sex and Gender Information Value Date Recorded Sex Assigned at Not on file 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 Gender Identity Not on file Sexual Orientation Not on file Occupation Industry Job Start Date Job End Date Not on file Not on file Not on file Not on file Not on file Not on file Not on file Not on file Last Filed Vital Signs Vital Sign Reading Time Taken Comments Blood Pressure 166/89 07/13/2020 4:45 PM CDT Pulse 52 07/13/2020 4:45 PM CDT Temperature 36.8 C (98.2 F) 07/13/2020 4:45 PM CDT Respiratory Rate 20 07/13/2020 4:45 PM CDT Oxygen Saturation 98% 07/13/2020 4:45 PM CDT Inhaled Oxygen Concentration - - Weight 74.4 kg (164 lb) 07/13/2020 4:45 PM CDT Height 162.6 cm (5' 4 ) 01/14/2019 1:31 PM CDT Body Mass Index 28.15 01/14/2019 1:31 PM CDT Plan of Treatment Health Maintenance Due Date Last Done Comments DTAP/TDAP/TD VACCINES (1 - Tdap) 1973 PNEUMOCOCCAL VACCINE 50+ YEA RS (1 of 2 - PCV) 1973 10/22/2013 COLORECTAL SCREENING 1999 Colorectal Cancer Screening 1999 FIT-DNA Q 3 years 1999 FIT/FOBT Q 1 year 1999 Flex Sig/CT Colonography Q 5 years 1999 ZOSTER VACCINE (1 of 2) 2004 DIABETES ANNUAL RETINAL EXAM 11/08/2013, 11/08/2012, 11/08/2012, Additional history exists RSV VACCINE (60+ or ) (1 - Risk 60-74 years 1-dose series) 2014 DIABETES MICROALBUMIN ANNUAL SCREEN 02/05/2019 02/05/2018, 01/23/2017, 04/10/2016, Additional history exists LDL CHOLESTEROL ANNUAL 02/05/2019 8, 06/05/2017, 01/23/2017, Additional history exists DIABETES ANNUAL FOOT EXAM 03/12/20192017, 03/20/2017, 03/20/2017, Additional history exists DIABETES HBA1C Q 6 MONTHS 06/09/20212020, 07/22/2018, 05/01/2018, Additional history exists INFLUENZA VACCINE (#1) 2025 8, 07/11/2018, 07/11/2018, Additional history exists Medical Devices Implanted Type Area Regulatory Analyst Device Identifier Shelf Expiration Date Model / Serial / Lot Lens Io Sn60wf 13.0 - [id number] Implanted:Qty: 1 on 11/14/2012 at [facility] Eye Right: Eye [facility] 07/14/2016 SN60WF.130 / [id number] / Lens Io Sn60wf 12.0 - [id number] Implanted:Qty: 1 on 12/05/2012 at [facility] Eye Left: Eye [facility] 10/14/2015 SN60WF.120 / [id number] / Loop Recorder-2015 Implanted:09/11 (Quantity not on file) Other LNQ11 / [id number] / Procedures Procedure Name Priority Date/Time Associated Diagnosis Comments HEMOGLOBIN A1C Routine 12/10/2020 12:59 PM APPLIANCE REPAIR TECHNICIAN Chronic pain syndrome MICROALBUMIN/CREATI NINE RATIO, RANDOM UR Routine 02/05/2018 9:26 AM CDT Controlled type 2 diabetes mellitus without complication, with long-term current use of insulin ([facility]) LIPID PANEL Routine 02/05/2018 9:26 AM CDT Mixed hyperlipidemia from Last 3 Months or Most Recently Relevant to Health Maintenance Results * (ABNORMAL) HEMOGLOBIN A1C (12/10/2020 12:59 PM APPLIANCE REPAIR TECHNICIAN) HEMOGLOBIN A1C 8.9(H) <=5.6 % 12/10/2020 1:32 PM APPLIANCE REPAIR TECHNICIAN [facility] EST. AVG GLUCOSE, A1C 209 mg/dL 12/10/2020 1:32 PM APPLIANCE REPAIR TECHNICIAN [facility] Blood Venipuncture / Unknown 12/10/2020 12:59 PM APPLIANCE REPAIR TECHNICIAN 12/10/2020 12:59 PM APPLIANCE REPAIR TECHNICIAN Narrative [facility] - 12/10/2020 1:32 PM APPLIANCE REPAIR TECHNICIAN HGB A1C INTERPRETATION NORMAL: <5.7% PRE-DIABETES: 5.7 - 6.4% DIABETES: 6.5% OR GREATER us David Oreilly DO CHEMISTRY ORDERABLES Final Resu lt [facility] CLIA # [id number] [address] [place] [id number] * MICROALBUMIN/CREATININE RATIO, RANDOM UR (02/05/2018 9:26 AM CDT) MICROALBUMIN, URINE <1.2 No Reference Range mg/dL 02/05/2018 11:12 AM [facility] CREATININE, URINE 101.0 40.0 - 278.0 mg/dL 02/05/2018 11:12 AM [facility] Comment: Reference Range varies with fluid intake and diet. MICROALBUMIN/C REAT RATIO, UR <11.9 <17.0 mg/g 02/05/2018 11:12 AM [facility] Urine URINE SPECIMEN OBTAINED BY CLEAN CATCH PROCEDURE / Unknown Collection / Unknown 02/05/2018 9:26 AM CDT 02/05/2018 9:26 AM T [facility] - 02/05/2018 11:12 AM CDT Condition Microalbumin/Creat ratio Normal Males <17 Normal Females <25 Microalbuminuria Males 17-299 Microalbuminuria Females 25-299 Overt proteinuria >=300 us Lizette Moon HOCKEY PLAYER URINE ORDERABLES Final Resu lt [facility] CLIA # [id number] [address] [place] [address] * LIPID PANEL (02/05/2018 9:26 AM CDT) CHOLESTEROL 153 <200 mg/dL 02/05/2018 11:11 AM [facility] TRIGLYCERIDE 75 <150 mg/dL 02/05/2018 11:11 AM [facility] HDL 55 40 - 59 mg/dL 02/05/2018 11:11 AM [facility] LDL CALCULATED 83 <100 mg/dL 02/05/2018 11:11 AM [facility] NON-HDL CHOLESTEROL 98 <130 mg/dL 02/05/2018 11:11 AM [facility] Blood Venipuncture / Unknown 02/05/2018 9:26 AM CDT 02/05/2018 9:26 AM CDT Narrative [facility] - 02/05/2018 11:11 AM CDT TOTAL CHOLESTEROL mg/dL Desirable <200 Borderline high 200-239 High >=240 TRIGLYCERIDES mg/dL Normal <150 Borderline high 150-199 High 200-499 Very high >=500 HDL CHOLESTEROL mg/dL Low <40 Normal 40-59 Desirable >=60 NON HDL CHOLESTEROL mg/dL Optimal <130 Near Optimal 130-159 Borderline High 160-189 Very High >=190 Calculated LDL mg/dL Optimal <100 Near Optimal 100-129 Borderline High 130-159 High 160-189 Very High >=190 ATPIII Guidelines Reference Ranges for Lipid Panels (NCEP/AMA) Lizette Moon HOCKEY PLAYER CHEMISTRY ORDERABLES Final Result Performing Organization Address City/State/[facility] Co de Phone Number [facility] CLIA # [id number] [address] [place] [address] from Last 3 Months or Most Recently Relevant to Health Maintenance Insurance [place] [employer] Medicare Part D Advance Directives For more information, please contact: [phone] * Full Code (Latest Code Status on File) Date Activated Date Inactivated Comments 05/01/2018 2:36 AM 05/06/2018 6:27 PM * Full Code Date Activated Date Inactivated Comments 09/11/2016 9:18 AM 09/11/2016 1:20 PM * Full Code Date Activated Date Inactivated Comments 09/11/2016 6:06 AM 09/11/2016 9:18 AM * Full Code Date Activated Date Inactivated Comments 03/07/2014 9:18 AM 03/08/2014 11:16 AM * Full Code Date Activated Date Inactivated Comments 03/07/2014 6:38 AM 03/07/2014 9:18 AM Care Teams Sap Portal Architect Relationship Specialty Start Date End Date Non-Staff, Physician NO ADDRESS ON FILE PCP - General 07/14/20
--- OUTSIDE RECORDS SUMMARY | 2025-05-27 19:07 | XMS_ITS | Patient Health Record ---
Author Organization [facility] Address [address] [place], [place] [address] Care Team Providers Care Director Electronics Name Role Phone Red DONIS, Lizette Primary Care Provider Unavail able Mira NGUYEN, Hamzah Unavailable [phone] Jessica Zuniga MD Unavailable Unavailable Reason For Referral No Information Medications Medication SIG (Take, Route, Frequency, Duration) Notes Start Date End Date Status aspirin 81 mg 1 tab orally once a day Active metoprolol 25 mg 1 tab orally once a day Active acetaminophen 500 mg orally as directed Active ibuprofen 200 mg orally as directed Active cetirizine 10 mg 1 tab orally as directed Active ramipril 10 mg 1 cap orally once a day Active amLODIPine 5 mg 1 tab orally once a day Active [place] 325 mg-10 mg 1-2 tabs po orally Q 4-6H prn pain (max 6/day; hold within four hours of planned sleep) Active simvastatin 40 mg 1 tab orally once a day Active OxyCODONE Hydrochloride 10 mg 1 tab po orally TID prn severe pain (hold within 4H of planned sleep) Active gabapentin 300 mg 2 caps po orally TID Active famotidine 20 mg 1 tab orally as directed Active hydrochlorothiazide-triamt erene 25 mg-37.5 mg 1 cap orally 2 times a day Active Lantus 100 units/mL subcutaneously as directed Active Social History Tobacco Use: Social History Observation Description Date Details (start date - stop date) Never Smoker NA - NA alcohol Question Answer Notes Did you have a drink containing alcohol in the p ast year? No Points 0 Interpretation Negative Tobacco use: Question Answer Notes : nonsmoker Problems Problem Type SNOMED Code ICD Code Onset Dates Problem Status W/U Status Risk Notes Problem Low back pain (290431952) Low back pain (M54.5) Active confirmed Problem Lumbosacral spondylosis without myelopathy (27671962) Spondylosis without myelopathy or radiculopathy, lumbar region (M47.816) Active confirmed Problem High risk drug monitoring status (992149686) halfway (current) use of opiate analgesic (Z79.891) Active confirmed Problem Anxiety disorder (162792302) Other specified anxiety disorders (F41.8) Active confirmed Problem Sleep disorder (15185378) Other sleep disorders (G47.8) Active confirmed Problem Arthralgia of the pelvic region and thigh (218237149) Pain in right hip (M25.551) Active confirmed Problem 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, 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061) Active confirmed Problem Muscle pain (07250920) Myalgia, other site (M79.18) Active confirmed Plan Of Treatment No Information Insurance Providers Payer Name Payer Address Payer Phone Subscriber Number Group Number Insured Name Patient Relationship to Insured Coverage Start Date Coverage End Date [employer] MEDICARE ADVANTAGE [address] [address] [place] [address] [id number] Gerard Gray Self - patient is the insured Medical (General) History Medical History History ICD Code Thoracic pain Scoliosis Anxiety disorder Type II diabetes Hypertension Arthropathy Dysthymic disorder Gout Gastroesophageal reflux disease Back injury Seasonal allergies Surgical History Surgery Date(Month/Year) Hernia repair Cholecystectomy Appendectomy Hospitalization History Reason Date(Month/Year) Diabetes, treated at [facility] in [facility] [place], 04/2018
--- OUTSIDE RECORDS SUMMARY | 2025-05-27 19:07 | XMS_ITS | Encounter Summary ---
Author Organization [facility] Address [address] [place] [address] Care Team Providers Care Road Passenger Firer Name Role Phone Non-Staff, Physician Primary Care Provider Unava ilable Encounter Details Date Type Department Care Team (Latest Contact Info) Description 09/28/2006 Outpatient Historical [facility] Medicine- [address] [phone] Gerard Gamez MD [address] [place] [address] DM w/o Complication Type II (CMS/HCC) (Primary Dx); Gout, Unspecified Social History Tobacco Use Types Packs/Day Years Used Date Smoking Tobacco: Never Assessed Sex and Gender Information Value Date Recorded Sex Assigned at Not on file 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
--- OUTSIDE RECORDS SUMMARY | 2025-05-27 19:07 | XMS_ITS | Encounter Summary ---
Author Organization [facility] Address [address] [place] [address] Care Team Providers Care Diesel Truck Crane Operator Name Role Phone Non-Staff, Physician Primary Care Provider Unava ilable Reason for Referral * CT Scan (Urgent) - Closed Specialty Diagnoses / Procedures Referred By Contac t Referred To Contact Radiology Diagnoses Altered mental status, unspecified altered mental status type Diabetes mellitus with no complication (CMS/HCC) Other chronic pain Procedures CT HEAD WO CONTRAST David Oreilly DO [facility] CT Scan [place] [address] [place] [address] Phone: tel: fax: Referral ID Status Reason Start Date Expiration Date Visits Re quested Visits Authorized [id number] Closed 12/10/2020 03/10/2021 1 1 SALES EXECUTIVE Encounter Details Date Type Department Care Team (Latest Contact Info) Description 12/10/2020 Ancillary Orders [facility] Centralized Scheduling [address] [place] [id number] David Oreilly DO NO ADDRESS ON FILE Altered mental status, unspecified altered mental status type; Diabetes mellitus with no complication (CMS/HCC); Other chronic pain Social History Tobacco Use Types Packs/Day Years Used Date Smoking Tobacco: Never Smokeless Tobacco: Never Alcohol Use Standard Drinks/Week Comments No 0 (1 standard drink = 0.6 oz pur e alcohol) Sex and Gender Information Value Date Recorded Sex Assigned at Not on file Legal Sex Male 4:22 AM IT SALES EXECUTIVE Gender Identity Not on file Sexual Orientation Not on file Occupation Industry Job Start Date Job End Date Not on file Not on file Not on file Not on file Not on file Not on file Not on file Not on file COVID-19 Exposure Response Date Recorded In the last month, have you been in contact with someone who was confirmed or suspected to have Coronavirus / COVID-19? No / Unsure 12/10/2020 11:02 AM IT SALES EXECUTIVE documented as of this encounter Plan of Treatment Not on file documented as of this encounter Results * CT HEAD WO CONTRAST (12/10/2020 12:32 PM IT SALES EXECUTIVE) Anatomical Region Laterality Modality Head Computed Tomogra phy 12/10/2020 12:3 2 PM IT SALES EXECUTIVE Impressions 12/10/2020 12:56 PM IT SALES EXECUTIVE IMPRESSION: No evidence of an acute intracranial process. Narrative 12/10/2020 12:56 PM IT SALES EXECUTIVE EXAM: CT HEAD WO CONTRAST DATE/TIME OF EXAM: 12/10/2020 12:32 PM HISTORY: See Diagnosis COMPARISON: March 12, 2020 TECHNIQUE: CT head performed without contrast. FINDINGS: There is no evidence of an acute territorial infarct, parenchymal hemorrhage, hydrocephalus or abnormal extra-axial fluid collection. No evidence of an intracranial mass lesion. No midline shift. Basilar cisterns remain patent. Mild parenchymal volume loss. Mild to moderate chronic ischemic small vessel changes. Mastoid air cells appear clear. Mild left maxillary paranasal sinus mucosal thickening. Prior cataract surgery. Procedure Note Hanna Ruiz MD - 12/10/2020 EXAM: CT HEAD WO CONTRAST DATE/TIME OF EXAM: 12/10/2020 12:32 PM HISTORY: See Diagnosis COMPARISON: March 12, 2020 TECHNIQUE: CT head performed without contrast. FINDINGS: There is no evidence of an acute territorial infarct, parenchymal hemorrhage, hydrocephalus or abnormal extra-axial fluid collection. No evidence of an intracranial mass lesion. No midline shift. Basilar cisterns remain patent. Mild parenchymal volume loss. Mild to moderate chronic ischemic small vessel changes. Mastoid air cells appear clear. Mild left maxillary paranasal sinus mucosal thickening. Prior cataract surgery. IMPRESSION: No evidence of an acute intracranial process. David Oreilly DO CT ORDERABLES Final Result documented in this encounter Visit Diagnoses Diagnosis Altered mental status, unspecified altered mental status type Diabetes mellitus with no complication (CMS/HCC) Type II or unspecified type diabetes mellitus without mention of complication, not stated as uncontrolled Other chronic pain Altered mental status, unspecified altered mental status type Diabetes mellitus with no complication (CMS/HCC) Type II or unspecified type diabetes mellitus without mention of complication, not stated as uncontrolled Other chronic pain documented in this encounter Care Teams Diesel Truck Crane Operator Relationship Specialty Start Date End Date Non-Staff, Physician NO ADDRESS ON FILE PCP - General 07/14/20 documented as of this encounter
--- OUTSIDE RECORDS SUMMARY | 2025-05-27 19:07 | XMS_ITS | Encounter Summary ---
Author Organization [employer] Address 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
--- OUTSIDE RECORDS SUMMARY | 2025-05-27 19:07 | XMS_ITS | Clinical Summary ---
Author Organization [facility] Address [address] Barrera: [place] [address] Care Team Providers Care Mains And Service Supervisor Name Role Phone Non-Staff, Physician Primary Care Provider Unava ilable Allergies No known active allergies Medications HYDROcodone-landon taminophen (NORCO) 10-325 mg Tablet Take 2 Tablets by mouth every 4 hours as needed for Pain, Moderate. 8 Active simvastatin (ZOCOR) 20 mg tablet take one tablet TABLET BY MOUTH late IN THE DAY 90 Tablet 0 9 Active citalopram (CeleXA) 40 mg tabletIndicatio ns:Anxiety state Take 1 Tablet (40 mg) by mouth daily. 90 Tablet 0 9 Active oxyCODONE (ROXICODONE) 10 mg tablet Take 10 mg by mouth every 6 hours as needed for Pain, Moderate. 9 Active triamterene-hyd roCHLOROthiazid e (DYAZIDE) 37.5-25 mg capsule Take 2 Capsule by mouth daily 180 Capsule 0 9 Active aspirin (ECOTRIN EC) 325 mg Tablet, Delayed Release (E.C.) Take 1 Tablet (325 mg) by mouth daily. 30 Tablet 0 8 Active insulin glargine (LANTUS) 100 unit/mL vialIndications :Controlled type 2 diabetes mellitus without complication, with long-term current use of insulin (CMS/HCC) Inject 40 Units by subcutaneous injection daily at bedtime. 10 mL 2 8 Active gabapentin (NEURONTIN) 300 mg capsule Take 1 Capsule (300 mg) by mouth 3 times daily One tab morning and at noon and two tabs at night. 120 Capsule 1 8 Active raNITIdine (ZANTAC) 150 mg tablet Take 1 Tablet (150 mg) by mouth 2 times daily. 180 Tablet 1 7 Active fluticasone propionate (FLONASE) 50 mcg/spray [place], Suspension nasal inhaler Administer 2 Sprays in each nostril daily. 48 Gram 3 6 Active metoprolol tartrate (LOPRESSOR) 25 mg tablet Take 12.5 mg by mouth 2 times daily. 7 Active Active Problems Problem Noted Date Diagnosed Date Encounter for blood test 12/04/2024 Moderate episode of recurrent major depressive d isorder 07/25/2020 Acute confusion 05/01/2018 Acute metabolic encephalopathy 05/01/2018 Dehydration 05/01/2018 Diabetes mellitus with hyperglycemia 06/07/2017 Referral of patient 08/16/2016 Pseudophakia, both eyes 12/05/2012 Pruritus ani 02/12/2011 Intertrigo 02/12/2011 Scoliosis 10/24/2010 Microalbuminuria 10/20/2010 Allergic rhinitis 07/08/2010 Controlled type 2 diabetes m kristiitus without complication, with long-term current use of insulin 07/08/2010 Overview (02/10/2021): Lab Results Component Value Date/Time HGBA1C 7.4* 04/10/2016 09:59 AM Lab Results Component Value Date/Time MICROALBUMIN <0.3 06/23/2011 09:48 AM MICRCREATR <5.9 06/23/2011 09:48 AM MICRALBURINE <1.2 04/10/2016 09:59 AM Lab Results Component Value Date/Time CHOLTOT 130 04/10/2016 09:59 AM HDL 44 04/10/2016 09:59 AM LDLCALC 71 04/10/2016 09:59 AM TRIGLYCERIDE 73 04/10/2016 09:59 AM GERD (gastroesophageal reflux disease) 0 Hypertension 07/08/2010 Hyperlipidemia 07/08/2010 Overview (02/10/2021): Lab Results Component Value Date/Time CHOLTOT 130 04/10/2016 09:59 AM HDL 44 04/10/2016 09:59 AM LDLCALC 71 04/10/2016 09:59 AM TRIGLYCERIDE 73 04/10/2016 09:59 AM Arthritis 07/08/2010 Elevated troponin Resolved Problems Problem Noted Date Diagnosed Date Resolved Date Diabetic ketoacidosis withou t coma associated with type 2 diabetes mellitus 05/01/2018 12/06/2018 Acute appendicitis 03/07/2014 6 Combined form of senile cataract, left eye 11/18/2012 12/05/2012 Anisometropia 11/18/2012 12/05/2012 Combined form of senile cataract 11/08/2012 11/14/2012 Depression 07/08/2010 01/12/2017 Overview (02/09/2021): Pt. Taking antidepressant with good results Gout, unspecified 07/08/2010 Encounters Date Type Department Care Team Description 05/26/2025 External Device Data STL ABSTRACTION Provider, Abstract 05/26/2025 External Device Data STL ABSTRACTION Provider, Abstract 05/26/2025 External Device Data STL ABSTRACTION Provider, Abstract 04/14/2025 External Device Data STL ABSTRACTION Provider, Abstract 04/14/2025 External Device Data STL ABSTRACTION Provider, Abstract 03/05/2025 External Device Data STL ABSTRACTION Provider, Abstract from Last 3 Months Immunizations Immunization Administration Dates Next Due INFLUENZA VACCINE QUADRIVALE NT 3 YR UP PF IM 07/24/2018,08/15/2017 Influenza Seasonal Unspecifi ed Formulation IM 07/15/2012,07/29/2008,08/19/1999 Pneumococcal conjugate, unsp ecified formulation 10/22/2013 Family History Medical History Relation Name Comments Heart Disease Father CHF, CAD, PM Hypertension Father Heart Disease Mother PM Hypertension Mother Stroke Mother Unknown Sister 1 Unknown Sister 2 Cancer Sister 3 Heart Disease Sister 3 Thyroid Disease Sister 3 Amblyopia Neg Hx Blindness Neg Hx Detachment/Tears Neg Hx Glaucoma Neg Hx Macular Degen Neg Hx Strabismus Neg Hx Relation Name Status Comments Father Mother Sister 1 Sister 2 Sister 3 Alive Social History Tobacco Use Types Packs/Day Years Used Date Smoking Tobacco: Never Smokeless Tobacco: Never Alcohol Use Standard Drinks/Week Comments No 0 (1 standard drink = 0.6 oz pur e alcohol) Sex and Gender Information Value Date Recorded Sex Assigned at Not on file Legal Sex Male 6:53 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 Gender Identity Not on file Sexual Orientation Not on file Last Filed Vital Signs Vital Sign Reading Time Taken Comments Blood Pressure 158/84 12/08/2024 3:00 PM FLESHING MACHINE OPERATOR Pulse 62 12/08/2024 12:12 PM FLESHING MACHINE OPERATOR Temperature 36.1 C (97 F) 12/08/2024 10:14 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 Respiratory Rate 18 12/08/2024 3:00 PM FLESHING MACHINE OPERATOR Oxygen Saturation 95% 12/08/2024 3:00 PM FLESHING MACHINE OPERATOR Inhaled Oxygen Concentration - - Weight 63.3 kg (139 lb 8 oz) 12/08/2024 10:14 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 Height 162.6 cm (5' 4 ) 12/08/2024 10:14 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 Body Mass Index 23.95 12/08/2024 10:14 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 Plan of Treatment Health Maintenance Due Date Last Done Comments DTAP/TDAP/TD VACCINES (1 - Tdap) 1973 COLORECTAL SCREENING 1999 Colorectal Cancer Screening 1999 FIT-DNA Q 3 years 1999 FIT/FOBT Q 1 year 1999 Flex Sig/CT Colonography Q 5 years 1999 ZOSTER VACCINE (1 of 2) 2004 DIABETES ANNUAL RETINAL EXAM 11/08/2013 11/08/2012 RSV VACCINE (60+ or ) (1 - Risk 60-74 years 1-dose series) 2014 DIABETES MICROALBUMIN ANNUAL SCREEN 02/05/2019 02/05/2018, 01/23/2017, 04/10/2016 LDL CHOLESTEROL ANNUAL 02/05/2019 8, 06/05/2017, 01/23/2017, Additional history exists DIABETES ANNUAL FOOT EXAM 03/12/2019 03/12/2018, 03/2017 DIABETES HBA1C Q 6 MONTHS 01/31/20232021, 12/10/2020, 12/10/2020, Additional history exists COVID-19 Vaccine (2023-2 5 season) 2024 11/09/2023, 05/24/2023, 10/13/2022, Additional history exists INFLUENZA VACCINE (#1) 2025 , 08/07/2022, 07/24/2018, Additional history exists PNEUMOCOCCAL VACCINE 50+ YEARS Completed 07/06/2023 , 10/22/2013 Medical Devices Implanted Type Area Senior Director Insight Device Identifier Shelf Expiration Date Model / Serial / Lot Lens Io [id number] 13.0 - [id number] Implanted:Qty: 1 on 11/14/2012 Eye Right: Eye [facility] 07/14/2016 SN60WF.13 0 / [id number] / Lens Io Sn60wf 12.0 - [id number] Implanted:Qty: 1 on 12/05/2012 Eye Left: Eye [facility] 10/14/2015 SN60WF.12 0 / [id number] / Loop Recorder-2015 Implanted:09/11 (Quantity not on file) Other LNQ11 / [id number] / Procedures Procedure Name Priority Date/Time Associated Diagnosis Comments HEMOGLOBIN A1C Routine 12/10/2020 12:59 PM FLESHING MACHINE OPERATOR MICROALBUMIN/CREATIN INE RATIO, RANDOM UR Routine 02/05/2018 9:26 AM CDT LIPID PANEL Routine 02/05/2018 9:26 AM CDT from Last 3 Months or Most Recently Relevant to Health Maintenance Results * (ABNORMAL) HEMOGLOBIN A1C (12/10/2020 12:59 PM FLESHING MACHINE OPERATOR) HEMOGLOBIN A1C 8.9(H) <=5.6 % 12/10/2020 1:32 PM FLESHING MACHINE OPERATOR [facility] EST. AVG GLUCOSE, A1C 209 mg/dL 12/10/2020 1:32 PM FLESHING MACHINE OPERATOR [facility] Blood Venipuncture / Unknown 12/10/2020 12:59 PM FLESHING MACHINE OPERATOR 12/10/2020 12:59 PM FLESHING MACHINE OPERATOR Narrative [facility] - 12/10/2020 1:32 PM FLESHING MACHINE OPERATOR HGB A1C INTERPRETATION NORMAL: <5.7% PRE-DIABETES: 5.7 - 6.4% DIABETES: 6.5% OR GREATER us David Oreilly DO CHEMISTRY ORDERABLES Final Resu lt [facility] CLIA # [id number] [address] [address] [facility] CLIA # [id number] [address] [place] [id number] * MICROALBUMIN/CREATININE RATIO, RANDOM UR (02/05/2018 9:26 AM CDT) MICROALBUMIN, URINE <1.2 No Reference Range mg/dL 02/05/2018 11:12 AM CDT [facility] CREATININE, URINE 101.0 40.0 - 278.0 mg/dL 02/05/2018 11:12 AM CDT [facility] Comment: Reference Range varies with fluid intake and diet. MICROALBUMIN/C REAT RATIO, UR <11.9 <17.0 mg/g 02/05/2018 11:12 AM T [facility] Urine URINE SPECIMEN OBTAINED BY CLEAN CATCH PROCEDURE / Unknown Collection / Unknown 02/05/2018 9:26 AM CDT 02/05/2018 9:26 AM CDT Narrative [facility] - 02/05/2018 11:12 AM CDT Condition Microalbumin/Creat ratio Normal Males <17 Normal Females <25 Microalbuminuria Males 17-299 Microalbuminuria Females 25-299 Overt proteinuria >=300 Lizette Moon COOKER CHIP URINE ORDERABLES [id number] [address] [address] [id number] [address] [place] [id number] * LIPID PANEL (02/05/2018 9:26 AM CDT) CHOLESTEROL 153 <200 mg/dL 02/05/2018 11:11 AM CDT [facility] TRIGLYCERIDE 75 <150 mg/dL 02/05/2018 11:11 AM CDT [facility] HDL 55 40 - 59 mg/dL 02/05/2018 11:11 AM T [facility] LDL CALCULATED 83 <100 mg/dL 02/05/2018 11:11 AM T [facility] NON-HDL CHOLESTEROL 98 <130 mg/dL 02/05/2018 11:11 AM T [facility] Blood Venipuncture / Unknown 02/05/2018 9:26 AM CDT 02/05/2018 9:26 AM CDT Narrative [facility] - 02/05/2018 11:11 AM CDT TOTAL CHOLESTEROL mg/dL Desirable<200 Borderline [id number] High>=240 TRIGLYCERIDES mg/dL Normal<150 Borderline [id number] Very high>=500 HDL CHOLESTEROL mg/dL Low<40 [id number] Desirable>=60 NON HDL CHOLESTEROL mg/dL Optimal<130 Near [id number] Borderline [id number] Very High>=190 Calculated LDL mg/dL Optimal<100 Near [id number] Borderline [id number] Very High>=190 ATPIII Guidelines Reference Ranges for Lipid Panels (NCEP/AMA) Lizette Moon COOKER CHIP CHEMISTRY ORDERABLES Final Result [id number] [address] [place] [id number] [facility] CLIA # [id number] [address] [place] [id number] from Last 3 Months or Most Recently Relevant to Health Maintenance Insurance [place]ICA[place] PART A AND B BCBS SUPP * Guarantor: GERARD COLLADO Account Type Relation to Patient Date of Phone Billing Address Personal/Family [address] [place] [address] [employer] Medicare Part D Care Teams Mains And Service Supervisor Relationship Specialty Start Date End Date Non-Staff, Physician NO ADDRESS ON FILE PCP - General 07/14/20
--- OUTSIDE RECORDS SUMMARY | 2025-05-27 19:08 | XMS_ITS | Clinical Summary ---
Author Organization [facility] Address [address] [place] [address] Care Team Providers Care Carpenter Repair Name Role Phone Lukas Low MD Primary Care Provider [phone] Allergies No known active allergies Medications acetaminophen (TYLENOL) 325 mg tablet Take 2 tablets by mouth every 6 (six) hours as needed for mild pain. Active ramipriL (ALTACE) 10 MG capsule Take 20 mg by mouth in the morning. Active amLODIPine (NORVASC) 10 MG tablet Take 10 mg by mouth in the morning. Active aspirin 325 MG tablet Take 325 mg by mouth daily with breakfast. Active atorvastatin (LIPITOR) 40 MG tablet Take 40 mg by mouth nightly. Active calcium carbonate (CALCIUM 500 ORAL) Take 1 tablet by mouth in the morning. Active DULoxetine (CYMBALTA) [address] capsule Take 60 mg by mouth every morning. Active tamsulosin (FLOMAX) 0.4 mg 24 hr capsule Take 0.4 mg by mouth every evening. Active fluticasone propionate (FLONASE) 50 mcg/actuation nasal spray Administer 2 sprays into each nostril in the morning. Active glucagon 1 mg/mL Infuse 1 mg into a venous catheter as needed for low blood sugar. Active loperamide (IMODIUM) 2 mg capsule Take 2 mg by mouth as needed for diarrhea. Take 2 capsules after first loose stool, then 1 capsule after each loose stool. Do not exceed 6 capsules in 24 hours Active insulin glargine 100 unit/mL subQ subcutaneous vial Inject 30 Units under the skin nightly. Active memantine (NAMENDA) 5 MG tablet Take 10 mg by mouth in the morning and 10 mg in the evening. Active magnesium hydroxide (MILK OF MAGNESIA ORAL) Take 30 mL by mouth daily as needed for constipation. Active alum-mag hydroxide-simeth (MAALOX) 200-200-20 mg/5 mL suspension Take 30 mL by mouth every 6 (six) hours as needed for nausea or heartburn. Active naloxone 2 mg/2 mL syringe kit Inject as directed as needed for opioid reversal. Active insulin aspart (NOVOLOG FLEXPEN U-100 INSULIN SUBQ) Inject 10 Units under the skin. Inject 10 units w/meals, plus SS Active famotidine (PEPCID) 20 MG tablet Take 20 mg by mouth in the morning. Active vit no.124/iron/foli c ( VITAMIN ORAL) Take 1 tablet by mouth every morning. Active hydrocortisone 1% cream Apply topically as needed in the morning and as needed in the evening for mild pain or itching. Active dextromethorphan 15 mg/5 mL syrup Take 10 mL by mouth as needed in the morning and 10 mL as needed at noon and 10 mL as needed in the evening and 10 mL as needed before bedtime for cough. Active cetirizine (ZyrTEC) 10 MG tablet Take 10 mg by mouth in the morning. Active HYDROcodone-acet aminophen (NORCO) 5-325 mg per tabletIndication s:Other chronic pain Take 1 tablet by mouth every 6 (six) hours as needed for mild pain or moderate pain. Max Daily Amount: 4 tablets 60 tablet 3 Active petrolatum, white-lanolin ointmentIndicati ons:Blister of upper extremity Apply 1 Application topically in the morning and 1 Application in the evening. Apply to blisters, wounds on upper extremities x 14 days. May stop sooner if healed. 113 g 5 Active Active Problems Problem Noted Date Diagnosed Date Dislocated mandible, sequela 12/29/2024 Recurrent strokes 07/24/2023 Other chronic pain 12/11/2022 Chronic allergic rhinitis 12/11/2022 Type 2 diabetes mellitus wit hout complication, with long-term current use of insulin Assessment & Plan (11/22/2022 10:59 AM SUPERVISOR TRAIN OPERATIONS): Increase NovoLog to 15 units with meals. Increase Lantus to 35 units nightly. We will have them check CBC, CMP, UA. Assessment & Plan (10/13/2022 11:45 PM SUPERVISOR TRAIN OPERATIONS): Continue current insulin regimen Review labs A1C as scheduled. Continue JENNIFER Primary hypertension Assessment & Plan (10/13/2022 11:46 PM SUPERVISOR TRAIN OPERATIONS): Continue ramipril Continue amlodipine. Keep BP review. Gastroesophageal reflux disease without esophagi tis Assessment & Plan (10/13/2022 11:47 PM SUPERVISOR TRAIN OPERATIONS): GERD precautions Acid reduction as needed. Benign prostatic hyperplasia with lower urinary tract symptoms, symptom details unspecified Assessment & Plan (10/13/2022 11:47 PM SUPERVISOR TRAIN OPERATIONS): Continue tamsulosin Monitor clinically Hyperlipidemia Assessment & Plan (10/13/2022 11:48 PM SUPERVISOR TRAIN OPERATIONS): Continue atorvastatin Repeat labs as ordered. 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) Assessment & Plan (10/13/2022 11:48 PM SUPERVISOR TRAIN OPERATIONS): Continue ASA Monitor clinically Depression Assessment & Plan (10/13/2022 11:49 PM SUPERVISOR TRAIN OPERATIONS): Continue duloxetine Monitor clinically Psychiatry to follow Resolved Problems Problem Noted Date Diagnosed Date Resolved Date Tinea cruris 12/31/2023 09/01/2024 Presence of externally remov able percutaneous endoscopic gastrostomy (PEG) tube 04/26/20232022 Major depressive disorder, r ecurrent severe without psychotic features 03/31/2024 Social History Tobacco Use Types Packs/Day Years Used Date Smoking Tobacco: Unknown Tobacco Cessation:Counseling Given: Not Answered Alcohol Use Standard Drinks/Week Comments Defer 0 (1 standard drink = 0.6 oz pur e alcohol) PHQ-2 Answer Date Recorded PHQ-2 Score 0 10/28/2024 Sex and Gender Information Value Date Recorded Sex Assigned at Not on file Legal Sex Male 6:09 PM SUPERVISOR TRAIN OPERATIONS Gender Identity Not on file Sexual Orientation Not on file Last Filed Vital Signs Vital Sign Reading Time Taken Comments Blood Pressure 132/60 05/26/2025 9:24 AM CDT Pulse 88 05/26/2025 9:24 AM CDT Temperature 36.6 C (97.8 F) 05/26/2025 9:24 AM CDT Respiratory Rate 20 05/26/2025 9:24 AM CDT Oxygen Saturation 95% 05/26/2025 9:24 AM CDT Inhaled Oxygen Concentration - - Weight 59.2 kg (130 lb 9.6 oz) 05/26/2025 9:24 A M CDT Height 165.1 cm (5' 5 ) 05/26/2025 9:24 AM CDT Body Mass Index 21.73 05/26/2025 9:24 AM CDT Plan of Treatment Health Maintenance Due Date Last Done Comments Foot Exam 1954 Ophthalmology Exam 1964 Urine Microalbumin 1964 Pneumococcal Vaccine: 50+ Years (1 of 2 - PCV) 1973 Td, Tdap Vaccines Adult 1973 Colonoscopy 1999 Shingrix (ZOSTER RECOMBINANT) (1 of 2) 2004 RSV 60+ (1 - Risk 60-74 years 1-dose series) 2014 Hemoglobin A1C 03/13/2021 12/10/2020 Influenza Vaccination (#1) 05/15/202509/03, 08/07/2022, 07/24/2018 COVID-19 Vaccine ( season) 2025 01/08/2025, 11/09/2023, 05/24/2023, Additional history exists Medicare Annual Wellness 09/29/2025 09/29/2024, 1203/2024 HIB Vaccines Aged Out No longer eligi ble based on patient's age to complete this topic HPV Vaccines Aged Out No longer eligi ble based on patient's age to complete this topic Hepatitis A Vaccines Aged Out No long er eligible based on patient's age to complete this topic Hepatitis B Vaccines Aged Out No long er eligible based on patient's age to complete this topic IPV Vaccines Aged Out No longer eligi ble based on patient's age to complete this topic Meningococcal Vaccines Aged Out No lo nger eligible based on patient's age to complete this topic RSV Mab Nirsevimab (Beyfortus) <20 months Aged Out No longer eligibl e based on patient's age to complete this topic Rotavirus Vaccines Aged Out No longer eligible based on patient's age to complete this topic Insurance MEDICARE [facility] Care Teams Carpenter Repair Relationship Specialty Start Date End Date Lukas Low MD [address] [place] [address] PCP - General Internal Medicine 04/19/23
--- OUTSIDE RECORDS SUMMARY | 2025-05-27 19:08 | XMS_ITS | Encounter Summary ---
Author Organization [facility] Address [address] [place] [address] Care Team Providers Care Sheriff'S Detective Name Role Phone Non-Staff, Physician Primary Care Provider Unava ilable Encounter Details Date Type Department Care Team (Latest Contact Info) Description 07/20/2006 Outpatient Historical [facility] Medicine- [id number] [place] [address] Gerard Gamez MD [address] [place] [address] Unspecified Essential Hypertension (Primary Dx); DM w/o Complication Type II (CMS/HCC) Social History Tobacco Use Types Packs/Day Years Used Date Smoking Tobacco: Never Assessed Sex and Gender Information Value Date Recorded Sex Assigned at Not on file Legal Sex 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
--- OUTSIDE RECORDS SUMMARY | 2025-05-27 19:08 | XMS_ITS | Encounter Summary ---
Author Organization [facility] Address [address] [place] [address] Care Team Providers Care Pigment Grinder Name Role Phone Non-Staff, Physician Primary Care Provider Unava ilable Encounter Details Date Type Department Care Team (Latest Contact Info) Description 04/20/2006 Outpatient Historical [facility] Medicine- [address] [phone] Gerard Gamez MD [address] [place] [address] DM w/o Complication Type II (CMS/HCC) (Primary Dx); Pure Hypercholesterolem; Unspecified Essential Hypertension Social History Tobacco Use Types Packs/Day Years Used Date Smoking Tobacco: Never Assessed Sex and Gender Information Value Date Recorded Sex Assigned at Not on file 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
--- OUTSIDE RECORDS SUMMARY | 2025-05-27 19:08 | XMS_ITS | Encounter Summary ---
Author Organization [facility] Address [address] [place] [address] Care Team Providers Care Tunnel Heading Supervisor Name Role Phone Non-Staff, Physician Primary Care Provider Unava ilable Encounter Details Date Type Department Care Team (Latest Contact Info) Description 08/19/1999 Outpatient Historical [facility] Medicine[address] [phone] Robinson Schaffer MD [address] [phone] Need vaccination-viral disease (Primary Dx) Social History Tobacco Use Types Packs/Day Years Used Date Smoking Tobacco: Never Assessed Sex and Gender Information Value Date Recorded Sex Assigned at Not on file Legal Sex Male 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
[2025-05-27 19:24] LABS: Anion Gap 17.9 (5-19); Blood Urea Nitrogen 41 mg/dL (8-23); Calcium 9.0 mg/dL (8.5-10.5); Carbon Dioxide 21 mmol/L (22-29); Chloride 113 mmol/L (98-107); Creatinine Clr Calc Pharmacy 33.9057; Glucose 158 mg/dL (65-115); Magnesium 1.8 mg/dL (1.7-2.3); Osmolality Calculated 321 mOsm/kg (285-295); Sodium 149 mmol/L (136-145)
[2025-05-27 19:31] LABS: Potassium 2.9 mmol/L (3.5-5.1)
[2025-05-27] MEDS: dextrose 5%-ns 0.45% + KCl 40 1,000 ML 150 MEQ IV (20:10)
--- NOTE | 2025-05-27 21:12 | PC.NURSE ---
Addendum entered by Merari Gold RN 05/27/25 22:18: D5-1/2NS+40KCL and insulin initiated when second IV obtained. Original Note: Potassium Patient's potassium level critical at 2.9. Dr. Rodgers contacted; orders received to administer 40 meq KCL IV following completion of current potassium phosphate infusion, initiate D5-1/2NS+40KCL, and restart insulin drip at 2 units/hr. Verification received to start D5-1/2NS+40KCL while potassium phosphate then KCL infusing, pharmacy advises to administer D5-1/2NS+40KCL in separate line than potassium phosphate/KCL.
[2025-05-27] MEDS: lidocaine 1% 5 ML in potassium chloride premix 100 ML 52.5 ML IV (22:34)
--- NOTE | 2025-05-27 23:03 | PC.NURSE ---
Insulin Patient's right upper arm noted to be swollen above upper arm IV. Fluids and insulin stopped. IV removed. New IV placed in right forearm, fluids and insulin restarted. Pharmacy contacted and warm compress recommended for swelling. Warm blankets applied to arm. Patient's glucose 320. Dr. Rodgers notified of events and glucose; order received to increase insulin drip to 4 units/hr. KCL as well as D5-1/2NS+40KCL still administering. Second verification received from Dr. Rodgers to increase insulin drip to 4.
[2025-05-27 23:19] LABS: Anion Gap 23.5 (5-19); Blood Urea Nitrogen 45 mg/dL (8-23); Calcium 8.5 mg/dL (8.5-10.5); Carbon Dioxide 17 mmol/L (22-29); Chloride 109 mmol/L (98-107); Creatinine Clr Calc Pharmacy 38.1439; Glucose 385 mg/dL (65-115); Osmolality Calculated 327 mOsm/kg (285-295); Potassium 4.5 mmol/L (3.5-5.1); Sodium 145 mmol/L (136-145)
[2025-05-28] VITALS (99 sets, daily range): BP systolic 106–176; BP diastolic 65–111; PULSE 71–106; RESP 16–25; TEMP 36.7–37.1; O2SAT 87–100
[2025-05-28] MEDS: INSULIN REGULAR IN 0.9 % NACL 100 UNIT/100 ML BAG IV (00:07)
[2025-05-28] MEDS: lidocaine 1% 5 ML in potassium chloride premix 100 ML 52.5 ML IV (00:28)
[2025-05-28 03:15] LABS: Hematocrit 42.1 % (37-53); Hemoglobin 13.90 g/dL (11.27-16.99); Mean Corpuscular HGB Conc 33.0 g/dL (30-55); Mean Corpuscular Hemoglobin 29.4 pg (27-33); Mean Corpuscular Volume 89.0 fl (82-101); Nucleated Red Blood Cells % 0 %; Platelet Count 193 10^3/cmm (157-399); Red Blood Count 4.73 10^6/uL (3.85-5.65); White Blood Count 14.53 10^3/uL (3.29-11.43)
[2025-05-28 03:41] LABS: Alanine Aminotransferase 11 U/L (0-41); Albumin Level 3.2 g/dL (3.5-5.2); Alkaline Phosphatase 113 U/L (40-130); Anion Gap 16.6 (5-19); Aspartate Amino Transferase 17 U/L (0-40); Blood Urea Nitrogen 45 mg/dL (8-23); Calcium 8.7 mg/dL (8.5-10.5); Carbon Dioxide 19 mmol/L (22-29); Chloride 114 mmol/L (98-107); Creatinine Clr Calc Pharmacy 40.6869; Globulin 3.0 g/dL (1.3-4.6); Glucose 286 mg/dL (65-115); Osmolality Calculated 322 mOsm/kg (285-295); Potassium 4.6 mmol/L (3.5-5.1); Sodium 145 mmol/L (136-145); Total Protein 6.2 g/dL (6.6-8.7)
[2025-05-28] MEDS: dextrose 5%-ns 0.45% + KCl 40 1,000 ML 150 MEQ IV (04:15)
[2025-05-28 07:16] LABS: Anion Gap 15.7 (5-19); Blood Urea Nitrogen 46 mg/dL (8-23); Calcium 8.8 mg/dL (8.5-10.5); Carbon Dioxide 20 mmol/L (22-29); Chloride 115 mmol/L (98-107); Creatinine Clr Calc Pharmacy 46.6478; Glucose 155 mg/dL (65-115); Magnesium 1.7 mg/dL (1.7-2.3); Osmolality Calculated 317 mOsm/kg (285-295); Potassium 4.7 mmol/L (3.5-5.1); Sodium 146 mmol/L (136-145)
[2025-05-28] MEDS: cefTRIAXone 1,000 mg SDV 1000 MG IVP (08:22)
[2025-05-28] MEDS: insulin glargine 100 units/1 mL 16 UNIT SUBCUT ×2 (09:01→17:20)
[2025-05-28] MEDS: dextrose 5%-sod chloride 0.45% 1,000 ML 150 ML IV (10:09)
--- NOTE | 2025-05-28 11:15 | P.PN_ITS ---
Subjective 2 Subjective: He is somnolent this morning. Does not appear in distress. Vitals/I&O/Wt Last Vital Signs Temp 98.0 F 05/28/25 08:45 Pulse 81 05/28/25 10:15 Resp 19 H 05/28/25 10:15 BP 145/77 05/28/25 10:15 Pulse Ox 98 05/28/25 10:15 O2 Del Method Room Air 05/28/25 10:15 05/27/25 05/28/25 05/28/25 22:59 06:59 14:59 Intake Total 2291.9989 / 2325.6819 1268.617 / 3594.2989 257.517 / 257.517 Output Total 175 / 175 Balance 2291.9989 / 2325.6819 1093.617 / 3419.2989 257.517 / 257.517 Weight last 48 hrs Weight 60.237 kg Weight 61.235 kg Weight 45.359 kg Physical Exam 2 Const: GENERAL APPEARANCE: lethargic ORIENTATION/CONSCIOUSNESS: Yes lethargic HENMT: COMMON NORMALS: oropharynx normal Neck/C-Spine: COMMON NORMALS: no JVD Resp: COMMON NORMALS: normal respiratory effort and clear to auscultation bilaterally AUSCULTATION: clear to auscultation bilaterally Cardio: COMMON NORMALS: no JVD, regular rhythm, S1 normal heart sound present, S2 normal heart sound present and No murmurs present (Cardio) RHYTHM: regular rhythm HEART SOUNDS: S1 normal heart sound present and S2 normal heart sound present GI: COMMON NORMALS: Normal to inspection, nondistended, normoactive bowel sounds present, Soft to palpation and non-tender PALPATION: Yes Soft to palpation Extremity: COMMON NORMALS: no joint enlargement and no pedal edema OTHER: Contractures after past CVA Neuro: SENSORIUM/ORIENTATION: Yes lethargic Skin: COMMON NORMALS: no rashes or lesions noted GENERAL SKIN EXAM: no rashes or lesions noted OTHER: Few past abrasions on anterior shins Urinary Catheter Management: Tracy: Cath Placed During This Visit: no Reason for Continuing Indwelling Catheter: Accurate Measurement of Urinary Output in Critically Ill Patients Data 05/28/25 03:05 05/28/25 06:51 Micro: Microbiology 05/27/25 09:46 Blood Culture - Preliminary Blood SPECIMEN COLLECTED 05/27/25 09:48 Blood Culture - Preliminary Blood NEGATIVE TO DATE A&P Assessment and plan 1. DKA (diabetic ketoacidosis): Improving/resolving. Acute metabolic encephalopathy due to DKA and dehydration with some persistence today, reassess mental status. Reviewed anion gap, bicarb noted bicarb up to 20 anion gap down to 15.7, added to subcutaneous insulin. Transition from insulin drip to subcu insulin with overlap. He is not eating reliably. Monitor for risk of hypo-/hyperglycemia recurrence. Continue IV hydration for now, decrease D5 half-normal to 75 mL/h. Monitor for risk of fluid overload. Consideration of oral diet depending on improvement in mental status. Continue treatment of pneumonia. Discussed with nursing, immigration case worker. Potassium and phosphorus supplementation. Magnesium reviewed, 1.7, will give 2 g. - Check magnesium and phosphate; replace as needed - When glucose < 250 mg/dL, switch fluids to D5 0.45 % NS 2. VENITA (acute kidney injury): Reviewed BUN, creatinine. Noted improvement in renal function. Continue gentle hydration. Reduce IV fluid rate. Monitor for risk of overload. - Continue IV hydration as above - Trend renal function with serial BMP - Monitor intake and output 3. Pneumonia: Continue ceftriaxone, azithromycin. Aspiration precautions. Patchy bibasilar opacities on chest x-ray plus leukocytosis; aspiration possible due to impaired swallowing. Differential includes atelectasis vs community- acquired pneumonia. - Start ceftriaxone plus azithromycin. Not likely to be able to provide a sputum sample. - Implement aspiration precautions (NPO except sips per speech therapy) - Follow-up MBS results 4. 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 - Continue multidisciplinary discussion with family regarding prognosis - Evaluate for hospice enrollment when family ready. Family considering and to discuss among themselves. He is also going to be visited by his niece coming from [place] who is an RN. Plan: Possible temporomandibular joint dislocation : History of recurrent TMJ dislocation; jaw currently appears aligned but family concerned. - Provider to assess jaw alignment; consider reduction if dislocated. Discussed w ED provider. It is not dislocated. - Request with family to bring in chin strap. Leg skin sores : Healing pressure sores noted on lower extremities. [id number] / hospice discussion : - Re-address goals once family arrives - Dementia - Prior major stroke (date unspecified) - Type 2 diabetes mellitus: Continue Lantus, insulin sliding scale. Monitor POC glucose. Giurgius carb diet once resumed. - Hypertensive: Monitor blood pressures, currently hypotensive hold antihypertensives. Fluid resuscitation as above. Admission to ICU. - Benign prostatic hyperplasia (BPH) - Temporomandibular joint disorder with recurrent dislocation PDMP PDMP Reviewed: Not Reviewed Attestations 2 Medical Necessity Statement*: Continue admission for assessment and management of DKA, pneumonia, acute encephalopathy, additional comorbidities as above. and High MDM includes amount and/or complexity of data reviewed/ordered [ resulted lab(s)/test(s), ordered lab(s)/test(s) and other healthcare professional discussion] and described risk of complication, morbidity or mortality of management as documented Diagnoses DKA (diabetic ketoacidosis) E11.10 VENITA (acute kidney injury) N17.9 Pneumonia J18.9 Declining functional status R53.81
[2025-05-28] MEDS: magnesium sulfate premix 2 GM/50 ML PIGGYBACK IV (11:44)
--- NOTE | 2025-05-28 11:50 | PC.NURSE ---
Patient family to bring chin strap from halfway.
--- NOTE | 2025-05-28 14:10 | PC.NURSE ---
This nurse present at bedside with Dr. Robles and patients family, Akua, his sister and Shilpa his niece also his Gracie is on the phone. Goals of care were discussed and all family provided an update on patients care since admission. All questions answered by Dr. Robles and risks of aspiration discussed. It was discussed with family patients mentation, and if mentation improved, another swallow study would be considered. Patients family expressed concern for nutrition, options for nutrition discussed with family. Family asks about PEG tube placement and scheduling times with general surgery, risks of procedure discussed with family including patients current condition and high risk for negative effects of anesthesia. Patients family had no further questions for Dr. Robles.
--- NOTE | 2025-05-28 17:04 | PC.NURSE ---
Addendum entered by KARAN Umana 05/28/25 17:45: Dr. Robles also notified that D5 0.45% NS was turned off, previously running at 75ml/hr at the time he was notified of BG 353. Original Note: Dr. Robles notified of finger stick BG 353, verbal order received for low dose sliding scale Q8 and to check BG Q8.
[2025-05-29] VITALS (59 sets, daily range): BP systolic 133–180; BP diastolic 64–100; PULSE 59–96; RESP 7–26; TEMP 36.3–36.9; O2SAT 91–98
[2025-05-29 03:30] LABS: Hematocrit 39.6 % (37-53); Hemoglobin 13.20 g/dL (11.27-16.99); Mean Corpuscular HGB Conc 33.3 g/dL (30-55); Mean Corpuscular Hemoglobin 29.9 pg (27-33); Mean Corpuscular Volume 89.8 fl (82-101); Nucleated Red Blood Cells % 0 %; Platelet Count 162 10^3/cmm (157-399); Red Blood Count 4.41 10^6/uL (3.85-5.65); White Blood Count 10.67 10^3/uL (3.29-11.43)
[2025-05-29 03:50] LABS: Alanine Aminotransferase 12 U/L (0-41); Albumin Level 3.0 g/dL (3.5-5.2); Alkaline Phosphatase 100 U/L (40-130); Anion Gap 11.1 (5-19); Aspartate Amino Transferase 19 U/L (0-40); Blood Urea Nitrogen 26 mg/dL (8-23); Calcium 8.7 mg/dL (8.5-10.5); Carbon Dioxide 23 mmol/L (22-29); Chloride 112 mmol/L (98-107); Creatinine Clr Calc Pharmacy 75.8027; Globulin 2.7 g/dL (1.3-4.6); Glucose 241 mg/dL (65-115); Osmolality Calculated 307 mOsm/kg (285-295); Potassium 4.1 mmol/L (3.5-5.1); Sodium 142 mmol/L (136-145); Total Protein 5.7 g/dL (6.6-8.7)
[2025-05-29 03:59] LABS: Magnesium 2.1 mg/dL (1.7-2.3)
[2025-05-29] MEDS: cefTRIAXone 1,000 mg SDV 1000 MG IVP (08:09)
[2025-05-29] MEDS: insulin glargine 100 units/1 mL 16 UNIT SUBCUT ×2 (08:11→17:18)
[2025-05-29] MEDS: dextrose 5%-ns 0.45% + KCl 40 1,000 ML 150 MEQ IV (08:48)
--- NOTE | 2025-05-29 09:58 | PC.SOCIAL ---
IMM Update Updated pt's family on IMM. No questions voiced. Provided pt a copy. Initialed, dated, & timed a copy & placed in chart.
--- NOTE | 2025-05-29 11:05 | CT_ITS ---
WS: [id number] CT HEAD TECHNIQUE: Noncontrast CT of the head obtained from the skullbase to the vertex. CLINICAL INFORMATION: AMS COMPARISON: 11/30/2024 DLP: 1196.[address] scans at [facility] use at least one of these dose optimization techniques: automated exposure control; mA and/or kV adjustment per patient size (includes targeted exams where dose is matched to clinical indication); or iterative reconstruction. FINDINGS: No evidence of intracranial hemorrhage or mass effect. Ventricular system and basal cisterns are patent. Moderate small vessel changes with moderate parenchymal volume loss. Chronic lacunar infarcts in the cerebellum and jannet. No extra-axial fluid collections. No evidence of mass or mass effect. Vascular calcification Mild mucosal thickening RIGHT mastoid tip. CT/CT head wo con* [id number] IMPRESSION: 1. No evidence of intracranial hemorrhage or mass effect. 2. No acute intracranial findings.
--- NOTE | 2025-05-29 15:06 | P.PN_ITS ---
Subjective 2 Subjective: He is awake, making eye contact. Looking around the room. Does not appear in distress. Not answering questions. Vitals/I&O/Wt Last Vital Signs Temp 98.2 F 05/28/25 21:15 Pulse 64 05/29/25 12:00 Resp 19 H 05/29/25 12:00 BP 175/92 05/29/25 12:00 Pulse Ox 97 05/29/25 11:30 O2 Del Method Room Air 05/29/25 05:30 05/29/25 05/29/25 05/29/25 06:59 14:59 22:59 Output Total 850 / 1550 Balance -850 / 153.767 Weight last 48 hrs Weight 58.513 kg Weight 60.237 kg Weight 61.235 kg Physical Exam 2 Const: COMMON NORMALS: alert GENERAL APPEARANCE: cooperative and lethargic ORIENTATION/CONSCIOUSNESS: Yes awake and Yes lethargic HENMT: COMMON NORMALS: oropharynx normal Neck/C-Spine: COMMON NORMALS: no JVD Resp: COMMON NORMALS: normal respiratory effort and clear to auscultation bilaterally AUSCULTATION: clear to auscultation bilaterally Cardio: COMMON NORMALS: no JVD, regular rhythm, S1 normal heart sound present, S2 normal heart sound present and No murmurs present (Cardio) RHYTHM: regular rhythm HEART SOUNDS: S1 normal heart sound present and S2 normal heart sound present GI: COMMON NORMALS: Normal to inspection, nondistended, normoactive bowel sounds present, Soft to palpation and non-tender PALPATION: Yes Soft to palpation Extremity: COMMON NORMALS: no joint enlargement and no pedal edema OTHER: Contractures after past CVA Neuro: SENSORIUM/ORIENTATION: Yes alert and Yes lethargic Skin: COMMON NORMALS: no rashes or lesions noted GENERAL SKIN EXAM: no rashes or lesions noted OTHER: Few past abrasions on anterior shins Urinary Catheter Management: Tracy: Cath Placed During This Visit: no Reason for Continuing Indwelling Catheter: Accurate Measurement of Urinary Output in Critically Ill Patients Data 05/29/25 03:20 05/29/25 03:20 Micro: Microbiology 05/27/25 09:46 Blood Culture - Preliminary Blood NEGATIVE TO DATE A&P Assessment and plan 1. Declining functional status: Has been unable to tolerate oral intake over the past week. As per discussion, family understand likely lack of long-term benefit or life prolongation with PEG tube as well as potential adverse effects and risks, have considered options and came to a consensus would still want to pursue PEG tube. Discussed with the surgeon. His is the DPOA, his niece who is an RN is the primary contact and assisting the family with making decisions. Continue gentle IV hydration, monitor for risk of fluid overload. Adjusted fluids to LR 50 mL/h. Advanced dementia with prior major stroke and functional decline : Severe cognitive impairment, non-verbal, dependent for all care; no meaningful recovery expected. - Evaluate for hospice enrollment when family ready. 2. DKA (diabetic ketoacidosis): Resolved. Reviewed chemistry today, anion gap 11.8, bicarb 23 on review of chemistry, reviewed magnesium. Continue subcutaneous insulin. Gentle IV hydration, monitor for risk of fluid overload. Not safe for oral intake as per speech therapy. Attempted with chinstrap as well. Discussed again with family, they state that they understand that feeding tube would not be recommended, understand potential adverse effects and will not stop aspiration risk from secretions, however, have discussed and came to consensus that they would still want to pursue the feeding tube for him as per prior discussions and plans. Discussed with nursing, cyanide case hardener. In ICU as overflow. 3. VENITA (acute kidney injury): Resolving VENITA. Reviewed BUN, creatinine. Noted improvement in renal function. Continue gentle hydration. Reduce IV fluid rate. Monitor for risk of overload. - Continue IV hydration as above - Trend renal function with serial BMP - Monitor intake and output 4. Pneumonia: Doing well on room air, 97% oxygen saturation. N.p.o. with aspiration risk. Was not found safe to resume oral diet. Continue ceftriaxone, azithromycin. Reviewed CBC, white count normalized. Reviewed blood culture, negative. On presentation patchy bibasilar opacities on chest x-ray plus leukocytosis; aspiration possible due to impaired swallowing. Differential includes atelectasis vs community-acquired pneumonia. - ceftriaxone plus azithromycin. Not likely to be able to provide a sputum sample. - Implement aspiration precautions (NPO except sips per speech therapy) Plan: Possible temporomandibular joint dislocation : History of recurrent TMJ dislocation; jaw currently appears aligned but family concerned. Discussed w ED provider. It is not dislocated. - His chinstrap has been brought in. Leg skin sores : Healing pressure sores noted on lower extremities. [id number] / hospice discussion : Continue to revisit goals of care. - Dementia - Prior major stroke (date unspecified) - Type 2 diabetes mellitus: Continue Lantus, insulin sliding scale. Monitor POC glucose. Giurgius carb diet once resumed. - Hypertensive: Monitor blood pressures, currently hypotensive hold antihypertensives. Fluid resuscitation as above. Admission to ICU. - Benign prostatic hyperplasia (BPH) - Temporomandibular joint disorder with recurrent dislocation PDMP PDMP Reviewed: Not Reviewed Attestations 2 Medical Necessity Statement*: Continue admission in a gentleman who has been unable to tolerate oral intake with complications resulting in DKA. PEG tube placement. Continued goals of care considerations. and High MDM includes amount and/or complexity of data reviewed/ordered [ resulted lab(s)/test(s), ordered lab(s)/test(s), independent historian and other healthcare professional discussion] and described risk of complication, morbidity or mortality of management as documented Diagnoses Declining functional status R53.81 DKA (diabetic ketoacidosis) E11.10 VENITA (acute kidney injury) N17.9 Pneumonia J18.9
--- NOTE | 2025-05-29 16:28 | PM.CONSULT ---
Providers/Reason For Consult Consulting Physician/Specialty*: Dr Calixto Castanon DO Reason for Consult*: Feeding tube placement Attending Physician: Chandrakant Robles Primary Care Provider: Emely Low MD History of Present Illness History of Present Illness Gerard Gray is a 69 year old male Chief complaint of malnutrition and failing swallow study. 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 intake and has lost weight and they have had difficulty controlling his blood sugars.I spoke with his who is his power of [place] attorney and they would like to proceed with placement of a feeding tube. He is currently living [facility] a detention. No other complaints at this time. Review of Systems General: Reports: ROS unobtainable due to medical condition Medications/Allergies Home Medications ?Medication ?Instructions ?Recorded ?Confirmed ?Last Taken ?Type famotidine 20 mg tablet 20 mg PO DAILY@01/22/20 05/27/25 05/26/25 History ramipril 10 mg capsule (Altace) 10 mg PO DAILY@01/22/20 05/27/25 05/26/25 History acetaminophen 325 mg tablet 650 mg PO Q4H PRN Pain 07/25/22 05/27/25 Unknown History (Tylenol) naloxone 2 mg/2 mL syringe kit 2 mg IM Q2M PRN overdose 01/07/23 05/27/25 Unknown History insulin aspart U-100 100 unit/mL See Rx Instructions .Route 01/11/23 05/27/25 05/26/25 Rx (3 mL) subcutaneous pen (Novolog .COMPLEX #15 mL FlexPen U-100 Insulin aspart) amlodipine 5 mg tablet 5 mg PO DAILY@08 11/18/24 05/27/25 05/26/25 History aspirin 325 mg tablet 325 mg PO QAM 11/18/24 05/27/25 05/26/25 History atorvastatin 20 mg tablet 20 mg PO QPM 11/18/24 05/27/25 05/26/25 History bisacodyl 10 mg rectal suppository 10 mg ID DAILY PRN Constipation 11/18/24 05/27/25 11/18/24 History finasteride 5 mg tablet 5 mg PO QPM 11/18/24 05/27/25 05/26/25 History memantine 10 mg tablet 10 mg PO BID 11/18/24 05/27/25 05/26/25 History nystatin 100,000 unit/gram topical 1 applic topical Q8H PRN redness 11/18/24 05/27/25 11/18/24 History ointment polyethylene glycol 3350 17 17 g PO DAILY 11/18/24 05/27/25 05/26/25 History gram/dose oral powder potassium chloride 20 mEq 40 meq PO DAILY 11/18/24 05/27/25 05/26/25 History tablet,extended release sennosides 8.6 mg-docusate sodium 1 tab-cap PO DAILY PRN Constipation 11/18/24 05/27/25 Unknown History 50 mg tablet (Senna Plus) sertraline 50 mg tablet 100 mg PO BEDTIME 11/18/24 05/27/25 05/26/25 History albuterol sulfate 90 mcg/actuation 2 inh inhalation Q6H PRN Wheezing 11/30/24 05/27/25 Unknown History breath activated powder inhaler,sensor dextrose-maltodextrin 10 gram/11.5 10 g PO PRN PRN low bs 11/30/24 05/27/25 Unknown History gram oral powder packet glucagon HCl 1 mg solution for 1 mg SUBCUT Q24H PRN prophylaxis 11/30/24 05/27/25 Unknown History injection magnesium hydroxide 400 mg/5 mL 30 ml PO DAILY PRN Constipation 11/30/24 05/27/25 Unknown History oral suspension (Milk of Magnesia) sennosides 8.6 mg-docusate sodium 1 tab PO BID 11/30/24 05/27/25 05/26/25 History 50 mg tablet insulin glargine 100 unit/mL (3 16 unit SUBCUT BID 05/27/25 05/27/25 05/26/25 History mL) subcutaneous pen (Lantus Solostar U-100 Insulin) ketoconazole 2 % shampoo See Rx Instructions .Route .COMPLEX 05/27/25 05/27/25 Unknown History ketoconazole 2 % topical cream 1 applic topical Q12H face 05/27/25 05/27/25 Unknown History Allergies Allergy/AdvReac Type Severity Reaction Status Date / Time No Known Allergies Allergy Verified 03/22/23 08:33 Current Medications Generic Name Dose Route Start Last Admin Trade Name Freq PRN Reason Stop Dose Admin Ceftriaxone Sodium 1,000 mg 05/28/25 09:00 05/29/25 08:09 Ceftriaxone 1,000 Mg Sdv IVP 1,000 mg DAILY MABEL Administration Protocol Enoxaparin Sodium 30 mg 05/27/25 17:00 05/28/25 17:20 Enoxaparin 30 Mg/0.3 Ml Syringe SUBCUT 30 mg Q24H MABEL Administration Insulin Human Regular 100 unit in 100 mls @ 0 mls/hr 05/27/25 09:30 05/28/25 11:11 Myxredlin 100 Unit/100 Ml Bag IV 0 unit/hr PROTOCOL MABEL 0 mls/hr Protocol Titration Per Protocol Potassium Phosphate 40 meq/ 109.0909 mls @ 27.25 mls/hr 05/27/25 09:28 05/27/25 22:52 Sodium Chloride IV Infused PRN PRN Infusion hypophosphatemia Dextrose/Sodium Chloride 1,000 mls @ 75 mls/hr 05/27/25 16:23 05/28/25 17:00 Dextrose 5%-Sod Chloride 0.45% IV 0 mls/hr .[id number] PRN Infusion blood glucose less than or equal to 250 mg/dL Azithromycin 250 mg/ Sodium 250 mls @ 250 mls/hr 05/28/25 09:00 05/29/25 09:56 Chloride IV 250 mls/hr DAILY MABEL Administration Protocol Insulin Glargine 16 unit 05/28/25 09:00 05/29/25 08:11 Insulin Glargine 100 Units/1 Ml SUBCUT 16 unit BID MABEL Administration Insulin Human Lispro 0 unit 05/28/25 18:00 05/29/25 12:20 Insulin Lispro 100 Unit/1 Ml SUBCUT 4 unit TIDWM MABEL Administration Protocol PFSH Acute PFSH: Medical History (Updated 05/28/25 @ 14:29 by Chandrakant Robles MD) DM type 1 (diabetes mellitus, type 1) long term resident Dementia Mixed hyperlipidemia Proteinuria BPH loc w urin obs/LUTS Lower urinary tract symptoms (LUTS) Scoliosis 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 Mother No problems noted. Son , Both patient's sons are Family history of premature coronary artery disease Social History Smoking and tobacco/nicotine status: never used tobacco/nicotine Alcohol intake: never Substance/Drug Use: never Adopted: No Caregiver/support person: No Lives independently: No Marital status: Current occupational status: retired Current gender identity: Male Vitals/I&O/Wt Last Vital Signs Temp 98.2 F 05/28/25 21:15 Pulse 70 05/29/25 14:00 Resp 19 H 05/29/25 12:00 BP 175/92 05/29/25 12:00 Pulse Ox 97 05/29/25 11:30 O2 Del Method Room Air 05/29/25 05:30 05/29/25 05/29/25 05/29/25 06:59 14:59 22:59 Output Total 850 / 1550 Balance -850 / 153.767 Weight last 48 hrs Weight 129 lb Weight 132 lb 12.8 oz Weight 135 lb Physical Exam Const: COMMON NORMALS: alert GENERAL APPEARANCE: cooperative and lethargic ORIENTATION/CONSCIOUSNESS: Yes awake and Yes lethargic HENMT: COMMON NORMALS: oropharynx normal Neck/C-Spine: COMMON NORMALS: no JVD Resp: COMMON NORMALS: normal respiratory effort and clear to auscultation bilaterally AUSCULTATION: clear to auscultation bilaterally Cardio: COMMON NORMALS: no JVD, regular rhythm, S1 normal heart sound present, S2 normal heart sound present and No murmurs present (Cardio) RHYTHM: regular rhythm HEART SOUNDS: S1 normal heart sound present and S2 normal heart sound present GI: COMMON NORMALS: Normal to inspection, nondistended, normoactive bowel sounds present, Soft to palpation and non-tender PALPATION: Yes Soft to palpation Extremity: COMMON NORMALS: no joint enlargement and no pedal edema OTHER: Contractures after past CVA Neuro: SENSORIUM/ORIENTATION: Yes alert and Yes lethargic Skin: COMMON NORMALS: no rashes or lesions noted GENERAL SKIN EXAM: no rashes or lesions noted OTHER: Few past abrasions on anterior shins Urinary Catheter Management: Tracy: Cath Placed During This Visit: no Reason for Continuing Indwelling Catheter: Accurate Measurement of Urinary Output in Critically Ill Patients Data 05/29/25 03:20 05/29/25 03:20 Micro: Microbiology 05/27/25 09:46 Blood Culture - Preliminary Blood NEGATIVE TO DATE A&P Assessment and plan 1. Declining functional status: Has been unable to tolerate oral intake over the past week.We will plan for placement of percutaneous endoscopic gastrostomy tube tomorrow morning. N.p.o. over night. I discussed this procedure with his and explained all risks and benefits including bleeding dislodgment of the feeding tube requiring further procedures to replace it, clogging of the feeding tube and pain at the site of the feeding tube etc. She agrees and wants to proceed with the placement of feeding tube so we will plan to do this tomorrow morning in the GI lab. As per discussion, family understand likely lack of long-term benefit or life prolongation with PEG tube as well as potential adverse effects and risks, have considered options and came to a consensus would still want to pursue PEG tube. Discussed with the surgeon. His is the DPOA, his niece who is an RN is the primary contact and assisting the family with making decisions. Continue gentle IV hydration, monitor for risk of fluid overload. Adjusted fluids to LR 50 mL/h. Advanced dementia with prior major stroke and functional decline : Severe cognitive impairment, non-verbal, dependent for all care; no meaningful recovery expected. 2. DKA (diabetic ketoacidosis): Resolved. Reviewed chemistry today, anion gap 11.8, bicarb 23 on review of chemistry, reviewed magnesium. Continue subcutaneous insulin. Gentle IV hydration, monitor for risk of fluid overload. Not safe for oral intake as per speech therapy. Attempted with chinstrap as well. Discussed again with family, they state that they understand that feeding tube would not be recommended, understand potential adverse effects and will not stop aspiration risk from secretions, however, have discussed and came to consensus that they would still want to pursue the feeding tube for him as per prior discussions and plans. Discussed with nursing, lining caser. In ICU as overflow. 3. VENITA (acute kidney injury): Resolving VENITA. Reviewed BUN, creatinine. Noted improvement in renal function. Continue gentle hydration. Reduce IV fluid rate. Monitor for risk of overload. - Continue IV hydration as above - Trend renal function with serial BMP - Monitor intake and output Plan: Possible temporomandibular joint dislocation : History of recurrent TMJ dislocation; jaw currently appears aligned but family concerned. Discussed w ED provider. It is not dislocated. - His chinstrap has been brought in. Leg skin sores : Healing pressure sores noted on lower extremities. [id number] / hospice discussion : Continue to revisit goals of care. - Dementia - Prior major stroke (date unspecified) - Type 2 diabetes mellitus: Continue Lantus, insulin sliding scale. Monitor POC glucose. Giurgius carb diet once resumed. - Hypertensive: Monitor blood pressures, currently hypotensive hold antihypertensives. Fluid resuscitation as above. Admission to ICU. - Benign prostatic hyperplasia (BPH) - Temporomandibular joint disorder with recurrent dislocation PDMP PDMP Reviewed: Not Reviewed Coding Level of Care Code 86220 Diagnoses Declining functional status R53.81 DKA (diabetic ketoacidosis) E11.10 VENITA (acute kidney injury) N17.9
[2025-05-30] VITALS (19 sets, daily range): BP systolic 109–180; BP diastolic 61–93; PULSE 51–84; RESP 13–17; TEMP 36.2–36.9; O2SAT 90–100
--- NOTE | 2025-05-30 00:57 | PC.NURSE ---
Report called to AILEEN Espinal on [facility], Patient transported to [facility] room 262 at 0037.
[2025-05-30 05:30] LABS: Hematocrit 42.1 % (37-53); Hemoglobin 13.50 g/dL (11.27-16.99); Mean Corpuscular HGB Conc 32.1 g/dL (30-55); Mean Corpuscular Hemoglobin 29.4 pg (27-33); Mean Corpuscular Volume 91.7 fl (82-101); Nucleated Red Blood Cells % 0 %; Platelet Count 151 10^3/cmm (157-399); Red Blood Count 4.59 10^6/uL (3.85-5.65); White Blood Count 7.32 10^3/uL (3.29-11.43)
[2025-05-30 06:10] LABS: Alanine Aminotransferase 11 U/L (0-41); Albumin Level 2.9 g/dL (3.5-5.2); Alkaline Phosphatase 98 U/L (40-130); Anion Gap 10.6 (5-19); Aspartate Amino Transferase 15 U/L (0-40); Blood Urea Nitrogen 12 mg/dL (8-23); Calcium 8.6 mg/dL (8.5-10.5); Carbon Dioxide 28 mmol/L (22-29); Chloride 107 mmol/L (98-107); Creatinine Clr Calc Pharmacy 74.9647; Globulin 2.6 g/dL (1.3-4.6); Glucose 108 mg/dL (65-115); Osmolality Calculated 294 mOsm/kg (285-295); Potassium 3.6 mmol/L (3.5-5.1); Sodium 142 mmol/L (136-145); Total Protein 5.5 g/dL (6.6-8.7)
--- NOTE | 2025-05-30 07:53 | ANES.PREANE2 ---
Pre-Anesthetic Assessment Height/Weight: Height 1.68 m Weight 58.513 kg Temp Pulse Resp BP Pulse Ox O2 Del Method 97.5 F L 60 17 180/80 94 Room Air 05/30/25 07:44 05/30/25 07:44 05/30/25 07:44 05/30/25 07:44 05/30/25 07:44 05/29/25 19:30 Operation Date: 05/30/25 08:00 Proposed Procedures p PEG Tube Insertion Gastric Tube Insertion(Not Applicable) - Calixto Castanon DO Familial anesthetic complications: none per patient's Was Beta Skylar taken within 24 hours: N/A Was Clonidine taken within 24 hours: N/A Last intake: > 8hrs Exam alert, clear to auscultation bilaterally and regular rate & rhythm Pulmonary possbile pneumonia VENITA Metabolic Diabetes Mellitus Neuropsych Cerebrovascular Accident and Dementia Anesthetic Plan ASA status: 4 Anesthesia: MAC Risk of > 500 ml blood loss (7ml/kg in children): No Medications/Allergies Home Medications ?Medication ?Instructions ?Recorded ?Confirmed ?Last Taken ?Type famotidine 20 mg tablet 20 mg PO DAILY@08 01/22/20 05/27/25 05/26/25 History ramipril 10 mg capsule (Altace) 10 mg PO DAILY@08 01/22/20 05/27/25 05/26/25 History acetaminophen 325 mg tablet 650 mg PO Q4H PRN Pain 07/25/22 05/27/25 Unknown History (Tylenol) naloxone 2 mg/2 mL syringe kit 2 mg IM Q2M PRN overdose 01/07/23 05/27/25 Unknown History insulin aspart U-100 100 unit/mL See Rx Instructions .Route 01/11/23 05/27/25 05/26/25 Rx (3 mL) subcutaneous pen (Novolog .COMPLEX #15 mL FlexPen U-100 Insulin aspart) amlodipine 5 mg tablet 5 mg PO DAILY@08 11/18/24 05/27/25 05/26/25 History aspirin 325 mg tablet 325 mg PO QAM 11/18/24 05/27/25 05/26/25 History atorvastatin 20 mg tablet 20 mg PO QPM 11/18/24 05/27/25 05/26/25 History bisacodyl 10 mg rectal suppository 10 mg [place] DAILY PRN Constipation 11/18/24 05/27/25 11/18/24 History finasteride 5 mg tablet 5 mg PO QPM 11/18/24 05/27/25 05/26/25 History memantine 10 mg tablet 10 mg PO BID 11/18/24 05/27/25 05/26/25 History nystatin 100,000 unit/gram topical 1 applic topical Q8H PRN redness 11/18/24 05/27/25 11/18/24 History ointment polyethylene glycol 3350 17 17 g PO DAILY 11/18/24 05/27/25 05/26/25 History gram/dose oral powder potassium chloride 20 mEq 40 meq PO DAILY 11/18/24 05/27/25 05/26/25 History tablet,extended release sennosides 8.6 mg-docusate sodium 1 tab-cap PO DAILY PRN Constipation 11/18/24 05/27/25 Unknown History 50 mg tablet (Senna Plus) sertraline 50 mg tablet 100 mg PO BEDTIME 11/18/24 05/27/25 05/26/25 History albuterol sulfate 90 mcg/actuation 2 inh inhalation Q6H PRN Wheezing 11/30/24 05/27/25 Unknown History breath activated powder inhaler,sensor dextrose-maltodextrin 10 gram/11.5 10 g PO PRN PRN low bs 11/30/24 05/27/25 Unknown History gram oral powder packet glucagon HCl 1 mg solution for 1 mg SUBCUT Q24H PRN prophylaxis 11/30/24 05/27/25 Unknown History injection magnesium hydroxide 400 mg/5 mL 30 ml PO DAILY PRN Constipation 11/30/24 05/27/25 Unknown History oral suspension (Milk of Magnesia) sennosides 8.6 mg-docusate sodium 1 tab PO BID 11/30/24 05/27/25 05/26/25 History 50 mg tablet insulin glargine 100 unit/mL (3 16 unit SUBCUT BID 05/27/25 05/27/25 05/26/25 History mL) subcutaneous pen (Lantus Solostar U-100 Insulin) ketoconazole 2 % shampoo See Rx Instructions .Route .COMPLEX 05/27/25 05/27/25 Unknown History ketoconazole 2 % topical cream 1 applic topical Q12H face 05/27/25 05/27/25 Unknown History Allergies Allergy/AdvReac Type Severity Reaction Status Date / Time No Known Allergies Allergy Verified 01/03/23 08:33 Current Medications Generic Name Dose Route Start Last Admin Trade Name Freq PRN Reason Stop Dose Admin Ceftriaxone Sodium 1,000 mg 05/28/25 09:00 05/29/25 08:09 Ceftriaxone 1,000 Mg Sdv IVP 1,000 mg DAILY MABEL Administration Protocol Enoxaparin Sodium 30 mg 05/27/25 17:00 05/29/25 17:18 Enoxaparin 30 Mg/0.3 Ml Syringe SUBCUT 30 mg Q24H MABEL Administration Insulin Human Regular 100 unit in 100 mls @ 0 mls/hr 05/27/25 09:30 05/28/25 11:11 Myxredlin 100 Unit/100 Ml Bag IV 0 unit/hr PROTOCOL MABEL 0 mls/hr Protocol Titration Per Protocol Potassium Phosphate 40 meq/ 109.0909 mls @ 27.25 mls/hr 05/27/25 09:28 05/27/25 22:52 Sodium Chloride IV Infused PRN PRN Infusion hypophosphatemia Dextrose/Sodium Chloride 1,000 mls @ 75 mls/hr 05/27/25 16:23 05/28/25 17:00 Dextrose 5%-Sod Chloride 0.45% IV 0 mls/hr .[id number] PRN Infusion blood glucose less than or equal to 250 mg/dL Azithromycin 250 mg/ Sodium 250 mls @ 250 mls/hr 05/28/25 09:00 05/29/25 20:03 Chloride IV Infused DAILY MABEL Infusion Protocol Dextrose 125 mls @ 750 mls/hr 05/28/25 17:00 05/29/25 20:10 D10w IV Infused PRN PRN Infusion Adult Acute Hypoglycemia Nursing Protocol Protocol Lactated Ringer's 1,000 mls @ 50 mls/hr 05/29/25 15:30 05/30/25 00:32 Lactated Ringers IV 50 mls/hr .Q20H MABEL Infusion Insulin Human Lispro 0 unit 05/28/25 18:00 05/29/25 17:16 Insulin Lispro 100 Unit/1 Ml SUBCUT Not Given TIDWM MABEL Protocol [facility] Anesthesia Medical History (Updated 05/28/25 @ 14:29 by Chandrakant Robles MD) DM type 1 (diabetes mellitus, type 1) [facility] resident Dementia Mixed hyperlipidemia Proteinuria BPH loc w urin obs/LUTS Lower urinary tract symptoms (LUTS) Scoliosis 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 Mother No problems noted. Son , Both patient's sons are Family history of premature coronary artery disease Social History Smoking and tobacco/nicotine status: never used tobacco/nicotine Alcohol intake: never Substance/Drug Use: never Adopted: No Caregiver/support person: No Lives independently: No Marital status: Current occupational status: retired Current gender identity: Male Data Anesthesia 05/30/25 05:18 05/30/25 05:18 Short CBC 05/29/25 05/30/25 Range/Units 03:20 05:18 WBC 10.67 7.32 (3.29-11.43) 10^3/uL Hgb 13.20 13.50 (11.27-16.99) g/dL Hct 39.6 42.1 (37-53) % MCV 89.8 91.7 (82-101) fl Plt Count 162 151 L (157-399) 10^3/cmm Neut % (Auto) 84.9 78.0 % Neut # (Auto) 9.07 H 5.71 (1.8-7.7) 10^3/uL BMP 05/29/25 05/30/25 03:20 05:18 Sodium 142 142 Potassium 4.1 3.6 Chloride 112 H 107 Carbon Dioxide 23 28 BUN 26 H 12 Creatinine 0.6 L 0.5 L Glucose 241 H 108 Calcium 8.7 8.6 Liver Function 05/29/25 05/30/25 Range/Units 03:20 05:18 Total Bilirubin 0.5 0.6 (0.15-1.2) mg/dL AST 19 15 (0-40) U/L ALT 12 11 (0-41) U/L Alkaline Phosphatase 100 98 (40-130) U/L Albumin 3.0 L 2.9 L (3.5-5.2) g/dL Microbiology 05/27/25 09:46 Blood Culture - Preliminary Blood NEGATIVE TO DATE
--- NOTE | 2025-05-30 08:45 | SUR.OPER ---
second PEG tube kit requested by physician for additional supplies
--- NOTE | 2025-05-30 09:05 | ANE.PACU2 ---
Inpatient post-anesthesia follow up: Airway intact: Yes Vital signs: Temperature 98 F Pulse Rate 78 Respiratory Rate 18 Blood Pressure 146/82 Pulse Oximetry 95 Oxygen Delivery Me thod Room Air Oxygen Flow Rate 5 Fraction of Inspir ed Oxygen Hydration adequate: Yes Nausea and vomiting: No Pain level: 1 Mental status: Baseline
--- NOTE | 2025-05-30 10:43 | P.PN_ITS ---
Subjective 2 Subjective: Planning on PEG for today. Vitals/I&O/Wt Last Vital Signs Temp 97.4 F L 05/30/25 09:45 Pulse 70 05/30/25 09:45 Resp 17 05/30/25 09:45 BP 170/93 05/30/25 09:45 Pulse Ox 99 05/30/25 09:45 O2 Del Method Room Air 05/30/25 09:15 O2 Flow Rate 5 05/30/25 08:35 05/29/25 05/30/25 05/30/25 22:59 06:59 14:59 Intake Total 375 / 375 361.667 / 970.808 1247 / 1000 Output Total 600 / 600 650 / 1250 400 / 400 Balance -225 / -225 -288.333 / -513.333 600 / 600 Weight last 48 hrs Weight 58.513 kg Weight 58.513 kg Physical Exam 2 Const: COMMON NORMALS: no acute distress and average body habitus GENERAL APPEARANCE: cooperative and lethargic ORIENTATION/CONSCIOUSNESS: Yes awake and Yes lethargic HENMT: COMMON NORMALS: oropharynx normal Neck/C-Spine: COMMON NORMALS: no JVD Resp: COMMON NORMALS: normal respiratory effort and clear to auscultation bilaterally AUSCULTATION: clear to auscultation bilaterally Cardio: COMMON NORMALS: no JVD, regular rhythm, S1 normal heart sound present, S2 normal heart sound present and No murmurs present (Cardio) RHYTHM: regular rhythm HEART SOUNDS: S1 normal heart sound present and S2 normal heart sound present GI: COMMON NORMALS: Soft to palpation, non-tender and no masses PALPATION: Yes Soft to palpation Extremity: COMMON NORMALS: no joint enlargement and no pedal edema OTHER: Contractures after past CVA Neuro: SENSORIUM/ORIENTATION: Yes lethargic Skin: COMMON NORMALS: no rashes or lesions noted GENERAL SKIN EXAM: no rashes or lesions noted OTHER: Few past abrasions on anterior shins Urinary Catheter Management: Tracy: Cath Placed During This Visit: no Reason for Continuing Indwelling Catheter: Other Data 05/30/25 05:18 05/30/25 05:18 Micro: Microbiology 05/27/25 09:46 Blood Culture - Preliminary Blood NEGATIVE TO DATE A&P Assessment and plan 1. Declining functional status: 2. VENITA (acute kidney injury): 3. Pneumonia: 4. DKA (diabetic ketoacidosis): Plan: 1. Declining functional status: Advanced dementia H/O CVA with function decline Severe cognitive impairment - non-verbal, dependent for all care; no meaningful recovery expected. - Evaluate for hospice enrollment when family ready. 2. DKA (diabetic ketoacidosis): - Resolved. Reviewed chemistry today, anion gap 11.8, bicarb 23 on review of chemistry, reviewed magnesium. Continue subcutaneous insulin. Gentle IV hydration, monitor for risk of fluid overload. Not safe for oral intake as per speech therapy. Attempted with chinstrap as well. - Ongoing discussions with family, they understand that feeding tube would not be recommended, understand potential adverse effects and will not stop aspiration risk from secretions, however, have discussed and came to consensus that they would still want to pursue the feeding tube for him as per prior discussions and plans. Protein calorie malnutrition - moderate - Has been unable to tolerate oral intake over the past week. - As per discussion, family understand likely lack of long-term benefit or life prolongation with PEG tube as well as potential adverse effects and risks, have considered options and came to a consensus would still want to pursue PEG tube. - Continue gentle IV hydration, monitor for risk of fluid overload. Adjusted fluids to LR 50 mL/h. 3. VENITA (acute kidney injury): CKD II at baseline. Resolved currently. - Continue gentle hydration. Reduce IV fluid rate. Monitor for risk of overload. - Monitor intake and output 4. Pneumonia: Doing well on room air, 97% oxygen saturation. N.p.o. with aspiration risk. Was not found safe to resume oral diet. Continue ceftriaxone, azithromycin. - blood culture, negative. On presentation patchy bibasilar opacities on chest x-ray plus leukocytosis; aspiration possible due to impaired swallowing. Differential includes atelectasis vs community-acquired pneumonia. - ceftriaxone plus azithromycin. Not likely to be able to provide a sputum sample. - Implement aspiration precautions (NPO except sips per speech therapy) H/O temporomandibular joint dislocation: - History of recurrent TMJ dislocation; jaw currently appears aligned but family concerned. Discussed w ED provider. It is not dislocated. - His chinstrap has been brought in. Leg skin sores : - Healing pressure sores noted on lower extremities. Type 2 diabetes mellitus: Continue Lantus, insulin sliding scale. Monitor POC glucose. Giurgius carb diet once resumed. Hypertensive: Monitor blood pressures, currently hypotensive hold antihypertensives. Fluid resuscitation as above. Admission to ICU. Benign prostatic hyperplasia (BPH) Disposition - His is the DPOA, his niece who is an RN is the primary contact and assisting the family with making decisions. [id number] / hospice discussion : Continue to revisit goals of care. - Surgery planning for PEG placement today. PDMP PDMP Reviewed: Not Reviewed Attestations 2 Medical Necessity Statement*: ongoing inpatient care for PEG placement Time Spent in Patient Care: 16 - 35 minutes (>than 50% of time sp ent in counselling and/or direct pt care on unit) . Coding Level of Care Code Acute Code for Chg Fwd Diagnoses Declining functional status R53.81 VENITA (acute kidney injury) N17.9 Pneumonia J18.9 DKA (diabetic ketoacidosis) E11.10
[2025-05-30] MEDS: insulin glargine 100 units/1 mL 16 UNIT SUBCUT (17:24)
--- NOTE | 2025-05-30 18:17 | PC.NURSE ---
Shift SUmmary: received peg tube this morning, revorered from surgery without incident. Patient mentation has returned to baseline (oriented to self only, may rarely answer a yes/no question). Started on tube feeds after 1500.
--- NOTE | 2025-05-30 23:21 | PC.NURSE ---
Patient tube feed 10ml/hr for eight hour time completed. This nurse increased feed rate to 20ml/hr for 8 hour time, nurse checked tube residual it was 3ml. Nurse connected patients PEG tube to kangaroo pump and continued feeds at 20ml/hr. Patients abdomen is soft with normo active bowel sounds and no distended. Nurse will continue to monitor throughout shift.
[2025-05-31] VITALS: BP 145/77; PULSE 72; RESP 16; TEMP 37.1; O2SAT 95
[2025-05-31 03:34] LABS: Hematocrit 44.3 % (37-53); Hemoglobin 14.30 g/dL (11.27-16.99); Mean Corpuscular HGB Conc 32.3 g/dL (30-55); Mean Corpuscular Hemoglobin 29.5 pg (27-33); Mean Corpuscular Volume 91.3 fl (82-101); Nucleated Red Blood Cells % 0 %; Platelet Count 145 10^3/cmm (157-399); Red Blood Count 4.85 10^6/uL (3.85-5.65); White Blood Count 7.16 10^3/uL (3.29-11.43)
[2025-05-31 04:03] LABS: Anion Gap 11.4 (5-19); Blood Urea Nitrogen 12 mg/dL (8-23); Calcium 8.6 mg/dL (8.5-10.5); Carbon Dioxide 27 mmol/L (22-29); Chloride 107 mmol/L (98-107); Creatinine Clr Calc Pharmacy 74.9647; Glucose 110 mg/dL (65-115); Osmolality Calculated 294 mOsm/kg (285-295); Potassium 3.4 mmol/L (3.5-5.1); Sodium 142 mmol/L (136-145)
[2025-05-31 05:52] VITALS: BP 146/69; PULSE 73; RESP 16; TEMP 37.2; O2SAT 95
[2025-05-31 07:23] VITALS: BP 146/82; PULSE 78; RESP 18; TEMP 36.6; O2SAT 95
[2025-05-31] MEDS: cefTRIAXone 1,000 mg SDV 1000 MG IVP (09:57)
[2025-05-31 11:11] VITALS: BP 163/85; PULSE 82; RESP 16; TEMP 36.4; O2SAT 98
--- NOTE | 2025-05-31 11:34 | P.PN_ITS ---
Subjective 2 Subjective: now S/P PEG tube, started feedings. Vitals/I&O/Wt Last Vital Signs Temp 97.6 F 05/31/25 11:11 Pulse 82 05/31/25 11:11 Resp 16 05/31/25 11:11 BP 163/85 05/31/25 11:11 Pulse Ox 98 05/31/25 11:11 O2 Del Method Room Air 05/31/25 11:11 O2 Flow Rate 5 05/30/25 08:35 05/30/25 05/31/25 05/31/25 22:59 06:59 14:59 Intake Total 638.333 / 1638.333 250 / 250 Output Total 500 / 1300 Balance 638.333 / 838.333 -500 / 338.333 250 / 250 Weight last 48 hrs Weight 58.513 kg Weight 58.513 kg Physical Exam 2 Const: COMMON NORMALS: no acute distress and average body habitus GENERAL APPEARANCE: cooperative and lethargic ORIENTATION/CONSCIOUSNESS: Yes awake and Yes lethargic HENMT: COMMON NORMALS: oropharynx normal Neck/C-Spine: COMMON NORMALS: no JVD Resp: COMMON NORMALS: normal respiratory effort and clear to auscultation bilaterally AUSCULTATION: clear to auscultation bilaterally Cardio: COMMON NORMALS: no JVD, regular rhythm, S1 normal heart sound present, S2 normal heart sound present and No murmurs present (Cardio) RHYTHM: regular rhythm HEART SOUNDS: S1 normal heart sound present and S2 normal heart sound present GI: COMMON NORMALS: Soft to palpation, non-tender and no masses PALPATION: Yes Soft to palpation OTHER: PEG in place. Extremity: COMMON NORMALS: no joint enlargement and no pedal edema OTHER: Contractures after past CVA Neuro: SENSORIUM/ORIENTATION: Yes lethargic Skin: COMMON NORMALS: no rashes or lesions noted GENERAL SKIN EXAM: no rashes or lesions noted OTHER: Few past abrasions on anterior shins Urinary Catheter Management: Tracy: Cath Placed During This Visit: no Reason for Continuing Indwelling Catheter: Other Data 05/31/25 02:55 05/31/25 02:55 A&P Assessment and plan 1. Declining functional status: 2. VENITA (acute kidney injury): 3. Pneumonia: 4. DKA (diabetic ketoacidosis): Plan: 1. Declining functional status: Advanced dementia H/O CVA with function decline Severe cognitive impairment - non-verbal, dependent for all care; no meaningful recovery expected. - Evaluate for hospice enrollment when family ready. 2. DKA (diabetic ketoacidosis): - Resolved. Reviewed chemistry today, anion gap 11.8, bicarb 23 on review of chemistry, reviewed magnesium. Continue subcutaneous insulin. - stop IV hydration and start on free water flushes. Not safe for oral intake as per speech therapy. Attempted with chinstrap as well. - Ongoing discussions with family, they understand that feeding tube would not be recommended, understand potential adverse effects and will not stop aspiration risk from secretions, however, have discussed and came to consensus that they would still want to pursue the feeding tube for him as per prior discussions and plans. Protein calorie malnutrition - moderate - Has been unable to tolerate oral intake over the past week. - As per discussion, family understand likely lack of long-term benefit or life prolongation with PEG tube as well as potential adverse effects and risks, have considered options and came to a consensus would still want to pursue PEG tube. - PEG tube in place, started on tube feeds with free water flushes. 3. VENITA (acute kidney injury): CKD II at baseline. Resolved currently. - Continue gentle hydration. Reduce IV fluid rate. Monitor for risk of overload. - Monitor intake and output 4. Pneumonia: Doing well on room air, 97% oxygen saturation. N.p.o. with aspiration risk. Was not found safe to resume oral diet. - blood culture, negative. On presentation patchy bibasilar opacities on chest x-ray plus leukocytosis; aspiration possible due to impaired swallowing. Differential includes atelectasis vs community-acquired pneumonia. - initially on ceftriaxone plus azithromycin, change to abx per tube as he is pulling out lines - Not likely to be able to provide a sputum sample. - Implement aspiration precautions (NPO except sips per speech therapy) H/O temporomandibular joint dislocation: - History of recurrent TMJ dislocation; jaw currently appears aligned but family concerned. Discussed w ED provider. It is not dislocated. - His chinstrap has been brought in. Leg skin sores : - Healing pressure sores noted on lower extremities. Type 2 diabetes mellitus: Continue Lantus, insulin sliding scale. Monitor POC glucose. Hypertensive: Monitor blood pressures, currently hypotensive hold antihypertensives. Fluid resuscitation as above. Admission to ICU. Benign prostatic hyperplasia (BPH) PPx: lovenox Diet: tube feeding with free water flushes. Disposition - His is the DPOA, his niece who is an RN is the primary contact and assisting the family with making decisions. [id number] / hospice discussion : Continue to revisit goals of care. - PEG tube in place. Tube feeding started. - discharge planning for Sunday per family decision regarding hospice facility vs. LTC. PDMP PDMP Reviewed: Not Reviewed Attestations 2 Medical Necessity Statement*: ongoing inpatient care for DKA, aspiration pneumonia, PEG placement Time Spent in Patient Care: 16 - 35 minutes (>than 50% of time sp ent in counselling and/or direct pt care on unit) . Coding Level of Care Code Acute Code for Chg Fwd Diagnoses Declining functional status R53.81 VENITA (acute kidney injury) N17.9 Pneumonia J18.9 DKA (diabetic ketoacidosis) E11.10
[2025-05-31 15:50] VITALS: BP 157/69; PULSE 83; RESP 16; TEMP 36.4; O2SAT 96
[2025-05-31] MEDS: insulin glargine 100 units/1 mL 16 UNIT SUBCUT (17:37)
[2025-05-31 20:00] VITALS: BP 136/80; PULSE 80; RESP 16; TEMP 36.5; O2SAT 97
--- NOTE | 2025-05-31 23:37 | PC.NURSE ---
Patient tube feeding increased to 50ml/hr. Nurse will continue to monitor
[2025-06-01] VITALS: BP 146/89; PULSE 77; RESP 16; TEMP 36.3; O2SAT 95
[2025-06-01 04:00] VITALS: BP 148/76; PULSE 74; RESP 16; TEMP 36.4; O2SAT 96
[2025-06-01 04:33] LABS: Hematocrit 43.6 % (37-53); Hemoglobin 14.20 g/dL (11.27-16.99); Mean Corpuscular HGB Conc 32.6 g/dL (30-55); Mean Corpuscular Hemoglobin 29.0 pg (27-33); Mean Corpuscular Volume 89.2 fl (82-101); Nucleated Red Blood Cells % 0 %; Platelet Count 146 10^3/cmm (157-399); Red Blood Count 4.89 10^6/uL (3.85-5.65); White Blood Count 7.58 10^3/uL (3.29-11.43)
[2025-06-01 05:11] LABS: Anion Gap 9.7 (5-19); Blood Urea Nitrogen 15 mg/dL (8-23); Calcium 8.5 mg/dL (8.5-10.5); Carbon Dioxide 28 mmol/L (22-29); Chloride 100 mmol/L (98-107); Creatinine Clr Calc Pharmacy 74.9647; Glucose 345 mg/dL (65-115); Osmolality Calculated 293 mOsm/kg (285-295); Potassium 3.7 mmol/L (3.5-5.1); Sodium 134 mmol/L (136-145)
[2025-06-01 07:54] VITALS: BP 152/80; PULSE 80; RESP 18; TEMP 36.6; O2SAT 99
[2025-06-01 11:41] VITALS: BP 165/88; PULSE 81; RESP 16; TEMP 36.6; O2SAT 96
--- NOTE | 2025-06-01 12:41 | PC.NUTR ---
Received consult for PEG TF recommendations. For continuous PEG TF, recommend Jevity 1.5 with goal rate of 45mls/h w/FWF 120mls Q4H or per MD discretion. For bolus PEG TF, recommend Jevity 1.5 x 4.5 cartons (237mls per carton) per day with 60mls FWF before and after bolus feeding. Suggested regimen: 8am/ noon/ 4pm: 1 carton or 240mls 8pm: 1.5 cartons or 360mls (if Pt losing weight, increase this feed to 2 cartons or 480mls).
[2025-06-01 13:47] LABS: Lactate (Lactic Acid level) 1.7 mmol/L (0.5-2.2)
[2025-06-01 16:05] VITALS: BP 145/82; PULSE 91; RESP 18; TEMP 36.7; O2SAT 99
--- NOTE | 2025-06-01 16:10 | P.DS_ITS ---
Discharge Providers Date of Admission: 05/27/25 09:42 Date of Discharge: June 01, 2025 Attending Provider at Admission: Chandrakant Robles Attending Provider at Discharge: Sea Zurita MD Primary Care Provider: Emely Low MD Diagnoses at Discharge Discharge Diagnosis 1. Declining functional status: 2. VENITA (acute kidney injury): 3. Pneumonia: 4. DKA (diabetic ketoacidosis): Reason for Visit Reason for Visit: BS issues Brief History: Gerard Gray is a 69 year old male gentleman with a history of advanced dementia, prior major stroke, type 2 diabetes mellitus, hypertensive heart disease (HOD), and benign prostatic hyperplasia (BPH) who was brought from his nursing-home bedbound and non-verbal. Emergency department evaluation revealed diabetic ketoacidosis (DKA) with glucose 796 mg/dL, metabolic acidosis (pH 7.11, bicarbonate 8 mEq/L, anion gap 42.3), positive serum and urine ketones, and sinus tachycardia. Laboratory studies showed leukocytosis (WBC 22.6 K/?L), acute kidney injury (blood urea nitrogen 39 mg/dL, creatinine 1.9 mg/dL), hyperkalemia (K 5.3 mEq/L), and mild alkaline phosphatase elevation (156 U/L). Chest radiograph demonstrated patchy opacities at the lung bases concerning for atelectasis versus early pneumonia. He is dehydrated and receiving intravenous f luids and an insulin drip. A Tracy catheter was placed earlier today. Caregivers report progressive decline: he no longer feeds himself, frequently spits out food, and previously required a PEG tube (removed ~2 years ago). 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 Pressure sores are noted on the legs but are healing. Code status is ?allow natural .? Family (, brother, niece who is a nurse) are considering hospice; [id number] discussion is ongoing. Hospital Course Hospital Course Patient presented to the hospital with declining functional status and advanced dementia with severe cognitive impairment. He is head CT was negative. He was discussed about hospice involvement and discussion with the family. He also had diabetic ketoacidosis that resolved with adequate hydration and his electrolytes were corrected accordingly. He was not actually safe for oral intake as per the speech therapy, barium swallow also showed inability to take orally. And after discussion with the family feeding tube/PEG tube was inserted with the help of the surgery. After patient had PEG tube in placement he was started on tube feeds considering he was also having severe protein calorie malnourishment. He had acute kidney injury on presentation and resolved after adequate hydration which was likely prerenal. He also was found to have findings suggestive of pneumonia on chest x-ray which was most likely as aspiration versus community-acquired and he was started on ceftriaxone, with aspiration precautions. With respect to his history of temporomandibular joint dislocation he had chinstrap and was taken care of accordingly. His hospital course was uncomplicated. He was discharged on oral antibiotics with cefdinir and azithromycin for coverage of pneumonia. During his stay blood cultures were sent and were followed which were negative to date before discharge After confirming his stability and condition at baseline he was discharged accordingly. Physical Exam Narrative: General: Alert but not oriented, lying comfortably HEENT: Normocephalic, atraumatic, EOMI, breathing on room air Cardio: Normal rate rhythm, normal S1-S2, no murmurs rubs gallops, JVD normal Respiratory: Good bilateral air entry, no wheezes no rhonchi appreciated GI: Abdomen soft, nontender, nondistended, normoactive bowel sounds present all 4 quadrants, with PEG tube in place Neuro: Unable to assess due to patient advanced dementia Behavior: Appropriate Extremities: Pulses 2+, mild trace pedal edema Urinary Catheter Management: Tracy: Cath Placed During This Visit: yes, but has since been removed by the nurse Reason for Continuing Indwelling Catheter: Decision to DC Catheter Date Urinary Catheter Removed: 06/01/25 Time Urinary Catheter Discontinued: 15:09 Discharge Data Studies Completed and Pending Completed Studies During Hospitalization Category Date Time Status CT head wo con* [id number] Routine Cat Scan 05/29/25 11:05 Completed CXRP [XR chest 1V portable [id number]] Stat Exams 05/27/25 08:56 Completed FL barium swallow modifd [id number] Stat Exams 05/27/25 10:47 Completed Pending at discharge Category Date Time Status Blood Culture Stat Lab 05/27/25 09:48 Results CBC Auto Diff [Complete Blood Count w/Auto] AM LABS Lab 06/02/25 04:00 Ordered CMP [Comprehensive Metabolic Panel] AM LABS Lab 06/02/25 04:00 Ordered Radiology Impressions Chest X-Ray 05/27/25 08:56 Impression: 1. Patchy opacities over surface of both diaphragms which could represent atelectasis and/or minimal pneumonia. 2. Atherosclerosis. Modified Barium Swallow 05/27/25 10:47 Impression: The patient could not start or complete the examination. Head CT 05/29/25 11:05 IMPRESSION: 1. No evidence of intracranial hemorrhage or mass effect. 2. No acute intracranial findings. Laboratory Results WBC 7.58 10^3/uL (3.29-11.43) 06/01/25 03:05 RBC 4.89 10^6/uL (3.85-5.65) 06/01/25 03:05 Hgb 14.20 g/dL (11.27-16.99) 06/01/25 03:05 Hct 43.6 % (37-53) 06/01/25 03:05 MCV 89.2 fl (82-101) 06/01/25 03:05 MCH 29.0 pg (27-33) 06/01/25 03:05 MCHC 32.6 g/dL (30-55) 06/01/25 03:05 RDW 14.6 % (12.1-15.1) 06/01/25 03:05 Plt Count 146 10^3/cmm (157-399) L 06/01/25 03:05 MPV 12.5 fL (7.4-10.4) H 06/01/25 03:05 Neut % (Auto) 80.3 % 06/01/25 03:05 Lymph % (Auto) 10.7 % 06/01/25 03:05 [place] % (Auto) 6.2 % 06/01/25 03:05 Eos % (Auto) 2.1 % 06/01/25 03:05 Baso % (Auto) 0.3 % 06/01/25 03:05 Neut # (Auto) 6.09 10^3/uL (1.8-7.7) 06/01/25 03:05 Lymph # (Auto) 0.8 10^3/uL (0.8-4.8) 06/01/25 03:05 [place] # (Auto) 0.5 10^3/uL (0.2-0.9) 06/01/25 03:05 Eos # (Auto) 0.2 10^3/uL (0.0-0.8) 06/01/25 03:05 Baso # (Auto) 0.0 10^3/uL (0.0-0.1) 06/01/25 03:05 Nucleated RBC % (auto) 0 % 06/01/25 03:05 Nucleated RBCs # 0.0 /100WBC 06/01/25 03:05 Specimen Type Arterial 05/27/25 09:47 Sample Site Brachial, left 05/27/25 09:47 ABG pH 7.11 (7.35-7.45) L* 05/27/25 09:47 ABG pCO2 17.5 mmHg (35-45) L* 05/27/25 09:47 ABG pO2 99.7 mmHg (80.0-100.0) 05/27/25 09:47 ABG PO2/FiO2 Ratio 474 05/27/25 09:47 ABG HCO3 5.6 mmol/L (22-26) L 05/27/25 09:47 ABG Base Excess -21.8 mmol/L (-2.0-2.0) L 05/27/25 09:47 Myke Test Pos 05/27/25 09:47 Hematocrit 44.2 % (42-52) 05/27/25 09:47 O2 Delivery Device Room air 05/27/25 09:47 FiO2 21.0 % 05/27/25 09:47 Back Joiner ID [place] 05/27/25 09:47 Sodium 134 mmol/L (136-145) L 06/01/25 03:05 Potassium 3.7 mmol/L (3.5-5.1) 06/01/25 03:05 Chloride 100 mmol/L (98-107) 06/01/25 03:05 Carbon Dioxide 28 mmol/L (22-29) 06/01/25 03:05 Anion Gap 9.7 (5-19) 06/01/25 03:05 BUN 15 mg/dL (8-23) 06/01/25 03:05 Creatinine 0.6 mg/dL (0.7-1.2) L 06/01/25 03:05 GFR Calculation 133.2 mL/min (90-130) H 06/01/25 03:05 Glucose 345 mg/dL (65-115) H 06/01/25 03:05 POC Glucose 295 mg/dL (70-110) H 06/01/25 10:58 Calculated Osmolality 293 mOsm/kg (285-295) 06/01/25 03:05 Lactic Acid 4.1 mmol/L (0.5-2.2) H* 05/27/25 09:48 Lactic Acid (Sepsis) 3.0 mmol/L (0.5-2.2) H 05/27/25 12:18 Lactate 1.7 mmol/L (0.5-2.2) 06/01/25 13:26 Calcium 8.5 mg/dL (8.5-10.5) 06/01/25 03:05 Phosphorus 2.5 mg/dL (2.5-4.5) 05/28/25 06:51 Magnesium 2.1 mg/dL (1.7-2.3) 05/29/25 03:20 Total Bilirubin 0.6 mg/dL (0.15-1.2) 05/30/25 05:18 AST 15 U/L (0-40) 05/30/25 05:18 ALT 11 U/L (0-41) 05/30/25 05:18 Alkaline Phosphatase 98 U/L (40-130) 05/30/25 05:18 Total Protein 5.5 g/dL (6.6-8.7) L 05/30/25 05:18 Albumin 2.9 g/dL (3.5-5.2) L 05/30/25 05:18 Globulin 2.6 g/dL (1.3-4.6) 05/30/25 05:18 Urine Color Yellow (Yellow) 05/27/25 09:32 Urine Appearance Clear (CLEAR) 05/27/25 09:32 Urine pH 5.0 (5-7) 05/27/25 09:32 Ur Specific Warner 1.023 (1.005-1.030) 05/27/25 09:32 Urine Protein Trace (Negative) A 05/27/25 09:32 Urine Glucose (UA) 3+ (Normal) H 05/27/25 09:32 Urine Ketones 3+ (Negative) H 05/27/25 09:32 Urine Blood Negative (Negative) 05/27/25 09:32 Urine Nitrate Negative (Negative) 05/27/25 09:32 Urine Bilirubin Negative (Negative) 05/27/25 09:32 Urine Urobilinogen 1.0 mg/dL (Negative) 05/27/25 09:32 Ur Leukocyte Esterase Negative (Negative) 05/27/25 09:32 Urine RBC 0-2 /hpf (0-2) 05/27/25 09:32 Urine WBC 0-5 /hpf (0-5) 05/27/25 09:32 Ur Squamous Epith Cells 0-5 /hpf (0-5) 05/27/25 09:32 Amorphous Sediment Not Reportable 05/27/25 09:32 Urine Bacteria None seen /hpf (NONE) 05/27/25 09:32 Hyaline Casts 37.23 /lpf 05/27/25 09:32 Serum Ketones Positive (Negative) H 05/27/25 07:50 Vitals Last Vital Signs Temp 98.1 F 06/01/25 16:05 Pulse 91 06/01/25 16:05 Resp 18 06/01/25 16:05 BP 145/82 06/01/25 16:05 Pulse Ox 99 06/01/25 16:05 O2 Del Method Room Air 06/01/25 16:05 O2 Flow Rate 5 05/30/25 08:35 Discharge Plan Discharge Patient Disposition: Xfer SNF Condition: Stable Prescriptions: New azithromycin 250 mg Tablet 250 mg peg-tube DAILY 2 Days Qty: 2 0RF cefdinir 300 mg Capsule 300 mg peg-tube BID@0500,1700 5 Days Qty: 10 0RF Continued ramipril [Altace] 10 mg capsule 10 mg PO DAILY@08 famotidine 20 mg tablet 20 mg PO DAILY@08 ketoconazole 2 % shampoo See Rx Instructions .ROUTE .COMPLEX Rx Instructions: Apply to scalp topically every Sunday and Sunday. ketoconazole 2 % cream 1 applic TOPICAL Q12H insulin glargine [Lantus Solostar U-100 Insulin] 100 unit/mL (3 mL) insulin pen 16 unit SUBCUT BID acetaminophen [Tylenol] 325 mg Tablet 650 mg PO Q4H PRN (Reason: Pain) naloxone 2 mg/2 mL Syringe Kit 2 mg IM Q2M PRN (Reason: overdose) Rx Instructions: NTExceed 10 mg total dose/episode insulin aspart U-100 [Novolog FlexPen U-100 Insulin] 100 unit/mL (3 mL) insulin pen See Rx Instructions .ROUTE .COMPLEX Qty: 15 0RF Rx Instructions: Inject subcut, before meals, based on sliding scale provided 150-200=3 201-250=5 251-300=7 301-350=10 351-999=12 atorvastatin 20 mg tablet 20 mg PO QPM aspirin 325 mg Tablet 325 mg PO QAM nystatin 100,000 unit/gram ointment 1 applic TOPICAL Q8H PRN (Reason: redness) sennosides-docusate sodium [Senna Plus] 8.6-50 mg Tablet 1 tab-cap PO DAILY PRN (Reason: Constipation) bisacodyl 10 mg Suppository 10 mg WA DAILY PRN (Reason: Constipation) polyethylene glycol 3350 17 gram/dose Powder 17 g PO DAILY sertraline 50 mg tablet 100 mg PO BEDTIME finasteride 5 mg tablet 5 mg PO QPM memantine 10 mg tablet 10 mg PO BID potassium chloride 20 mEq Tablet Extended Release 40 meq PO DAILY amlodipine 5 mg tablet 5 mg PO DAILY@08 sennosides-docusate sodium 8.6-50 mg Tablet 1 tab PO BID magnesium hydroxide [Milk of Magnesia] 400 mg/5 mL Suspension 30 ml PO DAILY PRN (Reason: Constipation) dextrose-maltodextrin 10 gram/11.5 gram Powder In Packet 10 g PO PRN PRN (Reason: low bs) albuterol sulfate 90 mcg/actuation Aero Powdr Breath Act W/Sensor 2 inh INHALATION Q6H PRN (Reason: Wheezing) glucagon HCl 1 mg Recon Soln 1 mg SUBCUT Q24H PRN (Reason: prophylaxis) Rx Instructions: until target blood sugar attained Discharge Order = DC NOW: Discharge Order (Routine); Ordered 06/01/25 Ordered By: Sea Zurita Referrals: Lukas Low MD [Primary Care Provider, Internal Medicine] Discharge Diet: Advance as tolerated Discharge Activity: Limit activity as instructed Patient Instructions: Azithromycin (By mouth) (Zithromax, Zithromax Tri-Coleman, Zithromax..., Cefdinir (By mouth) (Omnicef), Acute Kidney Injury (DC), Diabetic Ketoacidosis (DC), Aspiration Pneumonia (DC), Opioid Safety, Pain Management, Patient Portal & [facility] Instructions Discharge Attestations Time Spent in Discharge Care*: less than 30 min Specific Discharge Activities: educating patient, educating and/or supporting family/caregiver, discussing with pcp/other providers, discussing with telephonic nurse case manager/social workers/dc planners, documenting/other paperwork and evaluating patient/reviewing data Status at Discharge: Cognitive status at discharge: moderately impaired cognition , Behavioral status at discharge: can be uncooperative , Functional status at discharge: other assisted ambulation , Overall status at discharge: patient is back to baseline Quality Metrics Clinical Quality Measures [ No reported AMI, CVA or VTE this stay] Coding Level of Care Code Acute Code for Chg Fwd Diagnoses Declining functional status R53.81 VENITA (acute kidney injury) N17.9 Pneumonia J18.9 DKA (diabetic ketoacidosis) E11.10
[2025-06-01] MEDS: insulin glargine 100 units/1 mL 16 UNIT SUBCUT (17:07)
[2025-06-01 18:07] VITALS: BP 145/82; PULSE 91; RESP 18; TEMP 36.7; O2SAT 99
== END 2025-06-01 17:30 | disposition skilled nursing facility (03) | DRG 637 ==
LOC: ER 09:47 → ER IP 14:22 → ICU 15:24 → MEDSURG 05-30 00:29
PROVIDERS: Internal Medicine; Surgery; Admitting Provider Internal Medicine; Emergency Provider Emergency Medicine; PCP Internal Medicine; Visit Provider Student in an Organized Health Care Education/Training Program
PROC: 0DH63UZ Insertion of Feeding Device into Stomach, Percutaneous Approach (ICD-10-PCS; CPT 43246; principal; 2025-05-30 08:00)
DX: E10.10 Type 1 diabetes mellitus with ketoacidosis without coma (principal); E43 Unspecified severe protein-calorie malnutrition; J18.9 Pneumonia, unspecified organism; J69.0 Pneumonitis due to inhalation of food and vomit; N17.9 Acute kidney failure, unspecified; G93.40 Encephalopathy, unspecified; F03.90 Unspecified dementia, unspecified severity, without behavioral disturbance, psychotic disturbance, mood disturbance, and anxiety; E87.5 Hyperkalemia; E86.0 Dehydration; M26.609 Unspecified temporomandibular joint disorder, unspecified side; Z68.21 Body mass index [BMI] 21.0-21.9, adult; N40.0 Benign prostatic hyperplasia without lower urinary tract symptoms; I69.998 Other sequelae following unspecified cerebrovascular disease; I10 Essential (primary) hypertension; E78.2 Mixed hyperlipidemia; F41.9 Anxiety disorder, unspecified; L89.899 Pressure ulcer of other site, unspecified stage; Z79.4 Long term (current) use of insulin; Z79.82 Long term (current) use of aspirin
CPT/HCPCS: 36415; 36416; 36600; 43246; 70450; 71045; 74230; 80048; 80053; 81001; 82009; 82803; 82962; 83605; 83735; 84100; 85025; 87040; 92507; 92610; 96365; 96372; 96375; 96376; 99285; J0456; J0696; J1650; J1815; J2704; J3475; J3480; J7030; J7040; J7050; J7120; J7799; J9999; Q0144